=== PATIENT | female | born 1955 | race Hispanic/Latino ===

== ENCOUNTER 2017-10-19 13:06 | Emergency (ER) | payer BC ==
[2017-10-19 13:30] VITALS: TEMP 98.1; BMI 23.3
--- NOTE | 2017-10-19 13:33 | ED PDOC ---
Arrival/HPI - General Time Seen by Provider: 10/19/17 13:17 Historian: Patient - History of Present Illness Narrative History of Present Illness (Text): 10/19/17 13:30 61 year old female, whose medical history includes COPD, GERD, bronchitis, and diverticulosis, with no history of kidney stones, presents to the Emergency department complaining of lower back pain with associated urinary frequency and dysuria that began today. Patient also complains of abdominal bloating, nausea, and diarrhea since yesterday. Patient denies any fever, chills, chest pain, shortness of breath, vomiting, neck pain, headache, dizziness, or any other complaints. Time/Duration: < week (2 days) Symptom Onset: Gradual Symptom Course: Unchanged Context: Home Past Medical History - Provider Review Nursing Documentation Reviewed: Yes - Tetanus Immunization Tetanus Immunization: Unknown - Cardiac Hx Hypertension: Yes Hx Mitral Valve Prolapse: Yes - Pulmonary Hx Asthma: Yes Hx Chronic Obstructive Pulmonary Disease (COPD): Yes - Neurological Hx Neurological Disorder: No - HEENT Hx HEENT Disorder: No - Renal Hx Renal Disorder: No - Endocrine/Metabolic Hx Endocrine Disorders: No - Hematological/Oncological Hx Blood Disorders: No - Integumentary Hx Dermatological Disorder: No - Musculoskeletal/Rheumatological Hx Falls: No - Gastrointestinal Hx Gastrointestinal Disorders: No - Genitourinary/Gynecological Hx Genitourinary Disorders: No - Psychiatric Hx Substance Use: No - Past Surgical History Past Surgical History: Non-Contributing - Anesthesia Hx Anesthesia: No - Suicidal Assessment Feels Threatened In Home Enviroment: No Family/Social History - Physician Review Nursing Documentation Reviewed: Yes Family/Social History: Unknown Family HX Smoking Status: Heavy Smoker > 10 Cigarettes Daily Hx Alcohol Use: No Hx Substance Use: No Hx Substance Use Treatment: Yes Allergies/Home Meds Allergies/Adverse Reactions: Allergies No Known Allergies Allergy (Verified 10/19/17 15:22) Home Medications: Home Meds Medication Instructions Recorded Confirmed Tiotropium [Spiriva] 18 mcg IH DAILY 03/02/13 10/19/17 Albuterol/Ipratropium [Duoneb 3 1 inh INH Q4 PRN 07/22/14 10/19/17 mg/0.5 mg (3 ml) UD] Esomeprazole Magnesium [Nexium] 20 mg PO DAILY 07/22/14 10/19/17 Montelukast [Singulair] 10 mg PO DAILY 07/22/14 10/19/17 Review of Systems - Physician Review All systems were reviewed & negative as marked: Yes - Review of Systems Constitutional: absent: Fevers, Night Sweats Respiratory: absent: SOB Cardiovascular: absent: Chest Pain Gastrointestinal: Diarrhea, Nausea. absent: Vomiting Genitourinary Female: Dysuria, Frequency Musculoskeletal: Back Pain. absent: Neck Pain Neurological: absent: Headache, Dizziness Physical Exam Vital Signs Reviewed: Yes Vital Signs Temp Pulse Resp BP Pulse Ox 10/19/17 13:29 98.1 F 86 19 138/71 100 Temperature: Afebrile Blood Pressure: Normal Pulse: Regular Respiratory Rate: Normal Appearance: Positive for: Well-Appearing, Non-Toxic, Comfortable Pain Distress: None Mental Status: Positive for: Alert and Oriented X 3 - Systems Exam Head: Present: Atraumatic, Normocephalic Pupils: Present: PERRL Extroacular Muscles: Present: EOMI Conjunctiva: Present: Normal Mouth: Present: Moist Mucous Membranes Neck: Present: Normal Range of Motion Respiratory/Chest: Present: Clear to Auscultation, Good Air Exchange. No: Respiratory Distress, Accessory Muscle Use Cardiovascular: Present: Regular Rate and Rhythm, Normal S1, S2. No: Murmurs Abdomen: Present: Tenderness (left sided abdominal tenderness) Back: Present: Normal Inspection Upper Extremity: Present: Normal Inspection. No: Cyanosis, Edema Lower Extremity: Present: Normal Inspection. No: Edema Neurological: Present: GCS=15, CN II-XII Intact, Speech Normal Skin: Present: Warm, Dry, Normal Color. No: Rashes Psychiatric: Present: Alert, Oriented x 3, Normal Insight, Normal Concentration Medical Decision Making ED Course and Treatment: 10/19/17 13:34 Impression: 61 year old female presents to the Emergency department complaining of lower back pain, urinary frequency, dysuria, abdominal bloating, and diarrhea. Differential Diagnosis included but are not limited to: urinary tract infection vs. diverticulitis Plan: -- Blood culture, urine culture -- Urinalysis -- VBG -- Labs -- Reassess and disposition Prior Visits: Notes and results from previous visits were reviewed. Progress Notes: 10/19/17 17:39 Discussed case in detail with Dr. Garfield Lopez, including how the patient requested Dilaudid by name. Dr. Lopez recommends giving the patient Tramadol and discharging her home. - Lab Interpretations Lab Results: 10/19/17 14:11 10/19/17 14:11 Lab Results 10/19/17 15:25: Urine Color Colorless, Urine Appearance Clear, Urine pH 6.5, Ur Specific [place] <= 1.005, Urine Protein Negative, Urine Glucose (UA) Negative, Urine Ketones Negative, Urine Blood Negative, Urine Nitrate Negative, Urine Bilirubin Negative, Urine Urobilinogen 0.2, Ur Leukocyte Esterase Negative 10/19/17 14:11: Sodium 141, Chloride 103, Potassium 4.2, Carbon Dioxide 26, Anion Gap 16, BUN 12, Creatinine 0.5 L, Est GFR ( Amer) > 60, Est GFR ( Non-Af Amer) > 60, Random Glucose 111 H, Calcium 9.4, Total Bilirubin 0.4, AST 18, ALT 32, Alkaline Phosphatase 80, Total Protein 7.4, Albumin 4.6, Globulin 2.8, Albumin/Globulin Ratio 1.6, Lipase 57 10/19/17 14:11: PT 11.6, INR 1.01 10/19/17 14:11: WBC 7.1, RBC 4.77, Hgb 15.1, Hct 44.1, MCV 92.5, MCH 31.7, MCHC 34.2, RDW 12.6, Plt Count 259, MPV 9.9, Gran % 52.4, Lymph % (Auto) 38.8 H, [place] % (Auto) 7.9 H, Eos % (Auto) 0.6 L, Baso % (Auto) 0.3, Gran # 3.72, Lymph # (Auto) 2.8, [place] # (Auto) 0.6, Eos # (Auto) 0.0, Baso # (Auto) 0.02 10/19/17 14:10: pO2 40, VBG pH 7.36, VBG pCO2 48.0, VBG HCO3 27.1, VBG Total CO2 28.6 H, VBG O2 Sat (Calc) 81.9 H, VBG Base Excess 1.0, VBG Potassium 4.0, Sodium 138.0, Chloride 103.0, Glucose 115 H, Lactate 0.9, FiO2 21.0, Venous Blood Potassium 4.0 - RAD Interpretation Narrative RAD Interpretations (Text): 10/19/2017 16:57:46 CT Abdomen and Pelvis with contrast FINDINGS: LOWER THORAX: Emphysematous changes are seen at the lung bases with multiple small bulla LIVER: Unremarkable. No gross lesion or ductal dilatation. GALLBLADDER AND BILE DUCTS: Unremarkable. PANCREAS: Unremarkable. No gross lesion or ductal dilatation. SPLEEN: Unremarkable. ADRENALS: Unremarkable. No mass. KIDNEYS AND URETERS: Unremarkable. No hydronephrosis. No solid mass. VASCULATURE: Unremarkable. No aortic aneurysm. BOWEL: Unremarkable. No obstruction. No gross mural thickening. APPENDIX: Normal appendix. PERITONEUM: Unremarkable. No free fluid. No free air. LYMPH NODES: Unremarkable. No enlarged lymph nodes. BLADDER: Unremarkable. REPRODUCTIVE: Unremarkable. BONES: No acute fracture. OTHER FINDINGS: None. IMPRESSION: No acute intra-abdominal findings. No evidence of diverticulitis. Radiology Orders: 10/19/17 13:46 ABD PELVIS PO & IV CONTRAST [CT] Stat - Medication Orders Current Medication Orders: Discontinued Medications Diphenhydramine HCl (Benadryl) 50 mg IVP STAT STA Stop: 10/19/17 14:28 Last Admin: 10/19/17 15:23 Dose: Not Given Non-Admin Reason: Patient Refused IVP Administration Document 10/19/17 15:23 GMD (Rec: 10/19/17 15:23 D [id number]) Charges for Administration # of IVP Administrations 1 Sodium Chloride (Sodium Chloride 0.9%) 1,000 mls @ 999 mls/hr IV .Q1H1M STA Stop: 10/19/17 14:46 Last Admin: 10/19/17 14:05 Dose: 999 mls/hr eMAR Start Stop Document 10/19/17 14:05 GMD (Rec: 10/19/17 14:05 D [id number]) Intravenous Solution Start Date 10/19/17 Start Time 14:05 End Date 10/19/17 End time 15:06 Total Infusion Time 61 Ketorolac Tromethamine (Toradol) 30 mg IVP STAT STA Stop: 10/19/17 14:28 Last Admin: 10/19/17 14:54 Dose: 30 mg MAR Pain Assessment Document 10/19/17 14:54 GMD (Rec: 10/19/17 14:54 GMD [id number]) Pain Reassessment Is this a pain reassessment? No IVP Administration Document 10/19/17 14:54 GMD (Rec: 10/19/17 14:54 GMD [id number]) Charges for Administration # of IVP Administrations 1 Morphine Sulfate (Morphine) 4 mg IVP STAT STA Stop: 10/19/17 14:28 Last Admin: 10/19/17 14:54 Dose: 4 mg MAR Pain Assessment Document 10/19/17 14:54 GMD (Rec: 10/19/17 14:55 GMD [id number]) Pain Reassessment Is this a pain reassessment? No IVP Administration Document 10/19/17 14:54 GMD (Rec: 10/19/17 14:55 GMD [id number]) Charges for Administration # of IVP Administrations 1 - Scribe Statement The provider has reviewed the documentation as recorded by the Scribe Josesito Vallejo All medical record entries made by the Scribe were at my direction and personally dictated by me. I have reviewed the chart and agree that the record accurately reflects my personal performance of the history, physical exam, medical decision making, and the department course for this patient. I have also personally directed, reviewed, and agree with the discharge instructions and disposition. Disposition/Present on Arrival - Present on Arrival Any Indicators Present on Arrival: No History of DVT/PE: No History of Uncontrolled Diabetes: No Urinary Catheter: No History of Decub. Ulcer: No History Surgical Site Infection Following: None - Disposition Have Diagnosis and Disposition been Completed?: Yes Diagnosis: Back pain Disposition: HOME/ ROUTINE Disposition Time: 17:49 Patient Plan: Discharge Condition: GOOD Additional Instructions: Rest-, Tramadol for pain Follow up with Dr. Lopez..... call tomorrow. Best- Dr. Josue San Prescriptions: Tramadol HCl/Acetaminophen [Tramadol-Acetaminophn 37.5-325] 2 each PO QID #40 tablet Referrals: [facility] Corrina Herron, [Non-Staff] - Follow up with primary
[2017-10-19] MEDS ORDERED: Sodium Chloride 0.9% 1,000 ML IV STA (13:46)
[2017-10-19] MEDS ORDERED: Iohexol 240 (50 ml) ONE (13:51)
[2017-10-19 14:12] LABS: BASO # 0.02 K/mm3 (0.0-2.0); BASO % 0.3 % (0.0-3.0); EOS % 0.6 % (1.5-5.0); GRAN # 3.72 (1.4-6.5); GRAN % 52.4 % (50.0-68.0); HEMOGLOBIN 15.1 g/dL (12.0-16.0); LYMPH # 2.8 (1.2-3.4); LYMPH % 38.8 % (22.0-35.0); MEAN CELL VOLUME 92.5 fl (80.0-105.0); MEAN CORPUSCULAR HEMOGLOBIN 31.7 pg (25.0-35.0); MEAN CORPUSCULAR HGB CONC 34.2 g/dl (31.0-37.0); MEAN PLATELET VOLUME 9.9 fl (7.0-11.0); MONO # 0.6 (0.1-0.6); MONO % 7.9 % (1.0-6.0); RBC 4.77 10^6/uL (3.5-6.1); RED CELL DISTRIBUTION WIDTH 12.6 % (11.5-14.5); WHITE BLOOD COUNT 7.1 10^3/ul (4.5-11.0)
[2017-10-19 14:14] LABS: VENOUS BLOOD GAS PO2 40 mm/Hg (30-55); VENOUS BLOOD PH 7.36 (7.32-7.43)
[2017-10-19 14:21] LABS: INR 1.01 (0.93-1.08); PROTHROMBIN TIME 11.6 SECONDS (9.4-12.5)
[2017-10-19] MEDS ORDERED: Morphine 4 mg/ml ISec IVP STA (14:27)
[2017-10-19 14:43] LABS: BLOOD UREA NITROGEN 12 mg/dL (7-21); GFR AFRICAN-AMERICAN > 60; GFR NON-AFRICAN AMERICAN > 60
[2017-10-19 14:44] LABS: ALB/GLOB RATIO 1.6 (1.1-1.8); ALBUMIN 4.6 g/dL (3.0-4.8); CALCIUM 9.4 mg/dL (8.4-10.5)
[2017-10-19 14:45] LABS: ALT/SGPT 32 U/L (7-56); AST/SGOT 18 U/L (14-36); LIPASE 57 U/L (23-300)
[2017-10-19] MEDS: DiphenhydrAMINE 50 mg/ml Inj IVP STA ×2 (14:54→15:23)
[2017-10-19 15:34] LABS: PH,URINE 6.5 (4.7-8.0); URINE APPEARANCE CLEAR (CLEAR); URINE BILIRUBIN NEGATIVE (NEGATIVE); URINE BLOOD NEGATIVE (NEGATIVE); URINE COLOR COLORLESS (YELLOW); URINE GLUCOSE (UA) NEGATIVE (NEGATIVE); URINE LEUKOCYTE ESTERASE NEGATIVE Leu/uL (NEGATIVE); URINE PROTEIN NEGATIVE mg/dL (<30 mg/dL); URINE UROBILINOGEN 0.2 E.U./dL (<1 E.U./dL)
[2017-10-19] MEDS ORDERED: Iohexol 350 MG/100 ML VIAL ONE (16:11)
--- NOTE | 2017-10-19 16:59 | CT ---
PROCEDURE: CT Abdomen and Pelvis with contrast HISTORY: ? Diverticulitis ? COMPARISON: None. TECHNIQUE: Contrast dose: 100 cc of Omni 350 Radiation dose: Total exam DLP = 278 mGy-cm. This CT exam was performed using one or more of the following dose reduction techniques: Automated exposure control, adjustment of the mA and/or kV according to patient size, and/or use of iterative reconstruction technique. FINDINGS: LOWER THORAX: Emphysematous changes are seen at the lung bases with multiple small bulla LIVER: Unremarkable. No gross lesion or ductal dilatation. GALLBLADDER AND BILE DUCTS: Unremarkable. PANCREAS: Unremarkable. No gross lesion or ductal dilatation. SPLEEN: Unremarkable. ADRENALS: Unremarkable. No mass. KIDNEYS AND URETERS: Unremarkable. No hydronephrosis. No solid mass. VASCULATURE: Unremarkable. No aortic aneurysm. BOWEL: Unremarkable. No obstruction. No gross mural thickening. APPENDIX: Normal appendix. PERITONEUM: Unremarkable. No free fluid. No free air. LYMPH NODES: Unremarkable. No enlarged lymph nodes. BLADDER: Unremarkable. REPRODUCTIVE: Unremarkable. BONES: No acute fracture. OTHER FINDINGS: None. IMPRESSION: No acute intra-abdominal findings. No evidence of diverticulitis.
[2017-10-19 18:01] VITALS: BP 100/82; PULSE 74; RESP 18; O2SAT 96
== END 2017-10-19 18:02 | disposition home or self-care (01) ==
LOC: ED 13:06
DX: M54.5 Low back pain (principal); I10 Essential (primary) hypertension; F17.210 Nicotine dependence, cigarettes, uncomplicated
CPT/HCPCS: 74177; 80053; 81003; 82803; 83690; 85025; 85610; 87040; 87086; 96361; 96374; 96375; 99284; J1885; J2270; J7030; Q9966; Q9967

== ENCOUNTER 2017-11-08 15:34 | Inpatient (IN) | payer BC ==
[2017-11-08 15:34] VITALS: BMI 23.3
[2017-11-08 16:10] LABS: PH,URINE 6.5 (4.7-8.0); URINE BILIRUBIN NEGATIVE (NEGATIVE); URINE BLOOD TRACE-INTACT (NEGATIVE); URINE GLUCOSE (UA) NEGATIVE (NEGATIVE); URINE LEUKOCYTE ESTERASE NEGATIVE Leu/uL (NEGATIVE); URINE PROTEIN NEGATIVE mg/dL (<30 mg/dL); URINE UROBILINOGEN 0.2 E.U./dL (<1 E.U./dL)
[2017-11-08 16:11] LABS: BASO # 0.01 K/mm3 (0.0-2.0); BASO % 0.1 % (0.0-3.0); EOS % 0.2 % (1.5-5.0); GRAN # 5.97 (1.4-6.5); LYMPH # 2.9 (1.2-3.4); LYMPH % 30.4 % (22.0-35.0); MEAN CELL VOLUME 92.6 fl (80.0-105.0); MEAN CORPUSCULAR HEMOGLOBIN 32.1 pg (25.0-35.0); MEAN CORPUSCULAR HGB CONC 34.6 g/dl (31.0-37.0); MEAN PLATELET VOLUME 10.3 fl (7.0-11.0); MONO # 0.7 (0.1-0.6); MONO % 7.3 % (1.0-6.0); RBC 5.3 10^6/uL (3.5-6.1); RED CELL DISTRIBUTION WIDTH 12.6 % (11.5-14.5); URINE APPEARANCE CLEAR (CLEAR); URINE COLOR STRAW (YELLOW); WHITE BLOOD COUNT 9.6 10^3/ul (4.5-11.0)
[2017-11-08 16:17] LABS: INR 0.98 (0.93-1.08); PARTIAL THROMBOPLASTIN TIME 28.7 Seconds (25.1-36.5); PROTHROMBIN TIME 11.2 SECONDS (9.4-12.5)
[2017-11-08] MEDS ORDERED: Sodium Chloride 0.9% 1,000 ML IV STA (16:17)
[2017-11-08 16:21] LABS: ALB/GLOB RATIO 1.7 (1.1-1.8); ALT/SGPT 20 U/L (7-56); AST/SGOT 25 U/L (14-36); BLOOD UREA NITROGEN 12 mg/dL (7-21); CALCIUM 10.1 mg/dL (8.4-10.5); GFR AFRICAN-AMERICAN > 60; GFR NON-AFRICAN AMERICAN > 60
[2017-11-08 16:32] LABS: B-TYPE NATRIURETIC PEPTIDE 101 pg/mL (0-450); TROPONIN I < 0.01 ng/mL
[2017-11-08 16:38] LABS: URINE BACTERIA FEW (NEG); URINE RBC NEGATIVE /hpf (0-2)
[2017-11-08 16:51] LABS: T3 1.21 ng/mL (0.97-1.69)
--- NOTE | 2017-11-08 16:51 | ED PDOC ---
Arrival/HPI <Yordan Zarate - Last Filed: 11/08/17 18:36> <oPnce Bruner DO - Last Filed: 11/08/17 21:37> - General Chief Complaint: Palpitations Time Seen by Provider: 11/08/17 15:36 - History of Present Illness Narrative History of Present Illness (Text): 61 year old Female presents with heart palpitations, lightheadedness, weakness, SOB, and belching that started earlier today. Patient reports watching TV when she started to feel heart palpitations that would not reside and then developed shortness of breath when she started to panic. She reports having these symptoms 10 years earlier when she was diagnosed with anxiety. 11/08/17 16:48 (Yordan Zarate) Past Medical History - Provider Review Nursing Documentation Reviewed: Yes - Infectious Disease Hx of Infectious Diseases: None - Tetanus Immunization Tetanus Immunization: Unknown - Cardiac Hx Hypertension: Yes Hx Mitral Valve Prolapse: Yes - Pulmonary Hx Asthma: Yes Hx Chronic Obstructive Pulmonary Disease (COPD): Yes - Neurological Hx Neurological Disorder: No - HEENT Hx HEENT Disorder: No - Renal Hx Renal Disorder: No - Endocrine/Metabolic Hx Endocrine Disorders: No - Hematological/Oncological Hx Blood Disorders: No - Integumentary Hx Dermatological Disorder: No - Musculoskeletal/Rheumatological Hx Falls: No Hx Osteoporosis: Yes - Gastrointestinal Hx Gastroesophageal Reflux: Yes - Genitourinary/Gynecological Hx Genitourinary Disorders: No - Psychiatric Hx Depression: No Hx Emotional Abuse: No Hx Physical Abuse: No Hx Substance Use: No - Past Surgical History Past Surgical History: Non-Contributing - Surgical History Hx Orthopedic Surgery: Yes Hx Vascular Surgery: Yes Other/Comment: Right hip replacement, right femur - Anesthesia Hx Anesthesia: No - Suicidal Assessment Feels Threatened In Home Enviroment: No <Yordan Zarate - Last Filed: 11/08/17 18:36> Family/Social History - Physician Review Nursing Documentation Reviewed: Yes Family/Social History: Unknown Family HX Smoking Status: Heavy Smoker > 10 Cigarettes Daily Hx Alcohol Use: No Hx Substance Use: No Hx Substance Use Treatment: Yes <Yordan Zarate - Last Filed: 11/08/17 18:36> Allergies/Home Meds <Yordan Zarate - Last Filed: 11/08/17 18:36> <Ponce Bruner DO - Last Filed: 11/08/17 21:37> Allergies/Adverse Reactions: Allergies No Known Allergies Allergy (Verified 10/19/17 15:22) Home Medications: Home Meds Medication Instructions Recorded Confirmed Tiotropium [Spiriva] 18 mcg IH DAILY 03/02/13 11/08/17 Albuterol/Ipratropium [Duoneb 3 1 inh INH Q4 PRN 07/22/14 11/08/17 mg/0.5 mg (3 ml) UD] Montelukast [Singulair] 10 mg PO DAILY 07/22/14 11/08/17 Dexlansoprazole [Dexilant] 60 mg PO DAILY 11/08/17 11/08/17 Review of Systems - Physician Review All systems were reviewed & negative as marked: Yes - Review of Systems Constitutional: Fatigue Eyes: Normal Respiratory: SOB Cardiovascular: Palpitations. absent: Chest Pain Gastrointestinal: Other (belching) Musculoskeletal: Normal Skin: Normal Neurological: Dizziness <Yordan Zarate - Last Filed: 11/08/17 18:36> Physical Exam Temperature: Afebrile Blood Pressure: Normal Pulse: Tachycardic Respiratory Rate: Normal Appearance: Positive for: Well-Appearing Mental Status: Positive for: Alert and Oriented X 3 - Systems Exam Head: Present: Atraumatic, Normocephalic Pupils: Present: PERRL Extroacular Muscles: Present: EOMI Conjunctiva: Present: Normal Nose (External): Present: Atraumatic Nose (Internal): Present: Normal Inspection Neck: Present: Normal Range of Motion Respiratory/Chest: Present: Rales (bilateral lower quadrants) Cardiovascular: Present: Irregular Rhythm, Other (irregular rate) Upper Extremity: Present: Normal Inspection, Normal ROM, NORMAL PULSES Lower Extremity: Present: Normal Inspection, NORMAL PULSES, Normal ROM Neurological: Present: GCS=15, CN II-XII Intact, Speech Normal, Motor Func Grossly Intact Skin: Present: Warm, Normal Color Psychiatric: Present: Alert, Oriented x 3, Normal Insight, Normal Concentration <Yordan Zarate - Last Filed: 11/08/17 18:36> <Ponce Bruner DO - Last Filed: 11/08/17 21:37> Vital Signs Temp Pulse Resp BP Pulse Ox 11/08/17 19:59 102 H 18 96 11/08/17 19:10 133 H 18 117/75 95 11/08/17 17:12 140 H 18 136/64 97 11/08/17 16:24 135 H 126/63 11/08/17 15:58 98.2 F 11/08/17 15:51 152 H 128/58 L 11/08/17 15:50 144 H 18 128/58 L 100 Medical Decision Making <Yordan Zarate - Last Filed: 11/08/17 18:36> <Ponce Bruner DO - Last Filed: 11/08/17 21:37> ED Course and Treatment: Impression: 61 year old Female presents with heart palpitations, shortness of breath, lightheadedness, weak, and shaky. Assessment: New onset atrial fibrillation Plan: 2 20 mg cardizem bolus in the ED. Her heart rate was lowered with the cardizem but once the cardizem wore off, her heart rate increased again to the 140s. She will be started on a cardizem drip to try to break the atrial fibrillation. IV NS 0.9% 1L over 1 hour. Ketorolac 30 mg CBC CMP Magnesium BNP Troponin PT/INR PTT T3 TSH EKG: Atrial fibrillation with RVR HR: 143 QRS duration: 76 QT/QTc: 292/450 CXR: no active disease Patient continue to have heart rate in 140s. Case discussed with Dr. Lopez, and patient admitted to ICU on Cardizem drip. Will also give patient lovenox 1 mg per kg Q12. 11/08/17 18:34 11/08/17 18:35 (Yordan Zarate) 11/08/17 17:08 Patient has been given 2 doses Cardizem IV push. Patient continues to have heart rate in 140s. Case discussed with Dr. Lopez, states to have patient admitted to ICU on Cardizem drip. Spoke to Dr. Brayan Jay, who recommends to give patient Lovonox 1 mg per kg Q12 hours. 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 (Ponce Bruner DO) - Lab Interpretations Lab Results: 11/08/17 15:50 11/08/17 15:50 Lab Results 11/08/17 15:50: PT 11.2, INR 0.98, APTT 28.7 11/08/17 15:50: Total T3 1.21, TSH 3rd Generation 1.25 11/08/17 15:50: Sodium 145, Potassium 4.1, Chloride 105, Carbon Dioxide 25, Anion Gap 19, BUN 12, Creatinine 0.5 L, Est GFR ( Amer) > 60, Est GFR ( Non-Af Amer) > 60, Random Glucose 104, Calcium 10.1, Magnesium 2.0, Total Bilirubin 0.7, AST 25, ALT 20, Alkaline Phosphatase 88, Lactate Dehydrogenase 442, Total Creatine Kinase 72, Troponin I < 0.01, NT-Pro-B Natriuret Pep 101, Total Protein 8.0, Albumin 5.0 H, Globulin 3.0, Albumin/Globulin Ratio 1.7 11/08/17 15:50: Urine Color Straw, Urine Appearance Clear, Urine pH 6.5, Ur Specific [place] <= 1.005, Urine Protein Negative, Urine Glucose (UA) Negative, Urine Ketones Negative, Urine Blood Trace-intact H, Urine Nitrate Negative, Urine Bilirubin Negative, Urine Urobilinogen 0.2, Ur Leukocyte Esterase Negative , Urine RBC Negative, Urine WBC 1 - 3, Ur Epithelial Cells 1 - 3, Urine Bacteria Few 11/08/17 15:50: WBC 9.6 D, RBC 5.30, Hgb 17.0 H, Hct 49.1 H, MCV 92.6, MCH 32.1 , MCHC 34.6, RDW 12.6, Plt Count 295, MPV 10.3, Gran % 62.0, Lymph % (Auto) 30.4 , [place] % (Auto) 7.3 H, Eos % (Auto) 0.2 L, Baso % (Auto) 0.1, Gran # 5.97, Lymph # (Auto) 2.9, [place] # (Auto) 0.7 H, Eos # (Auto) 0.0, Baso # (Auto) 0.01 - RAD Interpretation Radiology Orders: 11/08/17 15:45 CHEST PORTABLE [RAD] Stat - Medication Orders Current Medication Orders: Alprazolam (Xanax) 0.25 mg PO TID PRN; Protocol PRN Reason: Anxiety diltiaZEM IVPB 100mg in NS (Cardizem 100mg In Ns) 100 mls @ 5 mls/hr IV .Q20H PRN; Protocol; 5 MG/HR PRN Reason: TITRATE PER MD ORDER Last Admin: 11/08/17 17:30 Dose: 10 mls/hr eMAR Start Stop Document 11/08/17 17:30 [facility] (Rec: 11/08/17 17:30 [facility] [id number]) Intravenous Solution Start Date 11/08/17 Start Time 17:30 Sodium Chloride (Sodium Chloride 0.9%) 1,000 mls @ 100 mls/hr IV .Q10H ANTIONETTE Last Admin: 11/08/17 19:08 Dose: 100 mls/hr eMAR Start Stop Document 11/08/17 19:08 [facility] (Rec: 11/08/17 19:08 [facility] [id number]) Intravenous Solution Start Date 11/08/17 Start Time 19:08 Levalbuterol HCl (Xopenex) 0.63 mg IH Q6 PRN PRN Reason: Shortness of Breath Levalbuterol HCl (Xopenex) 0.63 mg IH [id number] PRN PRN Reason: Shortness of Breath Montelukast Sodium (Singulair) 10 mg PO DAILY ANTIONETTE Pantoprazole Sodium (Protonix Ec Tab) 40 mg PO ACB ANTIONETTE Tiotropium [place] (Spiriva) 18 mcg IH DAILY ANTIONETTE Discontinued Medications Alprazolam (Xanax) 0.25 mg PO STAT STA PRN Reason: Protocol Stop: 11/08/17 17:22 Last Admin: 11/08/17 17:44 Dose: 0.25 mg Re-Assess: Reassess Psych Meds Document 11/08/17 18:44 QES (Rec: 11/08/17 20:23 QES [id number]) Reassess Psych Med Effective Diltiazem HCl (Cardizem) 20 mg IVP STAT STA Stop: 11/08/17 15:49 Last Admin: 11/08/17 15:51 Dose: 20 mg IVP Administration Document 11/08/17 15:51 [facility] (Rec: 11/08/17 15:51 [facility] [id number]) Charges for Administration # of IVP Administrations 1 MAR Pulse and Blood Pressure Document 11/08/17 15:51 [facility] (Rec: 11/08/17 15:51 [facility] [id number]) Pulse Pulse Rate (60-90) 152 Blood Pressure Blood Pressure (100/60-150/90) 128/58 Diltiazem HCl (Cardizem) 20 mg IVP STAT STA Stop: 11/08/17 16:18 Last Admin: 11/08/17 16:24 Dose: 20 mg IVP Administration Document 11/08/17 16:24 LM (Rec: 11/08/17 16:25 [facility] [id number]) Charges for Administration # of IVP Administrations 1 MAR Pulse and Blood Pressure Document 11/08/17 16:24 [facility] (Rec: 11/08/17 16:25 [facility] [id number]) Pulse Pulse Rate (60-90) 135 Blood Pressure Blood Pressure (100/60-150/90) 126/63 Enoxaparin Sodium (Lovenox) 60 mg SC STAT STA PRN Reason: Protocol Stop: 11/08/17 17:06 Last Admin: 11/08/17 17:29 Dose: 60 mg Subcutaneous Administrations Document 11/08/17 17:29 [facility] (Rec: 11/08/17 17:29 [facility] [id number]) Injection Site MAR Injection Site Right Abdomen Charges for Administration # of Subcutaneous Administrations 1 Sodium Chloride (Sodium Chloride 0.9%) 1,000 mls @ 999 mls/hr IV .Q1H1M STA Stop: 11/08/17 17:17 Last Admin: 11/08/17 16:22 Dose: 999 mls/hr eMAR Start Stop Document 11/08/17 16:22 [facility] (Rec: 11/08/17 16:22 [facility] [id number]) Intravenous Solution Start Date 11/08/17 Start Time 16:22 End Date 11/08/17 End time 17:23 Total Infusion Time 61 Disposition/Present on Arrival - Present on Arrival Any Indicators Present on Arrival: No History of DVT/PE: No History of Uncontrolled Diabetes: No Urinary Catheter: No History of Decub. Ulcer: No History Surgical Site Infection Following: None - Disposition Have Diagnosis and Disposition been Completed?: Yes Disposition Time: 18:36 Patient Plan: Admission <Yordan Zarate - Last Filed: 11/08/17 18:36> - Disposition Disposition Time: 16:40 <Ponce Bruner DO - Last Filed: 11/08/17 21:37> - Disposition Diagnosis: Atrial fibrillation, Rapid atrial fibrillation, New onset atrial fibrillation Disposition: HOSPITALIZED Patient Problems: Current Active Problems Problem Status Onset Atrial fibrillation Acute Condition: GUARDED ED Critical Care Documentation - Critical Care Total Time (mins): 60 Documented critical care: time excludes all time spent performing seperately billable procedures. <Ponce Bruner DO - Last Filed: 11/08/17 21:37>
[2017-11-08] MEDS ORDERED: Enoxaparin 60 mg Syringe SC STA (17:05)
[2017-11-08] MEDS: diltiaZEM IVPB 100mg in NS 100 ML IV PRN ×2 (17:07→17:30)
--- NOTE | 2017-11-08 17:28 | RAD ---
Date of service: 11/08/2017 HISTORY: r/o infiltrate COMPARISON: Chest radiograph dated 06/16/2017. FINDINGS: LUNGS: No active pulmonary disease. PLEURA: No significant pleural effusion identified, no pneumothorax apparent. CARDIOVASCULAR: Atherosclerotic aortic calcifications. Cardiomediastinal silhouette within normal limits. OSSEOUS STRUCTURES: Unchanged. VISUALIZED UPPER ABDOMEN: Normal. OTHER FINDINGS: None. IMPRESSION: No active disease.
--- NOTE | 2017-11-08 17:29 | CP.PCM.CON ---
History of Present Illness - History of Present Illness History of Present Illness: Brandon Tamez DO PGY-1 ICU Consult Note for Dr. lAbrecht CC: palpitations this afternoon This is a 61 year old female with PMHx of Anxiety, MVP, Asthma, COPD, DJD, GERD, Osteoarthritis who presented to the ED via ambulance with complaint of palpitations for a few hours. Pt states that she was watching TV at home at around 2 pm, when she developed a rapid heart rate. ICU was consulted for afib with RVR. Pt was seen and examined in the ED. Pt denies diaphoresis, chest pain , fever, chills, abdominal pain, nausea, vomiting, diarrhea at this time. Pt states that she attributed it to anxiety, and proceeded to develop shortness of breath as the palpitations did not resolve. Pt states that she used her Ventolin inhaler x2, with relief of shortness of breath but not the palpitations. Pt states that she is a social drinker, but drank 6-7 beers last night. She also reports having a headache last night which went away on its own. Pt states that she had a rapid heart rate 10 years ago, at which time she was diagnosed with anxiety and given a prescription for Xanax. Pt states that she has not taken Xanax in years. A 12 point ROS was reviewed and is otherwise unremarkable. In ED, pt received IV NS 0.9% 1L bolus, Ketorolac, Cardizem 20 mg IV bolus x2. She was started on a cardizem drip to try to break the atrial fibrillation. Cardiology was contacted, who advised to start Lovenox 1 mg per kg Q12 hours. PMHx: as above PSHx: Left foot bunionectomy, nueroma, multiple D and C's, uvulectomy, corrective eye surgery, tubal ligation Meds: as per MAR Allx: NKDA, seasonal allergies Social Hx: Former smoker (90 Pack year history); pt currently uses a vaporizer, Social drinker (6-7 beers when she does drink), denies drug use, excessive caffeine intake Family Hx: HTN Review of Systems - Review of Systems All systems: reviewed and no additional remarkable complaints except (as per HPI ) Past Patient History - Infectious Disease Hx of Infectious Diseases: None - Tetanus Immunizations Tetanus Immunization: Unknown - Past Medical History & Family History Past Medical History?: Yes Past Family History: Reviewed and not pertinent - Past Social History Smoking Status: vaping Alcohol: Social - CARDIAC Hx Hypertension: Yes Hx Mitral Valve Prolapse: Yes - PULMONARY Hx Asthma: Yes Hx Chronic Obstructive Pulmonary Disease (COPD): Yes - NEUROLOGICAL Hx Neurological Disorder: No - HEENT Hx HEENT Problems: No Other/Comment: corrective eye surgery - RENAL Hx Chronic Kidney Disease: No - ENDOCRINE/METABOLIC Hx Endocrine Disorders: No - HEMATOLOGICAL/ONCOLOGICAL Hx Blood Disorders: No - INTEGUMENTARY Hx Dermatological Problems: No - MUSCULOSKELETAL/RHEUMATOLOGICAL Hx Degenerative Joint Disease: Yes Hx Falls: No Hx Osteoarthritis: Yes Hx Osteoporosis: Yes - GASTROINTESTINAL Hx Gastroesophageal Reflux: Yes - GENITOURINARY/GYNECOLOGICAL Hx Genitourinary Disorders: No - PSYCHIATRIC Hx Anxiety: Yes Hx Depression: No Hx Emotional Abuse: No Hx Physical Abuse: No Hx Substance Use: No - SURGICAL HISTORY Hx Surgeries: Yes Hx Dilation and Curettage: Yes Hx Eye Surgery: Yes Hx Orthopedic Surgery: Yes Hx Vascular Surgery: Yes Other/Comment: Right hip replacement, right femur - ANESTHESIA Hx Anesthesia: Yes Meds Allergies/Adverse Reactions: Allergies Allergy/AdvReac Type Severity Reaction Status Date / Time No Known Allergies Allergy Verified 10/19/17 15:22 - Medications Medications: Current Medications Alprazolam (Xanax) 0.25 mg PO STAT STA PRN Reason: Protocol Stop: 11/08/17 17:22 diltiaZEM IVPB 100mg in NS (Cardizem 100mg In Ns) 100 mls @ 5 mls/hr IV .Q20H PRN; Protocol; 5 MG/HR PRN Reason: TITRATE PER MD ORDER Last Admin: 11/08/17 17:07 Dose: 5 mls/hr Physical Exam - Constitutional Appears: Non-toxic, No Acute Distress - Head Exam Head Exam: ATRAUMATIC - Eye Exam Eye Exam: EOMI, Normal appearance - ENT Exam ENT Exam: Mucous Membranes Moist - Respiratory Exam Respiratory Exam: Clear to Auscultation Bilateral. absent: Accessory Muscle Use , Respiratory Distress - Cardiovascular Exam Cardiovascular Exam: Tachycardia, +S1, +S2 - GI/Abdominal Exam GI & Abdominal Exam: absent: Distended, Tenderness - Extremities Exam Extremities exam: Positive for: normal inspection - Back Exam Back exam: NORMAL INSPECTION - Neurological Exam Neurological exam: Alert, Oriented x3 - Psychiatric Exam Psychiatric exam: Anxious - Skin Skin Exam: Normal Color Results - Vital Signs Recent Vital Signs: Last Vital Signs Temp 98.2 F 11/08/17 15:58 Pulse 140 H 11/08/17 17:12 Resp 18 11/08/17 17:12 BP 136/64 11/08/17 17:12 Pulse Ox 97 11/08/17 17:12 - Labs Result Diagrams: 11/08/17 15:50 11/08/17 15:50 Labs: Laboratory Results - last 24 hr 11/08/17 11/08/17 11/08/17 15:50 15:50 15:50 WBC 9.6 D RBC 5.30 Hgb 17.0 H Hct 49.1 H MCV 92.6 MCH 32.1 MCHC 34.6 RDW 12.6 Plt Count 295 MPV 10.3 Gran % 62.0 Lymph % (Auto) 30.4 [place] % (Auto) 7.3 H Eos % (Auto) 0.2 L Baso % (Auto) 0.1 Gran # 5.97 Lymph # (Auto) 2.9 [place] # (Auto) 0.7 H Eos # (Auto) 0.0 Baso # (Auto) 0.01 PT INR APTT Sodium 145 Potassium 4.1 Chloride 105 Carbon Dioxide 25 Anion Gap 19 BUN 12 Creatinine 0.5 L Est GFR ( Amer) > 60 Est GFR (Non-Af Amer) > 60 Random Glucose 104 Calcium 10.1 Magnesium 2.0 Total Bilirubin 0.7 AST 25 ALT 20 Alkaline Phosphatase 88 Lactate Dehydrogenase 442 Total Creatine Kinase 72 Troponin I < 0.01 NT-Pro-B Natriuret Pep 101 Total Protein 8.0 Albumin 5.0 H Globulin 3.0 Albumin/Globulin Ratio 1.7 Total T3 TSH 3rd Generation Urine Color Straw Urine Appearance Clear Urine pH 6.5 Ur Specific [place] <= 1.005 Urine Protein Negative Urine Glucose (UA) Negative Urine Ketones Negative Urine Blood Trace-intact H Urine Nitrate Negative Urine Bilirubin Negative Urine Urobilinogen 0.2 Ur Leukocyte Esterase Negative Urine RBC Negative Urine WBC 1 - 3 Ur Epithelial Cells 1 - 3 Urine Bacteria Few 11/08/17 11/08/17 15:50 15:50 WBC RBC Hgb Hct MCV MCH MCHC RDW Plt Count MPV Gran % Lymph % (Auto) [place] % (Auto) Eos % (Auto) Baso % (Auto) Gran # Lymph # (Auto) [place] # (Auto) Eos # (Auto) Baso # (Auto) PT 11.2 INR 0.98 APTT 28.7 Sodium Potassium Chloride Carbon Dioxide Anion Gap BUN Creatinine Est GFR ( Amer) Est GFR (Non-Af Amer) Random Glucose Calcium Magnesium Total Bilirubin AST ALT Alkaline Phosphatase Lactate Dehydrogenase Total Creatine Kinase Troponin I NT-Pro-B Natriuret Pep Total Protein Albumin Globulin Albumin/Globulin Ratio Total T3 1.21 TSH 3rd Generation 1.25 Urine Color Urine Appearance Urine pH Ur Specific [place] Urine Protein Urine Glucose (UA) Urine Ketones Urine Blood Urine Nitrate Urine Bilirubin Urine Urobilinogen Ur Leukocyte Esterase Urine RBC Urine WBC Ur Epithelial Cells Urine Bacteria Assessment & Plan - Assessment and Plan (Free Text) Assessment: 61 year old female with PMHx of Anxiety, MVP, Asthma, COPD, DJD, GERD , Osteoarthritis who presented to the ED via ambulance with complaint of palpitations, found to be in AFib with RVR (HRs up to 160). Pt is on Cardizem gtt at 5 mg/hr requiring ICU admission. BP and respiratory status are currently stable. Per cardiology recommendations, Lovenox therapeutic dose started. Plan: Afib wth RVR - Admit to ICU - Cardizem gtt - As per Cardio, Lovenox 60 mg SC - O2 PRN - CXR pending - EKG: Atrial fibrillation with RVR HR: 143 QRS duration: 76 QT/QTc: 292/450 - CBC, CMP were reviewed - TSH WNL - Trend troponin - Monitor for BP and respiratory changes - Maintain SpO2>92% - Maintain SBP<120, DBP<80 - f/u cardio recs COPD - Xopenex PRN Anxiety: - Xanax PRN Case was reviewed and discussed with attending physician, Dr. Albrecht
[2017-11-08] MEDS ORDERED: Levalbuterol 0.63 MG/3 ML Inhal Soln UD IH PRN ×2 (18:20→21:08)
[2017-11-08] MEDS: Sodium Chloride 0.9% 1,000 ML IV SCH (19:08)
--- NOTE | 2017-11-08 19:55 | CARD ---
APPROVED REPORT Date of service: 11/08/2017 EKG Measurement Heart [id number] <Conclusion> Atrial fibrillation with rapid ventricular response Nonspecific ST abnormality, probably digitalis effect Abnormal ECG
[2017-11-09] MEDS: diltiaZEM IVPB 100mg in NS 100 ML IV PRN (04:42)
[2017-11-09] MEDS: Sodium Chloride 0.9% 1,000 ML IV SCH (04:51)
[2017-11-09 06:07] LABS: MEAN CELL VOLUME 94.1 fl (80.0-105.0); MEAN CORPUSCULAR HEMOGLOBIN 31.8 pg (25.0-35.0); MEAN CORPUSCULAR HGB CONC 33.8 g/dl (31.0-37.0); MEAN PLATELET VOLUME 9.6 fl (7.0-11.0); RBC 4.06 10^6/uL (3.5-6.1); RED CELL DISTRIBUTION WIDTH 12.8 % (11.5-14.5)
[2017-11-09 06:18] LABS: HEMOGLOBIN 12.9 g/dL (12.0-16.0)
[2017-11-09] MEDS ORDERED: Enoxaparin 60 mg Syringe SC SCH (06:45)
[2017-11-09 07:11] LABS: BASO # 0.02 K/mm3 (0.0-2.0); BASO % 0.4 % (0.0-3.0); EOS # 0.1 (0.0-0.7); EOS % 2.2 % (1.5-5.0); GRAN # 2.53 (1.4-6.5); GRAN % 45.6 % (50.0-68.0); HEMOGLOBIN 12.8 g/dL (12.0-16.0); LYMPH # 2.4 (1.2-3.4); LYMPH % 42.4 % (22.0-35.0); MEAN CORPUSCULAR HEMOGLOBIN 30.6 pg (25.0-35.0); MEAN CORPUSCULAR HGB CONC 32.6 g/dl (31.0-37.0); MEAN PLATELET VOLUME 9.9 fl (7.0-11.0); MONO # 0.5 (0.1-0.6); MONO % 9.4 % (1.0-6.0); RBC 4.18 10^6/uL (3.5-6.1); RED CELL DISTRIBUTION WIDTH 12.7 % (11.5-14.5); WHITE BLOOD COUNT 5.5 10^3/ul (4.5-11.0)
[2017-11-09 07:17] LABS: ALB/GLOB RATIO 1.5 (1.1-1.8); ALBUMIN 3.6 g/dL (3.0-4.8); ALT/SGPT 31 U/L (7-56); AST/SGOT 16 U/L (14-36); BLOOD UREA NITROGEN 16 mg/dL (7-21); CALCIUM 8.3 mg/dL (8.4-10.5); GFR AFRICAN-AMERICAN > 60; GFR NON-AFRICAN AMERICAN > 60
[2017-11-09] MEDS ORDERED: Pantoprazole 40 mg EC Tab PO SCH (07:30)
--- NOTE | 2017-11-09 08:02 | HP ---
HISTORY OF PRESENT ILLNESS: I know Kyara very well from the office. I actually saw her a few days ago, where she was doing quiet well. Heart rate was regular, no issues and I asked her to quit smoking and I renewed some medications for her, but I was called on to the emergency room because Kyara Oconnor, 61-year-old white female presented with heart palpitations, lightheadedness, anxiety, weakness, shortness of breath, and belching that was started earlier, maybe 4 hours earlier while she was watching TV. She thought that it was just anxiety. She has had that 10 years in the past, thought that she was having a panic attack, but that would not go away, she decided to come to the emergency room, not knowing what happens. She thought that was anxiety. PAST MEDICAL HISTORY: Hypertension, mitral valve prolapse, asthma, COPD, osteoporosis, gastroesophageal reflux disease. She has right hip replacement, right femur. FAMILY HISTORY: She has unknown family history. SOCIAL HISTORY: She still smokes about a pack a day. No alcohol, no drugs. ALLERGIES: NO KNOWN DRUG ALLERGIES. MEDICATIONS: She is on Spiriva, DuoNeb, Nexium, and Singulair. REVIEW OF SYSTEMS: She was fatigued, anxious. No acute vision changes or hearing changes, but No sore throat. She was short of breath. No cough. There was palpitations. [place] pounding in the chest, but no chest pain. She was belching, very anxious, but looks like she was going to have anxiety attack. No skin issues that she knows of. PHYSICAL EXAMINATION: VITAL SIGNS: Temperature 98.2, pulse is 152, 18 respiratory rate, 136/64 blood pressure, 97% O2 saturation on room air. GENERAL: She is anxious, in bed, tachycardic in the gurney in the ER. She is well appearing, almost crying . She is alert and oriented x3. HEENT: Head is atraumatic, normocephalic. Extraocular muscles are intact. Pupils reactive to light and accommodation. Throat is moist. NECK: Supple. HEART: Irregular rhythm, tachycardic in [id number]. LUNGS: Decreased breath sounds, but clear to auscultation bilaterally. EXTREMITIES: She moves all four extremities. No edema. NEUROLOGIC: GCS is 15. Cranial nerves II to XII grossly intact. Speech is normal. SKIN: Warm and dry. No apparent rashes or ulcers. PSYCHIATRIC: Alert and oriented x3. Very anxious, very nervous, and crying now. LYMPHATICS: Thyroid midline. No palpable lymphadenopathy. LABORATORY DATA: She had multiple tests. Chest x-ray showed no acute disease. EKG showed atrial fibrillation, rapid ventricular rate in 140's to 150's. She has a 9.6 white count, 17 hemoglobin. It was 15 a little while earlier. She also told me she was out in the garden and not drinking enough fluids. She is under a lot of stress. Takes a pot of coffee a day and not sleeping well. She has 49.1 hematocrit, about 295 platelets. 145 sodium, potassium 4.1, chloride 105, carbon dioxide 25, anion gap is 19, BUN 12, creatinine 0.5, GFR is greater than 60, random sugar is 104, calcium 7.1, magnesium 2, total bilirubin 0.7, AST 25, ALT 20, alkaline phosphatase 88, lactate dehydrogenase is 442, total creatine kinase is 70, troponin I is less than 0.01. BNP is 101. Total protein 8, albumin 5, globulin 3. ASSESSMENT AND PLAN: She was given diltiazem IV. She is on Cardizem drip now. She was given Xanax for anxiety. She is going to go in to the intensive care unit. She never consulted with Dr. Jay. She has new-onset atrial fibrillation consult with Dr. Jay, Cardiology in intensive care unit. We will be checking on labs tomorrow. She is on Cardizem drip. She is on Lovenox. She may have oxygen, Xanax, and her regular medications. We will see her tomorrow. Garfield Lopez DO [place]
--- NOTE | 2017-11-09 09:20 | PN ---
DATE: 11/09/2017 SUBJECTIVE: I admitted her late last night to the ICU. She was on a Cardizem drip, now she is off the Cardizem drip, Cardizem p.o. She is on Lovenox, pantoprazole, Singulair, Spiriva, Xanax and Xopenex. She converted to normal sinus rhythm. She is feeling a bit better, still quite nervous of the situation. Awaiting for fabrication specialist to come in. OBJECTIVE: VITAL SIGNS: She has 98.2 temperature; 68 pulse; 28 respiratory rate down to 22 and 99% O2 sat on room air. HEENT: Head is atraumatic, normocephalic. She is eating some. Not much of an appetite. HEART: Regular rate at this time. LUNGS: Decreased breath sounds. Poor inspiration, but clear. ABDOMEN: Soft, nontender. EXTREMITIES: No edema. DATA: She has a 140 sodium, potassium 4, BUN of 60, creatinine 0.5. GFR is greater than 60, sugar is 99,calcium is 8.3. Phosphorus 3.7, magnesium 1.7, total bili is 0.4, AST is 16, ALT is 31, alkaline phosphatase 56. Troponin was less than 0.01. Total protein 6.1. TSH is 1.25. White count 5.5, hemoglobin 12.8, hematocrit 39.3, platelets of 221. She came in, in rapid atrial fibrillation. She is now normal sinus. We will see what Dr. Jay, the fabrication specialist wants to do and we will take it from there. Otherwise, she is definitely improved than when she came into the hospital facility. Garfield Lopez DO
--- NOTE | 2017-11-09 09:57 | CP.CCUPN ---
<Brandon Tamez - Last Filed: 11/09/17 11:05> CCU Subjective - Physician Review Subjective (Free Text): Brandon Tamez DO PGY-1 ICU Progress note for Dr. Albrecht Pt seen and examined at bedside. Pt complains of a mild headache this morning, described as a "thumping" on the top of her head. Pt attributes this to caffeine withdrawal as she drinks 12 cups of coffee a day. Headache is rated a 4 /10, with no associated symptoms or radiation. Pt denies fever, visual changes, blurry vision, dizziness, lightheadedness, chest pain, shortness of breath, palpitations, abdominal pain, N/V/D, paresthesias. Cardizem gtt has been discontinued as patient converted to NSR this morning; current HR is in the low 70s. A 12-point ROS was reviewed and is unremarkable except as above. CCU Objective - Vital Signs / Intake & Output Vital Signs (Last 4 hours): Vital Signs Pulse 11/09/17 07:01 75 11/09/17 06:00 64 Intake and Output (Last 8hrs): Intake & Output 11/08/17 11/09/17 11/09/17 22:59 06:59 14:59 Intake Total 1050 Output Total 500 Balance 550 Weight 56.88 kg Intake: IV 1050 Right 1030 Output: Urine 500 Urine, Voided 500 Stool 0 - Physical Exam Head: Positive for: Atraumatic, Normocephalic Pupils: Positive for: PERRL Extroacular Muscles: Positive for: EOMI Conjunctiva: Positive for: Normal Mouth: Positive for: Moist Mucous Membranes Neck: Positive for: Normal Range of Motion Respiratory/Chest: Positive for: Clear to Auscultation, Good Air Exchange. Negative for: Respiratory Distress, Accessory Muscle Use, Wheezes Cardiovascular: Positive for: Regular Rate and Rhythm, Normal S1, S2. Negative for: Murmurs, Rub, Gallop Abdomen: Positive for: Normal Bowel Sounds. Negative for: Tenderness, Distention Upper Extremity: Positive for: Normal Inspection, Normal ROM, NORMAL PULSES (2+ in bilateral radial arteries) Lower Extremity: Positive for: Normal Inspection, NORMAL PULSES (2+ in bilateral dorsalis pedis), Normal ROM Neurological: Positive for: GCS=15, CN II-XII Intact, Speech Normal, Motor Func Grossly Intact Skin: Positive for: Warm, Normal Color Psychiatric: Positive for: Alert, Oriented x 3, Normal Insight, Normal Concentration - Medications Active Medications: Active Medications Generic Name Dose Route Start Last Admin Trade Name Freq PRN Reason Stop Dose Admin Alprazolam 0.25 mg 11/08/17 21:20 11/08/17 22:11 Xanax PO 0.25 mg TID PRN Administration Anxiety Protocol Aspirin 81 mg 11/09/17 10:00 Ecotrin PO DAILY ANTIONETTE Sodium Chloride 1,000 mls @ 100 mls/hr 11/08/17 18:30 11/09/17 04:51 Sodium Chloride 0.9% IV 100 mls/hr .Q10H ANTIONETTE Administration Levalbuterol HCl 0.63 mg 11/08/17 21:08 Xopenex IH [id number] PRN Shortness of Breath Montelukast Sodium 10 mg 11/09/17 10:00 Singulair PO DAILY ANTIONETTE Pantoprazole Sodium 40 mg 11/09/17 07:30 11/09/17 07:07 Protonix Ec Tab PO 40 mg ACB ANTIONETTE Administration Sotalol HCl 80 mg 11/09/17 10:00 Betapace PO BID ANTIONETTE Tiotropium [place] 18 mcg 11/09/17 10:00 Spiriva IH DAILY ANTIONETTE - Patient Studies Lab Studies: Lab Studies 11/09/17 11/09/17 11/09/17 Range/Units 06:50 06:40 06:00 WBC 5.5 (4.5-11.0) 10^3/ul RBC 4.18 (3.5-6.1) 10^6/uL Hgb 12.8 (12.0-16.0) g/dL Hct 39.3 (36.0-48.0) % MCV 94.0 (80.0-105.0) fl MCH 30.6 (25.0-35.0) pg MCHC 32.6 (31.0-37.0) g/dl RDW 12.7 (11.5-14.5) % Plt Count 221 (120.0-450.0) 10^3/uL MPV 9.9 (7.0-11.0) fl Gran % 45.6 L (50.0-68.0) % Lymph % (Auto) 42.4 H (22.0-35.0) % [place] % (Auto) 9.4 H (1.0-6.0) % Eos % (Auto) 2.2 (1.5-5.0) % Baso % (Auto) 0.4 (0.0-3.0) % Gran # 2.53 (1.4-6.5) Lymph # (Auto) 2.4 (1.2-3.4) [place] # (Auto) 0.5 (0.1-0.6) Eos # (Auto) 0.1 (0.0-0.7) Baso # (Auto) 0.02 (0.0-2.0) K/mm3 Sodium 140 (132-148) mmol/L Potassium 4.0 (3.6-5.0) mmol/L Chloride 109 H (98-107) mmol/L Carbon Dioxide 24 (21-33) mmol/L Anion Gap 12 (10-20) BUN 16 (7-21) mg/dL Creatinine 0.5 L (0.7-1.2) mg/dl Est GFR ( Amer) > 60 Est GFR (Non-Af Amer) > 60 Random Glucose 99 (70-110) mg/dL Calcium 8.3 L (8.4-10.5) mg/dL Phosphorus 3.7 (2.5-4.5) mg/dL Magnesium 1.7 (1.7-2.2) mg/dL Total Bilirubin 0.4 (0.2-1.3) mg/dL AST 16 (14-36) U/L ALT 31 (7-56) U/L Alkaline Phosphatase 56 (38-126) U/L Troponin I < 0.01 ng/mL Total Protein 6.1 (5.8-8.3) g/dL Albumin 3.6 (3.0-4.8) g/dL Globulin 2.5 gm/dL Albumin/Globulin Ratio 1.5 (1.1-1.8) 11/09/17 Range/Units 05:30 WBC 6.0 D (4.5-11.0) 10^3/ul RBC 4.06 (3.5-6.1) 10^6/uL Hgb 12.9 D (12.0-16.0) g/dL Hct 38.2 (36.0-48.0) % MCV 94.1 (80.0-105.0) fl MCH 31.8 (25.0-35.0) pg MCHC 33.8 (31.0-37.0) g/dl RDW 12.8 (11.5-14.5) % Plt Count 214 (120.0-450.0) 10^3/uL MPV 9.6 (7.0-11.0) fl Gran % (50.0-68.0) % Lymph % (Auto) (22.0-35.0) % [place] % (Auto) (1.0-6.0) % Eos % (Auto) (1.5-5.0) % Baso % (Auto) (0.0-3.0) % Gran # (1.4-6.5) Lymph # (Auto) (1.2-3.4) [place] # (Auto) (0.1-0.6) Eos # (Auto) (0.0-0.7) Baso # (Auto) (0.0-2.0) K/mm3 Sodium (132-148) mmol/L Potassium (3.6-5.0) mmol/L Chloride (98-107) mmol/L Carbon Dioxide (21-33) mmol/L Anion Gap (10-20) BUN (7-21) mg/dL Creatinine (0.7-1.2) mg/dl Est GFR ( Amer) Est GFR (Non-Af Amer) Random Glucose (70-110) mg/dL Calcium (8.4-10.5) mg/dL Phosphorus (2.5-4.5) mg/dL Magnesium (1.7-2.2) mg/dL Total Bilirubin (0.2-1.3) mg/dL AST (14-36) U/L ALT (7-56) U/L Alkaline Phosphatase (38-126) U/L Troponin I ng/mL Total Protein (5.8-8.3) g/dL Albumin (3.0-4.8) g/dL Globulin gm/dL Albumin/Globulin Ratio (1.1-1.8) Laboratory Results - last 24 hr 11/09/17 11/09/17 11/09/17 05:30 06:00 06:40 WBC 6.0 D 5.5 RBC 4.06 4.18 Hgb 12.9 D 12.8 Hct 38.2 39.3 MCV 94.1 94.0 MCH 31.8 30.6 MCHC 33.8 32.6 RDW 12.8 12.7 Plt Count 214 221 MPV 9.6 9.9 Gran % 45.6 L Lymph % (Auto) 42.4 H [place] % (Auto) 9.4 H Eos % (Auto) 2.2 Baso % (Auto) 0.4 Gran # 2.53 Lymph # (Auto) 2.4 [place] # (Auto) 0.5 Eos # (Auto) 0.1 Baso # (Auto) 0.02 Sodium Potassium Chloride Carbon Dioxide Anion Gap BUN Creatinine Est GFR ( Amer) Est GFR (Non-Af Amer) Random Glucose Calcium Phosphorus Magnesium Total Bilirubin AST ALT Alkaline Phosphatase Troponin I < 0.01 Total Protein Albumin Globulin Albumin/Globulin Ratio 11/09/17 06:50 WBC RBC Hgb Hct MCV MCH MCHC RDW Plt Count MPV Gran % Lymph % (Auto) [place] % (Auto) Eos % (Auto) Baso % (Auto) Gran # Lymph # (Auto) [place] # (Auto) Eos # (Auto) Baso # (Auto) Sodium 140 Potassium 4.0 Chloride 109 H Carbon Dioxide 24 Anion Gap 12 BUN 16 Creatinine 0.5 L Est GFR ( Amer) > 60 Est GFR (Non-Af Amer) > 60 Random Glucose 99 Calcium 8.3 L Phosphorus 3.7 Magnesium 1.7 Total Bilirubin 0.4 AST 16 ALT 31 Alkaline Phosphatase 56 Troponin I Total Protein 6.1 Albumin 3.6 Globulin 2.5 Albumin/Globulin Ratio 1.5 Review of Systems - Review of Systems All systems: reviewed and no additional remarkable complaints except (as per HPI ) Critical Care Progress Note - Prophylaxis GI Prophylaxis GI: PPI - Prophylaxis DVT Prophylaxis DVT: Ambulatory - Nutrition Nutrition: Nutrition Category Date Time Status Heart Healthy Diet [DIET] Diets 11/08/17 Dinner Active Assessment/Plan - Assessment and Plan (Free Text) Assessment: 61 year old female with PMHx of Anxiety, MVP, Asthma, COPD, DJD, GERD , Osteoarthritis who presented to the ED yesterday (11/08) via ambulance with complaint of palpitations, found to be in AFib with RVR (HRs up to 160). Pt was admitted to ICU on Cardizem gtt for rate control and monitoring of neurological and cardiovascular status. Pt required a Cardizem gtt at a rate of 10mL/hr to convert to NSR. Pt is currently NSR in the low 70s, and no longer on Cardizem gtt. BP and respiratory status are currently stable. Plan: Neuro: - Monitor for mental status changes - Pt is AAOx3 at baseline Cardio: - Pt is hemodynamically stable and AF has converted to NSR (low 70s) - Cardizem gtt is discontinued - As per cardio, pt placed on Sotalol 80 mg PO BID - Discontinue Lovenox as per cardio - Troponin is <0.01 x2 - Continue ASA - f/u echocardiogram Pulm: - CXR (11/08) shows no active disease - Xopenex PRN - Continue home Singulair, Spiriva GI: - Pt tolerating HHD - PTX for PPX Renal: - Maintain euvolemia - Replete electrolytes as needed - Continue NS at 100 mL/hr Endo: - Maintain euglycemia Heme: - H/H is stable ID: -No signs of infectious etiology Psych: -History of anxiety; Xanax PRN PPX: PTX for GI; Pt is ambulatory Dispo: Pt has converted to NSR, hemodynamically stable; Pt will be evaluated by PT/OT prior to discharge; Cardiology and PMD are aware of plan. Case was reviewed and discussed with attending physician, Dr. Albrecht. <Brandon Albrecht - Last Filed: 11/09/17 11:22> CCU Objective - Vital Signs / Intake & Output Vital Signs (Last 4 hours): Vital Signs Pulse Resp BP Pulse Ox 11/09/17 10:00 64 24 114/64 95 11/09/17 09:57 72 121/63 11/09/17 09:01 62 22 121/63 98 11/09/17 08:00 72 26 H 131/57 L 97 Intake and Output (Last 8hrs): Intake & Output 11/08/17 11/09/17 11/09/17 22:59 06:59 14:59 Intake Total 1050 Output Total 500 Balance 550 Weight 125 lb 6.4 oz 133 lb 1 oz Intake: IV 1050 Right 1030 Output: Urine 500 Urine, Voided 500 Stool 0 - Medications Active Medications: Active Medications Generic Name Dose Route Start Last Admin Trade Name Freq PRN Reason Stop Dose Admin Alprazolam 0.25 mg 11/08/17 21:20 11/08/17 22:11 Xanax PO 0.25 mg TID PRN Administration Anxiety Protocol Aspirin 81 mg 11/09/17 10:00 11/09/17 09:57 Ecotrin PO 81 mg DAILY ANTIONETTE Administration Levalbuterol HCl 0.63 mg 11/08/17 21:08 Xopenex IH [id number] PRN Shortness of Breath Montelukast Sodium 10 mg 11/09/17 10:00 11/09/17 09:57 Singulair PO 10 mg DAILY ANTIONETTE Administration Sotalol HCl 80 mg 11/09/17 10:00 11/09/17 09:57 Betapace PO 80 mg BID ANTIONETTE Administration Tiotropium [place] 18 mcg 11/09/17 10:00 11/09/17 09:57 Spiriva IH 18 mcg DAILY ANTIONETTE Administration - Patient Studies Lab Studies: Lab Studies 11/09/17 11/09/17 11/09/17 Range/Units 06:50 06:40 06:00 WBC 5.5 (4.5-11.0) 10^3/ul RBC 4.18 (3.5-6.1) 10^6/uL Hgb 12.8 (12.0-16.0) g/dL Hct 39.3 (36.0-48.0) % MCV 94.0 (80.0-105.0) fl MCH 30.6 (25.0-35.0) pg MCHC 32.6 (31.0-37.0) g/dl RDW 12.7 (11.5-14.5) % Plt Count 221 (120.0-450.0) 10^3/uL MPV 9.9 (7.0-11.0) fl Gran % 45.6 L (50.0-68.0) % Lymph % (Auto) 42.4 H (22.0-35.0) % [place] % (Auto) 9.4 H (1.0-6.0) % Eos % (Auto) 2.2 (1.5-5.0) % Baso % (Auto) 0.4 (0.0-3.0) % Gran # 2.53 (1.4-6.5) Lymph # (Auto) 2.4 (1.2-3.4) [place] # (Auto) 0.5 (0.1-0.6) Eos # (Auto) 0.1 (0.0-0.7) Baso # (Auto) 0.02 (0.0-2.0) K/mm3 Sodium 140 (132-148) mmol/L Potassium 4.0 (3.6-5.0) mmol/L Chloride 109 H (98-107) mmol/L Carbon Dioxide 24 (21-33) mmol/L Anion Gap 12 (10-20) BUN 16 (7-21) mg/dL Creatinine 0.5 L (0.7-1.2) mg/dl Est GFR ( Amer) > 60 Est GFR (Non-Af Amer) > 60 Random Glucose 99 (70-110) mg/dL Calcium 8.3 L (8.4-10.5) mg/dL Phosphorus 3.7 (2.5-4.5) mg/dL Magnesium 1.7 (1.7-2.2) mg/dL Total Bilirubin 0.4 (0.2-1.3) mg/dL AST 16 (14-36) U/L ALT 31 (7-56) U/L Alkaline Phosphatase 56 (38-126) U/L Troponin I < 0.01 ng/mL Total Protein 6.1 (5.8-8.3) g/dL Albumin 3.6 (3.0-4.8) g/dL Globulin 2.5 gm/dL Albumin/Globulin Ratio 1.5 (1.1-1.8) 11/09/17 Range/Units 05:30 WBC 6.0 D (4.5-11.0) 10^3/ul RBC 4.06 (3.5-6.1) 10^6/uL Hgb 12.9 D (12.0-16.0) g/dL Hct 38.2 (36.0-48.0) % MCV 94.1 (80.0-105.0) fl MCH 31.8 (25.0-35.0) pg MCHC 33.8 (31.0-37.0) g/dl RDW 12.8 (11.5-14.5) % Plt Count 214 (120.0-450.0) 10^3/uL MPV 9.6 (7.0-11.0) fl Gran % (50.0-68.0) % Lymph % (Auto) (22.0-35.0) % [place] % (Auto) (1.0-6.0) % Eos % (Auto) (1.5-5.0) % Baso % (Auto) (0.0-3.0) % Gran # (1.4-6.5) Lymph # (Auto) (1.2-3.4) [place] # (Auto) (0.1-0.6) Eos # (Auto) (0.0-0.7) Baso # (Auto) (0.0-2.0) K/mm3 Sodium (132-148) mmol/L Potassium (3.6-5.0) mmol/L Chloride (98-107) mmol/L Carbon Dioxide (21-33) mmol/L Anion Gap (10-20) BUN (7-21) mg/dL Creatinine (0.7-1.2) mg/dl Est GFR ( Amer) Est GFR (Non-Af Amer) Random Glucose (70-110) mg/dL Calcium (8.4-10.5) mg/dL Phosphorus (2.5-4.5) mg/dL Magnesium (1.7-2.2) mg/dL Total Bilirubin (0.2-1.3) mg/dL AST (14-36) U/L ALT (7-56) U/L Alkaline Phosphatase (38-126) U/L Troponin I ng/mL Total Protein (5.8-8.3) g/dL Albumin (3.0-4.8) g/dL Globulin gm/dL Albumin/Globulin Ratio (1.1-1.8) Laboratory Results - last 24 hr 11/09/17 11/09/17 11/09/17 05:30 06:00 06:40 WBC 6.0 D 5.5 RBC 4.06 4.18 Hgb 12.9 D 12.8 Hct 38.2 39.3 MCV 94.1 94.0 MCH 31.8 30.6 MCHC 33.8 32.6 RDW 12.8 12.7 Plt Count 214 221 MPV 9.6 9.9 Gran % 45.6 L Lymph % (Auto) 42.4 H [place] % (Auto) 9.4 H Eos % (Auto) 2.2 Baso % (Auto) 0.4 Gran # 2.53 Lymph # (Auto) 2.4 [place] # (Auto) 0.5 Eos # (Auto) 0.1 Baso # (Auto) 0.02 Sodium Potassium Chloride Carbon Dioxide Anion Gap BUN Creatinine Est GFR ( Amer) Est GFR (Non-Af Amer) Random Glucose Calcium Phosphorus Magnesium Total Bilirubin AST ALT Alkaline Phosphatase Troponin I < 0.01 Total Protein Albumin Globulin Albumin/Globulin Ratio 11/09/17 06:50 WBC RBC Hgb Hct MCV MCH MCHC RDW Plt Count MPV Gran % Lymph % (Auto) [place] % (Auto) Eos % (Auto) Baso % (Auto) Gran # Lymph # (Auto) [place] # (Auto) Eos # (Auto) Baso # (Auto) Sodium 140 Potassium 4.0 Chloride 109 H Carbon Dioxide 24 Anion Gap 12 BUN 16 Creatinine 0.5 L Est GFR ( Amer) > 60 Est GFR (Non-Af Amer) > 60 Random Glucose 99 Calcium 8.3 L Phosphorus 3.7 Magnesium 1.7 Total Bilirubin 0.4 AST 16 ALT 31 Alkaline Phosphatase 56 Troponin I Total Protein 6.1 Albumin 3.6 Globulin 2.5 Albumin/Globulin Ratio 1.5 Critical Care Progress Note - Nutrition Nutrition: Nutrition Category Date Time Status Heart Healthy Diet [DIET] Diets 11/08/17 Dinner Active Assessment/Plan - Assessment and Plan (Free Text) Plan: Patient seen and examined on rounds with resident, agree with note with following additions/exceptions: Patient is 61yo female with PMHx of COPD, Anxiety, admitted yesterday with Afib with RVR, was on cardizem drip, converted to NSR, cardizem drip discontinued, started on Sotalol and ASA as per cardiology. Currently afebrile, BP stable, in NSR, NAD, AAOx3, doing well. ECHO pending. Afib with RVR COPD Palpitations Recommend: - supp o2 as needed - duonebs PRN - BP control - Sotalol 80mg BID - ASA - ECHO - GI ppx - DVT ppx - Stable, After ECHO is done, can be discharged home as per cardio
[2017-11-09] MEDS ORDERED: Non Formulary Medication (Dexlansoprazole [Dexilant] 60 MG) PO SCH (10:00)
[2017-11-09] MEDS ORDERED: Tiotropium 18 mcg Cap For Inhalation IH SCH (10:00)
[2017-11-09] MEDS ORDERED: Pneumococcal 23-Valent Vaccine IM ONE (10:07)
[2017-11-09 10:15] VITALS: BP 114/64; RESP 24; O2SAT 95
[2017-11-09 11:43] VITALS: TEMP 97.7
--- NOTE | 2017-11-09 11:48 | CON ---
DATE: 11/09/2017 CARDIOLOGY CONSULTATION HISTORY OF PRESENT ILLNESS: The patient is a 61-year-old woman who presented with sudden onset of dyspnea as well as marked palpitations. She was found to be in rapid atrial fibrillation last night in the emergency room. We started her on intravenous Cardizem as well as subcu Lovenox. PAST MEDICAL HISTORY: Free of cardiac disease. No previous angina. The patient is an active smoker and suffers from pulmonary disease, in which she is on Spiriva as well as Singulair and albuterol. SOCIAL HISTORY: The patient is an active smoker. REVIEW OF SYSTEMS: No angina. Positive dyspnea. Positive palpitations. Positive marked anxiety was noted. Negative edema in the lower extremities. PHYSICAL EXAMINATION VITAL SIGNS: Blood pressure is 114/64, the heart rate is now normal sinus rhythm in the 70s. NECK: Negative JVD. LUNGS: Without rales. HEART: Reveals S1 and S2. EXTREMITIES: Without edema. EKG shows atrial fibrillation with nonspecific ST-T changes. LABORATORY DATA: Hemoglobin is 12.8. Troponins are negative x2. BUN and creatinine unremarkable. Thyroid function test unremarkable. IMPRESSION: 1. New-onset atrial fibrillation, which is converted to normal sinus rhythm on IV Cardizem. 2. Marked palpitations on admission. 3. Dyspnea. 4. Chronic obstructive pulmonary disease. PLAN: Given these findings, we will change the patient to p.o. sotalol. We will add a baby aspirin. We will stop her heparin. From a cardiac perspective, the patient can be discharged after echocardiogram. I have ordered an outpatient stress test. I have talked to the patient about her need to stop smoking, which she seems to understand is necessary. We will arrange for an outpatient followup and stress test. Brayan Jay MD
[2017-11-09 14:31] VITALS: PULSE 70
== END 2017-11-09 12:12 | disposition home or self-care (01) | DRG 309 ==
LOC: ED 15:34 → ERH 16:57 → CCU 20:11
PROVIDERS: ADMIT Family Medicine; ATTEND Family Medicine
PROC: 3E0234Z Introduction of Serum, Toxoid and Vaccine into Muscle, Percutaneous Approach (ICD-10-PCS; principal; 2017-11-09)
DX: I48.91 Unspecified atrial fibrillation (principal); F15.93 Other stimulant use, unspecified with withdrawal; J44.9 Chronic obstructive pulmonary disease, unspecified; I10 Essential (primary) hypertension; F17.210 Nicotine dependence, cigarettes, uncomplicated; F41.9 Anxiety disorder, unspecified; I34.1 Nonrheumatic mitral (valve) prolapse; K21.9 Gastro-esophageal reflux disease without esophagitis; M81.0 Age-related osteoporosis without current pathological fracture; Z96.641 Presence of right artificial hip joint; R40.2411 Glasgow coma scale score 13-15, in the field [EMT or ambulance]; Z98.51 Tubal ligation status; M19.90 Unspecified osteoarthritis, unspecified site; Z23 Encounter for immunization

== ENCOUNTER 2017-11-30 06:02 | Day surgery (SDC) | payer BC ==
[2017-11-21 10:38] VITALS: BMI 22.8
[2017-11-30 06:59] LABS: BASO # 0.02 K/mm3 (0.0-2.0); BASO % 0.3 % (0.0-3.0); EOS # 0.1 (0.0-0.7); EOS % 2.1 % (1.5-5.0); GRAN # 2.77 (1.4-6.5); GRAN % 47.8 % (50.0-68.0); HEMOGLOBIN 14.1 g/dL (12.0-16.0); LYMPH # 2.4 (1.2-3.4); LYMPH % 41.7 % (22.0-35.0); MEAN CELL VOLUME 93.3 fl (80.0-105.0); MEAN CORPUSCULAR HEMOGLOBIN 31.3 pg (25.0-35.0); MEAN CORPUSCULAR HGB CONC 33.6 g/dl (31.0-37.0); MEAN PLATELET VOLUME 9.8 fl (7.0-11.0); MONO # 0.5 (0.1-0.6); MONO % 8.1 % (1.0-6.0); RBC 4.5 10^6/uL (3.5-6.1); RED CELL DISTRIBUTION WIDTH 12.7 % (11.5-14.5); WHITE BLOOD COUNT 5.8 10^3/ul (4.5-11.0)
[2017-11-30] MEDS ORDERED: Iodixanol 320 mg/ml 150 ml Bottle IV ONE (07:03)
[2017-11-30] MEDS ORDERED: Iodixanol 320 MG/ML 100 ML BOTTLE IV ONE (07:03)
[2017-11-30] MEDS ORDERED: Lidocaine 2% Inj (20ml) ONE (07:03)
[2017-11-30] MEDS ORDERED: Nitroglycerin 50mg in D5W 50 MG/250 ML BOTTLE IV ONE (07:03)
[2017-11-30] MEDS ORDERED: Phenylephrine 10 mg/ml Inj ONE (07:03)
[2017-11-30] MEDS ORDERED: Iohexol 350mgl/ml 50 ML ONE (07:03)
[2017-11-30 07:04] LABS: INR 0.98; PROTHROMBIN TIME 11.3 SECONDS (9.4-12.5)
[2017-11-30 07:07] LABS: PARTIAL THROMBOPLASTIN TIME 27.9 Seconds (25.1-36.5)
[2017-11-30 07:14] VITALS: RESP 18
[2017-11-30 07:22] LABS: BLOOD UREA NITROGEN 13 mg/dL (7-21); CALCIUM 9.3 mg/dL (8.4-10.5); GFR AFRICAN-AMERICAN > 60; GFR NON-AFRICAN AMERICAN > 60
[2017-11-30] MEDS ORDERED: Midazolam 2 MG/2 ML VIAL ONE ×2 (07:36→07:58)
[2017-11-30] MEDS ORDERED: Sodium Chloride 0.9% 1,000 ML IV SCH (08:45)
[2017-11-30 09:18] VITALS: TEMP 97.8
--- NOTE | 2017-11-30 09:35 | CARD ---
APPROVED REPORT Date of service: 11/30/2017 EKG Measurement Heart [id number] <Conclusion> Normal sinus rhythm Anterior infarct, age undetermined Abnormal ECG
--- NOTE | 2017-11-30 09:46 | CARDCATH ---
Copied To: Brayan Jay MD Attending MD: Jude Robertson MD PROCEDURE DATE: 11/30/2017 CARDIAC CATHETERIZATION HISTORY: The patient is a 61-year-old woman with a history of 2 pack a day smoking for more than 30 years, who presents with exertional shortness of breath, paroxysmal atrial fibrillation, dyspnea and chest pain. Her stress test was abnormal. Because of this, cardiac catheterization was recommended. PROCEDURE: Left heart catheterization with coronary arteriography and left ventriculogram. The right femoral artery was cannulated with a 6-Vincentian sheath. There were no complications. I performed moderate sedation, which included the presence of an independent trained observer that assisted in monitoring the patient's level of consciousness and physiologic status. After administration of Versed and fentanyl, my intra service time was 15 minutes. Findings on catheterization revealed a left ventricle that contracted normally. Estimated ejection fraction of 65-70%. Her coronary anatomy revealed a right dominant circulation. The RCA revealed diffuse atherosclerosis without critical lesions. The left main artery was unremarkable. The LAD revealed diffuse atherosclerosis throughout its course with tapering down to the apex. The diagonal vessels revealed diffuse atherosclerosis without discrete critical lesions. Circumflex artery and obtuse marginal branches revealed diffuse atherosclerosis with a 20-30% lesion. Manual compression was used to close the femoral artery site. The patient tolerated the procedure well. In summary, the procedure revealed normal LV function. Diffuse atherosclerosis throughout the coronary tree with marked tapering in the apex more than 50% noted in the distal portion of the LAD in the apex. LV function is normal. Given these findings, the patient has typical diffuse atherosclerosis from a heavy smoking. There is no discrete lesions of PTCA, but in the apex of the LAD, there is diffuse narrowing, which would be more than 50%. The patient has single-vessel CAD. Given these findings, the patient will need to stop smoking, undergo a cardiac risk reduction program. Brayan Jay MD
[2017-11-30 12:16] VITALS: O2SAT 94
[2017-11-30 12:35] VITALS: BP 141/72; PULSE 59
== END 2017-11-30 15:34 | disposition home or self-care (01) ==
LOC: CATH 06:02
PROVIDERS: ATTEND Internal Medicine Cardiovascular Disease
DX: I25.110 Atherosclerotic heart disease of native coronary artery with unstable angina pectoris (principal); I48.0 Paroxysmal atrial fibrillation; Z87.891 Personal history of nicotine dependence; I10 Essential (primary) hypertension; J45.909 Unspecified asthma, uncomplicated; R06.00 Dyspnea, unspecified; K21.9 Gastro-esophageal reflux disease without esophagitis; J44.9 Chronic obstructive pulmonary disease, unspecified; R94.39 Abnormal result of other cardiovascular function study
CPT/HCPCS: 36415; 80048; 85025; 85610; 85730; 86850; 86900; 93005; 93458; 99152; C1769; J1644; J2250; J3010; J7030; J7040; Q9967 ×2

== ENCOUNTER 2018-03-16 12:26 | Emergency (ER) | payer BC ==
[2018-03-16 12:26] VITALS: BMI 22.8
[2018-03-16 12:36] VITALS: RESP 20
[2018-03-16 13:17] LABS: BASO # 0.02 K/mm3 (0.0-2.0); BASO % 0.3 % (0.0-3.0); EOS # 0.1 (0.0-0.7); EOS % 1.4 % (1.5-5.0); GRAN # 3.75 (1.4-6.5); GRAN % 53.2 % (50.0-68.0); HEMOGLOBIN 14.8 g/dL (12.0-16.0); LYMPH # 2.4 (1.2-3.4); LYMPH % 34.3 % (22.0-35.0); MEAN CORPUSCULAR HEMOGLOBIN 32.2 pg (25.0-35.0); MEAN CORPUSCULAR HGB CONC 33.9 g/dl (31.0-37.0); MEAN PLATELET VOLUME 9.9 fl (7.0-11.0); MONO # 0.8 (0.1-0.6); MONO % 10.8 % (1.0-6.0); RBC 4.6 10^6/uL (3.5-6.1); RED CELL DISTRIBUTION WIDTH 12.7 % (11.5-14.5); WHITE BLOOD COUNT 7.1 10^3/uL (4.5-11.0)
--- NOTE | 2018-03-16 13:26 | RAD ---
Date of service: 03/16/2018 HISTORY: chest pain COMPARISON: No prior. FINDINGS: LUNGS: COPD with upper lobe emphysema. Peribronchial thickening PLEURA: No significant pleural effusion identified, no pneumothorax apparent. CARDIOVASCULAR: No aortic atherosclerotic calcification present. Normal cardiac size. No pulmonary vascular congestion. OSSEOUS STRUCTURES: No significant abnormalities. VISUALIZED UPPER ABDOMEN: Normal. OTHER FINDINGS: None. IMPRESSION: COPD with upper lobe emphysema. Peribronchial thickening
[2018-03-16 13:27] LABS: ALB/GLOB RATIO 1.5 (1.1-1.8); ALBUMIN 4.2 g/dL (3.0-4.8); ALT/SGPT 28 U/L (7-56); AST/SGOT 22 U/L (14-36); BLOOD UREA NITROGEN 11 mg/dL (7-21); CALCIUM 9.8 mg/dL (8.4-10.5); GFR NON-AFRICAN AMERICAN > 60
--- NOTE | 2018-03-16 13:33 | ED PDOC ---
Arrival/HPI - General Chief Complaint: Shortness Of Breath Time Seen by Provider: 03/16/18 12:33 Historian: Patient - History of Present Illness Narrative History of Present Illness (Text): 03/16/18 13:26 A 62 year old female, whose past medical history includes COPD, GERD, bronchitis, and diverticulosis, presents to the emergency department with a complaint of left sided chest pain that radiates to her back and down her arm. The patient notes that she was cleaning when the pain began. The patient states that she also felt short of breath. She states that she has been coughing with clear sputum production. The patient reports that her last catheterizatin was done about 2 months ago wit no stents placed. She also notes that she has been vaping. The patient denies fevers, chills, weakness/ numbness/ tingling, headache, dizziness, sore throat, dyspena on exertion, abdominal pain, nausea, vomiting, diarrhea, neck pain, urinary/ bowel symptoms, trauma/ injury, or any other complaints. PMD: Dr. Lopez Rn On Site: Dr. Jay Time/Duration: Other (This morning) Symptom Onset: Sudden Symptom Course: Unchanged Activities at Onset: Rest, Light Context: Home Past Medical History - Provider Review Nursing Documentation Reviewed: Yes - Infectious Disease Hx of Infectious Diseases: None - Tetanus Immunization Tetanus Immunization: Unknown - Cardiac Hx Pacemaker: No - Pulmonary Hx Asthma: Yes Hx Chronic Obstructive Pulmonary Disease (COPD): Yes - Neurological Hx Paralysis: No - HEENT Hx HEENT Disorder: No - Renal Hx Renal Disorder: No - Endocrine/Metabolic Hx Endocrine Disorders: No - Hematological/Oncological Hx Blood Transfusions: No - Integumentary Hx Dermatological Disorder: No - Musculoskeletal/Rheumatological Hx Musculoskeletal Disorders: Yes - Gastrointestinal Hx Gastroesophageal Reflux: Yes - Genitourinary/Gynecological Hx Genitourinary Disorders: No - Psychiatric Hx Emotional Abuse: No Hx Physical Abuse: No Hx Substance Use: No - Past Surgical History Past Surgical History: Non-Contributing - Surgical History Hx Orthopedic Surgery: Yes Other/Comment: Right hip replacement, right femur - Anesthesia Hx Anesthesia: Yes Hx Anesthesia Reactions: No Hx Malignant Hyperthermia: No - Suicidal Assessment Feels Threatened In Home Enviroment: No Family/Social History - Physician Review Nursing Documentation Reviewed: Yes Family/Social History: No Known Family HX Smoking Status: Former Smoker Hx Alcohol Use: Yes (SOCIAL) Hx Substance Use: No Hx Substance Use Treatment: Yes Allergies/Home Meds Allergies/Adverse Reactions: Allergies No Known Allergies Allergy (Verified 10/19/17 15:22) Home Medications: Home Meds Medication Instructions Recorded Confirmed Albuterol HFA [Ventolin HFA 90 2 puff IH Q4H PRN 11/21/17 11/30/17 mcg/actuation (8 g)] Dexlansoprazole [Dexilant] 60 mg PO DAILY 11/21/17 11/30/17 Garlic [Odor Free Garlic-X] 1 tab PO DAILY 11/21/17 11/30/17 Multivitamin [Daily Stefany] 1 tab PO DAILY 11/21/17 11/30/17 Review of Systems - Physician Review All systems were reviewed & negative as marked: Yes - Review of Systems Constitutional: absent: Fevers ENT: absent: Sore Throat Respiratory: SOB, Cough Cardiovascular: Chest Pain. absent: BOJORQUEZ Gastrointestinal: absent: Abdominal Pain, Stool Changes, Diarrhea, Nausea, Vomiting Genitourinary Female: absent: Urine Output Changes Musculoskeletal: absent: Back Pain, Neck Pain Neurological: absent: Headache, Dizziness Physical Exam Vital Signs Resp Pulse Ox 03/16/18 12:33 20 99 Appearance: Positive for: Well-Appearing, Non-Toxic, Comfortable Pain Distress: None Mental Status: Positive for: Alert and Oriented X 3 - Systems Exam Head: Present: Atraumatic, Normocephalic Pupils: Present: PERRL Extroacular Muscles: Present: EOMI Conjunctiva: Present: Normal Mouth: Present: Moist Mucous Membranes Neck: Present: Normal Range of Motion Respiratory/Chest: Present: Clear to Auscultation, Good Air Exchange. No: Respiratory Distress, Accessory Muscle Use Cardiovascular: Present: Regular Rate and Rhythm, Normal S1, S2. No: Murmurs Abdomen: No: Tenderness, Distention, Peritoneal Signs Back: Present: Normal Inspection Upper Extremity: Present: Normal Inspection. No: Cyanosis, Edema Lower Extremity: Present: Normal Inspection. No: Edema Neurological: Present: GCS=15, CN II-XII Intact, Speech Normal Skin: Present: Warm, Dry, Normal Color. No: Rashes Psychiatric: Present: Alert, Oriented x 3, Normal Insight, Normal Concentration Medical Decision Making ED Course and Treatment: 03/16/18 13:34 Impression: A 62 year old female presents to the emergency department with a complaint of left sided chest pain radiating to her back and arm. Plan: -- EKG -- Chest X- Ray -- Urinalysis -- Aspirin -- Reassess and disposition Prior Visits: Notes and results from previous visits were reviewed. Progress Notes: EKG: Ordered, reviewed, and independently interpreted the EKG. Rate: 68 BPM Rhythm: NSR Chest X- Ray Dictator : Jose Duval MD Report Date : 03/16/2018 13:22:01 IMPRESSION: COPD with upper lobe emphysema. Peribronchial thickening 03/16/18 14:19: Case discussed in detail with Dr. Lopez who agrees patient can be discharged home and follow up early next week. On re-evaluation the patient feels better and is in no acute distress. I have discussed the results and plan with the patient, who expresses understanding. Patient given the opportunity to ask question, all questions were answered and there is agreement with the plan to discharge the patient home. Patient is sta ble for discharge. Patient was instructed to follow up with physician/clinic in 1-2 days or return if symptoms persist/worsen or new concerning symptoms arise. - Lab Interpretations Lab Results: 03/16/18 13:05 Lab Results 03/16/18 13:05: WBC 7.1, RBC 4.60, Hgb 14.8, Hct 43.7, MCV 95.0, MCH 32.2, MCHC 33.9, RDW 12.7, Plt Count 279, MPV 9.9, Gran % 53.2, Lymph % (Auto) 34.3, [place] % (Auto) 10.8 H, Eos % (Auto) 1.4 L, Baso % (Auto) 0.3, Gran # 3.75, Lymph # (Auto) 2.4, [place] # (Auto) 0.8 H, Eos # (Auto) 0.1, Baso # (Auto) 0.02 I have reviewed the lab results: Yes - RAD Interpretation Radiology Orders: 03/16/18 12:38 CHEST PORTABLE [RAD] Stat - EKG Interpretation Interpreted by ED Physician: Yes Type: 12 lead EKG - Medication Orders Current Medication Orders: Discontinued Medications Aspirin (Aspirin) 325 mg PO STAT STA Stop: 03/16/18 12:39 - Scribe Statement The provider has reviewed the documentation as recorded by the Scribe Roshni Burkett Russell Provider Lucinda Attestation: All medical record entries made by the Nevilleibjo were at my direction and personally dictated by me. I have reviewed the chart and agree that the record accurately reflects my personal performance of the history, physical exam, medical decision making, and the department course for this patient. I have also personally directed, reviewed, and agree with the discharge instructions and disposition. Disposition/Present on Arrival - Present on Arrival Any Indicators Present on Arrival: No History of DVT/PE: No History of Uncontrolled Diabetes: No Urinary Catheter: No History of Decub. Ulcer: No History Surgical Site Infection Following: None - Disposition Have Diagnosis and Disposition been Completed?: Yes Diagnosis: Non-cardiac chest pain Disposition: HOME/ ROUTINE Disposition Time: 13:50 Condition: GOOD Discharge Instructions (ExitCare): Chest Pain (ED) Additional Instructions: RJ FAUST, thank you for letting us take care of you today. The emergency medical care you received today was directed at your acute symptoms. If you were prescribed any medication, please fill it and take as directed. It may take several days for your symptoms to resolve. Return to the Emergency Department if your symptoms worsen, do not improve, or if you have any other problems. Please contact your doctor or call one of the physicians/clinics you have been referred to that are listed on the Patient Visit Information form that is included in your discharge packet. Bring any paperwork you were given at discharge with you along with any medications you are taking to your follow up visit. Our treatment cannot replace ongoing medical care by a primary care provider outside of the emergency department. Thank you for allowing the [facility] team to be part of your care today. Followup with Dr. Lopez in 3-4 days for re-evaluation and further management. Prescriptions: Cyclobenzaprine [Cyclobenzaprine HCl] 10 mg PO Q8 PRN #20 tab PRN Reason: Muscle Spasm Referrals: Garfield Lopez DO [Family Provider] - Follow up with primary Forms: [employer] (Turkish)
[2018-03-16 13:39] LABS: B-TYPE NATRIURETIC PEPTIDE 422 pg/mL (0-450); TROPONIN I < 0.01 ng/mL
[2018-03-16 14:01] VITALS: BP 113/63; PULSE 64; O2SAT 95
[2018-03-16 14:42] VITALS: TEMP 98
--- NOTE | 2018-03-16 19:32 | CARD ---
APPROVED REPORT Date of service: 03/16/2018 EKG Measurement Heart [id number] <Conclusion> Normal sinus rhythm Cannot rule out small or absent R waves V1-V3, may be due to lead placement or possible septal infarct age undetermined. Abnormal ECG
== END 2018-03-16 14:41 | disposition home or self-care (01) ==
LOC: ED 12:26
DX: R07.89 Other chest pain (principal)
CPT/HCPCS: 71045; 80053; 82550; 83615; 83735; 83880; 84484; 85025; 93005; 96374; 99284; J1885

== ENCOUNTER 2018-05-08 11:22 | Outpatient (CLI) | payer BC | END 2018-05-08 11:23 | disposition home or self-care (01) | LOC: RAD 11:22 ==

== ENCOUNTER 2018-05-11 13:26 | Day surgery (SDC) | payer BC ==
[2018-05-08 16:12] VITALS: BMI 29.2
[2018-05-11 14:35] LABS: BASO # 0.02 K/mm3 (0.0-2.0); BASO % 0.3 % (0.0-3.0); EOS % 0.7 % (1.5-5.0); GRAN # 3.82 (1.4-6.5); HEMOGLOBIN 12.7 g/dL (12.0-16.0); LYMPH # 1.6 (1.2-3.4); LYMPH % 27.1 % (22.0-35.0); MEAN CELL VOLUME 94.8 fl (80.0-105.0); MEAN CORPUSCULAR HEMOGLOBIN 31.7 pg (25.0-35.0); MEAN CORPUSCULAR HGB CONC 33.4 g/dl (31.0-37.0); MEAN PLATELET VOLUME 9.6 fl (7.0-11.0); MONO # 0.5 (0.1-0.6); MONO % 7.9 % (1.0-6.0); RBC 4.01 10^6/uL (3.5-6.1); RED CELL DISTRIBUTION WIDTH 13.3 % (11.5-14.5)
[2018-05-11 14:44] LABS: BLOOD UREA NITROGEN 11 mg/dL (7-21); CALCIUM 9.8 mg/dL (8.4-10.5); GFR NON-AFRICAN AMERICAN > 60
[2018-05-11 14:48] LABS: INR 1.15; PARTIAL THROMBOPLASTIN TIME 27.8 Seconds (25.1-36.5); PROTHROMBIN TIME 13.1 SECONDS (9.4-12.5)
[2018-05-11] MEDS ORDERED: Midazolam 2 MG/2 ML VIAL ONE (18:27)
[2018-05-11] MEDS ORDERED: Midazolam 2 MG/2 ML VIAL IVP ONE (18:45)
[2018-05-11] MEDS ORDERED: Oxycodone/Acetaminophen 5/325 mg Tab PO PRN (18:47)
[2018-05-11] MEDS ORDERED: Sodium Chloride 0.45% 1,000 ML IV SCH (19:00)
[2018-05-11 19:13] VITALS: RESP 12; TEMP 98.9
--- NOTE | 2018-05-11 19:13 | CT ---
PROCEDURE: CT guided right lower lobe lung biopsy. HISTORY: 3.5 cm spiculated right lower lobe lung mass. Smoker. Evaluate for malignancy PHYSICIAN(S): Brayan Oorzco MD. TECHNIQUE: The relative risks and indications of the procedure were explained to the patient and consent obtained. The patient was placed in a left decubitus position on the CT scanner and preliminary images through the mid to lower lungs obtained. Conscious sedation and monitoring were provided throughout the procedure by a nurse. There is a 3.5 cm spiculated mass in the right lower lobe with associated right hilar adenopathy. A right lateral approach was selected and the area prepped and draped in the usual sterile fashion. 1% Xylocaine was used to anesthetize the skin and soft tissues. A 19 gauge guiding needle was advanced into the 3.5 cm right lower lobe lung mass. Its position was confirmed with CT. Using coaxial technique, multiple core biopsies were obtained. The postprocedure images showed a tiny pneumothorax. The patient was asymptomatic and stable. A follow-up chest x-ray has been ordered IMPRESSION: 1. CT-guided right lower lobe lung biopsy as described above.
[2018-05-11 19:40] VITALS: O2SAT 95
[2018-05-11 19:50] VITALS: BP 111/62; PULSE 83
--- NOTE | 2018-05-13 14:31 | RAD ---
Date of service: 05/11/2018 HISTORY: Rt lung bx COMPARISON: Preprocedural radiograph 03/16/2018. FINDINGS: LUNGS: Consolidative changes, post biopsy changes right lower lobe. PLEURA: Status post left lower lobe lung biopsy. Small loculated basilar pneumothorax. CARDIOVASCULAR: No atherosclerotic calcification present Normal. OSSEOUS STRUCTURES: No significant abnormalities. VISUALIZED UPPER ABDOMEN: Normal. OTHER FINDINGS: None. IMPRESSION: Small postprocedural right pneumothorax.
== END 2018-05-11 21:30 | disposition home or self-care (01) ==
LOC: SDS 13:26 → 3RNO 20:02 → SDS 21:30
PROVIDERS: ATTEND Radiology Vascular & Interventional Radiology
DX: C34.31 Malignant neoplasm of lower lobe, right bronchus or lung (principal); J43.9 Emphysema, unspecified; F17.200 Nicotine dependence, unspecified, uncomplicated
CPT/HCPCS: 32405; 36415; 71045; 77012; 80048; 85025; 85610; 85730; 88305; 99152; J2250; J2405; J3010; J7030

== ENCOUNTER 2018-05-12 15:48 | Emergency (ER) | payer BC ==
[2018-05-12 15:48] VITALS: BMI 29.2
--- NOTE | 2018-05-12 16:37 | ED PDOC ---
Arrival/HPI - General Chief Complaint: Cough, Cold, Congestion Time Seen by Provider: 05/12/18 15:49 Historian: Patient - History of Present Illness Narrative History of Present Illness (Text): 05/12/18 16:28 62 year old female, whose past medical history includes lung cancer, COPD, GERD, bronchitis, and diverticulosis, presents complaining of coughing up blood. Patient had a lung biopsy yesterday by Dr. Orozco and was newly diagnosed with lung cancer. Patient report she had a follow up Chest X-ray in 2 days. Patient reports she was just worried and wanted to come in for evaluation. Patient denies any fever, chills, chest pain, shortness of breath, nausea, vomiting, diarrhea, urinary symptoms, back pain, neck pain, headache, dizziness, or any other complaints. PMD: Dr. Lopez Miner Placer: Dr. Jay Symptom Onset: Gradual Symptom Course: Unchanged Activities at Onset: Light Context: Home Past Medical History - Provider Review Nursing Documentation Reviewed: Yes - Infectious Disease Hx of Infectious Diseases: None - Tetanus Immunization Tetanus Immunization: Unknown - Reproductive Menopause: Yes - Cardiac Hx Cardiac Disorders: No Hx Pacemaker: No - Pulmonary Hx Asthma: Yes Hx Chronic Obstructive Pulmonary Disease (COPD): Yes - Neurological Hx Neurological Disorder: No - HEENT Hx HEENT Disorder: No - Renal Hx Renal Disorder: No - Endocrine/Metabolic Hx Endocrine Disorders: No - Hematological/Oncological Hx Blood Transfusions: No - Integumentary Hx Dermatological Disorder: No - Musculoskeletal/Rheumatological Hx Musculoskeletal Disorders: Yes - Gastrointestinal Hx Gastroesophageal Reflux: Yes - Genitourinary/Gynecological Hx Genitourinary Disorders: No - Psychiatric Hx Emotional Abuse: No Hx Physical Abuse: No Hx Substance Use: No - Past Surgical History Past Surgical History: Non-Contributing - Surgical History Hx Orthopedic Surgery: Yes Other/Comment: Right hip replacement, right femur - Anesthesia Hx Anesthesia Reactions: No Hx Malignant Hyperthermia: No - Suicidal Assessment Feels Threatened In Home Enviroment: No Family/Social History - Physician Review Nursing Documentation Reviewed: Yes Family/Social History: No Known Family HX Smoking Status: Former Smoker Hx Alcohol Use: Yes (SOCIAL) Hx Substance Use: No Hx Substance Use Treatment: Yes Allergies/Home Meds Allergies/Adverse Reactions: Allergies morphine Adverse Reaction (Verified 05/11/18 14:13) ITCHING Home Medications: Home Meds Medication Instructions Recorded Confirmed Albuterol HFA [Ventolin HFA 90 2 puff IH Q4H PRN 11/21/17 05/12/18 mcg/actuation (8 g)] Dexlansoprazole [Dexilant] 60 mg PO DAILY 11/21/17 05/12/18 Garlic [Odor Free Garlic-X] 1 tab PO DAILY 11/21/17 05/11/18 Multivitamin [Daily Stefany] 1 tab PO DAILY 11/21/17 05/12/18 Albuterol/Ipratropium [Duoneb 3 3 ml IH PRN PRN 05/09/18 05/12/18 MG/3 Ml-0.5 MG/3 Ml 3 Ml] Ascorbic Acid [Vitamin C] 1,000 mg PO DAILY 05/09/18 05/12/18 Diclofenac [Diclofenac Sodium] 0 mg PO PRN PRN 05/12/18 05/12/18 Review of Systems - Physician Review All systems were reviewed & negative as marked: Yes - Review of Systems Constitutional: absent: Fevers Respiratory: Cough (with blood). absent: SOB Cardiovascular: absent: Chest Pain Gastrointestinal: absent: Diarrhea, Nausea, Vomiting Genitourinary Female: absent: Dysuria, Frequency, Hematuria Musculoskeletal: absent: Back Pain, Neck Pain Neurological: absent: Headache, Dizziness Physical Exam Vital Signs Reviewed: Yes Vital Signs Temp Pulse Resp BP Pulse Ox 05/12/18 15:58 99.1 F 101 H 20 124/83 92 L Temperature: Afebrile Blood Pressure: Normal Pulse: Tachycardic Respiratory Rate: Normal Appearance: Positive for: Well-Appearing, Non-Toxic, Comfortable Pain Distress: None Mental Status: Positive for: Alert and Oriented X 3 - Systems Exam Head: Present: Atraumatic, Normocephalic Pupils: Present: PERRL Extroacular Muscles: Present: EOMI Conjunctiva: Present: Normal Mouth: Present: Moist Mucous Membranes Neck: Present: Normal Range of Motion Respiratory/Chest: Present: Clear to Auscultation, Good Air Exchange. No: Respiratory Distress, Accessory Muscle Use Cardiovascular: Present: Regular Rate and Rhythm, Normal S1, S2. No: Murmurs Abdomen: No: Tenderness, Distention, Peritoneal Signs Neurological: Present: GCS=15, CN II-XII Intact, Speech Normal Skin: Present: Warm, Dry, Normal Color. No: Rashes Psychiatric: Present: Alert, Oriented x 3, Normal Insight, Normal Concentration Medical Decision Making ED Course and Treatment: 05/12/18 16:28 Impression: 62 year old female presents complaining of hemoptysis s/p biopsy yesterday with newly dx of lung cancer. Plan: -- Chest X-ray -- Reassess and disposition Prior Visits: Notes and results from previous visits were reviewed. Progress Notes: EXAM: CXR Dictated by: Garfield Kirby MD Dictated Date/Time: 05/12/18 [id number] IMPRESSION: Small right hydropneumothorax. Decrease in the size of pneumothorax, commensurate improved aeration of the right lower lobe. 05/12/18 17:55 On re-evaluation, patient in no acute distress. I have discussed the results and plan with the patient, who expresses understanding. Patient in agreement with p cristo to be discharged home. Patient is stable for discharge. Patient was instructed to follow up with physician or return if symptoms worsen or new concerning symptoms arise. - RAD Interpretation Radiology Orders: 05/12/18 16:22 CXR [CHEST TWO VIEWS (PA/LAT)] [RAD] Stat Safety Specialist: Radiologist - Scribe Statement The provider has reviewed the documentation as recorded by the Scribe Haylee Portillo Provider Scribe Attestation: All medical record entries made by the Scribe were at my direction and personally dictated by me. I have reviewed the chart and agree that the record accurately reflects my personal performance of the history, physical exam, medical decision making, and the department course for this patient. I have also personally directed, reviewed, and agree with the discharge instructions and disposition. Disposition/Present on Arrival - Present on Arrival Any Indicators Present on Arrival: No History of DVT/PE: No History of Uncontrolled Diabetes: No Urinary Catheter: No History of Decub. Ulcer: No History Surgical Site Infection Following: None - Disposition Have Diagnosis and Disposition been Completed?: Yes Diagnosis: Follow-up exam after treatment Disposition: HOME/ ROUTINE Disposition Time: 17:40 Condition: GOOD Discharge Instructions (ExitCare): Needle Biopsy of the Lung and Pleura Additional Instructions: RJ FAUST, thank you for letting us take care of you today. The emergency medical care you received today was directed at your acute symptoms. If you were prescribed any medication, please fill it and take as directed. It may take several days for your symptoms to resolve. Return to the Emergency Department if your symptoms worsen, do not improve, or if you have any other problems. Please contact your doctor or call one of the physicians/clinics you have been referred to that are listed on the Patient Visit Information form that is included in your discharge packet. Bring any paperwork you were given at discharge with you along with any medications you are taking to your follow up visit. Our treatment cannot replace ongoing medical care by a primary care provider outside of the emergency department. Thank you for allowing the [facility] team to be part of your care today. Follow up with Dr. Orozco on Monday as scheduled. Referrals: Brayan Orozco MD [Staff Provider] - Follow up with primary Forms: [employer] (Malay)
--- NOTE | 2018-05-12 17:40 | RAD ---
Date of service: 05/12/2018 HISTORY: s/p right lung biopsy - r/o PTX Relevant interventional procedure(s): May 11, 2018. Right lower lobe lung biopsy. COMPARISON: No prior. TECHNIQUE: Chest PA and lateral FINDINGS: LUNGS: Hyperinflation, stable emphysematous changes. Improved aeration right lower lobe. PLEURA: Small primarily basilar hydropneumothorax. This shows modest improvement compared to the prior study. CARDIOVASCULAR: No aortic atherosclerotic calcification present. Normal cardiac size. No pulmonary vascular congestion. OSSEOUS STRUCTURES: No significant abnormalities. VISUALIZED UPPER ABDOMEN: Normal. OTHER FINDINGS: None. IMPRESSION: Small right hydropneumothorax. Decrease in the size of the pneumothorax, commensurate improved aeration of the right lower lobe
[2018-05-12 17:42] VITALS: BP 118/63; PULSE 92; RESP 16; TEMP 97.8; O2SAT 94
== END 2018-05-12 18:00 | disposition home or self-care (01) ==
LOC: ED 15:48
DX: Z51.89 Encounter for other specified aftercare (principal); Z87.891 Personal history of nicotine dependence

== ENCOUNTER 2018-05-14 13:16 | Outpatient (CLI) | payer BC | END 2018-05-14 13:17 | disposition home or self-care (01) | LOC: RAD 13:16 ==

== ENCOUNTER 2018-05-29 13:29 | Outpatient (CLI) | payer BC | END 2018-05-29 13:30 | disposition home or self-care (01) | LOC: RAD 13:29 ==

== ENCOUNTER 2018-06-02 21:58 | Emergency (ER) | payer BC ==
[2018-06-02 22:09] VITALS: BMI 19.9
[2018-06-02 22:14] VITALS: RESP 18
[2018-06-02] MEDS ORDERED: Morphine 4 mg/ml ISec IM STA (22:42)
--- NOTE | 2018-06-03 00:04 | ED PDOC ---
Arrival/HPI - General Chief Complaint: Back Pain Time Seen by Provider: 06/02/18 22:04 Historian: Patient - History of Present Illness Narrative History of Present Illness (Text): 06/03/18 00:00 62yo female with pmhx of Lung CA with mets to the bone, currently on chemo, next chem is this coming Monday who present with complaint of upper back pain. Notes pain is chronic but worse today. States she took Muscle relaxer and applied topical analgesic without relieve. States she have chronic cough and states the pain became worse today, after having a "bad coughing fit" today. She dnies trauma, fever, chills, hemoptysis, SOB, dizziness, nausea, vomiting, any other complaint. Past Medical History - Provider Review Nursing Documentation Reviewed: Yes - Infectious Disease Hx of Infectious Diseases: None - Tetanus Immunization Tetanus Immunization: Unknown - Cardiac Hx Cardiac Disorders: No Hx Pacemaker: No - Pulmonary Hx Asthma: Yes Hx Chronic Obstructive Pulmonary Disease (COPD): Yes Hx Emphysema: Yes - Neurological Hx Neurological Disorder: No - HEENT Hx HEENT Disorder: No - Renal Hx Renal Disorder: No - Endocrine/Metabolic Hx Endocrine Disorders: No - Hematological/Oncological Hx Blood Transfusions: No Hx Cancer: Yes (Stage 4 Lung CA & Bone CA) - Integumentary Hx Dermatological Disorder: No - Musculoskeletal/Rheumatological Hx Musculoskeletal Disorders: Yes - Gastrointestinal Hx Gastroesophageal Reflux: Yes - Genitourinary/Gynecological Hx Genitourinary Disorders: No - Psychiatric Hx Emotional Abuse: No Hx Physical Abuse: No Hx Substance Use: No - Past Surgical History Past Surgical History: Non-Contributing - Surgical History Hx Orthopedic Surgery: Yes Other/Comment: Right hip replacement, right femur - Anesthesia Hx Anesthesia Reactions: No Hx Malignant Hyperthermia: No - Suicidal Assessment Feels Threatened In Home Enviroment: No Family/Social History - Physician Review Nursing Documentation Reviewed: Yes Family/Social History: Unknown Family HX Smoking Status: Former Smoker Hx Alcohol Use: Yes (SOCIAL) Hx Substance Use: No Hx Substance Use Treatment: Yes Allergies/Home Meds Allergies/Adverse Reactions: Allergies morphine Adverse Reaction (Verified 06/02/18 22:06) ITCHING Home Medications: Home Meds Medication Instructions Recorded Confirmed Albuterol HFA [Ventolin HFA 90 2 puff IH Q4H PRN 11/21/17 05/12/18 mcg/actuation (8 g)] Dexlansoprazole [Dexilant] 60 mg PO DAILY 11/21/17 05/12/18 Garlic [Odor Free Garlic-X] 1 tab PO DAILY 11/21/17 05/11/18 Multivitamin [Daily Stefany] 1 tab PO DAILY 11/21/17 05/12/18 Albuterol/Ipratropium [Duoneb 3 3 ml IH PRN PRN 05/09/18 05/12/18 MG/3 Ml-0.5 MG/3 Ml 3 Ml] Ascorbic Acid [Vitamin C] 1,000 mg PO DAILY 05/09/18 05/12/18 Diclofenac [Diclofenac Sodium] 0 mg PO PRN PRN 05/12/18 05/12/18 Review of Systems - Physician Review All systems were reviewed & negative as marked: Yes - Review of Systems Constitutional: Normal Eyes: Normal ENT: Normal Respiratory: Normal Cardiovascular: Normal Gastrointestinal: Normal Genitourinary Female: Normal Musculoskeletal: Back Pain Skin: Normal Neurological: Normal Endocrine: Normal Hemo/Lymphatic: Normal Psychiatric: Normal Physical Exam Vital Signs Reviewed: Yes Vital Signs Temp Pulse Resp BP Pulse Ox 06/02/18 22:13 97.8 F 86 18 114/65 94 L Temperature: Afebrile Blood Pressure: Normal Pulse: Regular Respiratory Rate: Normal Appearance: Positive for: Well-Appearing, Non-Toxic, Comfortable Pain Distress: None Mental Status: Positive for: Alert and Oriented X 3 - Systems Exam Head: Present: Atraumatic, Normocephalic Pupils: Present: PERRL Extroacular Muscles: Present: EOMI Conjunctiva: Present: Normal Mouth: Present: Moist Mucous Membranes Neck: Present: Normal Range of Motion Respiratory/Chest: Present: Clear to Auscultation, Good Air Exchange. No: Respiratory Distress, Accessory Muscle Use Cardiovascular: Present: Regular Rate and Rhythm, Normal S1, S2. No: Murmurs Abdomen: No: Tenderness, Distention, Peritoneal Signs Back: Present: Paraspinal Tenderness (Parathoracic tenderness). No: Midline Tenderness Upper Extremity: Present: Normal Inspection. No: Cyanosis, Edema Lower Extremity: Present: Normal Inspection. No: Edema Neurological: Present: GCS=15, CN II-XII Intact, Speech Normal Skin: Present: Warm, Dry, Normal Color. No: Rashes Psychiatric: Present: Alert, Oriented x 3, Normal Insight, Normal Concentration Medical Decision Making ED Course and Treatment: 06/03/18 00:55 PT present to ED for stated history. Morphine chest xray On evaluation she reports improvement of her pain with medication in ED Chest xray - RLL CA comparable to previous chest xray PT was DC home with #7tabs of percocet,. She have appointment with her Oncologist on Monday for her chemo and will f/u. - RAD Interpretation Radiology Orders: 06/02/18 22:44 CHEST TWO VIEWS (PA/LAT) [RAD] Stat - Medication Orders Current Medication Orders: Discontinued Medications Morphine Sulfate (Morphine) 4 mg IM STAT STA Stop: 06/02/18 22:43 Last Admin: 06/02/18 23:04 Dose: 4 mg MAR Pain Assessment Document 06/02/18 23:04 EB (Rec: 06/02/18 23:04 EB [id number]) Pain Reassessment Is this a pain reassessment? No Sleep Is patient sleeping during reassessment? No Presence of Pain Presence of Pain Yes Pain Scale Used Protocol: PSCALES Pain Scale Used Numeric Description Intensity of Pain at present 8 Pain Behavior Moaning Irritability Restlessness Facial Grimacing IM Administration Charges Document 06/02/18 23:04 EB (Rec: 06/02/18 23:04 EB [id number]) Injection Site MAR Injection Site Right Gluteus Medius Charges for Administration # of IM Administrations 1 Disposition/Present on Arrival - Present on Arrival Any Indicators Present on Arrival: No History of DVT/PE: No History of Uncontrolled Diabetes: No Urinary Catheter: No History of Decub. Ulcer: No History Surgical Site Infection Following: None - Disposition Have Diagnosis and Disposition been Completed?: Yes Diagnosis: Back pain Disposition: HOME/ ROUTINE Disposition Time: 00:40 Patient Plan: Discharge Patient Problems: Current Active Problems Problem Status Onset Back pain Acute Condition: STABLE Discharge Instructions (ExitCare): Upper Back Pain (DC) Additional Instructions: Follow up with your doctor Return to ED for any new symptoms Prescriptions: oxyCODONE/Acetaminophen [Percocet 5/325 mg Tab] 1 ea PO Q6 #7 tab Referrals: Humberto Bloom MD [Medical Doctor] - Follow up with primary Forms: [employer] ([place])
[2018-06-03 00:48] VITALS: BP 115/69; PULSE 87; TEMP 98.6; O2SAT 95
--- NOTE | 2018-06-03 13:19 | RAD ---
Date of service: 06/03/2018 HISTORY: thoracic pain COMPARISON: Comparison chest 05/29/2018 FINDINGS: LUNGS: Hyperinflation secondary to significant emphysematous changes more severely affecting the upper lobes lower lobe.. Large right infrahilar mass lesion less well seen compared to high-resolution CT scan. Increased on bronchovascular markings both lung bases possibly due to redistribution of flow secondary to significant emphysema. PLEURA: No significant pleural effusion identified, no pneumothorax apparent. CARDIOVASCULAR: No aortic atherosclerotic calcification present. Normal cardiac size. No pulmonary vascular congestion. OSSEOUS STRUCTURES: No significant abnormalities. VISUALIZED UPPER ABDOMEN: Normal. OTHER FINDINGS: None. IMPRESSION: Hyperinflation secondary to significant emphysematous changes more severely affecting the upper lobes lower lobe.. Large right infrahilar mass lesion less well seen compared to high-resolution CT scan. Increased on bronchovascular markings both lung bases possibly due to redistribution of flow secondary to significant emphysema.
== END 2018-06-03 01:10 | disposition home or self-care (01) ==
LOC: ED 21:58
DX: M54.6 Pain in thoracic spine (principal); Z87.891 Personal history of nicotine dependence
CPT/HCPCS: 71045; 96372; 99283; J2270

== ENCOUNTER 2018-06-06 23:29 | Inpatient (IN) | payer BC ==
[2018-06-06] MEDS ORDERED: Albuterol-Ipratrop 3 mg / 0.5 (3 ml) UD IH STA (23:44)
--- NOTE | 2018-06-06 23:55 | ED PDOC ---
Arrival/HPI - General Chief Complaint: Shortness Of Breath Time Seen by Provider: 06/06/18 23:34 Historian: Patient - History of Present Illness Narrative History of Present Illness (Text): 06/07/18 23:34 Kyara Lynn is a 62 year old female, with a past medical history of pulmonary cancer, COPD, GERD, bronchitis, and diverticulosis, who presents to the emergency department complaining of shortness of breath. Patient states she was recently diagnosed with lung cancer and underwent her first radiation therapy treatment today. Patient states she is scheduled for [id number] placement tomorrow. Patient denies fevers, chills, headache, dizziness, chest pain, dyspnea on exertion, cough, abdominal pain, nausea, vomiting, diarrhea, or any other complaint. Time/Duration: Other (today) Symptom Onset: Gradual Activities at Onset: Light Context: Home Past Medical History - Provider Review Nursing Documentation Reviewed: Yes - Infectious Disease Hx of Infectious Diseases: None - Tetanus Immunization Tetanus Immunization: Unknown - Cardiac Hx Pacemaker: No - Pulmonary Hx Asthma: Yes Hx Chronic Obstructive Pulmonary Disease (COPD): Yes Hx Emphysema: Yes - Neurological Hx Paralysis: No - HEENT Hx HEENT Disorder: No - Renal Hx Renal Disorder: No - Endocrine/Metabolic Hx Endocrine Disorders: No - Hematological/Oncological Hx Blood Transfusions: No - Integumentary Hx Dermatological Disorder: No - Musculoskeletal/Rheumatological Hx Musculoskeletal Disorders: Yes - Gastrointestinal Hx Gastroesophageal Reflux: Yes - Genitourinary/Gynecological Hx Genitourinary Disorders: No - Psychiatric Hx Emotional Abuse: No Hx Physical Abuse: No Hx Substance Use: No - Past Surgical History Past Surgical History: Non-Contributing - Surgical History Hx Orthopedic Surgery: Yes Other/Comment: Right hip replacement, right femur - Anesthesia Hx Anesthesia Reactions: No Hx Malignant Hyperthermia: No - Suicidal Assessment Feels Threatened In Home Enviroment: No Family/Social History - Physician Review Nursing Documentation Reviewed: Yes Family/Social History: Unknown Family HX Smoking Status: Former Smoker Hx Alcohol Use: Yes (SOCIAL) Hx Substance Use: No Hx Substance Use Treatment: Yes Allergies/Home Meds Allergies/Adverse Reactions: Allergies morphine Adverse Reaction (Verified 06/02/18 22:06) ITCHING Home Medications: Home Meds Medication Instructions Recorded Confirmed Dexlansoprazole [Dexilant] 60 mg PO DAILY 11/21/17 06/04/18 Multivitamin [Daily Stefany] 1 tab PO DAILY 11/21/17 06/04/18 Ascorbic Acid [Vitamin C] 1,000 mg PO DAILY 05/09/18 06/04/18 oxyCODONE/Acetaminophen [Percocet 1 ea PO Q4H PRN 06/04/18 06/04/18 5/325 mg Tab] Arformoterol [Brovana] 1 kasey IH BID 06/07/18 06/07/18 Atorvastatin [Lipitor] 10 mg PO DIN 06/07/18 06/07/18 Tiotropium Valentine Inhaler 2 puff INH DAILY 06/07/18 06/07/18 [Spiriva Inhalation Handihaler Device] Review of Systems - Physician Review All systems were reviewed & negative as marked: Yes - Review of Systems Constitutional: absent: Fevers, Night Sweats Respiratory: SOB Cardiovascular: absent: Chest Pain Gastrointestinal: absent: Abdominal Pain, Diarrhea, Nausea, Vomiting Neurological: absent: Headache, Dizziness Physical Exam Vital Signs Temp Pulse Resp BP Pulse Ox 06/06/18 23:41 98.8 F 111 H 20 133/82 92 L Temperature: Afebrile Blood Pressure: Normal Pulse: Tachycardic Respiratory Rate: Normal Appearance: Positive for: Well-Appearing, Non-Toxic, Comfortable Pain Distress: None Mental Status: Positive for: Alert and Oriented X 3 - Systems Exam Head: Present: Atraumatic, Normocephalic Pupils: Present: PERRL Extroacular Muscles: Present: EOMI Conjunctiva: Present: Normal Mouth: Present: Moist Mucous Membranes Neck: Present: Normal Range of Motion Respiratory/Chest: Present: Decreased Breath Sounds. No: Respiratory Distress, Accessory Muscle Use Cardiovascular: Present: Regular Rate and Rhythm, Normal S1, S2. No: Murmurs Abdomen: No: Tenderness, Distention, Peritoneal Signs Back: Present: Normal Inspection Upper Extremity: Present: Normal Inspection. No: Cyanosis, Edema Lower Extremity: Present: Normal Inspection. No: Edema Neurological: Present: GCS=15, CN II-XII Intact, Speech Normal Skin: Present: Warm, Dry, Normal Color. No: Rashes Psychiatric: Present: Alert, Oriented x 3, Normal Insight, Normal Concentration Medical Decision Making ED Course and Treatment: 06/06/18 23:34 Impression: Patient is a 62 year old female. with past medical history of COPD and lung cancer, who presents to the Emergency department with shortness of breath. Plan: -- EKG -- Labs -- Chest X-Ray -- Duoneb -- SOLU-medrol -- Reassess and disposition Prior Visits: Notes and results from previous visits were reviewed. Progress Notes: 06/07/18 00:10 Reviewed EKG, shows: Rate : 113 BPM Rhythm : sinus tachycardia Interpretation: Anteroseptal infarct. Non-specific ST / T changes 06/07/18 02:00 Reviewed Chest X-Ray, shows: hyper inflated lung zaman, right infrahilar mass, right lower lobe infiltrate 06/07/18 02:[address] Lopez, who accepts patient into his service. Requests Dr. Bloom and Dr. Wells on consult. - RAD Interpretation Radiology Orders: 06/06/18 23:46 CHEST PORTABLE [RAD] Stat - EKG Interpretation Interpreted by ED Physician: Yes Type: 12 lead EKG - Medication Orders Current Medication Orders: Discontinued Medications Albuterol/Ipratropium (Duoneb 3 Mg/0.5 Mg (3 Ml) Ud) 3 ml IH ONCE STA Stop: 06/06/18 23:45 Methylprednisolone (Solu-Medrol) 125 mg IVP ONCE ONE Stop: 06/06/18 23:45 - Scribe Statement The provider has reviewed the documentation as recorded by the Nevilleibjo Fox training with [employer] All medical record entries made by the Scribe were at my direction and personally dictated by me. I have reviewed the chart and agree that the record accurately reflects my personal performance of the history, physical exam, medical decision making, and the department course for this patient. I have also personally directed, reviewed, and agree with the discharge instructions and disposition. Disposition/Present on Arrival - Present on Arrival Any Indicators Present on Arrival: No History of DVT/PE: No History of Uncontrolled Diabetes: No Urinary Catheter: No History of Decub. Ulcer: No History Surgical Site Infection Following: None - Disposition Have Diagnosis and Disposition been Completed?: Yes Diagnosis: COPD exacerbation, Pulmonary cancer, Pneumonia Disposition: HOSPITALIZED Disposition Time: 02:12 Patient Problems: Current Active Problems Problem Status Onset COPD exacerbation Acute Pneumonia Acute Pulmonary cancer Acute Condition: STABLE
[2018-06-07 00:13] LABS: HEMOGLOBIN 12.1 g/dL (12.0-16.0); MEAN CELL VOLUME 93.8 fl (80.0-105.0); MEAN CORPUSCULAR HEMOGLOBIN 31.5 pg (25.0-35.0); MEAN CORPUSCULAR HGB CONC 33.6 g/dl (31.0-37.0); MEAN PLATELET VOLUME 9.7 fl (7.0-11.0); RBC 3.84 10^6/uL (3.5-6.1); RED CELL DISTRIBUTION WIDTH 14.4 % (11.5-14.5); WHITE BLOOD COUNT 8.4 10^3/uL (4.5-11.0)
[2018-06-07 00:26] LABS: INR 1.44; PARTIAL THROMBOPLASTIN TIME 30.3 Seconds (26.9-38.3)
[2018-06-07 00:28] LABS: ALB/GLOB RATIO 1.3 (1.1-1.8); ALBUMIN 4.1 g/dL (3.0-4.8); ALT/SGPT 14 U/L (7-56); AST/SGOT 37 U/L (14-36); BLOOD UREA NITROGEN 10 mg/dL (7-21); CALCIUM 9.5 mg/dL (8.4-10.5); GFR NON-AFRICAN AMERICAN > 60
[2018-06-07 00:40] LABS: B-TYPE NATRIURETIC PEPTIDE 240 pg/mL (0-450); TROPONIN I < 0.01 ng/mL
[2018-06-07] MEDS ORDERED: Albuterol-Ipratrop 3 mg / 0.5 (3 ml) UD IH STA (01:04)
[2018-06-07] MEDS ORDERED: Azithromycin 500MG/NS 250ml 500 MG/250 ML BAG IV STA (02:12)
[2018-06-07] MEDS ORDERED: cefTRIAXone 1 gm 1 GM/100 ML BAG IV STA (02:12)
[2018-06-07] MEDS ORDERED: Albuterol-Ipratrop 3 mg / 0.5 (3 ml) UD IH PRN ×2 (02:17→06:43)
[2018-06-07 06:21] VITALS: BMI 19.7
[2018-06-07] MEDS: Budesonide 0.5 mg/2 ml Inhal Susp UD IH SCH ×2 (07:38→20:41)
[2018-06-07] MEDS: Albuterol-Ipratrop 3 mg / 0.5 (3 ml) UD IH SCH ×3 (07:38→20:41)
--- NOTE | 2018-06-07 08:23 | CON ---
DATE: 06/07/2018 PULMONARY CONSULTATION REASON FOR THIS PULMONARY CONSULTATION: Chronic obstructive pulmonary disease. REFERRING PHYSICIAN: Garfield Lopez DO HISTORY OF PRESENT ILLNESS: The patient is a 62-year-old female, with past medical history significant for advanced chronic obstructive pulmonary disease, on home oxygen, recently diagnosed advanced adenocarcinoma of the right lung, status post recent CAT scan guided lung biopsy, Status post recent thoracentesis (also positive for metastatic adenocarcinoma), gastroesophageal reflux disease, who presents to [facility] with a 2-day history of increasing shortness breath at rest, dyspnea on exertion, cough, and minimal sputum production. There is no history of chest pain, coughing up of blood, or chest pain - brought on with deep respirations. There is no history of temperatures, chills, or infectious exposure. There is no history of night sweats. The patient does state to weight loss with decreased appetite over the past 6 months. No history of calf pains. No history of syncope or diaphoresis. No history of recent travel or trauma. REVIEW OF SYSTEMS: No history of nausea, vomiting, or diarrhea. No acute urinary symptoms. No new neurologic complaints. Rest of the review of systems negative. ALLERGIES: MORPHINE. SOCIAL HISTORY: Positive for tobacco usage. No alcohol. FAMILY HISTORY: No inheritable diseases. HOME MEDICATIONS: Include Lipitor, Percocet, Betapace, Dexilant, Ecotrin, vitamin C. PHYSICAL EXAMINATION: GENERAL: The patient appears comfortable this morning. She is not short of breath at rest. VITAL SIGNS: Temperature is 97.0, pulse 87, respirations 18/20, blood pressure 102/64. Oxygen saturation on nasal cannula is 97%. HEENT: Normocephalic, atraumatic. NECK: No JVD. CARDIOVASCULAR: Positive S1, S2. No S3 gallop. LUNGS: Crackles noted at the right lower lobe. Minimal bilateral rhonchi. No wheezing. EXTREMITIES: Mild edema. No cyanosis, no clubbing. Calves are nontender to palpation. GASTROINTESTINAL: Abdomen is soft, nontender, and nondistended. Bowel sounds are positive. SKIN: No acute rash. NEUROLOGIC: Limited at the present time. PERTINENT LABORATORY DATA: Chest x-ray was done on 06/06/2018 and reviewed. There is a medial right lower lobe consolidation noted. The most current film is not significantly changed from the previous film of 06/03/2018. CBC; white count 8.4K, hemoglobin 12.1, hematocrit 36.0, platelets of 212,000. Complete metabolic profile; sodium 131, chloride 94, glucose 120, AST 37, alkaline phosphatase 135, LDH 784. Rest of the metabolic profiles within normal limits. IMPRESSION: 1. Acute bronchitis. 2. Acute bronchospasm. 3. Advanced chronic obstructive pulmonary disease, on home oxygen. 4. Advanced/extensive adenocarcinoma of the right lung. PLAN: The patient presents to [facility] with a 2-day history of worsening pulmonary symptoms. Again, I did review the chest x-ray as above. It is not significantly changed from the previous film. In addition, there is no history of temperatures. There is no leukocytosis. However, I will order a procalcitonin level-- to make sure that we are not dealing with an acute pneumonia. On physical exam, the patient is in [id number] bronchospasm. I will start the patient on DuoNeb treatments, inhaled Pulmicort, and intravenous Solu-Medrol. Due to the above history, I will also start oral antibiotic therapy. Again, I did review the patient's chart at length. Unfortunately, she has been recently diagnosed with advanced metastatic adenocarcinoma of the right lung. She is status post CAT scan guided lung biopsy. She is status post thoracentesis--also positive for malignancy. Dr. Bloom is called on the case for additional evaluation and treatment. The patient does state to feeling much better this morning and is clinically improved. Unfortunately, her overall status/prognosis does appear poor. I will discuss the above with Dr. Lopez. Thank you very much for this pulmonary consultation. Kevin Wells MD JARET
--- NOTE | 2018-06-07 09:10 | RAD ---
Date of service: 06/07/2018 HISTORY: sob COMPARISON: 06/03/2018. FINDINGS: LUNGS: There is redemonstration of known mass in the right infrahilar region The lungs are hyperinflated and there is peribronchial thickening with chronic changes in both lungs. PLEURA: Small right pleural effusion. No left pleural effusion. No pneumothorax. CARDIOVASCULAR: The heart is normal in size. No aortic atherosclerotic calcifications present. OSSEOUS STRUCTURES: Within normal limits for the patient's age. VISUALIZED UPPER ABDOMEN: Normal. OTHER FINDINGS: None. IMPRESSION: Little interval change in known right infrahilar mass. COPD.
[2018-06-07] MEDS ORDERED: levoFLOXacin 500 MG TAB PO SCH (10:00)
[2018-06-07] MEDS ORDERED: cefTRIAXone 1 gm 1 GM/100 ML BAG IVPB SCH (10:00)
[2018-06-07] MEDS: MethylPREDNISolone 40 mg Vial IVP SCH ×2 (10:42→21:50)
[2018-06-07] MEDS: Azithromycin 500MG/NS 250ml 500 MG/250 ML BAG IVPB SCH ×2 (10:43→16:07)
[2018-06-07] MEDS ORDERED: Lidocaine 2% Inj (20ml) ONE (11:39)
[2018-06-07] MEDS ORDERED: Midazolam 2 MG/2 ML VIAL ONE ×2 (13:45→13:55)
[2018-06-07] MEDS ORDERED: DiphenhydrAMINE 50 mg/ml Inj ONE (14:05)
[2018-06-07] MEDS ORDERED: Sodium Chloride 0.45% 1,000 ML IV SCH (14:30)
--- NOTE | 2018-06-07 18:53 | HP ---
HISTORY OF PRESENT ILLNESS: She is here because of shortness of breath. She was recently diagnosed with end-stage lung cancer, underwent her first radiation treatment. She was supposed to get a Port-A-Cath placement, I get Dr. Brayan Orozco on board. today on the outpatient. She got the diagnosis of cancer about a week or two ago. PAST MEDICAL HISTORY: She has a history of pulmonary cancer, lung cancer, COPD, GERD, bronchitis, diverticulosis, arthritis. PAST SURGICAL HISTORY: She has had right hip replacement, right femur surgeries. FAMILY HISTORY: Unknown family history. SOCIAL HISTORY: She does drink socially. No substance abuse. ALLERGIES: SHE IS ALLERGIC TO MORPHINE. MEDICATIONS: She is on Dexilant daily, vitamins, ascorbic acid, Percocet, Brovana, Lipitor, and Spiriva inhaler. REVIEW OF SYSTEMS: She is very short of breath. No fevers. No acute vision or hearing changes. No sore throat. There is no chest pain or palpitations. She is short of breath. There is occasional wheeze, difficult to get her breath. There is no abdominal pain, diarrhea, nausea or vomiting. Extremities, she moves all 4 extremities. Skin is intact. PHYSICAL EXAMINATION GENERAL: She is little bit uncomfortable, little bit toxic. She is better with the oxygen. Alert and oriented x3. VITAL SIGNS: 98.8 temperature, 111 pulse, 20 respiratory rate, 132/82 blood pressure, 92% O2 sat on room air. HEENT: Head is atraumatic and normocephalic. Extraocular muscles are intact. Pupils equal and reactive to light. Throat is dry. NECK: Supple. HEART: Regular rate. Normal S1 and S2. LUNGS: Decreased breath sounds bilaterally, occasional congestion, cough. ABDOMEN: Soft, nontender. Positive bowel sounds. EXTREMITIES: No edema. NEUROLOGIC: GCS 15. Cranial nerves II through XII are grossly intact. Speech is normal. SKIN: Warm and dry. No apparent rashes or ulcers appreciated. Alert and oriented x3. LYMPHS: Thyroid midline. No palpable cervical adenopathy at this time. LABORATORY DATA: She had multiple tests. She had an EKG showed anteroseptal infarct, nonspecific ST T-wave changes. Chest x-ray read by the ER doctor showed inferior lung field right infrahilar mass, right lower lobe infiltrate. We are going to get her consults, Pulmonary, Oncology on the case and I have also called Dr. Brayan Orozco to put in a Port-A-Cath it was supposed to do it today. His chest x-ray report is pending. She has sodium 131, potassium 3.8, BUN 10, creatinine 0.4, GFR is greater than 60, sugar is 120, calcium is 9.5, total bili is 1.1. AST is 37, ALT is 14, alkaline phosphatase 135, lactate dehydrogenase is 784, total creatine kinase is 22, troponin I is 0.01 less. BNP is 240. Total protein is 7.1, albumin is 4.1, globulin is 3, INR is 1.44. White count 3.4, hemoglobin 12.1, hematocrit 36, platelets of 212. ASSESSMENT AND PLAN: We will continue aggressive treatment and care. She will be on IV Rocephin, IV Zithromax, Xanax. She has a dose of Levaquin, Solu-Medrol 40 IV every 12 hours. She is here for chronic obstructive pulmonary disease, from lung cancer, possible pneumonia. Garfield Lopez DO MTDD
--- NOTE | 2018-06-07 19:00 | CARD ---
APPROVED REPORT Date of service: 06/07/2018 EKG Measurement Heart [id number] MD [id number] <Conclusion> Sinus tachycardia Anteroseptal infarct, age undetermined Abnormal ECG
--- NOTE | 2018-06-07 19:19 | VASCULAR ---
PROCEDURE: Ultrasound and fluoroscopic right internal jugular venous access port. CLINICAL HISTORY: Lung carcinoma.Venous port for chemotherapy. PHYSICIAN(S): Brayan Orozco M.D. TECHNIQUE: The relative risks and indications of the procedure were explained to the patient and consent obtained. The patient was placed supine on the arteriogram table and the right neck and chest prepped and draped in the usual sterile fashion. Conscious sedation monitoring was provided throughout the procedure by a nurse. Antibiotics were given prior to the procedure. Under direct ultrasound guidance, the right internal jugular vein was punctured with a micro-puncture set. A 0.035 angled Glidewire was advanced into the IVC. A 4 cm incision was made below the right clavicle and the pocket blunted dissected. A 8 Hebrew single-lumen catheter, 23 cm long, was advanced to the SVC/RA junction. The catheter was trimmed and attached to the port. The port aspirates and injects easily. The port was placed in the pocket and closed in 2 layers. The patient tolerated the procedure well. IMPRESSION: Ultrasound and fluoroscopically placed right internal jugular venous access port.
[2018-06-07] MEDS: Arformoterol 15 mcg/2 ml Inh Sol IH SCH (21:08)
[2018-06-07] MEDS: Oxycodone/Acetaminophen 5/325 mg Tab PO PRN (21:50)
[2018-06-07] MEDS: Pantoprazole 40 mg EC Tab PO SCH (21:51)
[2018-06-08] MEDS: Albuterol-Ipratrop 3 mg / 0.5 (3 ml) UD IH SCH ×4 (01:33→21:14)
[2018-06-08 07:08] LABS: HEMOGLOBIN 10.7 g/dL (12.0-16.0); MEAN CELL VOLUME 94.8 fl (80.0-105.0); MEAN CORPUSCULAR HEMOGLOBIN 31.1 pg (25.0-35.0); MEAN CORPUSCULAR HGB CONC 32.8 g/dl (31.0-37.0); MEAN PLATELET VOLUME 9.7 fl (7.0-11.0); RBC 3.44 10^6/uL (3.5-6.1); RED CELL DISTRIBUTION WIDTH 14.5 % (11.5-14.5); WHITE BLOOD COUNT 11.2 10^3/uL (4.5-11.0)
[2018-06-08 07:27] LABS: ALB/GLOB RATIO 1.2 (1.1-1.8); ALBUMIN 3.7 g/dL (3.0-4.8); ALT/SGPT 17 U/L (7-56); AST/SGOT 39 U/L (14-36); BLOOD UREA NITROGEN 10 mg/dL (7-21); CALCIUM 9.4 mg/dL (8.4-10.5); GFR NON-AFRICAN AMERICAN > 60
--- NOTE | 2018-06-08 08:03 | CON ---
DATE: 06/07/2018 ONCOLOGY EVALUATION HISTORY OF PRESENT ILLNESS: This is a 62-year-old woman with severe emphysema and lung cancer metastatic to the bone. She has just had her cancer diagnosed and she was supposed to get a Port-A-Cath today, which she is undergoing. She was seen yesterday for radiation therapy at [facility] for sacral metastasis, which is giving her a lot of pain and she will hopefully start chemotherapy in about 2 weeks after chemotherapy is being given. She is ALK negative, PD-L1 negative, ROS negative, and EGFR negative, so she will require plus or minus immunotherapy on presentation. However, on her way home from the radiation therapy, she starts developing increasing shortness of breath and she came into the hospital now where she is being given Rocephin and Levaquin antibiotics. LABORATORY DATA: Laboratory findings show white count of 8.4, hemoglobin 12.1, and platelet count of 212. INR is 1.44. The liver function tests are essentially okay. The chest x-ray showed small right pleural effusion, mass in the right infrahilar region, this is supposed to be no actual acute pneumonia. IMPRESSION AND PLAN: So, at this point, she is being seen by Pulmonary and they will evaluate her for home oxygen and continue the antibiotics and at that point once she has improved, she will go to the home and continue the plans, which are to start radiation therapy to the back and then chemotherapy for her. Humberto Bloom MD
--- NOTE | 2018-06-08 08:21 | PN ---
DATE: 06/08/2018 SUBJECTIVE: The patient appears comfortable this morning. She is not short of breath at rest. She does appear weak. PHYSICAL EXAMINATION: VITAL SIGNS: Temperature 98, pulse 85, respirations 18/20, blood pressure 126/74. Oxygen saturation on nasal cannula is 94-99%. HEENT: Normocephalic, atraumatic. NECK: No JVD. CARDIOVASCULAR: Positive S1, S2. No S3 gallop. LUNGS: Crackles noted at the right lower lobe. Much less/minimal rhonchi. No wheezing. EXTREMITIES: Mild edema. No cyanosis. No clubbing. Calves are nontender to palpation. GI: Abdomen is soft, nontender and nondistended. Bowel sounds are positive. SKIN: No acute rash. NEUROLOGIC: Exam limited at the present time. PERTINENT LABORATORY DATA: Procalcitonin done yesterday is elevated - 2.16. IMPRESSION: 1. Acute bronchitis. 2. Acute bronchospasm. 3. Advanced chronic obstructive pulmonary disease, on home oxygen. 4. Advanced/extensive adenocarcinoma of the right lung. 5. Rule out pneumonia - right lower lobe. PLAN: The patient appears comfortable this morning. She is not short of breath at rest. She does state to feeling much better overall. She does appear very weak, however. On physical exam, there is certainly less bronchospasm noted. In addition, the alveolar-arterial gradient is also less. I will continue with the current nebulizer treatments and decrease the intravenous steroids this morning. I did review the laboratory data-above. The procalcitonin is elevated. I will discontinue the oral Levaquin and start intravenous antibiotic therapy this morning. The patient does have a T-max of 99.7. Clinical status of the patient certainly appears improved - compared to the initial presentation. However, given the above, unfortunately, the future status/prognosis for this patient remains poor. As above, the patient appears very weak and deconditioned. A stay on the transitional unit may be of benefit. I will discuss the above with Dr. Lopez. Kevin Wells MD J[facility]ET
[2018-06-08] MEDS: Budesonide 0.5 mg/2 ml Inhal Susp UD IH SCH ×2 (08:44→21:14)
[2018-06-08] MEDS: Arformoterol 15 mcg/2 ml Inh Sol IH SCH ×3 (08:44→21:13)
[2018-06-08] MEDS ORDERED: Bisacodyl 5mg EC Tab PO ONE (09:15)
[2018-06-08] MEDS: Azithromycin 500MG/NS 250ml 500 MG/250 ML BAG IVPB SCH (10:29)
[2018-06-08] MEDS: MethylPREDNISolone 40 mg Vial IVP SCH ×2 (10:29→21:07)
[2018-06-08] MEDS: cefTRIAXone 1 gm 1 GM/100 ML BAG IVPB SCH (12:12)
[2018-06-08] MEDS: Oxycodone/Acetaminophen 5/325 mg Tab PO PRN ×2 (13:12→21:07)
--- NOTE | 2018-06-08 13:55 | PN ---
DATE: 06/08/2018 SUBJECTIVE: Kyara is resting comfortably in bed. She tells me she is starting to feel little bit better. She thinks the IV steroids are really helping her. I spoke to Dr. Wells about this. He thinks it should be a good idea for her to go to the TCU. keep an eye on her if she has really bad lungs from her cancer and he feels she might be good now, but may be not good tomorrow. She is on Betapace, Brovana, Dolorex, DuoNebs, Lipitor, Percocet, Protonix, Pulmicort, Rocephin, Solu-Medrol, Tylenol, Xanax, azithromycin, and Zofran. She has not really walking much either. PHYSICAL EXAMINATION: VITAL SIGNS: She has a 98 temp, 85 pulse, 126/74 blood pressure, 20 respiratory rate, 94% O2 sat on nasal cannula. HEENT: Head is atraumatic, normocephalic. HEART: Regular rate. LUNGS: Decreased breath sounds. ABDOMEN: Soft. EXTREMITIES: No edema. LABORATORY DATA: White count 11.2, 10.7 hemoglobin, 32.6 hematocrit with 240 platelets. Sodium 133, potassium 4.3, BUN 10, creatinine 0.5, GFR is greater than 60, sugar is 137, calcium is 9.4, total bili is 0.6. AST is 39, ALT is 17, alkaline phosphatase is 116, total protein is 6.7. Procalcitonin is high at 216, so she is not She has been seen by Pulmonary and Hematology. She has very bad lung cancer, possible pneumonia. I will put a TCU evaluation. Dr. Wells thinks she will need longer than 3 days of pulmonary care and it would not be a bad idea to give her physical therapy too. Continue aggressive treatment and care. Garfield Lopez DO [place]
[2018-06-08] MEDS: Pantoprazole 40 mg EC Tab PO SCH (21:07)
[2018-06-09] MEDS: Albuterol-Ipratrop 3 mg / 0.5 (3 ml) UD IH SCH ×4 (02:11→20:06)
[2018-06-09] MEDS: Budesonide 0.5 mg/2 ml Inhal Susp UD IH SCH ×2 (08:00→20:06)
[2018-06-09] MEDS: Arformoterol 15 mcg/2 ml Inh Sol IH SCH ×2 (08:00→20:05)
[2018-06-09 08:14] LABS: MEAN CELL VOLUME 97.7 fl (80.0-105.0); MEAN CORPUSCULAR HEMOGLOBIN 31.2 pg (25.0-35.0); MEAN CORPUSCULAR HGB CONC 31.9 g/dl (31.0-37.0); RBC 3.53 10^6/uL (3.5-6.1); RED CELL DISTRIBUTION WIDTH 14.9 % (11.5-14.5); WHITE BLOOD COUNT 8.8 10^3/uL (4.5-11.0)
[2018-06-09 08:30] LABS: ALB/GLOB RATIO 1.3 (1.1-1.8); ALBUMIN 3.9 g/dL (3.0-4.8); ALT/SGPT 16 U/L (7-56); AST/SGOT 28 U/L (14-36); BLOOD UREA NITROGEN 13 mg/dL (7-21); CALCIUM 9.4 mg/dL (8.4-10.5); GFR NON-AFRICAN AMERICAN > 60
--- NOTE | 2018-06-09 08:46 | PN ---
DATE: 06/09/2018 PULMONARY NOTE SUBJECTIVE: The patient appears quite comfortable this morning. She is not short of breath at rest. OBJECTIVE: VITAL SIGNS: Temperature is 97.8, pulse 87, respirations 18/20, blood pressure 131/84. Oxygen saturation on nasal cannula is 99%. HEENT: Normocephalic, atraumatic. NECK: No JVD. CARDIOVASCULAR: Positive S1 and S2. No S3 gallop. LUNGS: Crackles noted - right lower lobe. Less rhonchi. No wheezing. EXTREMITIES: Mild edema. No cyanosis, no clubbing. Calves are nontender to palpation. GI: Abdomen is soft, nontender and nondistended. Bowel sounds are positive. SKIN: No acute rash. NEUROLOGIC: Exam limited at the present time. IMPRESSION: 1. Acute bronchitis. 2. Acute bronchospasm. 3. Advanced chronic obstructive pulmonary disease, on home oxygen. 4. Advanced/extensive adenocarcinoma of the right lung. 5. Rule out pneumonia - right lower lobe. Plan: The patient appears quite comfortable this morning. She is not short of breath at rest. She does state to feeling much much better overall. She does remain weak appearing. I did discuss the case with the night nurse at length. The night nurse stated that the patient had a good night. On physical exam, there is certainly less bronchospasm noted. In addition, the alveolar-arterial gradient is also less. Oxygen saturation on nasal cannula is now 99%. I will continue the current nebulizer treatments and low-dose intravenous steroids (decreased yesterday) for now. I will also continue the current antibiotic therapy for now. Temperatures have completely resolved. Input by Oncology is also noted. Clinical status of the patient is certainly improved - compared to the initial presentation. However, given the above, the future status/prognosis for this patient remains very guarded at best/poor. I will discuss the above with the attending physician. Kevin Wells MD MTD[facility]
[2018-06-09] MEDS: MethylPREDNISolone 40 mg Vial IVP SCH ×2 (09:49→21:28)
[2018-06-09] MEDS: cefTRIAXone 1 gm 1 GM/100 ML BAG IVPB SCH (09:50)
[2018-06-09] MEDS ORDERED: Magnesium Hydroxide Susp 30 ml UD PO ONE (10:39)
[2018-06-09] MEDS: Azithromycin 500MG/NS 250ml 500 MG/250 ML BAG IVPB SCH (11:22)
--- NOTE | 2018-06-09 17:09 | PN ---
DATE: 06/09/2018 SUBJECTIVE: I saw her sitting out of bed to chair this morning with her present. She had a lot of questions about her condition and how she is doing. She wants to see her oncologist, Dr. Bloom. I will get him in. The rod piler saw her and told her that she is staying for a little while longer than she thought, she got upset about that; and she is due for a Port-A-Cath insertion with Dr. Brayan Orozco, probably on Monday. PHYSICAL EXAMINATION: GENERAL: She is alert and talking. She is feeling much better than when she came in when she was very short of breath, that is gone, but she is upset that she has stayed here longer than she thought she was going to have to. VITAL SIGNS: She has a 97.8 temperature, 83 pulse, 142/71 blood pressure, 20 respiratory rate, 99% O2 sat on 2 liters. LABORATORY DATA: 8.8 white count, 11 hemoglobin, 34.5 hematocrit with 264 platelets. 134 sodium, potassium 4.3, BUN is 30, creatinine 0.5, GFR is greater than 60, sugar is 135, calcium is 9.4, total bili is 0.5. AST is 28, ALT is 16, alk phos 115. Procalcitonin was 2.16, total protein 6.8. MEDICATIONS: She is on Betapace, Brovana, DuoNebs, Lipitor, Percocet, Protonix, Pulmicort, Rocephin, Solu-Medrol is down to 30 IV every 12 hours, Tylenol, Xanax, azithromycin, and Zofran. ASSESSMENT AND PLAN: Advanced chronic obstructive pulmonary disease, on home oxygen; acute bronchitis; bronchospasm advanced; extensive adenocarcinoma of the right lung or right lower lobe pneumonia. We will continue with aggressive treatment and care. Garfield Lopez DO [facility]
[2018-06-09] MEDS: Oxycodone/Acetaminophen 5/325 mg Tab PO PRN (19:44)
[2018-06-09] MEDS: Pantoprazole 40 mg EC Tab PO SCH (21:28)
[2018-06-10] MEDS: Albuterol-Ipratrop 3 mg / 0.5 (3 ml) UD IH SCH ×4 (01:25→20:15)
[2018-06-10] MEDS: Arformoterol 15 mcg/2 ml Inh Sol IH SCH ×2 (07:42→20:15)
[2018-06-10] MEDS: Budesonide 0.5 mg/2 ml Inhal Susp UD IH SCH ×2 (07:42→20:15)
--- NOTE | 2018-06-10 07:45 | PN ---
DATE: 06/10/2018 PULMONARY NOTE SUBJECTIVE: The patient appears very comfortable this morning. She is not short of breath at rest. PHYSICAL EXAMINATION: VITAL SIGNS: Temperature is 97.2, pulse 79, respirations 18, blood pressure 129/84. Oxygen saturation on nasal cannula is 97%. HEENT: Normocephalic, atraumatic. No JVD. CARDIOVASCULAR: Positive S1, S2. No S3 gallop. LUNGS: Crackles noted - right lower lobe. Minimal/less rhonchi. No wheezing. GI: Abdomen is soft, nontender and nondistended. Bowel sounds are positive. EXTREMITIES: Mild edema. No cyanosis, no clubbing. Calves are nontender to palpation. SKIN: No acute rash. NEUROLOGIC: Exam limited at the present time. IMPRESSION: 1. Acute bronchitis. 2. Acute bronchospasm. 3. Advanced chronic obstructive pulmonary disease, on home oxygen. 4. Advanced/extensive adenocarcinoma of the right lung. 5. Rule out pneumonia - right lower lobe. PLAN: The patient appears very comfortable this morning. She is not short of breath at rest. She does state to feeling much better overall. She does remain somewhat weak appearing. On physical exam, her bronchospasm continues to resolve. In addition, the alveolar-arterial gradient also continues to resolve. I will continue the current nebulizer treatments and low-dose intravenous steroids for now. The patient remains on antibiotic therapy. Temperatures have fully resolved. The leukocytosis has also fully resolved. Clinical status of the patient appears significantly improved - compared to the initial presentation. However, unfortunately, the future status/prognosis for this patient remains very guarded at best/poor. The patient is for possible transfer to the transitional unit in the near future. I will discuss the above with Dr. Lopez. Kevin Wells MD [facility]
[2018-06-10 07:53] LABS: HEMOGLOBIN 11.3 g/dL (12.0-16.0); MEAN CELL VOLUME 96.6 fl (80.0-105.0); MEAN CORPUSCULAR HEMOGLOBIN 31.7 pg (25.0-35.0); MEAN CORPUSCULAR HGB CONC 32.8 g/dl (31.0-37.0); MEAN PLATELET VOLUME 9.9 fl (7.0-11.0); RBC 3.57 10^6/uL (3.5-6.1); RED CELL DISTRIBUTION WIDTH 14.5 % (11.5-14.5); WHITE BLOOD COUNT 8.5 10^3/uL (4.5-11.0)
[2018-06-10 08:11] LABS: ALB/GLOB RATIO 1.3 (1.1-1.8); ALT/SGPT 15 U/L (7-56); AST/SGOT 26 U/L (14-36); BLOOD UREA NITROGEN 10 mg/dL (7-21); CALCIUM 9.4 mg/dL (8.4-10.5); GFR NON-AFRICAN AMERICAN > 60
[2018-06-10] MEDS: Oxycodone/Acetaminophen 5/325 mg Tab PO PRN ×2 (08:50→15:11)
[2018-06-10] MEDS: cefTRIAXone 1 gm 1 GM/100 ML BAG IVPB SCH (09:32)
[2018-06-10] MEDS: MethylPREDNISolone 40 mg Vial IVP SCH ×2 (09:32→21:34)
[2018-06-10] MEDS: Azithromycin 500MG/NS 250ml 500 MG/250 ML BAG IVPB SCH (11:01)
--- NOTE | 2018-06-10 13:56 | PN ---
DATE: 06/10/2018 SUBJECTIVE: I saw her in bed this morning. She is having some right chest pain in her ribs as she said this is from the bed, not much coughing. She is breathing a bit better. She did eat; overall she tells me she is improving, just a sore right side. MEDICATIONS: She is on Betapace, Brovana, DuoNebs, Lipitor, milk of magnesia, Percocet, Protonix, Pulmicort, Rocephin IV, Solu-Medrol 30 mg IV every 12 hours as per Pulmonology, Tylenol, Xanax, Zithromax IV and Zofran. PHYSICAL EXAMINATION: VITAL SIGNS: 97.2 temp, 79 pulse, 129/84 blood pressure, 18 respiratory rate, 97% O2 sat on 2 liters. HEENT: Head atraumatic, normocephalic. Throat moist. NECK: Supple. HEART: Regular rate. LUNGS: Decreased breath sounds. No wheezes or rhonchi, little spasm, just poor inspiration from the cancer. ABDOMEN: Soft, nontender, positive bowel sounds. EXTREMITIES: No edema. LABORATORY DATA: She has 8.5 white count, 11.3 hemoglobin, 34.5 hematocrit with 271 platelets. 1.44 INR. 134 sodium, potassium 4.2, BUN 10, creatinine 0.4, GFR is greater than 60, sugar is 168, calcium is 9.4, total bilirubin is 0.6, AST is 26, ALT is 15, alk phos 131, total protein 7. Procalcitonin is high at 2.16. ASSESSMENT AND PLAN: We will continue as per Pulmonology, also as per Oncology Dr. Bloom. It is very possible she will be going to [facility] tomorrow. Physical therapy, continue pulmonary care. I will discuss this tomorrow with Pulmonology about further lung treatment and also if Oncology wants to add anything and a Port-A-Cath. Checking her labs tomorrow. Acute bronchitis, acute bronchospasm, advanced chronic obstructive pulmonary disease on home oxygen, advanced extensive adenocarcinoma of the right lung, possible right lower lobe pneumonia improving. Melvin Lopez DO [facility] # [id number]
[2018-06-10] MEDS: Pantoprazole 40 mg EC Tab PO SCH (21:35)
[2018-06-10] MEDS ORDERED: Oxycodone/Acetaminophen 5/325 mg Tab PO ONE (23:07)
[2018-06-11] MEDS: Albuterol-Ipratrop 3 mg / 0.5 (3 ml) UD IH SCH ×4 (01:42→20:01)
[2018-06-11 06:32] LABS: HEMOGLOBIN 10.3 g/dL (12.0-16.0); MEAN CELL VOLUME 96.7 fl (80.0-105.0); MEAN CORPUSCULAR HEMOGLOBIN 30.9 pg (25.0-35.0); MEAN PLATELET VOLUME 9.5 fl (7.0-11.0); RBC 3.33 10^6/uL (3.5-6.1); RED CELL DISTRIBUTION WIDTH 14.5 % (11.5-14.5)
[2018-06-11 06:53] LABS: ALB/GLOB RATIO 1.4 (1.1-1.8); ALBUMIN 3.8 g/dL (3.0-4.8); ALT/SGPT 18 U/L (7-56); AST/SGOT 37 U/L (14-36); BLOOD UREA NITROGEN 10 mg/dL (7-21); CALCIUM 9.3 mg/dL (8.4-10.5); GFR NON-AFRICAN AMERICAN > 60
[2018-06-11] MEDS: Budesonide 0.5 mg/2 ml Inhal Susp UD IH SCH ×2 (07:27→20:02)
[2018-06-11] MEDS: Arformoterol 15 mcg/2 ml Inh Sol IH SCH ×2 (07:27→20:01)
--- NOTE | 2018-06-11 10:07 | PN ---
DATE: 06/11/2018 PULMONARY NOTE SUBJECTIVE: The patient appears comfortable this morning. She is not short of breath at rest. PHYSICAL EXAMINATION: VITAL SIGNS: Temperature is 97.4, pulse 84, respirations 18/20, blood pressure 131/64. Oxygen saturation on nasal cannula is 95-97%. HEENT: Normocephalic, atraumatic. No JVD. CARDIOVASCULAR: Positive S1, S2. No S3 gallop. LUNGS: Less crackles - right lower lobe. Much less rhonchi. No wheezing. GI: Abdomen is soft, nontender and nondistended. Bowel sounds are positive. EXTREMITIES: Mild edema. No cyanosis, no clubbing. Calves are nontender to palpation. SKIN: No acute rash. NEUROLOGIC: Exam limited at the present time. IMPRESSION: 1. Acute bronchitis. 2. Acute bronchospasm. 3. Advanced chronic obstructive pulmonary disease, on home oxygen. 4. Advanced/extensive adenocarcinoma of the right lung. 5. Rule out pneumonia - right lower lobe. PLAN: The patient appears very comfortable this morning. She is not short of breath at rest. She does state to feeling much better overall. She is less weak appearing. On physical exam, her bronchospasm continues to resolve. In addition, there is no significant alveolar-arterial gradient. I will continue the current nebulizer treatments and decrease the intravenous steroids this morning. The patient remains on antibiotic therapy. Her temperatures have fully resolved. The leukocytosis has also fully resolved. Clinical status of the patient has significantly improved - compared to initial presentation. However, unfortunately, given the above, the future status/prognosis for this patient remains very guarded at best/poor. I will discuss the above with Dr. Lopez. Kevin Wells MD [place]
[2018-06-11] MEDS: MethylPREDNISolone 40 mg Vial IVP SCH ×2 (10:51→22:00)
[2018-06-11] MEDS: Oxycodone/Acetaminophen 5/325 mg Tab PO PRN ×3 (10:56→21:59)
[2018-06-11] MEDS: cefTRIAXone 1 gm 1 GM/100 ML BAG IVPB SCH (10:56)
[2018-06-11] MEDS: Azithromycin 500MG/NS 250ml 500 MG/250 ML BAG IVPB SCH (10:57)
--- NOTE | 2018-06-11 11:30 | PN ---
DATE: 06/11/2018 SUBJECTIVE: She had a fairly good night last night. She is eating okay. Awaiting to see what physical therapy has to say about her walking and her ability and if she needs to have any kind at TCU versus home with services. PHYSICAL EXAMINATION VITAL SIGNS: She has a 97.4 temperature, 83 pulse, 131/64 blood pressure, 20 respiratory rate and 95% O2 sat on 2 liters nasal cannula. HEENT: Head is atraumatic and normocephalic. HEART: Regular rate. LUNGS: Decreased breath sounds. Poor inspiration, but better than when she came in. ABDOMEN: Soft. EXTREMITIES: No edema. She is in fairly good spirits. Chemotherapy is on hold and radiation is on hold. She is in pain, I will put her back on the Percocet that she was getting at home. She is on albuterol, Lipitor, Percocet now, Protonix, Pulmicort, Rocephin IV, Solu-Medrol is down to 20 IV every 12 hours by pulmonary, Tylenol, Xanax, Zithromax IV and Zofran. LABORATORY DATA: She has a 8 white count, 10.3 hemoglobin, 32.2 hematocrit with 252 platelets. A 133 sodium, potassium 4.4, BUN 10, creatinine 0.4, GFR is greater than 60, sugar is 110, calcium is 9.3, total bili is 0.6, AST is 37, ALT is 18, alk phos 142 and total protein 6.5. Procalcitonin is 2.16. As per pulmonary, decrease the IV Solu-Medrol and IV antibiotics. I am waiting for physical therapy what they recommend. We are going to have them walk her today. Last time she was walked was on the and I recommended home with services. We will see how she does today, because we thought weaker. If okay, then maybe tomorrow or the next day we will get her home as per Pulmonary. Kyara Oconnor, who has COPD exacerbation, possible pneumonia. Garfield Lopez DO [place]
[2018-06-11] MEDS: Pantoprazole 40 mg EC Tab PO SCH (22:00)
[2018-06-12] MEDS: Albuterol-Ipratrop 3 mg / 0.5 (3 ml) UD IH SCH ×4 (01:48→21:11)
[2018-06-12 07:07] LABS: HEMOGLOBIN 11.1 g/dL (12.0-16.0); MEAN CELL VOLUME 97.2 fl (80.0-105.0); MEAN CORPUSCULAR HEMOGLOBIN 31.2 pg (25.0-35.0); MEAN CORPUSCULAR HGB CONC 32.1 g/dl (31.0-37.0); MEAN PLATELET VOLUME 9.8 fl (7.0-11.0); RBC 3.56 10^6/uL (3.5-6.1); RED CELL DISTRIBUTION WIDTH 14.8 % (11.5-14.5); WHITE BLOOD COUNT 5.9 10^3/uL (4.5-11.0)
[2018-06-12 07:24] LABS: ALB/GLOB RATIO 1.4 (1.1-1.8); ALT/SGPT 21 U/L (7-56); AST/SGOT 34 U/L (14-36); BLOOD UREA NITROGEN 12 mg/dL (7-21); CALCIUM 9.6 mg/dL (8.4-10.5); GFR NON-AFRICAN AMERICAN > 60
[2018-06-12] MEDS: Arformoterol 15 mcg/2 ml Inh Sol IH SCH ×2 (07:26→21:10)
[2018-06-12] MEDS: Budesonide 0.5 mg/2 ml Inhal Susp UD IH SCH ×2 (07:27→21:10)
--- NOTE | 2018-06-12 09:06 | PN ---
DATE: 06/12/2018 PULMONARY NOTE SUBJECTIVE: The patient appears very comfortable this morning. She is not short of breath at rest. PHYSICAL EXAMINATION: VITALS: Temperature is 98.6, pulse is 76, respirations 18, blood pressure 135/70. Oxygen saturation on nasal cannula is 96%. HEENT: Normocephalic, atraumatic. No JVD. CARDIOVASCULAR: Positive S1, S2. No S3 gallop. LUNGS: Less crackles - right lower lobe. Minimal/less rhonchi. No wheezing. EXTREMITIES: Mild edema. No cyanosis, no clubbing. Calves are nontender to palpation. GASTROINTESTINAL: Abdomen is soft, nontender, nondistended. Bowel sounds are positive. SKIN: No acute rash. NEUROLOGIC: Exam limited at the present time. IMPRESSION: 1. Acute congestive heart failure. 2. Acute bronchospasm. 3. Advanced chronic obstructive pulmonary disease, on home oxygen. 4. Advanced/extensive adenocarcinoma of the right lung. 5. Rule out pneumonia - right lower lobe. PLAN: The patient appears very comfortable this morning. She is not short of breath at rest. She does state to feeling much, much better overall. I did ask the patient how she did with physical therapy yesterday. She reports that she did very well. On physical exam, her bronchospasm continues to resolve. In addition, there is no significant alveolar-arterial gradient. I will continue the current nebulizer treatments and low-dose intravenous steroids (decreased yesterday) for now. Hopefully, we will be able to change to oral therapy in the next 24 hours. I will continue the current antibiotic therapy. Temperatures have resolved. Leukocytosis has resolved. Clinical status of the patient is significantly improved - compared to the initial presentation. However, given the above, the future status/prognosis for this patient unfortunately remains poor. I will discuss the above with Dr. Lopez. Kevin Wells MD MTD[facility]
--- NOTE | 2018-06-12 09:34 | PN ---
DATE: 06/12/2018 SUBJECTIVE: She is sitting out of bed to chair. She had a rough night last night. She is Betapace, Brovana, DuoNebs, Lipitor, Percocet, Protonix, Pulmicort, Rocephin IV, Solu-Medrol 20 IV every 12, Tylenol, Xanax, Zithromax and Zofran. She is doing better. I understand after talking with the ticket counter that by tomorrow we will be able to stop the IVs. Change all tablets and discharge her tomorrow. PHYSICAL EXAMINATION: GENERAL: She is alert. She is doing better, walking a little bit better. I do not think she needs TCU. At this time, she is improved. VITAL SIGNS: She has a 98.6 temperature, 76 pulse, 135/70 blood pressure, 18 respiratory rate, 96% O2 sat on nasal cannula. HEENT: Head is atraumatic, normocephalic. HEART: Regular rate. LUNGS: Decreased breath sounds, less wheezing. Less congestion. No rhonchi. ABDOMEN: Soft. EXTREMITIES: No edema. LABORATORY DATA: She has a 5.9 white count, 11.1 hemoglobin, 34.6 hematocrit with 266 platelets. Sodium 136, potassium 4.6, BUN 12, creatinine 0.4, GFR greater than 60, sugar is 103, calcium 9.6, total bili is 0.5, AST is 34, ALT is 21, alk phos 157, total protein 6.9. ASSESSMENT AND PLAN: She is being seen by the ticket counter. The plan is for discharge tomorrow home. She is here with pneumonia, chronic obstructive pulmonary disease, and colon cancer. Garfield Lopez DO [facility]
[2018-06-12] MEDS: MethylPREDNISolone 40 mg Vial IVP SCH ×2 (10:00→21:31)
[2018-06-12] MEDS: cefTRIAXone 1 gm 1 GM/100 ML BAG IVPB SCH (10:00)
[2018-06-12] MEDS: Oxycodone/Acetaminophen 5/325 mg Tab PO PRN ×3 (10:25→21:31)
[2018-06-12] MEDS: Pantoprazole 40 mg EC Tab PO SCH (21:31)
[2018-06-12 23:38] VITALS: RESP 20; O2SAT 95
[2018-06-13] MEDS: Albuterol-Ipratrop 3 mg / 0.5 (3 ml) UD IH SCH ×2 (03:00→07:38)
[2018-06-13 06:11] VITALS: BP 139/82; PULSE 80; TEMP 98
[2018-06-13 07:07] LABS: HEMOGLOBIN 11.4 g/dL (12.0-16.0); MEAN CELL VOLUME 96.2 fl (80.0-105.0); MEAN CORPUSCULAR HEMOGLOBIN 31.2 pg (25.0-35.0); MEAN CORPUSCULAR HGB CONC 32.5 g/dl (31.0-37.0); MEAN PLATELET VOLUME 9.4 fl (7.0-11.0); RBC 3.65 10^6/uL (3.5-6.1); RED CELL DISTRIBUTION WIDTH 14.7 % (11.5-14.5); WHITE BLOOD COUNT 7.4 10^3/uL (4.5-11.0)
[2018-06-13] MEDS: Arformoterol 15 mcg/2 ml Inh Sol IH SCH (07:38)
[2018-06-13] MEDS: Budesonide 0.5 mg/2 ml Inhal Susp UD IH SCH (07:38)
--- NOTE | 2018-06-13 08:08 | DS ---
HISTORY OF PRESENT ILLNESS: She is feeling much better. She is sitting out of bed to chair. She is going to go home on her sotalol, Brovana, DuoNebs, Lipitor, Percocet, prednisone 30 for 3 days, 20 for 3 days, 10 for 3 days and stop. Pantoprazole Pulmicort, Ceftin 500 twice a day for 2 days, Xanax 0.25 b.i.d. and 1 at night time, Zofran, Zithromax 500 mg daily for 2 days. Discussed the medication with the principal data architect and follow her up in 1 week. PHYSICAL EXAMINATION: VITAL SIGNS: She has 98 temp, 80 pulse, 139/82 blood pressure, 20 respiratory rate, 95% of O2 sat on nasal cannula. HEENT: Head is atraumatic and normocephalic. HEART: Regular rate. LUNGS: Decreased breath sounds, but clear. ABDOMEN: Soft. EXTREMITIES: No edema. LABORATORY DATA: Yesterday were good. ASSESSMENT AND PLAN: She was being seen by pulmonary and Oncology. She had acute congestive heart failure,acute bronchospasm, advanced, chronic obstructive pulmonary disease, home oxygen, advanced extensive adenocarcinoma of the right lung, right lower lobe pneumonia possibly as per Pulmonology. So, followup in the outpatient with Oncology for chemoradiation and Dr. Wells for pulmonary and Dr. Lopez. She has other medications at home. She will call me if she need anything else. Melvin Lopez DO [facility]
--- NOTE | 2018-06-13 08:11 | PN ---
DATE: 06/13/2018 SUBJECTIVE: The patient appears very comfortable this morning. She is not short of breath at rest. PHYSICAL EXAMINATION: VITAL SIGNS: Temperature 98, pulse 80, respirations 18/20, blood pressure 139/82. Oxygen saturation on nasal cannula is 95%. HEENT: Normocephalic, atraumatic. NECK: No JVD. CARDIOVASCULAR: Positive S1, S2. No S3 gallop. LUNGS: Less crackles - right lower lobe. No rhonchi or wheezing this morning. EXTREMITIES: Mild edema. No cyanosis. No clubbing. Calves are nontender to palpation. GI: Abdomen is soft, nontender and nondistended. Bowel sounds are positive. SKIN: No acute rash. NEUROLOGIC: Exam limited at the present time. IMPRESSION: 1. Acute congestive heart failure. 2. Acute bronchospasm. 3. Advanced chronic obstructive pulmonary disease, on home oxygen. 4. Advanced/extensive adenocarcinoma of the right lung. 5. Rule out pneumonia - right lower lobe. PLAN: The patient appears very comfortable this morning. She is not short of breath at rest. She is no longer dyspneic on exertion. She does state to feeling much, much better overall. On physical exam, her bronchospasm has primarily resolved. In addition, there is no significant alveolar-arterial gradient. I will continue with the current nebulizer treatments and change to oral steroids this morning. The patient remains on antibiotic therapy. Temperatures have fully resolved. The leukocytosis has fully resolved. Clinical status of the patient is significantly improved - compared to the initial presentation. However, unfortunately, the future status/prognosis for this patient-- with advanced cancer-- remains very guarded at best/poor. The patient is for discharge in the near future. I will discuss the above with Dr. Lopez. Kevin Wells MD J[facility]
[2018-06-13 08:12] LABS: ALB/GLOB RATIO 1.4 (1.1-1.8); ALBUMIN 4.1 g/dL (3.0-4.8); ALT/SGPT 15 U/L (7-56); AST/SGOT 28 U/L (14-36); BLOOD UREA NITROGEN 11 mg/dL (7-21); CALCIUM 9.5 mg/dL (8.4-10.5); GFR NON-AFRICAN AMERICAN > 60
== END 2018-06-13 11:20 | disposition home or self-care (01) | DRG 190 ==
LOC: ED 23:29 → ERH 06-07 02:07 → 2RSO 06-07 05:42
PROVIDERS: ADMIT Family Medicine; ATTEND Family Medicine
PROC: 05HM33Z Insertion of Infusion Device into Right Internal Jugular Vein, Percutaneous Approach (ICD-10-PCS; principal; 2018-06-07)
PROC: B5131ZA Fluoroscopy of Right Jugular Veins using Low Osmolar Contrast, Guidance (ICD-10-PCS; 2018-06-07)
PROC: B543ZZA Ultrasonography of Right Jugular Veins, Guidance (ICD-10-PCS; 2018-06-07)
DX: J44.1 Chronic obstructive pulmonary disease with (acute) exacerbation (principal); J18.1 Lobar pneumonia, unspecified organism; C34.91 Malignant neoplasm of unspecified part of right bronchus or lung; C18.9 Malignant neoplasm of colon, unspecified; C79.51 Secondary malignant neoplasm of bone; J44.0 Chronic obstructive pulmonary disease with (acute) lower respiratory infection; J20.9 Acute bronchitis, unspecified; I50.9 Heart failure, unspecified; K21.9 Gastro-esophageal reflux disease without esophagitis; Z96.641 Presence of right artificial hip joint; Z99.81 Dependence on supplemental oxygen; Z88.5 Allergy status to narcotic agent; D72.829 Elevated white blood cell count, unspecified

== ENCOUNTER 2018-06-21 14:49 | Inpatient (IN) | payer BC | END 2018-06-26 18:58 | disposition home or self-care (01) | LOC: 2RSO 06-22 00:58 → ED 14:49 → ERH 17:31 ==

== ENCOUNTER 2018-06-29 10:33 | Inpatient (IN) | payer BC ==
[2018-06-29 10:36] VITALS: BMI 19.3
[2018-06-29] MEDS ORDERED: Morphine 4 mg/ml ISec IVP STA (10:40)
--- NOTE | 2018-06-29 10:42 | ED PDOC ---
Arrival/HPI - General Time Seen by Provider: 06/29/18 10:35 Historian: Patient - Critical Care Critical Care Minutes: 30 minutes - History of Present Illness Narrative History of Present Illness (Text): 06/29/18 10:36 A 62 year old female, whose past medical history includes lung cancer, COPD on 2L O2, GERD, bronchitis, and diverticulosis, presents to the emergency department with a compliant of worsening shortness of breath. She reports waking up with the shortness of breath. She notes that she had a fever of 101 this morning and a sore throat. She also complains of chronic lower back pain. Patient reports that shortness of breath worsened prompting her to call EMS. Patient notes that she was discharged from the hospital 2 days ago, and states she was still feeling short of breath at the time. The patient denies fevers, chills, headache, dizziness, chest pain, dyspnea on exertion, abdominal pain, nausea, vomiting, diarrhea, neck pain, urinary/bowel changes, or any other complaint. PMD: Dr. Lopez Time/Duration: Other (Today) Symptom Onset: Sudden Symptom Course: Unchanged Activities at Onset: Rest, Light Context: Home Past Medical History - Provider Review Nursing Documentation Reviewed: Yes - Infectious Disease Hx of Infectious Diseases: None - Tetanus Immunization Tetanus Immunization: Unknown - Cardiac Hx Pacemaker: No - Pulmonary Hx Chronic Obstructive Pulmonary Disease (COPD): Yes - Neurological Hx Paralysis: No - HEENT Hx HEENT Disorder: No - Renal Hx Renal Disorder: No - Endocrine/Metabolic Hx Endocrine Disorders: No - Hematological/Oncological Hx Blood Transfusions: No - Integumentary Hx Dermatological Disorder: No - Musculoskeletal/Rheumatological Hx Arthritis: Yes - Gastrointestinal Hx Gastroesophageal Reflux: Yes - Genitourinary/Gynecological Hx Genitourinary Disorders: No - Psychiatric Hx Emotional Abuse: No Hx Physical Abuse: No Hx Substance Use: No - Past Surgical History Past Surgical History: Non-Contributing - Surgical History Hx Orthopedic Surgery: Yes Other/Comment: Right hip replacement, right femur - Anesthesia Hx Anesthesia Reactions: No Hx Malignant Hyperthermia: No - Suicidal Assessment Feels Threatened In Home Enviroment: No Family/Social History - Physician Review Nursing Documentation Reviewed: Yes Family/Social History: No Known Family HX Smoking Status: Former Smoker Hx Alcohol Use: Yes (SOCIAL) Hx Substance Use: No Hx Substance Use Treatment: Yes Allergies/Home Meds Allergies/Adverse Reactions: Allergies No Known Allergies Allergy (Verified 06/22/18 09:04) Home Medications: Home Meds Medication Instructions Recorded Confirmed Dexlansoprazole [Dexilant] 60 mg PO DAILY 11/21/17 06/29/18 Multivitamin [Daily Stefany] 1 tab PO DAILY 11/21/17 06/29/18 Arformoterol [Brovana] 1 kasey IH BID 06/07/18 06/29/18 Atorvastatin [Lipitor] 10 mg PO DIN 06/07/18 06/29/18 Tiotropium [place] Inhaler 2 puff INH DAILY 06/07/18 06/29/18 [Spiriva Inhalation Handihaler Device] ALPRAZolam [Xanax] 0.25 mg PO HS 06/29/18 06/29/18 Ondansetron ODT [Zofran ODT] 4 mg PO Q6 PRN 06/29/18 06/29/18 Prednisone [Jadon] 10 mg PO DAILY 06/29/18 06/29/18 Review of Systems - Physician Review All systems were reviewed & negative as marked: Yes - Review of Systems Constitutional: absent: Fevers Respiratory: SOB Cardiovascular: absent: Chest Pain Gastrointestinal: absent: Abdominal Pain, Stool Changes, Diarrhea, Nausea, Vomiting Genitourinary Female: absent: Urine Output Changes Musculoskeletal: Back Pain Neurological: absent: Headache, Dizziness Physical Exam Vital Signs Reviewed: Yes Temperature: Afebrile Blood Pressure: Normal Pulse: Tachycardic Respiratory Rate: Normal Appearance: Positive for: Well-Appearing, Non-Toxic, Comfortable Pain Distress: None Mental Status: Positive for: Alert and Oriented X 3 - Systems Exam Head: Present: Atraumatic, Normocephalic Pupils: Present: PERRL Extroacular Muscles: Present: EOMI Conjunctiva: Present: Normal Mouth: Present: Moist Mucous Membranes Nose (Internal): Present: Other (Nasal congestion. ) Neck: Present: Normal Range of Motion Respiratory/Chest: Present: Wheezes (Trace wheeze), Decreased Breath Sounds (Left greater than right. ), Retracting, Other Cardiovascular: Present: Regular Rate and Rhythm, Normal S1, S2. No: Murmurs Abdomen: No: Tenderness, Distention, Peritoneal Signs Back: Present: Normal Inspection Upper Extremity: Present: Normal Inspection. No: Cyanosis, Edema Lower Extremity: Present: Normal Inspection. No: Edema Neurological: Present: GCS=15, CN II-XII Intact, Speech Normal Skin: Present: Warm, Dry, Normal Color. No: Rashes Psychiatric: Present: Alert, Oriented x 3, Normal Insight, Normal Concentration Medical Decision Making ED Course and Treatment: 06/29/18 10:47 Impression: A 62 year old female presents to the emergency department with a complaint of worsening shortness of breath. Differential Diagnosis included but are not limited to: COPD r/o PNA Plan: -- EKG -- Chest X-ray -- Blood Culture -- Labs -- Duoneb, SOLU-Medrol, and Morphine -- Reassess and disposition Prior Visits: Notes and results from previous visits were reviewed. Patient was seen in the emergency department on 06/21/2018 for a complaint og shortness of breath. Patient was hospitalized. Progress Notes: EKG: Ordered, reviewed, and independently interpreted the EKG. Rate : 113 BPM Rhythm : Sinus Tachycardia Interpretation : PVC Chest X-ray Dictator : Jose Duval MD Report Date : 06/29/2018 11:23:16 IMPRESSION: Right lower lobe infiltrate 06/29/18 12:24: On reevaluation, patient feels better but is still having symptoms. Patient is breathing better. Lungs are clearer with better air entry. She states that she feels intermittently dizzy. While feeling dizzy, on monitor we observed runs of SVT 180-200 that resolved in 5-7 seconds. This occurs 3 times in 5-10 mins. Patient still complaining of low back pain. 06/29/18 12:28: Case discussed with Dr. Lopez who agrees to admit patient to Telemetry. Request [facility] for Pulmonary. - Critical Care Critical Care Minutes: 30 minutes - Lab Interpretations I have reviewed the lab results: Yes - EKG Interpretation Interpreted by ED Physician: Yes Type: 12 lead EKG - Scribe Statement The provider has reviewed the documentation as recorded by the Nevilleibe Roshni Russell Provider Scribe Attestation: All medical record entries made by the Scribe were at my direction and personally dictated by me. I have reviewed the chart and agree that the record accurately reflects my personal performance of the history, physical exam, medical decision making, and the department course for this patient. I have also personally directed, reviewed, and agree with the discharge instructions and disposition. Disposition/Present on Arrival - Present on Arrival Any Indicators Present on Arrival: No History of DVT/PE: No History of Uncontrolled Diabetes: No Urinary Catheter: No History Surgical Site Infection Following: None - Disposition Have Diagnosis and Disposition been Completed?: Yes Diagnosis: COPD exacerbation, SVT (supraventricular tachycardia) Disposition: HOSPITALIZED Disposition Time: 15:13 Patient Plan: Admission Patient Problems: Current Active Problems Problem Status Onset COPD exacerbation Acute SVT (supraventricular tachycardia) Acute Condition: CRITICAL
[2018-06-29] MEDS: Albuterol-Ipratrop 3 mg / 0.5 (3 ml) UD IH SCH ×3 (10:46→11:15)
[2018-06-29 11:14] LABS: VENOUS BLOOD GAS BASE EXCESS 12.9 mmol/L (0.0-2.0); VENOUS BLOOD GAS PO2 29 mm/Hg (30-55); VENOUS BLOOD PH 7.46 (7.32-7.43)
[2018-06-29 11:22] LABS: EOS # 0.1 (0.0-0.7); EOS % 0.7 % (1.5-5.0); HEMOGLOBIN 10.6 g/dL (12.0-16.0); LYMPH # 0.5 (1.2-3.4); LYMPH % 7.5 % (22.0-35.0); MEAN CELL VOLUME 98.8 fl (80.0-105.0); MEAN CORPUSCULAR HEMOGLOBIN 31.9 pg (25.0-35.0); MEAN CORPUSCULAR HGB CONC 32.3 g/dl (31.0-37.0); MEAN PLATELET VOLUME 9.8 fl (7.0-11.0); MONO # 0.3 (0.1-0.6); MONO % 4.9 % (1.0-6.0); RBC 3.32 10^6/uL (3.5-6.1); RED CELL DISTRIBUTION WIDTH 16.3 % (11.5-14.5); WHITE BLOOD COUNT 6.7 10^3/uL (4.5-11.0)
[2018-06-29 11:26] LABS: INR 1.56; PARTIAL THROMBOPLASTIN TIME 33.6 Seconds (26.9-38.3); PROTHROMBIN TIME 17.6 SECONDS (9.4-12.5)
--- NOTE | 2018-06-29 11:27 | RAD ---
Date of service: 06/29/2018 HISTORY: shortness of breathe COMPARISON: 06/26/2018 FINDINGS: LUNGS: Right lower lobe infiltrate. PLEURA: Small right pleural effusion CARDIOVASCULAR: No aortic atherosclerotic calcification present. Normal cardiac size. No pulmonary vascular congestion. OSSEOUS STRUCTURES: No significant abnormalities. VISUALIZED UPPER ABDOMEN: Normal. OTHER FINDINGS: None. IMPRESSION: Right lower lobe infiltrate
[2018-06-29 11:31] LABS: BLOOD UREA NITROGEN 10 mg/dL (7-21); CALCIUM 8.9 mg/dL (8.4-10.5); GFR NON-AFRICAN AMERICAN > 60
[2018-06-29 11:43] LABS: B-TYPE NATRIURETIC PEPTIDE 284 pg/mL (0-450); TROPONIN I < 0.01 ng/mL
[2018-06-29] MEDS ORDERED: levoFLOXacin 750 mg in D5W 750 MG/150 ML BAG IVPB STA (12:44)
[2018-06-29] MEDS ORDERED: Albuterol-Ipratrop 3 mg / 0.5 (3 ml) UD IH PRN (14:04)
[2018-06-29] MEDS: Morphine 4 mg/ml ISec IVP PRN ×2 (15:24→18:27)
--- NOTE | 2018-06-29 15:55 | CON ---
DATE OF CONSULTATION: 06/29/2018 CARDIOLOGY CONSULTATION HISTORY: The patient is a 62-year-old woman, who presents with progressive shortness of breath. PAST MEDICAL HISTORY: The patient's past medical history includes severe COPD who is on oxygen at home secondary to many years of smoking. She was found to have a temperature as well as periods of SVT versus MAT. She denies chest pain. The patient's past medical history includes a cardiac evaluation with a cardiac catheterization that was performed less than a year ago. Her catheterization revealed good LV function. There is a 50% stenosis in the distal portion of the LAD. She currently has diffuse body aches and complains of progressive shortness of breath, which is better after inhalation therapy. REVIEW OF SYSTEMS: Review of systems were as described above. PHYSICAL EXAMINATION: VITAL SIGNS: Blood pressure is 108/68, the heart rate is sinus tachycardia at 100. NECK: Negative JVD. LUNGS: Decreased breath sounds bilaterally. CARDIAC: Heart reveals S1, S2. EXTREMITIES: Without edema. EKG shows periods of SVT with nonspecific ST-T changes. LABORATORY DATA: Hemoglobin of 10.6. Chemistries, BUN and creatinine are unremarkable. Troponins are negative x1. The ProBNP is 284. Chest x-ray reveals right lower lobe infiltrate consistent with pneumonia. IMPRESSION: 1. Progressive dyspnea. 2. Severe chronic obstructive pulmonary disease. 3. Right lower lobe pneumonia. 4. Lung cancer. 5. Supraventricular tachycardia versus multifocal atrial tachycardia. 6. Single-vessel coronary artery disease of the distal portion of the LAD. 7. Good left ventricular function. 8. Severe chronic obstructive pulmonary disease with home oxygen. PLAN: Given these findings, the patient has stopped smoking since March. Much of her symptoms are related to her poor lung secondary to many years of smoking. No evidence for CHF. Given these findings, we will stop her sotalol, which was given for her paroxysmal atrial fibrillation. Instead, we will add low-dose Cardizem to help with her SVT and tachycardia. Brayan Jay MD
--- NOTE | 2018-06-29 16:14 | CARD ---
APPROVED REPORT Date of service: 06/29/2018 EKG Measurement Heart [id number] <Conclusion> Sinus tachycardia with short KS with premature supraventricular complexes Otherwise normal ECG
--- NOTE | 2018-06-29 20:46 | PCM.RRT ---
<Kai Aguirre - Last Filed: 06/30/18 06:32> ENGINEERING LAB TECHNICIAN Nurse Assessment - Situation Date: 06/29/18 Time ENGINEERING LAB TECHNICIAN was called: 20:34 ENGINEERING LAB TECHNICIAN Responder Arrival Time: 20:38 ENGINEERING LAB TECHNICIAN Location:: [address] [place] [address] ENGINEERING LAB TECHNICIAN Reason for Call: Tachycardia ENGINEERING LAB TECHNICIAN Called By: RN - Respiratory Oxygen Delivery Method: Nasal Cannula @L/min Received Nebulizer Treatments:: No Was the Patient Ventilated with Bag/Mask 100% O2?: No Secretions Suctioned?: No Was the Patient Intubated?: No Was the Patient Placed on a Ventilator?: No - Medication Medications Administered During ENGINEERING LAB TECHNICIAN: cardizem 20 mg IV push x1 - Diagnostic Test Ordered EKG: Yes CPR started during ENGINEERING LAB TECHNICIAN?: No - Vital Signs Vital Sign: Rapid Response Vital Sign Blood Pressure 149/59 Pulse Rate 209 Respiratory Rate 20 Temperature 98.2 F Oxygen Saturation 92 - Finger Stick Blood Glucose Finger Stick Blood Glucose: 189 I.Reason for ENGINEERING LAB TECHNICIAN - A) Acute Change in Patient: Subjective: ENGINEERING LAB TECHNICIAN called due to patient's HR as high as 196. Patient was found to be in atrial fibrillation. patient was originally on sotalol for rate control however due to poor lung function and COPD patient was switched to Cardizem. While on cardizem patient was found to be in atrial fibrillation. Loading bolus of cardizem given. Will continue to monitor. Will start cardizem drip if necessary. Patient is currently normotensive and asymptomatic. - Respiratory Oxygen Delivery Method: Nasal Cannula @L/min - Head Head Exam: ATRAUMATIC, NORMAL INSPECTION, NORMOCEPHALIC - Eyes Eye Exam: EOMI - Respiratory Exam Respiratory Exam: absent: Clear to Ausculation Bilateral - Cardiovascular Exam Cardiovascular Exam: Irregular Rhythm - GI/Abdominal Exam GI & Abdominal Exam: Soft, Normal Bowel Sounds - Neurological Exam Neurological Exam: Alert, Awake, Oriented x3 - Extremities Exam Extremities Exam: Normal Inspection Plan - Assessment of Findings&Treatment Plan Cardizem 20 mg bolus given, followed by cardizem 15 mg. If rhythm does not break will start patient on cardizem drip. Rhythm did not break, cardizem drip was started. Due to persistent fib verapamil was also given along with cardizem drip which broke the rhythm. <John Flores - Last Filed: 07/02/18 22:16> ENGINEERING LAB TECHNICIAN Nurse Assessment - Vital Signs Vital Sign: Rapid Response Vital Sign Blood Pressure 149/59 Pulse Rate 209 Respiratory Rate 20 Temperature 99.2 F Oxygen Saturation 92 - Vital Signs at end of ENGINEERING LAB TECHNICIAN Vital Signs at end of ENGINEERING LAB TECHNICIAN: Rapid Response End Vital Sign Blood Pressure 99/70 Pulse Rate 161 Respiratory Rate 20 Temperature 99.3 F O2 Sat by Pulse Oximetry 89 Attending/Attestation - Attestation I have personally seen and examined this patient.: Yes I have fully participated in the care of the patient.: Yes I have reviewed all pertinent clinical information, including history, physical exam and plan: Yes Notes (Text): 07/02/18 22:16 EKG-Atrial fibrillation with RVR.
[2018-06-29 21:26] LABS: BLOOD UREA NITROGEN 15 mg/dL (7-21); CALCIUM 8.8 mg/dL (8.4-10.5); GFR NON-AFRICAN AMERICAN > 60
[2018-06-29 21:33] LABS: TROPONIN I < 0.01 ng/mL
[2018-06-29] MEDS: MethylPREDNISolone 40 mg Vial IVP SCH (21:45)
[2018-06-29] MEDS ORDERED: diltiaZEM IVPB 100mg in NS 100 ML IV SCH ×2 (22:15→23:10)
[2018-06-29] MEDS ORDERED: DiphenhydrAMINE 50 mg/ml Inj IVP ONE (23:10)
[2018-06-30] MEDS: diltiaZEM IVPB 100mg in NS 100 ML IV SCH ×7 (00:10→23:47)
--- NOTE | 2018-06-30 00:25 | HP ---
DATE OF EXAM: 06/29/2018 HISTORY OF PRESENT ILLNESS: I know Kyara Oconnor very well. She was just in the hospital. She just got discharged a few days ago. She has a right lung cancer. She had a paracentesis to get off the large pleural effusion, refused to get the PleurX catheter. She went home, had some chemotherapy, and now she is back with a right pneumonia. She was very short of breath this morning at a temperature of 101. We are trying to keep her home, but she got worse. I sent her to the emergency room. There was bad back pain and now she has had pneumonia on top of her cancer. She has bad COPD, end-stage on oxygen at home, GERD, bronchitis, diverticulosis, and cancer. There is a sudden change today. She has arthritis and reflux. She has a history of right hip replacement and right femur on the surgeries. FAMILY HISTORY: No known family history. SOCIAL HISTORY: She is a former smoker, she quit a month ago. Social drinker. ALLERGIES: NO KNOWN DRUG ALLERGIES. MEDICATIONS: She is on Dexilant, vitamins, Brovana, Lipitor, Xanax, Zofran, and prednisone. REVIEW OF SYSTEMS: No acute vision or hearing changes. No sore throat, severe short of breath even with oxygen. No chest pain. No abdominal pain. No problems with bowel movements. No problems urinating, very bad back pain. No headaches or dizziness. PHYSICAL EXAMINATION: VITAL SIGNS: She has a 98.3 temperature, it was 99.4 after Tylenol, now it is down to 98.3, 116 pulse, 108/68 blood pressure, 18 respiratory rate, and 91% O2 sat on nasal cannula. HEENT: Head is atraumatic and normocephalic. Extraocular muscles are intact. Pupils equal and reactive to light. Throat is moist. NECK: Supple. Normal range of motion. HEART: Regular rate. Normal S1 and S2. LUNGS: Decreased breath sounds, wheezes, congestion, almost no air movement on the right, left is decreased. ABDOMEN: Soft and nontender. Positive bowel sounds. No guarding. No rebound. No CVA tenderness. EXTREMITIES: Have no edema. NEUROLOGIC: GCS is 15. Cranial nerves II through XII grossly intact. Speech is normal. Alert and oriented x3, understands the situation. SKIN: Warm and dry. Normal color. No apparent rashes or ulcers. LYMPHS: Thyroid midline. No palpable appreciable lymphadenopathy cervically. She is currently on Cardizem, DuoNebs, Duragesic, morphine, Solu-Medrol, Tylenol, Xanax, and Xopenex. She will also be on Levaquin IV. LABORATORY DATA: She has a 6.7 white count, 10.6 hemoglobin, 32.8 hematocrit with 145 platelets. INR 1.56. She has 7.46 pH. Sodium 131, potassium 4, BUN 10, creatinine 0.3, GFR is greater than 60, sugar is 109, calcium is 8.9, and total bili is 1.8. Lactate dehydrogenase is 700. Troponin I is less than 0.01. BNP is 284. Negative for the flu. Chest x-ray right lower lobe infiltrate. She was in SVT when she came in pulse, also she has cancer of the lung and getting chemotherapy. She could not take the radiation therapy that have her on the first time into the hospital. So she will be on Cardizem for the SVT, DuoNebs, Duragesic, I have to increase it to 25 mcg, Levaquin, morphine, and Solu-Medrol. She will have Pulmonary, Cardiology and Hematology and Oncology evaluation. We will check her labs tomorrow, hopefully she will improve. Garfield Lopez DO MTDD
[2018-06-30] MEDS: Morphine 4 mg/ml ISec IVP PRN ×4 (06:19→22:02)
[2018-06-30 07:31] LABS: HEMOGLOBIN 8.7 g/dL (12.0-16.0); MEAN CELL VOLUME 98.5 fl (80.0-105.0); MEAN CORPUSCULAR HGB CONC 32.5 g/dl (31.0-37.0); MEAN PLATELET VOLUME 9.5 fl (7.0-11.0); RBC 2.72 10^6/uL (3.5-6.1); RED CELL DISTRIBUTION WIDTH 16.2 % (11.5-14.5); WHITE BLOOD COUNT 6.3 10^3/uL (4.5-11.0)
[2018-06-30] MEDS: Levalbuterol 0.63 MG/3 ML Inhal Soln UD IH PRN ×2 (07:32→20:00)
[2018-06-30 08:59] LABS: ALB/GLOB RATIO 1.2 (1.1-1.8); ALBUMIN 3.2 g/dL (3.0-4.8); ALT/SGPT 11 U/L (7-56); AST/SGOT 21 U/L (14-36); BLOOD UREA NITROGEN 17 mg/dL (7-21); CALCIUM 8.9 mg/dL (8.4-10.5); GFR NON-AFRICAN AMERICAN > 60
[2018-06-30] MEDS: levoFLOXacin 750 mg in D5W 750 MG/150 ML BAG IVPB SCH (09:17)
[2018-06-30] MEDS: MethylPREDNISolone 40 mg Vial IVP SCH ×2 (09:17→21:56)
--- NOTE | 2018-06-30 14:50 | PN ---
DATE: 06/30/2018 SUBJECTIVE: The patient is resting comfortably in bed this morning we are trying to get her a longer nasal cannula tube, so she gets out of bed to the chair by the window. She had a very bad night. She has been on Cardizem drip for AFib in the 180 to 200. She is also on a lot of pain fentanyl patch, I restarted her Lipitor. She could not sleep last night, but Benadryl 25 helped her, so Benadryl 25. She does not want the food. I will it to a regular diet. She is on Xopenex, Xanax, verapamil, Tylenol, methylprednisolone, we will decrease it to 30 mg today, morphine for pain, atorvastatin, diltiazem, and Benadryl at nighttime. PHYSICAL EXAMINATION: VITAL SIGNS: She has a 97.8 temperature, 18 respiratory rate, 107/69 blood pressure, 85 pulse, and 95% O2 saturation on nasal cannula. HEENT: Head is atraumatic and normocephalic. HEART: Regular rate. LUNGS: Decreased breath sounds especially in the right side. No air movement. ABDOMEN: Soft. EXTREMITIES: No edema. LABORATORY DATA: She has a 6.3 white count, 8.7 hemoglobin, 26.8 hematocrit with 166 platelets. Sodium 133, potassium 4.5, BUN 17, and creatinine 0.3. GFR is greater than 60, sugar is 148, calcium is 8.9, total bili is 0.8, AST is 21, ALT is 11, alk phos 177, troponin I is less than 0.01, and total protein is 5.9. ASSESSMENT AND PLAN: She is going to have her medicines renewed. She is on Cardizem drip n.p.o., Benadryl at nighttime. Change in the diet. Check her labs tomorrow. Continued aggressive treatment and care. The patient has pneumonia, chronic obstructive pulmonary disease, lung cancer, atrial fibrillation, and supraventricular tachycardia. Garfield Lopez DO MTD[place]
--- NOTE | 2018-06-30 15:21 | CON ---
DATE: 06/30/2018 PULMONARY CONSULTATION We were asked to evaluate and treat this 62-year-old woman who is well known to us from office followup as well as very recent admission to [facility]. The patient was readmitted yesterday with a track of supraventricular tachycardia or atrial fibrillation with heart rate of 200. She was seen by Cardiology and her heart rate is now controlled although she is off sotalol. HISTORY OF PRESENT ILLNESS: She was recently in [facility], discharged few days ago. She is known with right lung cancer and large pleural effusions. She refused PleurX catheter. The effusion was drained on the previous admission. She developed temperature at home and she had findings of right lower lobe pneumonia on chest x-ray. PAST MEDICAL HISTORY: Positive for COPD, severe end-stage with history of oxygen dependency, history of GERD, history of diverticulosis and lung cancer. FAMILY HISTORY: No history of inherent diseases. SOCIAL HISTORY: She is a former heavy smoker. She quit few months ago. She is a social drinker. ALLERGIES: NO KNOWN ALLERGIES. MEDICATIONS: She is on Brovana, budesonide at home. She is on Lipitor, Xanax, Zofran, and prednisone. REVIEW OF SYSTEMS: Conducted by reviewing all sources. HEAD, EYES, EARS, NOSE, AND THROAT: No acute vision or hearing changes. No sore throat. RESPIRATORY: See history of present illness. CARDIOVASCULAR: New onset of supraventricular tachycardia. GASTROINTESTINAL: No abdominal pain, vomiting, or diarrhea. GENITOURINARY: No dysuria or hematuria. The rest of the systems were reviewed and found to be negative. PHYSICAL EXAMINATION: VITAL SIGNS: Her temperature is 98.3, it was 100 on admission; pulse is 112; blood pressure is 108/68; respiratory rate is 20; and pulse oximetry is 91 on nasal cannula. HEAD, EYES, EARS, NOSE, AND THROAT: Atraumatic and normocephalic. NECK: Supple with no jugular vein distensions. CARDIOVASCULAR: S1, S2 regular. Tachycardia. PULMONARY: Diminished breath sounds, right more than left with few rhonchi and end-expiratory wheezes. GASTROINTESTINAL: Soft, nontender. No organomegaly. : Within normal limits EXTREMITIES: No pedal edema. NEUROLOGIC: No focal deficits. SKIN: No acute skin rash. LABORATORY DATA: Her WBC is 6.7, hemoglobin of 10.6. Sodium 131, potassium 4.0, creatinine is 0.8. Chest x-ray demonstrates right lower lobe infiltrate and small effusion. ASSESSMENT: 1. Right lower lobe pneumonia. 2. Carcinoma of the lung, on chemotherapy. 3. Severe chronic obstructive pulmonary disease with exacerbation. 4. Supraventricular tachycardia. 5. Anemia. 6. Oxygen dependency. PLAN: The patient was started on appropriate antibiotics. She was also given Xopenex inhalation which is the least stimulant in terms of heart rate. She was also given intravenous steroid with this initial treatment. Her condition starting to improve. She will continue on Cardizem drip for now. She was taken off sotalol. We will continue with administration of [id number] doses of intravenous steroids. Continue nebulizer treatment as above. Her prognosis is guarded. Alejandro Randolph MD MTDD
--- NOTE | 2018-06-30 16:39 | PN ---
DATE: 06/30/2018 CARDIOLOGY FOLLOWUP SUBJECTIVE: The patient went into an episode of an SVT versus MAT last night, controlled with IV Cardizem. PHYSICAL EXAMINATION: VITAL SIGNS: Blood pressure 107/69, heart rate is in the 90s now. NECK: Negative JVD. LUNGS: Without rales. HEART: Reveals S1 and S2. EXTREMITIES: Without edema. LABORATORY DATA: Hemoglobin is 8.7. Chemistries, BUN and creatinine unremarkable. Potassium is 4.5. IMPRESSION: 1. Supraventricular tachycardia versus paroxysmal atrial fibrillation versus multifocal atrial tachycardia. 2. Severe chronic obstructive pulmonary disease. 3. Lung cancer. 4. Anemia. 5. Right lower lobe pneumonia. 6. Single vessel coronary artery disease. 7. Good left ventricular function. Given these findings, we will continue the IV Cardizem. We will add p.o. Cardizem to the regimen. Her heart rate is well-controlled. Brayan Jay MD
[2018-06-30] MEDS ORDERED: Pantoprazole 40 mg EC Tab PO STA (18:01)
--- NOTE | 2018-06-30 20:16 | CON ---
DATE: 06/30/2018 HISTORY OF PRESENT ILLNESS: This patient is well known to me. 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 She has had 2 pleural taps both with positive cancer cells. She started her chemotherapy with Alimta and carboplatin 2 days ago in the office. She did well with this, and for pain control, she has been getting 12 mg of fentanyl patch, this had been increased to 25. In any event, the patient suddenly started developing increasing shortness of breath on Monday and was admitted to the hospital in which she was found to be in atrial fibrillation. PHYSICAL EXAMINATION: SKIN: No petechiae. No bruises. HEENT: Anicteric. NODES: Nonpalpable in the axillary, cervical, supraclavicular or inguinal regions. LUNGS: Shows some diffuse rhonchi pretty much unchanged from before. HEART: S1 and S2. No rubs, gallops or murmur. ABDOMEN: Show no organomegaly. EXTREMITIES: Some edema. CENTRAL NERVOUS SYSTEM: No focal finding. LABORATORY DATA: The hemoglobin has dropped from 10.6 to 8.7. BUN is 10, creatinine 0.3. The x-rays show a right lower lobe infiltrate, but no increase in effusion which was tapped about a week ago. ASSESSMENT AND PLAN: So, at this point, she is in atrial fibrillation. For pain control, we can increase the pain medicines to fentanyl 25 mg every 3 days with breakthrough pain, Percocet p.o., IV morphine. Secondly, the patient may require a blood transfusion. I will leave that to the addressograph operator to decide if it which will help manage the atrial fibrillation at this point. Humberto Bloom MD
[2018-07-01] MEDS ORDERED: diltiaZEM IVPB 100mg in NS 100 ML IV PRN (06:20)
[2018-07-01] MEDS: Pantoprazole 40 mg EC Tab PO SCH (06:27)
[2018-07-01] MEDS: Morphine 4 mg/ml ISec IVP PRN ×4 (06:47→22:05)
[2018-07-01] MEDS: diltiaZEM IVPB 100mg in NS 100 ML IV SCH ×4 (06:56→22:02)
[2018-07-01] MEDS ORDERED: diltiaZEM IVPB 100mg in NS 100 ML IV SCH (07:00)
[2018-07-01 07:03] LABS: MEAN CELL VOLUME 98.4 fl (80.0-105.0); MEAN CORPUSCULAR HEMOGLOBIN 32.1 pg (25.0-35.0); MEAN CORPUSCULAR HGB CONC 32.7 g/dl (31.0-37.0); MEAN PLATELET VOLUME 9.1 fl (7.0-11.0); RBC 2.49 10^6/uL (3.5-6.1); RED CELL DISTRIBUTION WIDTH 15.7 % (11.5-14.5)
[2018-07-01] MEDS: Levalbuterol 0.63 MG/3 ML Inhal Soln UD IH PRN ×2 (07:14→22:06)
[2018-07-01 07:18] LABS: ALB/GLOB RATIO 1.2 (1.1-1.8); ALBUMIN 3.2 g/dL (3.0-4.8); ALT/SGPT 18 U/L (7-56); AST/SGOT 23 U/L (14-36); BLOOD UREA NITROGEN 16 mg/dL (7-21); CALCIUM 8.7 mg/dL (8.4-10.5); GFR NON-AFRICAN AMERICAN > 60
--- NOTE | 2018-07-01 07:48 | CARD ---
APPROVED REPORT Date of service: 06/29/2018 EKG Measurement Heart [id number] <Conclusion> Atrial fibrillation with rapid ventricular response Nonspecific ST and T wave abnormality, probably digitalis effect Abnormal ECG
[2018-07-01] MEDS: levoFLOXacin 750 mg in D5W 750 MG/150 ML BAG IVPB SCH (09:09)
[2018-07-01] MEDS: MethylPREDNISolone 40 mg Vial IVP SCH ×2 (09:10→22:06)
[2018-07-01] MEDS ORDERED: Digoxin 250 mcg (0.25 mg) Tab PO ONE ×3 (11:30→13:30)
--- NOTE | 2018-07-01 13:39 | PN ---
DATE: 07/01/2018 SUBJECTIVE: Her heart rate went up yesterday when she got out of the bed to go to the bathroom, it went into the 140s. They had to adjust the IV diltiazem. She did not sleep well either. She is on Benadryl at h.s. Cardizem, Cardizem drip which is adjusted, albuterol, fentanyl patch at 25, Levaquin IV for the pneumonia, Lipitor, morphine for pain, Protonix, Solu-Medrol, I will keep it one more day at 30, tomorrow I will drop to the 20, Tylenol, verapamil again numerous doses of IV to keep the heart rate down, Xanax and Xopenex. PHYSICAL EXAMINATION: VITAL SIGNS: Right now, she has 98 temperature, 74 pulse, it went up to 100 repositioning in bed, 100/61 blood pressure, 20 respiratory rate, 96% O2 sat 2 liters nasal cannula. HEAD: Atraumatic, normocephalic. HEART: Little tachy. LUNGS: Decreased breath sounds, especially with the pneumonia, the lung cancer with advanced COPD. ABDOMEN: Soft. EXTREMITIES: No edema. LABORATORY DATA: She has a 7 white count, 8 hemoglobin, if it drops below 8 I am going to transfuse her 2 units of packed red blood cells. She lost 2.6 g of hemoglobin in 2 days, hematocrit 24.5, platelets 188. Sodium 133, potassium 4.2, BUN is 16, creatine 0.3, GFR is greater than 60, sugar is 146, calcium 8.7, total bili is 0.6, AST is 23, ALT is 18, alk phos 167. Total protein is 5.8. She is now anemic, also in AFib, on IV Cardizem. She got multiple doses of IV verapamil. Pneumonia, lung cancer, COPD. Garfield Lopez DO
--- NOTE | 2018-07-01 14:13 | PN ---
DATE: 07/01/2018 PULMONARY PROGRESS NOTE SUBJECTIVE: The patient was seen and examined at bedside. She is on nasal cannula and receiving inhalation treatments. Some shortness of breath noted this morning. PHYSICAL EXAMINATION: VITAL SIGNS: Temperature 98.8, pulse 91, respirations 20, pulse oximetry is 96 on nasal cannula, and blood pressure 100/61. HEAD: Normocephalic and atraumatic. NECK: Supple with no jugular vein distentions. CARDIOVASCULAR: S1 and S2, no S3, irregular, tachycardia. PULMONARY: Diminished breath sounds bilaterally with few end-expiratory wheezes and moderate airway obstruction. GASTROINTESTINAL: Soft, nontender. No organomegaly. : Within normal limits EXTREMITIES: No pedal edema. No cyanosis. SKIN: No acute skin rash. NEUROLOGICAL: No focal deficits. ASSESSMENT: 1. Exacerbation of severe chronic obstructive pulmonary disease. 2. Supraventricular tachycardia. 3. Hypoxia. 4. Anemia. PLAN: I have evaluated the patient's today's laboratory data, which reveals low level of hemoglobin of 8 and WBC of 7. Serum sodium is 133, potassium 4.2, chloride 92, glucose 146. The rest is within normal range. The patient had one episode of shortness of breath and tightness this morning for which she was given respiratory treatment. We will maintain her on same nebulizer treatments and modest dose of intravenous steroids. Alejandro Randolph MD [place]
--- NOTE | 2018-07-01 14:23 | PN ---
DATE: 07/01/2018 SUBJECTIVE: The patient remains with atrial fibrillation above 100 despite Cardizem and IV drip. She is asymptomatic. PHYSICAL EXAMINATION: NECK: Negative JVD. LUNGS: Without rales. HEART: S1, S2. EXTREMITIES: Without edema. LABORATORY DATA: BUN and creatinine unremarkable. Hemoglobin is 8. IMPRESSION: 1. Chronic obstructive pulmonary disease. 2. Lung carcinoma. 3. Anemia. 4. Atrial fibrillation with increased heart rate. PLAN: Given these findings, we will add digoxin to her regimen. We will give her a bolus dosage today and start on 0.25 daily in the morning. Brayan Jay MD
[2018-07-02] MEDS: diltiaZEM IVPB 100mg in NS 100 ML IV SCH ×4 (02:43→16:06)
[2018-07-02] MEDS: Pantoprazole 40 mg EC Tab PO SCH (05:41)
[2018-07-02] MEDS: Morphine 4 mg/ml ISec IVP PRN ×4 (06:03→22:09)
[2018-07-02 06:57] LABS: MEAN CELL VOLUME 95.8 fl (80.0-105.0); MEAN CORPUSCULAR HEMOGLOBIN 31.2 pg (25.0-35.0); MEAN CORPUSCULAR HGB CONC 32.6 g/dl (31.0-37.0); MEAN PLATELET VOLUME 9.3 fl (7.0-11.0); RBC 3.3 10^6/uL (3.5-6.1); RED CELL DISTRIBUTION WIDTH 16.4 % (11.5-14.5); WHITE BLOOD COUNT 7.8 10^3/uL (4.5-11.0)
[2018-07-02 07:00] LABS: HEMOGLOBIN 10.3 g/dL (12.0-16.0)
[2018-07-02 07:35] LABS: ALB/GLOB RATIO 1.2 (1.1-1.8); ALBUMIN 3.1 g/dL (3.0-4.8); ALT/SGPT 10 U/L (7-56); AST/SGOT 21 U/L (14-36); BLOOD UREA NITROGEN 14 mg/dL (7-21); CALCIUM 8.8 mg/dL (8.4-10.5); GFR NON-AFRICAN AMERICAN > 60
[2018-07-02] MEDS ORDERED: Digoxin 250 mcg (0.25 mg) Tab PO SCH (08:00)
--- NOTE | 2018-07-02 09:25 | PN ---
DATE: 07/02/2018 PULMONARY NOTE SUBJECTIVE: The patient appears comfortable this morning. She is not short of breath at rest. PHYSICAL EXAMINATION VITAL SIGNS: Temperature 98.1, pulse 70, respirations 18/20, blood pressure 110/62, and oxygen saturation on nasal cannula is 98%. HEENT: Normocephalic and atraumatic. NECK: No JVD. CARDIOVASCULAR: Positive S1 and S2. No S3 gallop. LUNGS: Decreased breath sounds with crackles at the right base. Very minimal rhonchi. No wheezing. EXTREMITIES: Mild edema. No cyanosis, no clubbing. Calves are nontender to palpation. GI: Abdomen is soft, nontender and nondistended. Bowel sounds are positive. SKIN: No acute rash. NEUROLOGIC: Limited at the present time. IMPRESSION: 1. Cardiac arrhythmias. 2. Advanced/extensive adenocarcinoma of the right lung. 3. Recurrent right pleural effusion. 4. Advanced chronic obstructive pulmonary disease, on home oxygen. PLAN: The patient appears very comfortable this morning. She is not short of breath at rest. She does state to feeling much better overall. On physical exam, there is no significant bronchospasm noted. In addition, there is no significant alveolar-arterial gradient. I will decrease the intravenous steroids this morning. I will also start Brovana and Pulmicort nebulizer treatments-- in this patient with advanced chronic obstructive pulmonary disease. I would continue with the treatment for cardiac arrhythmias as per Cardiology. Input by Dr. Jay is noted. The ventricular rate is now much more controlled. Clinical status of the patient is certainly improved - compared to initial presentation. However, again, the future status/prognosis for this patient remains very poor. I would consider a Palliative Care consult at this point in time. I will discuss the above with Dr. Lopez. Kevin Wells MD MTDD
[2018-07-02] MEDS: Arformoterol 15 mcg/2 ml Inh Sol IH SCH ×2 (09:26→19:43)
[2018-07-02] MEDS: Budesonide 0.5 mg/2 ml Inhal Susp UD IH SCH ×2 (09:26→19:43)
--- NOTE | 2018-07-02 10:24 | PN ---
DATE: 07/02/2018 SUBJECTIVE: She is resting comfortably in bed. She slept fairly well last night. She is trying to get out of bed to chair every day. She is having problems with the heart rate, it went up again. She is back on the diltiazem drip. She is on Benadryl, Brovana, Cardizem and Cardizem IV, fentanyl patch, digoxin, levofloxacin IV, Lipitor, morphine, Protonix, Pulmicort, Solu-Medrol is down to 20, Tylenol, Xanax and Xopenex. PHYSICAL EXAMINATION: VITAL SIGNS: She has 98.1 temperature, 70 pulse, the pulse was as high as 94, 110/62 blood pressure, 20 respiratory rate, 90% O2 sat on nasal cannula. HEENT: Head is atraumatic, normocephalic. HEART: Has regular rate, right now on diltiazem drip. LUNGS: Decreased breath sounds. The right side got very little air movement at all, but the left is better. EXTREMITIES: No edema. LABORATORY DATA: She has a 7.8 white count, 10.3 hemoglobin, 31.6 hematocrit with 166 platelets. She has 135 sodium, potassium 4.2, BUN is 14, creatinine 0.3, GFR is greater than 60, sugar is 131, calcium 8.8, total bili is 0.8, AST is 21, ALT is 10, alk phos 175, total protein is 5.7. ASSESSMENT AND PLAN: She is being seen by Cardiology, Pulmonology, Oncology, she started chemo, chronic obstructive pulmonary disease, lung cancer, anemia, pneumonia, atrial fibrillation with increased heart rate, adjusting medications on intravenous drip, continue intravenous antibiotics. Garfield Lopez DO
[2018-07-02] MEDS: levoFLOXacin 750 mg in D5W 750 MG/150 ML BAG IVPB SCH (11:09)
[2018-07-02] MEDS: MethylPREDNISolone 40 mg Vial IVP SCH ×2 (11:09→22:07)
--- NOTE | 2018-07-02 11:18 | PN ---
DATE: 07/02/2018 CARDIOLOGY FOLLOWUP SUBJECTIVE: The patient is in and out of atrial fibrillation. OBJECTIVE: VITAL SIGNS: Currently, she remains on atrial fibrillation with a heart rate of 94. NECK: Negative JVD. LUNGS: Without rales. HEART: S1 and S2. EXTREMITIES: Without edema. LABORATORY DATA: Hemoglobin is 10.3. Chemistries, BUN and creatinine are unremarkable. IMPRESSION: 1. Atrial fibrillation. 2. Chronic obstructive pulmonary disease. 3. Lung carcinoma. 4. Anemia. PLAN: Given these findings, we will add sotalol to her regimen. Once sotalol is started, we will hopefully discontinue the IV Cardizem. Brayan Jay MD
[2018-07-02] MEDS: Digoxin 250 mcg (0.25 mg) Tab PO SCH (13:43)
[2018-07-02] MEDS: Levalbuterol 0.63 MG/3 ML Inhal Soln UD IH PRN (16:28)
[2018-07-03] MEDS: diltiaZEM IVPB 100mg in NS 100 ML IV SCH ×2 (03:15→09:25)
[2018-07-03] MEDS: Levalbuterol 0.63 MG/3 ML Inhal Soln UD IH PRN (04:48)
[2018-07-03] MEDS: Morphine 4 mg/ml ISec IVP PRN ×3 (05:29→21:22)
[2018-07-03] MEDS: Pantoprazole 40 mg EC Tab PO SCH (05:30)
[2018-07-03 07:14] LABS: HEMOGLOBIN 10.7 g/dL (12.0-16.0); MEAN CELL VOLUME 96.3 fl (80.0-105.0); MEAN CORPUSCULAR HEMOGLOBIN 30.8 pg (25.0-35.0); MEAN PLATELET VOLUME 9.4 fl (7.0-11.0); RBC 3.47 10^6/uL (3.5-6.1); RED CELL DISTRIBUTION WIDTH 16.1 % (11.5-14.5); WHITE BLOOD COUNT 6.9 10^3/uL (4.5-11.0)
[2018-07-03 07:37] LABS: ALB/GLOB RATIO 1.3 (1.1-1.8); ALBUMIN 3.3 g/dL (3.0-4.8); ALT/SGPT 14 U/L (7-56); AST/SGOT 32 U/L (14-36); BLOOD UREA NITROGEN 17 mg/dL (7-21); CALCIUM 8.8 mg/dL (8.4-10.5); GFR NON-AFRICAN AMERICAN > 60
[2018-07-03] MEDS: Arformoterol 15 mcg/2 ml Inh Sol IH SCH (07:46)
[2018-07-03] MEDS: Budesonide 0.5 mg/2 ml Inhal Susp UD IH SCH (07:46)
--- NOTE | 2018-07-03 08:40 | PN ---
DATE: 07/03/2018 SUBJECTIVE: The patient appears very comfortable this morning. She is not short of breath at rest. PHYSICAL EXAMINATION: VITAL SIGNS: Temperature is 98.1, pulse 71, respirations 18, blood pressure 120/54. Oxygen saturation on nasal cannula is 94% to 95%. HEENT: Normocephalic, atraumatic. No JVD. CARDIOVASCULAR: Positive S1, S2. No S3 gallop. LUNGS: Decreased breath sounds with crackles at the right base. No rhonchi. No wheezing. EXTREMITIES: Mild edema. No cyanosis, no clubbing. Calves are nontender to palpation. GASTROINTESTINAL: Abdomen is soft, nontender and nondistended. Bowel sounds are positive. SKIN: No acute rash. NEUROLOGIC: Exam limited at the present time. IMPRESSION: 1. Cardiac arrhythmias. 2. Advanced/extensive adenocarcinoma of the right lung. 3. Recurrent right pleural effusion. 4. Advanced chronic obstructive pulmonary disease, on home oxygen. PLAN: The patient appears quite comfortable this morning. She is not short of breath at rest. She does state to feeling much better overall. On physical exam, her bronchospasm has primarily resolved. In addition, there is no significant alveolar-arterial gradient. I will continue the current nebulizer treatments and change to oral steroids this morning. I would continue with the treatment for cardiac arrhythmias as per Cardiology. Input by Dr. Jay is noted. Clinical status of the patient is significantly improved - compared to her initial presentation. However, again, unfortunately, the future status/prognosis for this patient remains very poor. I will discuss the above with Dr. Lopez. Kevin Wells MD MTDD
[2018-07-03] MEDS: levoFLOXacin 750 mg in D5W 750 MG/150 ML BAG IVPB SCH (09:35)
--- NOTE | 2018-07-03 11:12 | PN ---
DATE: 07/03/2018 SUBJECTIVE: She is resting comfortably in bed. She was actually fairly comfortable this morning, in pretty good spirits. She is eating okay. She is walking okay. Her heart rate does go up and down. She is on Cardizem drip and Cardizem p.o. but is feeling better, breathing better. PHYSICAL EXAMINATION: VITAL SIGNS: 98.1 temperature, 71 pulse, 120/54 blood pressure, 18 respiratory rate, 94% O2 sat on nasal cannula. HEENT: Head is atraumatic, normocephalic. Throat is moist. NECK: Supple. HEART: Regular rate. LUNGS: Decreased breath sounds, especially on the right side. ABDOMEN: Soft. EXTREMITIES: No edema. LABORATORY DATA: She has 134 sodium, potassium 4.2, BUN 70, creatinine 0.3, GFR is greater than 60, sugar is 119, calcium is 8.8, total bili is 0.6, AST is 32, ALT is 14, alk phos 209, total protein 6. White count 6.9, hemoglobin 10.7, hematocrit 32.4, platelets of 171. MEDICATIONS: She is currently on Benadryl, Betapace, Brovana, Cardizem, Cardizem drip, Duragesic patch, Lanoxin, Levaquin, Lipitor, morphine, prednisone down to 30, Protonix, Pulmicort, Tylenol, Xanax and Xopenex. ASSESSMENT AND PLAN: She is being seen by Cardiology, Pulmonology, Oncology. She had atrial fibrillation, rapid chronic obstructive pulmonary disease, lung cancer, anemia, history of pleural effusions. When we get her off the Cardizem drip and she stays stable, I will try and discharge her. We will continue with aggressive treatment and care on Kyara Oconnor, who has got bad lung cancer, chronic obstructive pulmonary disease, and now rapid atrial fibrillation. Garfield Lopez DO
[2018-07-03] MEDS ORDERED: diltiaZEM IVPB 100mg in NS 100 ML IV PRN ×2 (13:18→16:22)
[2018-07-03] MEDS: Digoxin 250 mcg (0.25 mg) Tab PO SCH (13:46)
[2018-07-03 13:50] VITALS: PULSE 86
--- NOTE | 2018-07-03 18:36 | PN ---
DATE: 07/03/2018 SUBJECTIVE: The patient is awake, alert without shortness of breath. OBJECTIVE: VITAL SIGNS: Blood pressure 132/62, heart rate is atrial fibrillation in the 70s. NECK: Negative JVD. LUNGS: Without rales. HEART: S1, S2. EXTREMITIES: Without edema. LABORATORY DATA: Hemoglobin is 10.7. Chemistries, BUN and creatinine is unremarkable. IMPRESSION: 1. Chronic obstructive pulmonary disease. 2. Lung carcinoma. 3. Atrial fibrillation with increased heart rate, which is now better. 4. Anemia. PLAN: Given these findings, we will begin tapering off her IV Cardizem. If able to taper off the IV Cardizem, we will change the p.o. Cardizem to long-acting. We will continue the sotalol and digoxin. No anticoagulation at this time given her lung CA and her anemia. Brayan Jay MD
[2018-07-04] MEDS: Levalbuterol 0.63 MG/3 ML Inhal Soln UD IH PRN (03:00)
[2018-07-04] MEDS: Morphine 4 mg/ml ISec IVP PRN ×5 (03:14→23:29)
[2018-07-04] MEDS: Pantoprazole 40 mg EC Tab PO SCH (05:33)
[2018-07-04 07:07] LABS: HEMOGLOBIN 10.5 g/dL (12.0-16.0); MEAN CELL VOLUME 98.5 fl (80.0-105.0); MEAN CORPUSCULAR HEMOGLOBIN 31.3 pg (25.0-35.0); MEAN CORPUSCULAR HGB CONC 31.8 g/dl (31.0-37.0); RBC 3.35 10^6/uL (3.5-6.1); RED CELL DISTRIBUTION WIDTH 16.1 % (11.5-14.5)
[2018-07-04] MEDS: Arformoterol 15 mcg/2 ml Inh Sol IH SCH ×3 (07:33→19:20)
[2018-07-04] MEDS: Budesonide 0.5 mg/2 ml Inhal Susp UD IH SCH ×3 (07:34→19:20)
[2018-07-04 07:35] LABS: ALB/GLOB RATIO 1.3 (1.1-1.8); ALBUMIN 3.2 g/dL (3.0-4.8); ALT/SGPT 22 U/L (7-56); AST/SGOT 28 U/L (14-36); BLOOD UREA NITROGEN 13 mg/dL (7-21); CALCIUM 8.8 mg/dL (8.4-10.5); GFR NON-AFRICAN AMERICAN > 60
--- NOTE | 2018-07-04 09:12 | PN ---
DATE: 07/04/2018 PULMONARY NOTE SUBJECTIVE: The patient appears quite comfortable this morning. She is not short of breath at rest. PHYSICAL EXAMINATION VITAL SIGNS: Temperature is 97.8, pulse 66, respirations 19 and blood pressure 112/61. Oxygen saturation on nasal cannula is 95%. HEENT: Normocephalic and atraumatic. No JVD. CARDIOVASCULAR: Positive S1 and S2. No S3 gallop. LUNGS: Decreased breath sounds with crackles at the right base. No rhonchi. No wheezing. EXTREMITIES: Mild edema. No cyanosis. No clubbing. Calves are nontender to palpation. GI: Abdomen is soft, nontender and nondistended. Bowel sounds are positive. SKIN: No acute rash. NEUROLOGIC: Exam limited at the present time. IMPRESSION: 1. Cardiac arrhythmias. 2. Advanced/extensive adenocarcinoma of the right lung. 3. Recurrent right pleural effusion. 4. Advanced chronic obstructive pulmonary disease, on home oxygen. PLAN: The patient appears very comfortable this morning. She is not short of breath at rest. She does state to feeling much, much better overall. On physical exam, there is no bronchospasm noted. In addition, there is no significant alveolar-arterial gradient. I will continue the current nebulizer treatments and oral steroids (changed yesterday) for now. I would continue with the treatment for cardiac arrhythmias as per Cardiology. Input by Dr. Jay is noted. The patient remains on a Cardizem drip. Clinical status of the patient is significantly improved - compared to the initial presentation. However, unfortunately, the future status/prognosis for this patient remains poor. All are aware. I will discuss the above with Dr. Lopez. Kevin Wells MD J[facility]
--- NOTE | 2018-07-04 09:18 | PN ---
DATE: 07/04/2018 CARDIOLOGY FOLLOWUP SUBJECTIVE: The patient is back to normal sinus rhythm today. She is feeling well. PHYSICAL EXAMINATION VITAL SIGNS: Blood pressure is 112/61 and heart rates in the 60s. NECK: Negative JVD. LUNGS: Without rales. HEART: Reveal S1 and S2. EXTREMITIES: Without edema. LABORATORY DATA: BUN and creatinine unremarkable. Hemoglobin is 10.1. IMPRESSION: 1. Paroxysmal atrial fibrillation. The patient is back to normal sinus rhythm. 2. Chronic obstructive pulmonary disease. 3. Lung cancer. 4. Anemia. Given these findings, we will discontinue her IV Cardizem. We will change Cardizem to oral to long-acting. We will discontinue digoxin. Brayan Jay MD
[2018-07-04] MEDS: diltiaZEM 180 mg/24 Hours CD Cap PO SCH (09:43)
[2018-07-04] MEDS: levoFLOXacin 750 MG TAB PO SCH (09:43)
[2018-07-05] MEDS: Pantoprazole 40 mg EC Tab PO SCH (06:21)
[2018-07-05 07:16] VITALS: RESP 17; TEMP 98.2; O2SAT 94
[2018-07-05 07:31] LABS: HEMOGLOBIN 10.5 g/dL (12.0-16.0); MEAN CELL VOLUME 98.5 fl (80.0-105.0); MEAN CORPUSCULAR HEMOGLOBIN 31.8 pg (25.0-35.0); MEAN CORPUSCULAR HGB CONC 32.3 g/dl (31.0-37.0); MEAN PLATELET VOLUME 9.5 fl (7.0-11.0); RBC 3.3 10^6/uL (3.5-6.1); RED CELL DISTRIBUTION WIDTH 16.2 % (11.5-14.5); WHITE BLOOD COUNT 6.6 10^3/uL (4.5-11.0)
[2018-07-05 07:44] LABS: ALB/GLOB RATIO 1.4 (1.1-1.8); ALBUMIN 3.1 g/dL (3.0-4.8); ALT/SGPT 22 U/L (7-56); AST/SGOT 24 U/L (14-36); BLOOD UREA NITROGEN 12 mg/dL (7-21); CALCIUM 8.7 mg/dL (8.4-10.5); GFR NON-AFRICAN AMERICAN > 60
--- NOTE | 2018-07-05 08:38 | PN ---
DATE: 07/05/2018 PULMONARY NOTE SUBJECTIVE: The patient appears quite comfortable this morning. She is not short of breath at rest. OBJECTIVE: VITAL SIGNS: Temperature is 98.0, pulse 85, respirations 18, blood pressure 136/69. Oxygen saturation on nasal cannula is 97%. HEENT: Normocephalic, atraumatic. NECK: No JVD. CARDIOVASCULAR: Positive S1, S2. No S3 gallop. LUNGS: Decreased breath sounds with crackles - right base. No rhonchi. No wheezing. EXTREMITIES: Mild edema. No cyanosis, no clubbing. Calves are nontender to palpation. GASTROINTESTINAL: Abdomen is soft, nontender and nondistended. Bowel sounds are positive. SKIN: No acute rash. NEUROLOGIC: Limited at the present time. IMPRESSION: 1. Cardiac arrhythmias. 2. Advanced/extensive adenocarcinoma of the right lung. 3. Recurrent right pleural effusion. 4. Advanced chronic obstructive pulmonary disease, on home oxygen. PLAN: The patient appears very comfortable this morning. She is not short of breath at rest. She does state to feeling much better overall. On physical exam, there is no bronchospasm noted. In addition, there is no significant alveolar-arterial gradient. I will continue with the current nebulizer treatments and oral steroids for now. Input by Cardiology is also noted. The patient is off of the Cardizem drip. Clinical status of the patient is significantly improved - compared to the initial presentation. However, again, unfortunately, the future status/prognosis for this patient remains very poor. All are aware. I will discuss the above with Dr. Lopez. Kevin eWlls MD J[facility]ET
[2018-07-05] MEDS ORDERED: Morphine 4 mg/ml ISec IVP PRN (08:44)
[2018-07-05] MEDS ORDERED: Morphine 2 mg/ml ISec IVP PRN (08:46)
[2018-07-05] MEDS: diltiaZEM 180 mg/24 Hours CD Cap PO SCH (09:06)
--- NOTE | 2018-07-05 09:06 | PN ---
DATE: 07/04/2018 SUBJECTIVE: I saw her sitting in bed. She had a rough night. No problems with her pain meds. She is in a lot of pain which she does not get it. MEDICATIONS: She is on Benadryl, Betapace, Brovana, Cardizem, Duragesic patch, folic acid, Levaquin, Lipitor, morphine, prednisone, Protonix, Pulmicort, Tylenol, Xanax and Xopenex. I am going to try and decrease the morphine to she leaves in a day or two, she has to be off of that. She is also now off the Cardizem drip. We will see if she does p.o. She is being watched by Cardiology. OBJECTIVE: VITAL SIGNS: She has a 97.9 temperature, 64 pulse, 116/61 blood pressure, 19 respiratory rate, 94% O2 sat on nasal cannula. HEENT: Head is atraumatic, normocephalic. HEART: Regular rate. LUNGS: Decreased breath sounds bilaterally, right worse than left. EXTREMITIES: No edema. LABORATORY DATA: She has a 7 white count, 10.5 hemoglobin, 33 hematocrit, 145 platelet. Sodium 135, potassium 4.1, BUN 30, creatinine 0.3, GFR is greater than 60, sugar is 72, calcium is 8.8, total bili is 0.5, AST 28, ALT is 22, alk phos 213, total protein is 5.7. ASSESSMENT AND PLAN: She is being seen by Cardiology, Pulmonary. She has severe chronic obstructive pulmonary disease; lung cancer, late stage; atrial fibrillation with increased heart rate; anemia; watching off the Cardizem, pain management and see how she does with the 3 mg IV every 4 hours. I might have to increase the fentanyl patch to 50. She is on prednisone 30 with a decreasing dose by Pulmonary. Check her labs tomorrow. Garfield Lopez DO MTDD
[2018-07-05] MEDS: levoFLOXacin 750 MG TAB PO SCH (09:07)
[2018-07-05 09:10] VITALS: BP 127/73; PULSE 90
--- NOTE | 2018-07-05 13:24 | PN ---
DATE: 07/05/2018 SUBJECTIVE: The patient is comfortable. OBJECTIVE: VITAL SIGNS: Blood pressure 127/73, heart rate is atrial fibrillation varying from 70 to 90 on p.o. medications. NECK: Negative JVD. LUNGS: Without rales. HEART: S1, S2. EXTREMITIES: Without edema. LABORATORY DATA: Hemoglobin is 10.5. Chemistries; BUN and creatinine unremarkable. IMPRESSION: 1. Atrial fibrillation with heart rate is well-controlled. 2. Chronic obstructive pulmonary disease. 3. Lung cancer. 4. Anemia. Given these findings, given these findings, the patient will need to be on long-term anticoagulation. I have discussed risks, benefits protecting from a stroke versus bleeding with the patient in detail. The patient will be discharged on Eliquis 2.5 twice a day. Brayan Jay MD
--- NOTE | 2018-07-05 20:06 | DS ---
HISTORY OF PRESENT ILLNESS: She is doing better in bed. She is upset with her situation and family issues, but I discussed with Cardiology and Pulmonary, she can be discharged. She is still having pain. MEDICATIONS: She has not been walking at home so we increased the fentanyl patch to 50 mcg. She is on Benadryl, Betapace, Brovana, Cardizem. Duragesic patch is now up to 50 mcg/h. Folic acid, Levaquin for another 4 days, Lipitor, which I am going to stop, prednisone 30 mg for 3 days, 20 mg for 3 days and then she will stay on 10 mg. She will continue with the Protonix, Pulmicort, Xanax and the Xopenex. ASSESSMENT AND PLAN: She will be discharged later today, followed up on the outpatient. She has severe end-stage cancer. She had pneumonia. She does have a history of pleural effusions and she has chronic cancer pain. Garfield Lopez DO
== END 2018-07-05 12:44 | disposition home or self-care (01) | DRG 308 ==
LOC: ED 10:33 → ERH 12:35 → 2RNO 14:20
PROVIDERS: ADMIT Family Medicine; ATTEND Family Medicine
PROC: 30233N1 Transfusion of Nonautologous Red Blood Cells into Peripheral Vein, Percutaneous Approach (ICD-10-PCS; principal; 2018-07-01)
DX: I48.0 Paroxysmal atrial fibrillation (principal); J18.1 Lobar pneumonia, unspecified organism; C34.91 Malignant neoplasm of unspecified part of right bronchus or lung; J44.1 Chronic obstructive pulmonary disease with (acute) exacerbation; J44.0 Chronic obstructive pulmonary disease with (acute) lower respiratory infection; J90 Pleural effusion, not elsewhere classified; C79.51 Secondary malignant neoplasm of bone; I47.1 Supraventricular tachycardia; K21.9 Gastro-esophageal reflux disease without esophagitis; Z99.81 Dependence on supplemental oxygen; G89.29 Other chronic pain; M54.5 Low back pain; Z87.891 Personal history of nicotine dependence; I25.10 Atherosclerotic heart disease of native coronary artery without angina pectoris; D64.9 Anemia, unspecified; K57.90 Diverticulosis of intestine, part unspecified, without perforation or abscess without bleeding; M19.90 Unspecified osteoarthritis, unspecified site; R09.02 Hypoxemia; Z96.641 Presence of right artificial hip joint; Z79.01 Long term (current) use of anticoagulants

== ENCOUNTER 2018-07-15 19:25 | Inpatient (IN) | payer BC ==
[2018-07-15 19:50] LABS: BASO # 0.01 K/mm3 (0.0-2.0); BASO % 0.2 % (0.0-3.0); HEMOGLOBIN 10.8 g/dL (12.0-16.0); MEAN CELL VOLUME 99.1 fl (80.0-105.0); MEAN CORPUSCULAR HEMOGLOBIN 31.9 pg (25.0-35.0); MEAN CORPUSCULAR HGB CONC 32.1 g/dl (31.0-37.0); MEAN PLATELET VOLUME 9.4 fl (7.0-11.0); MONO # 0.7 (0.1-0.6); MONO % 14.5 % (1.0-6.0); RBC 3.39 10^6/uL (3.5-6.1); RED CELL DISTRIBUTION WIDTH 17.2 % (11.5-14.5); WHITE BLOOD COUNT 4.9 10^3/uL (4.5-11.0)
[2018-07-15 20:03] LABS: INR 1.56; PARTIAL THROMBOPLASTIN TIME 28.5 Seconds (26.9-38.3); PROTHROMBIN TIME 17.3 SECONDS (9.4-12.5)
[2018-07-15] MEDS ORDERED: diltiaZEM IVPB 100mg in NS 100 ML IV PRN (20:04)
[2018-07-15 20:18] LABS: B-TYPE NATRIURETIC PEPTIDE 1560 pg/mL (0-450)
[2018-07-15 20:23] LABS: TROPONIN I < 0.01 ng/mL
[2018-07-15 20:43] LABS: ALB/GLOB RATIO 1.1 (1.1-1.8); ALBUMIN 3.3 g/dL (3.0-4.8); ALT/SGPT 24 U/L (7-56); AST/SGOT 29 U/L (14-36); BLOOD UREA NITROGEN 13 mg/dL (7-21); CALCIUM 9.3 mg/dL (8.4-10.5); GFR NON-AFRICAN AMERICAN > 60
--- NOTE | 2018-07-15 21:42 | ED PDOC ---
Arrival/HPI - General Chief Complaint: Shortness Of Breath Time Seen by Provider: 07/15/18 19:27 - History of Present Illness Narrative History of Present Illness (Text): 07/15/18 19:27 Kyara Lynn is a 62 year old female, with a past medical history of lung cancer, COPD on 2L O2, GERD, bronchitis, and diverticulosis, who presents to the emergency department complaining of rapid a-fib, shortness of breath, and palpitations. Patient informs shortness of breath worsened today. Patient denies any fevers, chills, headache, dizziness, chest pain, dyspnea on exertion, cough, abdominal pain, nausea, vomiting, diarrhea, back pain, neck pain, or any other complaint. Past Medical History - Provider Review Nursing Documentation Reviewed: Yes - Infectious Disease Hx of Infectious Diseases: None - Tetanus Immunization Tetanus Immunization: Unknown - Cardiac Hx Cardiac Disorders: Yes Hx Atrial Fibrillation: Yes Hx Pacemaker: No - Pulmonary Hx Respiratory Disorders: Yes Hx Chronic Obstructive Pulmonary Disease (COPD): Yes Hx Emphysema: Yes - Neurological Hx Paralysis: No - HEENT Hx HEENT Disorder: No - Renal Hx Renal Disorder: No - Endocrine/Metabolic Hx Endocrine Disorders: No - Hematological/Oncological Hx Blood Transfusions: No - Integumentary Hx Dermatological Disorder: No - Musculoskeletal/Rheumatological Hx Arthritis: Yes - Gastrointestinal Hx Gastroesophageal Reflux: Yes - Genitourinary/Gynecological Hx Genitourinary Disorders: No - Psychiatric Hx Emotional Abuse: No Hx Physical Abuse: No Hx Substance Use: No - Past Surgical History Past Surgical History: Non-Contributing - Surgical History Hx Orthopedic Surgery: Yes Other/Comment: Right hip replacement, right femur - Anesthesia Hx Anesthesia Reactions: No Hx Malignant Hyperthermia: No - Suicidal Assessment Feels Threatened In Home Enviroment: No Family/Social History - Physician Review Nursing Documentation Reviewed: Yes Family/Social History: No Known Family HX Smoking Status: Former Smoker Hx Alcohol Use: Yes (SOCIAL) Hx Substance Use: No Hx Substance Use Treatment: Yes Allergies/Home Meds Allergies/Adverse Reactions: Allergies No Known Allergies Allergy (Verified 07/15/18 19:40) Home Medications: Home Meds Medication Instructions Recorded Confirmed Dexlansoprazole [Dexilant] 60 mg PO DAILY 11/21/17 06/29/18 Multivitamin [Daily Stefany] 1 tab PO DAILY 11/21/17 06/29/18 Arformoterol [Brovana] 1 kasey IH BID 06/07/18 06/29/18 Atorvastatin [Lipitor] 10 mg PO DIN 06/07/18 06/29/18 Tiotropium [place] Inhaler 2 puff INH DAILY 06/07/18 06/29/18 [Spiriva Inhalation Handihaler Device] ALPRAZolam [Xanax] 0.25 mg PO HS 06/29/18 06/29/18 Ondansetron ODT [Zofran ODT] 4 mg PO Q6 PRN 06/29/18 06/29/18 Prednisone [Jadon] 10 mg PO DAILY 06/29/18 06/29/18 Review of Systems - Physician Review All systems were reviewed & negative as marked: Yes - Review of Systems Constitutional: absent: Fevers, Other (chills) Respiratory: SOB Cardiovascular: Palpitations. absent: Chest Pain Gastrointestinal: absent: Abdominal Pain, Diarrhea, Nausea, Vomiting Musculoskeletal: absent: Back Pain, Neck Pain Neurological: absent: Headache, Dizziness Physical Exam Vital Signs Reviewed: Yes Vital Signs Pulse Resp BP Pulse Ox 07/15/18 21:29 161 H 124/84 07/15/18 20:50 124/84 07/15/18 19:50 121 H 126/92 H 07/15/18 19:35 162 H 20 126/92 H 99 Temperature: Afebrile Blood Pressure: Normal Pulse: Tachycardic Respiratory Rate: Normal Appearance: Positive for: Well-Appearing, Non-Toxic, Comfortable Pain Distress: None Mental Status: Positive for: Alert and Oriented X 3 - Systems Exam Head: Present: Atraumatic, Normocephalic Pupils: Present: PERRL Extroacular Muscles: Present: EOMI Conjunctiva: Present: Normal Mouth: Present: Moist Mucous Membranes Neck: Present: Normal Range of Motion Respiratory/Chest: Present: Good Air Exchange, Rales. No: Respiratory Distress, Accessory Muscle Use Cardiovascular: Present: Normal S1, S2, Tachycardic. No: Murmurs Abdomen: No: Tenderness, Distention, Peritoneal Signs Back: Present: Normal Inspection Upper Extremity: Present: Normal Inspection. No: Cyanosis, Edema Lower Extremity: Present: Normal Inspection. No: Edema Skin: Present: Warm, Dry, Normal Color. No: Rashes Psychiatric: Present: Alert, Oriented x 3, Normal Insight, Normal Concentration Medical Decision Making ED Course and Treatment: 07/15/18 19:27 Impression: Patient is a 62 year old female who presents to the emergency department complaining of rapid a-fib, shortness of breath, and palpitations. Patient informs shortness of breath worsened today. Differential Diagnosis included but are not limited to: Plan: -- EKG -- Labs -- Chest X-Ray -- Betapace -- Cardizem -- Lasix -- Xanax -- Reassess and disposition Prior Visits: Notes and results from previous visits were reviewed. Progress Notes: wilmar e d/w dr tobar who saw pt in ed pt with poorly controlled a fib will monitor in icu dr vega accepts 07/16/18 21:08 - Lab Interpretations Lab Results: PT 17.3 SECONDS (9.4-12.5) H 07/15/18 19:35 INR 1.56 07/15/18 19:35 APTT 28.5 Seconds (26.9-38.3) 07/15/18 19:35 Troponin I < 0.01 ng/mL 07/15/18 19:35 NT-Pro-B Natriuret Pep 1560 pg/mL (0-450) H 07/15/18 19:35 Total Bilirubin 1.0 mg/dL (0.2-1.3) 07/15/18 19:35 AST 29 U/L (14-36) 07/15/18 19:35 ALT 24 U/L (7-56) 07/15/18 19:35 Alkaline Phosphatase 197 U/L (38-126) H 07/15/18 19:35 Total Protein 6.5 g/dL (5.8-8.3) 07/15/18 19:35 Albumin 3.3 g/dL (3.0-4.8) 07/15/18 19:35 Globulin 3.1 gm/dL 07/15/18 19:35 Albumin/Globulin Ratio 1.1 (1.1-1.8) 07/15/18 19:35 - RAD Interpretation Radiology Orders: 07/15/18 19:44 CHEST PORTABLE [RAD] Stat - EKG Interpretation EKG Interpretation (Text): 07/16/18 00:17 a fib rate 167 nssts changes - Medication Orders Current Medication Orders: Alprazolam (Xanax) 0.25 mg PO HS ANTIONETTE; Protocol Stop: 07/22/18 22:01 Alprazolam (Xanax) 0.25 mg PO TID ANTIONETTE; Protocol Stop: 07/23/18 10:01 diltiaZEM IVPB 100mg in NS (Cardizem 100mg In Ns) 100 mls @ 10 mls/hr IV .Q10H PRN; Protocol PRN Reason: TITRATE PER MD ORDER Sotalol HCl (Betapace) 80 mg PO BID ANTIONETTE Discontinued Medications Alprazolam (Xanax) 0.25 mg PO STAT STA; Protocol Stop: 07/15/18 21:32 Last Admin: 07/15/18 21:36 Dose: 0.25 mg Diltiazem HCl (Cardizem) 20 mg IVP STAT STA Stop: 07/15/18 19:41 Last Admin: 07/15/18 19:50 Dose: 20 mg Comments: MD order was 20 mg IVP Administration Document 07/15/18 19:50 MD (Rec: 07/15/18 20:03 [facility] [id number]) Charges for Administration # of IVP Administrations 1 MAR Pulse and Blood Pressure Document 07/15/18 19:50 MD (Rec: 07/15/18 20:03 [email or web address]) Pulse Pulse Rate (60-90) 121 Blood Pressure Blood Pressure (100/60-150/90) 126/92 Diltiazem HCl (Cardizem) 10 mg IVP STAT STA Stop: 07/15/18 21:06 Last Admin: 07/15/18 21:29 Dose: 10 mg IVP Administration Document 07/15/18 21:29 MD (Rec: 07/15/18 21:30 [facility] [id number]) Charges for Administration # of IVP Administrations 1 MAR Pulse and Blood Pressure Document 07/15/18 21:29 MD (Rec: 07/15/18 21:30 [email or web address]) Pulse Pulse Rate (60-90) 161 Blood Pressure Blood Pressure (100/60-150/90) 124/84 Furosemide (Lasix) 20 mg IVP STAT STA Stop: 07/15/18 20:29 Last Admin: 07/15/18 20:50 Dose: 20 mg MAR Blood Pressure Document 07/15/18 20:50 MD (Rec: 07/15/18 21:12 [email or web address]) Blood Pressure Blood Pressure (100/60-150/90) 124/84 IVP Administration Document 07/15/18 20:50 (Rec: 07/15/18 21:12 [email or web address]) Charges for Administration # of IVP Administrations 1 diltiaZEM IVPB 100mg in NS (Cardizem 100mg In Ns) 100 mls @ 5 mls/hr IV .Q20H PRN; Protocol PRN Reason: TITRATE PER MD ORDER Last Admin: 07/15/18 20:41 Dose: 5 mls/hr eMAR Start Stop Document 07/15/18 20:41 (Rec: 07/15/18 20:41 MD [email or web address]) Intravenous Solution Start Date 07/15/18 Start Time 20:41 - Scribe Statement The provider has reviewed the documentation as recorded by the Scribe Ponce Fox All medical record entries made by the Scribe were at my direction and personally dictated by me. I have reviewed the chart and agree that the record accurately reflects my personal performance of the history, physical exam, medical decision making, and the department course for this patient. I have also personally directed, reviewed, and agree with the discharge instructions and disposition. Disposition/Present on Arrival - Present on Arrival Any Indicators Present on Arrival: No History of DVT/PE: No History of Uncontrolled Diabetes: No Urinary Catheter: No History of Decub. Ulcer: No History Surgical Site Infection Following: None - Disposition Have Diagnosis and Disposition been Completed?: Yes Diagnosis: Rapid atrial fibrillation Disposition: HOSPITALIZED Disposition Time: 22:00 Patient Problems: Current Active Problems Problem Status Onset Rapid atrial fibrillation Acute Condition: FAIR
[2018-07-15] MEDS ORDERED: Metoprolol 1 mg/ml Inj IVP ONE (22:31)
[2018-07-15 22:33] LABS: URINE APPEARANCE CLEAR (CLEAR); URINE BILIRUBIN NEGATIVE (NEGATIVE); URINE BLOOD TRACE-INTACT (NEGATIVE); URINE COLOR YELLOW (YELLOW); URINE GLUCOSE (UA) NEGATIVE (NEGATIVE); URINE LEUKOCYTE ESTERASE NEGATIVE Leu/uL (NEGATIVE); URINE PROTEIN NEGATIVE mg/dL (<30 mg/dL); URINE UROBILINOGEN 0.2 E.U./dL (<1 E.U./dL)
[2018-07-15 22:44] LABS: URINE WBC 0 - 2 /hpf (0-6)
[2018-07-15] MEDS: diltiaZEM IVPB 100mg in NS 100 ML IV PRN ×2 (23:27→23:54)
[2018-07-16] MEDS ORDERED: Metoprolol 1 mg/ml Inj IVP ONE (00:23)
[2018-07-16] MEDS ORDERED: Sodium Chloride 0.9% 200 ML IV SCH (01:30)
[2018-07-16] MEDS ORDERED: Digoxin 500 mcg/2ml (0.5 mg/2ml) Inj IVP STA (01:35)
[2018-07-16] MEDS ORDERED: Sodium Chloride 0.9% 500 ML IV STA (02:01)
--- NOTE | 2018-07-16 02:12 | HP ---
DATE OF EXAM: 07/15/2018 HISTORY OF PRESENT ILLNESS: I know Kyara very well. She has history of stage IV lung cancer, history of pneumonias, also rapid AFib. She comes in today being a 62-year-old female with palpitations, shortness of breath, less than 10 to 16 hours. She refused to go to the hospital until it got worse. She has oxygen at home and she was not feeling well, she came to the emergency room. She had paracentesis in the past with pleural effusion. She refused PleurX catheter. She is on chemotherapy, had pneumonias. PAST MEDICAL HISTORY: COPD, end-stage on oxygen at home; lung cancer stage IV; GERD; bronchitis; diverticulosis; arthritis; and reflux. PAST SURGICAL HISTORY: Status post right hip replacement, right femur. FAMILY HISTORY: Unknown. SOCIAL HISTORY: Former smoker, quit about a month ago. Socially drinker. No drugs. ALLERGIES: NO KNOWN DRUG ALLERGIES. MEDICATIONS: She is on numerous medications at home. She is on Brovana, multivitamin, Dexilant, atorvastatin, prednisone, Spiriva, Zofran, sotalol, and Xanax. REVIEW OF SYSTEMS: No acute vision or hearing changes. No sore throat. Not much short of breath, but there is chest palpitations, uncomfortable on the chest. No nausea, vomiting, constipation, or diarrhea. No problems urinating. No back pain. No headaches or dizziness. PHYSICAL EXAMINATION: VITAL SIGNS: Pulse 162, high as 171, blood pressure 126/90 , respiratory rate 20, and O2 saturation 99%. HEENT: Head is atraumatic and normocephalic. Extraocular muscles are intact. Pupils equally react to light and accommodation. Throat is dry. NECK: Supple. No JVD. LUNGS: Decreased breath sounds especially on the right side compared to the left side, but no wheezes, rhonchi, or rales. HEART: Regular rate. Normal S1 and S2. Very tachy. When I was listing, it was like in the 160s. ABDOMEN: Soft and nontender. Positive bowel sounds. No guarding. No rebound. No CVA tenderness. NEUROLOGIC: GCS is 15. Cranial nerves II through XII grossly intact. Alert and oriented x3. She understands the situation. SKIN: Warm and dry. No apparent rashes or ulcers appreciated. LYMPHS: Thyroid midline. She had some IV Cardizem given in the emergency room already. LABORATORY DATA: White count 4.9, hemoglobin 10.8, hematocrit 33.6, and platelets 168. INR is pending. CBC is pending. Blood cultures are pending. IMPRESSION AND PLAN: She will have a consult with Dr. Jay. Chest x-ray is pending. She is on oxygen. She might need to be on Cardizem drip depending on how she responds to the initial 20 mg of IV given. She is here for rapid atrial fibrillation, history of lung cancer, history of paracentesis in the past. She will go to Telemetry with Cardiology consult. Garfield Lopez DO MTDD
--- NOTE | 2018-07-16 02:16 | CP.PCM.CON ---
<NiaStalin - Last Filed: 07/16/18 02:43> History of Present Illness - History of Present Illness History of Present Illness: Stalin Kramer DO, PGY-1 ICU Consult Note for Dr. Benavides Consult requested by Dr. Hickman CC: palpitations, SOB HPI: Patient is a 62 year old female with PMH of R-sided lung CA, COPD (on home O2), GERD, diverticulosis, and prior AFib (on sotalol at home) presents with a complaint of palpitations and SOB worsening since earlier yesterday morning. EKG performed in ED showed AFib w/RVR. Patient was subsequently given 2, 5 mg IVP lopressor doses, 30 mg of cardizem and started on cardizem drip. On examination, patient's AFib appears to be improving s/p one dose of digoxin 0.25 mg IVP. She was also noted to have MAP of 62 in ED. Her BP is improving with 500 cc bolus. ICU consultation is requested for management of cardizem drip awaiting cardiol elias arredondo. She otherwise denies fever/chills, CP, abd pain/nausea/vomiting, DELACRUZ, changes in vision, or urinary complaints. 12-point ROS was otherwise negative except as specified above. PMD: Dr. Lopez Past Medical History: R-sided lung CA, COPD (on home O2), GERD, diverticulosis, and prior AFib Past Surgical History: R-sided hip replacement Allergies: NKA Home medications: Sotalol 80 mg BID, Xanax 0.25 mg HS, Spiriva 2 puff IH daily, Prednisone 10 mg daily, Dexilant 60 mg daily, Lipitor 10 mg DIN, Brovana 1 kasey IH BID Family History: reviewed, non-contributory Social History: admits to smoking approximately 1 PPD for past 40 years, reports social EtOH use, denies illicit drug use Pharmacy: [id number] Review of Systems - Constitutional Constitutional: As Per HPI Past Patient History - Infectious Disease Hx of Infectious Diseases: None - Tetanus Immunizations Tetanus Immunization: Unknown - Past Medical History & Family History Past Medical History?: Yes - Past Social History Smoking Status: Former Smoker - CARDIAC Hx Cardiac Disorders: Yes Hx Atrial Fibrillation: Yes Hx Pacemaker: No - PULMONARY Hx Respiratory Disorders: Yes Hx Chronic Obstructive Pulmonary Disease (COPD): Yes Hx Emphysema: Yes - NEUROLOGICAL Hx Paralysis: No - HEENT Hx HEENT Problems: No - RENAL Hx Chronic Kidney Disease: No - ENDOCRINE/METABOLIC Hx Endocrine Disorders: No - HEMATOLOGICAL/ONCOLOGICAL Hx Blood Transfusions: No - INTEGUMENTARY Hx Dermatological Problems: No - MUSCULOSKELETAL/RHEUMATOLOGICAL Hx Arthritis: Yes - GASTROINTESTINAL Hx Gastroesophageal Reflux: Yes - GENITOURINARY/GYNECOLOGICAL Hx Genitourinary Disorders: No - PSYCHIATRIC Hx Emotional Abuse: No Hx Physical Abuse: No Hx Substance Use: No - SURGICAL HISTORY Hx Orthopedic Surgery: Yes Other/Comment: Right hip replacement, right femur - ANESTHESIA Hx Anesthesia Reactions: No Hx Malignant Hyperthermia: No Meds Allergies/Adverse Reactions: Allergies Allergy/AdvReac Type Severity Reaction Status Date / Time No Known Allergies Allergy Verified 07/15/18 19:40 - Medications Medications: Current Medications Alprazolam (Xanax) 0.25 mg PO HS ANTIONETTE; Protocol Stop: 07/22/18 22:01 Last Admin: 07/15/18 23:20 Dose: Not Given Alprazolam (Xanax) 0.25 mg PO TID ANTIONETTE; Protocol Stop: 07/23/18 10:01 diltiaZEM IVPB 100mg in NS (Cardizem 100mg In Ns) 100 mls @ 10 mls/hr IV .Q10H PRN; Protocol PRN Reason: TITRATE PER MD ORDER Last Admin: 07/15/18 23:54 Dose: 10 mg/hr, 10 mls/hr Sodium Chloride (Sodium Chloride 0.9%) 200 mls @ 400 mls/hr IV .Q30M ANTIONETTE Last Admin: 07/16/18 01:00 Dose: 400 mls/hr Sodium Chloride (Sodium Chloride 0.9%) 500 mls @ 999 mls/hr IV .Q31M STA Stop: 07/16/18 02:31 Sotalol HCl (Betapace) 80 mg PO BID ANTIONETTE Physical Exam - Constitutional Appears: Non-toxic, No Acute Distress - Head Exam Head Exam: ATRAUMATIC, NORMOCEPHALIC - Eye Exam Eye Exam: EOMI, PERRL - ENT Exam ENT Exam: Mucous Membranes Moist - Neck Exam Neck exam: Positive for: Full Rom, Normal Inspection - Respiratory Exam Respiratory Exam: Wheezes (faint end expiratory wheezes b/l). absent: Rales, Rhonchi - Cardiovascular Exam Cardiovascular Exam: Tachycardia, Irregular Rhythm, +S1, +S2. absent: Diastolic murmur, Gallop, Rubs, Systolic Murmur - GI/Abdominal Exam GI & Abdominal Exam: Normal Bowel Sounds, Soft. absent: Guarding, Tenderness - Extremities Exam Extremities exam: Positive for: full ROM, normal inspection - Back Exam Back exam: NORMAL INSPECTION - Neurological Exam Neurological exam: Alert, Oriented x3 - Psychiatric Exam Psychiatric exam: Anxious - Skin Skin Exam: Dry, Intact, Warm Results - Vital Signs Recent Vital Signs: Last Vital Signs Temp Pulse 118 H 07/16/18 01:22 Resp 20 07/16/18 01:22 BP 95/46 L 07/16/18 01:22 Pulse Ox 97 07/16/18 01:22 - Labs Result Diagrams: 07/15/18 19:35 07/15/18 19:35 Labs: Laboratory Results - last 24 hr 07/15/18 07/15/18 07/15/18 19:00 19:35 19:35 WBC 4.9 D RBC 3.39 L Hgb 10.8 L Hct 33.6 L MCV 99.1 MCH 31.9 MCHC 32.1 RDW 17.2 H Plt Count 168 MPV 9.4 Neut % (Auto) 64.3 Lymph % (Auto) 21.0 L [place] % (Auto) 14.5 H Eos % (Auto) 0.0 L Baso % (Auto) 0.2 Lymph # (Auto) 1.0 L [place] # (Auto) 0.7 H Eos # (Auto) 0.0 Baso # (Auto) 0.01 Absolute Neuts (auto) 3.16 PT 17.3 H INR 1.56 APTT 28.5 Sodium Potassium Chloride Carbon Dioxide Anion Gap BUN Creatinine Est GFR ( Amer) Est GFR (Non-Af Amer) Random Glucose Calcium Magnesium Total Bilirubin AST ALT Alkaline Phosphatase Lactate Dehydrogenase Total Creatine Kinase Troponin I NT-Pro-B Natriuret Pep Total Protein Albumin Globulin Albumin/Globulin Ratio Urine Color Yellow Urine Appearance Clear Urine pH 6.0 Ur Specific Ider 1.020 Urine Protein Negative Urine Glucose (UA) Negative Urine Ketones Negative Urine Blood Trace-intact H Urine Nitrate Negative Urine Bilirubin Negative Urine Urobilinogen 0.2 Ur Leukocyte Esterase Negative Urine RBC 1 - 3 H Urine WBC 0 - 2 Ur Epithelial Cells 10 - 12 H 07/15/18 19:35 WBC RBC Hgb Hct MCV MCH MCHC RDW Plt Count MPV Neut % (Auto) Lymph % (Auto) [place] % (Auto) Eos % (Auto) Baso % (Auto) Lymph # (Auto) [place] # (Auto) Eos # (Auto) Baso # (Auto) Absolute Neuts (auto) PT INR APTT Sodium 134 Potassium 4.0 Chloride 89 L Carbon Dioxide 37 H Anion Gap 13 BUN 13 Creatinine 0.2 L Est GFR ( Amer) > 60 Est GFR (Non-Af Amer) > 60 Random Glucose 134 H Calcium 9.3 Magnesium 1.7 Total Bilirubin 1.0 AST 29 ALT 24 Alkaline Phosphatase 197 H Lactate Dehydrogenase 750 H Total Creatine Kinase < 20 L Troponin I < 0.01 NT-Pro-B Natriuret Pep 1560 H Total Protein 6.5 Albumin 3.3 Globulin 3.1 Albumin/Globulin Ratio 1.1 Urine Color Urine Appearance Urine pH Ur Specific Ider Urine Protein Urine Glucose (UA) Urine Ketones Urine Blood Urine Nitrate Urine Bilirubin Urine Urobilinogen Ur Leukocyte Esterase Urine RBC Urine WBC Ur Epithelial Cells Assessment & Plan - Assessment and Plan (Free Text) Assessment: 62 yo F with PMH of R-sided lung CA, COPD (on home O2), GERD, diverticulosis, and prior AFib presents with palpitations and SOB admitted for management of AFib w/RVR. ICU consult is requested for management of cardizem drip pending cardiology evaluation. Plan: Neuro: AAOx3, no FND, moving extremities past midline Monitor neuro status Reorient patient as necessary Cardio: Repeat episode of AFib w/RVR S/p 2 doses of IV Lopressor, 30 mg diltiazem now on drip and 0.25 mg dose of digoxin Appears to be improving, will monitor closely overnight May give additional dose of 0.25 mg digoxin as needed MAP 62 noted in ED but responsive to 500 cc NS bolus Maintain MAP>65 Monitor for S/Sx of HD compromise Cardiology following, all recs appreciated Pulm: CXR showed no acute changes from prior Maintain SpO2 > 90% Conservative fluid management Maintain oral hygiene GI: Tolerating regular diet well without nausea/vomiting /Nephro: BUN/Cr stable at 13/0.2 Monitor UOP, replete electrolytes as needed Maintain euvolemia Endocrinology: Random glucose: 134 Maintain euglycemia Heme/Onc: H/H stable at 10.8/33.6 Suspect anemia is most likely 2/2 anemia of chronic disease from malignancy No significant change from baseline and no signs of HD compromise Heme/onc following for chemotherapy ID: Afebrile, no leukocytosis F/u blood, urine cx results, procal Monitor for signs and symptoms of infection DVT/GI PPX: Lovenox/protonix Full Code Regular diet Monitor in MICU Patient seen, examined with, and plan discussed with my attending Dr. Kennedy Kramer, EricO. IM Resident PGY-1 <Partha Benavides - Last Filed: 07/16/18 06:46> Meds - Medications Medications: Current Medications Alprazolam (Xanax) 0.25 mg PO HS ANTIONETTE; Protocol Stop: 07/22/18 22:01 Last Admin: 07/15/18 23:20 Dose: Not Given Alprazolam (Xanax) 0.25 mg PO TID ANTIONETTE; Protocol Stop: 07/23/18 10:01 Enoxaparin Sodium (Lovenox) 40 mg SC DAILY ANTIONETTE; Protocol diltiaZEM IVPB 100mg in NS (Cardizem 100mg In Ns) 100 mls @ 10 mls/hr IV .Q10H PRN; Protocol PRN Reason: TITRATE PER MD ORDER Last Admin: 07/15/18 23:54 Dose: 10 mg/hr, 10 mls/hr Pantoprazole Sodium (Protonix Ec Tab) 40 mg PO 0600 ANTIONETTE Last Admin: 07/16/18 06:03 Dose: 40 mg Sotalol HCl (Betapace) 80 mg PO BID [facility] Results - Vital Signs Recent Vital Signs: Last Vital Signs Temp 97.9 F 07/16/18 03:04 Pulse 85 07/16/18 05:50 Resp 19 07/16/18 05:50 BP 88/38 L 07/16/18 05:00 Pulse Ox 96 07/16/18 05:50 - Labs Result Diagrams: 07/16/18 05:35 07/16/18 05:35 Labs: Laboratory Results - last 24 hr 07/15/18 07/15/18 07/15/18 19:00 19:35 19:35 WBC 4.9 D RBC 3.39 L Hgb 10.8 L Hct 33.6 L MCV 99.1 MCH 31.9 MCHC 32.1 RDW 17.2 H Plt Count 168 MPV 9.4 Neut % (Auto) 64.3 Lymph % (Auto) 21.0 L [place] % (Auto) 14.5 H Eos % (Auto) 0.0 L Baso % (Auto) 0.2 Lymph # (Auto) 1.0 L [place] # (Auto) 0.7 H Eos # (Auto) 0.0 Baso # (Auto) 0.01 Absolute Neuts (auto) 3.16 PT 17.3 H INR 1.56 APTT 28.5 Sodium Potassium Chloride Carbon Dioxide Anion Gap BUN Creatinine Est GFR ( Amer) Est GFR (Non-Af Amer) Random Glucose Calcium Magnesium Total Bilirubin AST ALT Alkaline Phosphatase Lactate Dehydrogenase Total Creatine Kinase Troponin I NT-Pro-B Natriuret Pep Total Protein Albumin Globulin Albumin/Globulin Ratio Urine Color Yellow Urine Appearance Clear Urine pH 6.0 Ur Specific Ider 1.020 Urine Protein Negative Urine Glucose (UA) Negative Urine Ketones Negative Urine Blood Trace-intact H Urine Nitrate Negative Urine Bilirubin Negative Urine Urobilinogen 0.2 Ur Leukocyte Esterase Negative Urine RBC 1 - 3 H Urine WBC 0 - 2 Ur Epithelial Cells 10 - 12 H 07/15/18 07/16/18 07/16/18 19:35 05:35 05:35 WBC 4.0 L RBC 2.95 L Hgb 9.6 L Hct 29.3 L MCV 99.3 MCH 32.5 MCHC 32.8 RDW 17.1 H Plt Count 136 MPV 8.8 Neut % (Auto) Lymph % (Auto) [place] % (Auto) Eos % (Auto) Baso % (Auto) Lymph # (Auto) [place] # (Auto) Eos # (Auto) Baso # (Auto) Absolute Neuts (auto) PT INR APTT Sodium 134 134 Potassium 4.0 3.4 L Chloride 89 L 90 L Carbon Dioxide 37 H 37 H Anion Gap 13 10 BUN 13 13 Creatinine 0.2 L 0.2 L Est GFR ( Amer) > 60 > 60 Est GFR (Non-Af Amer) > 60 > 60 Random Glucose 134 H 111 H Calcium 9.3 8.7 Magnesium 1.7 Total Bilirubin 1.0 0.8 AST 29 29 ALT 24 24 Alkaline Phosphatase 197 H 164 H Lactate Dehydrogenase 750 H Total Creatine Kinase < 20 L Troponin I < 0.01 NT-Pro-B Natriuret Pep 1560 H Total Protein 6.5 5.6 L Albumin 3.3 2.8 L Globulin 3.1 2.8 Albumin/Globulin Ratio 1.1 1.0 L Urine Color Urine Appearance Urine pH Ur Specific Ider Urine Protein Urine Glucose (UA) Urine Ketones Urine Blood Urine Nitrate Urine Bilirubin Urine Urobilinogen Ur Leukocyte Esterase Urine RBC Urine WBC Ur Epithelial Cells Attending/Attestation - Attestation I have personally seen and examined this patient.: Yes I have fully participated in the care of the patient.: Yes I have reviewed all pertinent clinical information: Yes Notes (Text): 07/16/18 06:46 Seen and examined and discussed with resident. Exam significant for decreased breath sounds and coarse breath sound. A&P as above.
[2018-07-16 04:06] VITALS: BMI 21.1
[2018-07-16 05:52] LABS: HEMOGLOBIN 9.6 g/dL (12.0-16.0); MEAN CELL VOLUME 99.3 fl (80.0-105.0); MEAN CORPUSCULAR HEMOGLOBIN 32.5 pg (25.0-35.0); MEAN CORPUSCULAR HGB CONC 32.8 g/dl (31.0-37.0); MEAN PLATELET VOLUME 8.8 fl (7.0-11.0); RBC 2.95 10^6/uL (3.5-6.1); RED CELL DISTRIBUTION WIDTH 17.1 % (11.5-14.5)
[2018-07-16] MEDS: Pantoprazole 40 mg EC Tab PO SCH (06:03)
[2018-07-16 06:19] LABS: ALBUMIN 2.8 g/dL (3.0-4.8); ALT/SGPT 24 U/L (7-56); AST/SGOT 29 U/L (14-36); BLOOD UREA NITROGEN 13 mg/dL (7-21); CALCIUM 8.7 mg/dL (8.4-10.5); GFR NON-AFRICAN AMERICAN > 60
[2018-07-16] MEDS ORDERED: Potassium Chloride 20 mEq ER Tab PO ONE ×2 (07:51→08:55)
[2018-07-16] MEDS ORDERED: Magnesium Sulfate 2 gm/50 ml 2 GM/50 ML BAG IVPB ONE (08:41)
[2018-07-16] MEDS ORDERED: Digoxin 500 mcg/2ml (0.5 mg/2ml) Inj IVP ONE ×2 (09:47→11:00)
--- NOTE | 2018-07-16 09:54 | RAD ---
Date of service: 07/15/2018 HISTORY: palpitations COMPARISON: 06/29/2018 FINDINGS: LUNGS: No change in right lower lobe infiltrate and effusion. Interstitial changes are also seen on the left side PLEURA: Small right effusion CARDIOVASCULAR: No aortic atherosclerotic calcification present. Normal cardiac size. No pulmonary vascular congestion. OSSEOUS STRUCTURES: No significant abnormalities. VISUALIZED UPPER ABDOMEN: Normal. OTHER FINDINGS: None. IMPRESSION: No change in right lower lobe infiltrate and effusion.
--- NOTE | 2018-07-16 09:56 | CARD ---
APPROVED REPORT Date of service: 07/15/2018 EKG Measurement Heart [id number] <Conclusion> Atrialfibrillation with rapid ventricular response Nonspecific ST and T wave abnormality Abnormal ECG
[2018-07-16] MEDS ORDERED: Enoxaparin 40 mg Syringe SC SCH (10:00)
--- NOTE | 2018-07-16 10:08 | CON ---
DATE OF CONSULTATION: 07/16/2018 CARDIOLOGY CONSULTATION HISTORY: The patient is a 62-year-old woman, who presents with rapid atrial fibrillation up to a heart rate of 170s. The patient was hypotensive with IV Cardizem, which was discontinued. PAST MEDICAL HISTORY: The patient's past medical history includes good LV function, dilated atria, history of paroxysmal atrial fibrillation on her last admission, severe COPD, severe pulmonary hypertension, and is chronically dyspneic. Currently, the patient does not feel palpitations. Does not feel chest pain. SOCIAL HISTORY: She is a former smoker. REVIEW OF SYSTEMS: Reviewed in detail. No additional symptoms are noted. PHYSICAL EXAMINATION: VITAL SIGNS: Her blood pressure is 99/58, the heart rate is in atrial fibrillation in 116. NECK: Negative JVD. LUNGS: Decreased breath sounds. CARDIAC: Heart rate S1, S2. EXTREMITIES: Without edema. LABORATORY DATA: EKG shows atrial fibrillation with nonspecific ST-T changes. BUN and creatinine are normal. Potassium is 3.4, and has been replaced. ProBNP is 1560. Hemoglobin is 9.6. IMPRESSION: 1. Recurrent atrial fibrillation. 2. Severe chronic obstructive pulmonary disease. 3. Severe pulmonary retention. 4. History of coronary artery disease. 5. Chronic dyspnea. 6. Anemia. PLAN: Given these findings, we will use digoxin to help control heart rate given her hypotension with IV Cardizem. In addition, we will start the patient on anticoagulation with p.o. Eliquis. I have discussed with the patient about the possibility of ablation for atrial fibrillation. The patient refuses at this time. She will only agree to medical therapy. Brayan Jay MD
--- NOTE | 2018-07-16 11:36 | CP.CCUPN ---
<Josesito Earl - Last Filed: 07/16/18 11:30> CCU Subjective - Physician Review Subjective (Free Text): Josesito Earl DO. Critical Care Progress note Patient seen and examined at bedside. She is awake, oriented in NAD. She has been on 2L NC. She is breathing well, tolerating diet. She denies CP, SOB, palpitations, headache, dizziness. CCU Objective - Vital Signs / Intake & Output Vital Signs (Last 4 hours): Vital Signs Pulse Resp BP Pulse Ox 07/16/18 09:39 115 H 99/58 L 07/16/18 08:30 98 H 13 96 07/16/18 08:20 109 H 17 93 L 07/16/18 08:10 88 20 98 07/16/18 08:00 98 H 99/59 L 07/16/18 07:59 83 21 97 07/16/18 07:50 101 H 96 07/16/18 07:40 103 H 23 106/41 L 93 L Intake and Output (Last 8hrs): Intake & Output 07/15/18 07/16/18 07/16/18 22:59 06:59 14:59 Intake Total 170 Balance 170 Weight 106 lb 115 lb 0.06 oz Intake: IV 110 Right Forearm 20 Oral 60 Other: # Voids Urine, Voided 1 - Physical Exam Head: Positive for: Atraumatic, Normocephalic Pupils: Positive for: PERRL Extroacular Muscles: Positive for: EOMI Conjunctiva: Positive for: Normal Mouth: Positive for: Moist Mucous Membranes Neck: Positive for: Normal Range of Motion Respiratory/Chest: Positive for: Good Air Exchange, Rales. Negative for: Respiratory Distress, Accessory Muscle Use Cardiovascular: Positive for: Normal S1, S2, Irregular Rhythm, Tachycardic. Negative for: Murmurs Abdomen: Negative for: Tenderness, Distention, Peritoneal Signs Back: Positive for: Normal Inspection Upper Extremity: Positive for: Normal Inspection. Negative for: Cyanosis, Edema Lower Extremity: Positive for: Normal Inspection. Negative for: Edema Neurological: Positive for: GCS=15, CN II-XII Intact, Speech Normal Skin: Positive for: Warm, Dry, Normal Color. Negative for: Rashes Psychiatric: Positive for: Alert, Oriented x 3, Normal Insight, Normal Concentration - Medications Active Medications: Active Medications Generic Name Dose Route Start Last Admin Trade Name Freq PRN Reason Stop Dose Admin Alprazolam 0.25 mg 07/15/18 22:00 07/15/18 23:20 Xanax PO 07/22/18 22:01 Not Given HS ANTIONETTE Protocol Alprazolam 0.25 mg 07/16/18 10:00 07/16/18 09:44 Xanax PO 07/23/18 10:01 0.25 mg TID ANTIONETTE Administration Protocol Apixaban 5 mg 07/16/18 10:00 07/16/18 10:02 Eliquis PO 5 mg BID AN[facility]ION[facility]TE Administration Protocol Digoxin 0.125 mg 07/17/18 08:00 Digoxin PO 1400 ANTIONETTE diltiaZEM IVPB 100mg in NS 100 mls @ 10 mls/hr 07/15/18 21:05 07/16/18 04:00 Cardizem 100mg In Ns IV 0 mg/hr .Q10H PRN 0 mls/hr TITRATE PER MD ORDER Titration Protocol 10 MG/HR Pantoprazole Sodium 40 mg 07/16/18 06:00 07/16/18 06:03 Protonix Ec Tab PO 40 mg 0600 [facility] Administration Sotalol HCl 80 mg 07/16/18 10:00 07/16/18 09:39 Betapace PO 80 mg BID ANTIONETTE Administration - Patient Studies Lab Studies: Lab Studies 07/16/18 07/16/18 07/16/18 Range/Units 05:35 05:35 05:35 WBC 4.0 L (4.5-11.0) 10^3/uL RBC 2.95 L (3.5-6.1) 10^6/uL Hgb 9.6 L (12.0-16.0) g/dL Hct 29.3 L (36.0-48.0) % MCV 99.3 (80.0-105.0) fl MCH 32.5 (25.0-35.0) pg MCHC 32.8 (31.0-37.0) g/dl RDW 17.1 H (11.5-14.5) % Plt Count 136 (120.0-450.0) 10^3/uL MPV 8.8 (7.0-11.0) fl Neut % (Auto) (50.0-68.0) % Lymph % (Auto) (22.0-35.0) % [place] % (Auto) (1.0-6.0) % Eos % (Auto) (1.5-5.0) % Baso % (Auto) (0.0-3.0) % Lymph # (Auto) (1.2-3.4) [place] # (Auto) (0.1-0.6) Eos # (Auto) (0.0-0.7) Baso # (Auto) (0.0-2.0) K/mm3 Absolute Neuts (auto) (1.4-6.5) PT (9.4-12.5) SECONDS INR APTT (26.9-38.3) Seconds Sodium 134 (132-148) mmol/L Potassium 3.4 L (3.6-5.0) mmol/L Chloride 90 L (98-107) mmol/L Carbon Dioxide 37 H (21-33) mmol/L Anion Gap 10 (10-20) BUN 13 (7-21) mg/dL Creatinine 0.2 L (0.7-1.2) mg/dl Est GFR ( Amer) > 60 Est GFR (Non-Af Amer) > 60 Random Glucose 111 H (70-110) mg/dL Calcium 8.7 (8.4-10.5) mg/dL Magnesium 1.7 (1.7-2.2) mg/dL Total Bilirubin 0.8 (0.2-1.3) mg/dL AST 29 (14-36) U/L ALT 24 (7-56) U/L Alkaline Phosphatase 164 H (38-126) U/L Lactate Dehydrogenase (333-699) U/L Total Creatine Kinase (35-230) U/L Troponin I ng/mL NT-Pro-B Natriuret Pep (0-450) pg/mL Total Protein 5.6 L (5.8-8.3) g/dL Albumin 2.8 L (3.0-4.8) g/dL Globulin 2.8 gm/dL Albumin/Globulin Ratio 1.0 L (1.1-1.8) Urine Color (YELLOW) Urine Appearance (CLEAR) Urine pH (4.7-8.0) Ur Specific Stites (1.005-1.035) Urine Protein (<30 mg/dL) mg/dL Urine Glucose (UA) (NEGATIVE) mg/dL Urine Ketones (NEGATIVE) mg/dL Urine Blood (NEGATIVE) Urine Nitrate (NEGATIVE) Urine Bilirubin (NEGATIVE) Urine Urobilinogen (<1 E.U./dL) E.U./dL Ur Leukocyte Esterase (NEGATIVE) Samantha/uL Urine RBC (0-2) /hpf Urine WBC (0-6) /hpf Ur Epithelial Cells (0-5) /hpf 07/15/18 07/15/18 07/15/18 Range/Units 19:35 19:35 19:35 WBC 4.9 D (4.5-11.0) 10^3/uL RBC 3.39 L (3.5-6.1) 10^6/uL Hgb 10.8 L (12.0-16.0) g/dL Hct 33.6 L (36.0-48.0) % MCV 99.1 (80.0-105.0) fl MCH 31.9 (25.0-35.0) pg MCHC 32.1 (31.0-37.0) g/dl RDW 17.2 H (11.5-14.5) % Plt Count 168 (120.0-450.0) 10^3/uL MPV 9.4 (7.0-11.0) fl Neut % (Auto) 64.3 (50.0-68.0) % Lymph % (Auto) 21.0 L (22.0-35.0) % [place] % (Auto) 14.5 H (1.0-6.0) % Eos % (Auto) 0.0 L (1.5-5.0) % Baso % (Auto) 0.2 (0.0-3.0) % Lymph # (Auto) 1.0 L (1.2-3.4) [place] # (Auto) 0.7 H (0.1-0.6) Eos # (Auto) 0.0 (0.0-0.7) Baso # (Auto) 0.01 (0.0-2.0) K/mm3 Absolute Neuts (auto) 3.16 (1.4-6.5) PT 17.3 H (9.4-12.5) SECONDS INR 1.56 APTT 28.5 (26.9-38.3) Seconds Sodium 134 (132-148) mmol/L Potassium 4.0 (3.6-5.0) mmol/L Chloride 89 L (98-107) mmol/L Carbon Dioxide 37 H (21-33) mmol/L Anion Gap 13 (10-20) BUN 13 (7-21) mg/dL Creatinine 0.2 L (0.7-1.2) mg/dl Est GFR ( Amer) > 60 Est GFR (Non-Af Amer) > 60 Random Glucose 134 H (70-110) mg/dL Calcium 9.3 (8.4-10.5) mg/dL Magnesium 1.7 (1.7-2.2) mg/dL Total Bilirubin 1.0 (0.2-1.3) mg/dL AST 29 (14-36) U/L ALT 24 (7-56) U/L Alkaline Phosphatase 197 H (38-126) U/L Lactate Dehydrogenase 750 H (333-699) U/L Total Creatine Kinase < 20 L (35-230) U/L Troponin I < 0.01 ng/mL NT-Pro-B Natriuret Pep 1560 H (0-450) pg/mL Total Protein 6.5 (5.8-8.3) g/dL Albumin 3.3 (3.0-4.8) g/dL Globulin 3.1 gm/dL Albumin/Globulin Ratio 1.1 (1.1-1.8) Urine Color (YELLOW) Urine Appearance (CLEAR) Urine pH (4.7-8.0) Ur Specific Stites (1.005-1.035) Urine Protein (<30 mg/dL) mg/dL Urine Glucose (UA) (NEGATIVE) mg/dL Urine Ketones (NEGATIVE) mg/dL Urine Blood (NEGATIVE) Urine Nitrate (NEGATIVE) Urine Bilirubin (NEGATIVE) Urine Urobilinogen (<1 E.U./dL) E.U./dL Ur Leukocyte Esterase (NEGATIVE) Samantha/uL Urine RBC (0-2) /hpf Urine WBC (0-6) /hpf Ur Epithelial Cells (0-5) /hpf 07/15/18 Range/Units 19:00 WBC (4.5-11.0) 10^3/uL RBC (3.5-6.1) 10^6/uL Hgb (12.0-16.0) g/dL Hct (36.0-48.0) % MCV (80.0-105.0) fl MCH (25.0-35.0) pg MCHC (31.0-37.0) g/dl RDW (11.5-14.5) % Plt Count (120.0-450.0) 10^3/uL MPV (7.0-11.0) fl Neut % (Auto) (50.0-68.0) % Lymph % (Auto) (22.0-35.0) % [place] % (Auto) (1.0-6.0) % Eos % (Auto) (1.5-5.0) % Baso % (Auto) (0.0-3.0) % Lymph # (Auto) (1.2-3.4) [place] # (Auto) (0.1-0.6) Eos # (Auto) (0.0-0.7) Baso # (Auto) (0.0-2.0) K/mm3 Absolute Neuts (auto) (1.4-6.5) PT (9.4-12.5) SECONDS INR APTT (26.9-38.3) Seconds Sodium (132-148) mmol/L Potassium (3.6-5.0) mmol/L Chloride (98-107) mmol/L Carbon Dioxide (21-33) mmol/L Anion Gap (10-20) BUN (7-21) mg/dL Creatinine (0.7-1.2) mg/dl Est GFR ( Amer) Est GFR (Non-Af Amer) Random Glucose (70-110) mg/dL Calcium (8.4-10.5) mg/dL Magnesium (1.7-2.2) mg/dL Total Bilirubin (0.2-1.3) mg/dL AST (14-36) U/L ALT (7-56) U/L Alkaline Phosphatase (38-126) U/L Lactate Dehydrogenase (333-699) U/L Total Creatine Kinase (35-230) U/L Troponin I ng/mL NT-Pro-B Natriuret Pep (0-450) pg/mL Total Protein (5.8-8.3) g/dL Albumin (3.0-4.8) g/dL Globulin gm/dL Albumin/Globulin Ratio (1.1-1.8) Urine Color Yellow (YELLOW) Urine Appearance Clear (CLEAR) Urine pH 6.0 (4.7-8.0) Ur Specific Stites 1.020 (1.005-1.035) Urine Protein Negative (<30 mg/dL) mg/dL Urine Glucose (UA) Negative (NEGATIVE) mg/dL Urine Ketones Negative (NEGATIVE) mg/dL Urine Blood Trace-intact H (NEGATIVE) Urine Nitrate Negative (NEGATIVE) Urine Bilirubin Negative (NEGATIVE) Urine Urobilinogen 0.2 (<1 E.U./dL) E.U./dL Ur Leukocyte Esterase Negative (NEGATIVE) Samantha/uL Urine RBC 1 - 3 H (0-2) /hpf Urine WBC 0 - 2 (0-6) /hpf Ur Epithelial Cells 10 - 12 H (0-5) /hpf Laboratory Results - last 24 hr 07/15/18 07/15/18 07/15/18 19:00 19:35 19:35 WBC 4.9 D RBC 3.39 L Hgb 10.8 L Hct 33.6 L MCV 99.1 MCH 31.9 MCHC 32.1 RDW 17.2 H Plt Count 168 MPV 9.4 Neut % (Auto) 64.3 Lymph % (Auto) 21.0 L [place] % (Auto) 14.5 H Eos % (Auto) 0.0 L Baso % (Auto) 0.2 Lymph # (Auto) 1.0 L [place] # (Auto) 0.7 H Eos # (Auto) 0.0 Baso # (Auto) 0.01 Absolute Neuts (auto) 3.16 PT 17.3 H INR 1.56 APTT 28.5 Sodium Potassium Chloride Carbon Dioxide Anion Gap BUN Creatinine Est GFR ( Amer) Est GFR (Non-Af Amer) Random Glucose Calcium Magnesium Total Bilirubin AST ALT Alkaline Phosphatase Lactate Dehydrogenase Total Creatine Kinase Troponin I NT-Pro-B Natriuret Pep Total Protein Albumin Globulin Albumin/Globulin Ratio Urine Color Yellow Urine Appearance Clear Urine pH 6.0 Ur Specific Stites 1.020 Urine Protein Negative Urine Glucose (UA) Negative Urine Ketones Negative Urine Blood Trace-intact H Urine Nitrate Negative Urine Bilirubin Negative Urine Urobilinogen 0.2 Ur Leukocyte Esterase Negative Urine RBC 1 - 3 H Urine WBC 0 - 2 Ur Epithelial Cells 10 - 12 H 07/15/18 07/16/18 07/16/18 19:35 05:35 05:35 WBC 4.0 L RBC 2.95 L Hgb 9.6 L Hct 29.3 L MCV 99.3 MCH 32.5 MCHC 32.8 RDW 17.1 H Plt Count 136 MPV 8.8 Neut % (Auto) Lymph % (Auto) [place] % (Auto) Eos % (Auto) Baso % (Auto) Lymph # (Auto) [place] # (Auto) Eos # (Auto) Baso # (Auto) Absolute Neuts (auto) PT INR APTT Sodium 134 134 Potassium 4.0 3.4 L Chloride 89 L 90 L Carbon Dioxide 37 H 37 H Anion Gap 13 10 BUN 13 13 Creatinine 0.2 L 0.2 L Est GFR ( Amer) > 60 > 60 Est GFR (Non-Af Amer) > 60 > 60 Random Glucose 134 H 111 H Calcium 9.3 8.7 Magnesium 1.7 Total Bilirubin 1.0 0.8 AST 29 29 ALT 24 24 Alkaline Phosphatase 197 H 164 H Lactate Dehydrogenase 750 H Total Creatine Kinase < 20 L Troponin I < 0.01 NT-Pro-B Natriuret Pep 1560 H Total Protein 6.5 5.6 L Albumin 3.3 2.8 L Globulin 3.1 2.8 Albumin/Globulin Ratio 1.1 1.0 L Urine Color Urine Appearance Urine pH Ur Specific Stites Urine Protein Urine Glucose (UA) Urine Ketones Urine Blood Urine Nitrate Urine Bilirubin Urine Urobilinogen Ur Leukocyte Esterase Urine RBC Urine WBC Ur Epithelial Cells 07/16/18 05:35 WBC RBC Hgb Hct MCV MCH MCHC RDW Plt Count MPV Neut % (Auto) Lymph % (Auto) [place] % (Auto) Eos % (Auto) Baso % (Auto) Lymph # (Auto) [place] # (Auto) Eos # (Auto) Baso # (Auto) Absolute Neuts (auto) PT INR APTT Sodium Potassium Chloride Carbon Dioxide Anion Gap BUN Creatinine Est GFR ( Amer) Est GFR (Non-Af Amer) Random Glucose Calcium Magnesium 1.7 Total Bilirubin AST ALT Alkaline Phosphatase Lactate Dehydrogenase Total Creatine Kinase Troponin I NT-Pro-B Natriuret Pep Total Protein Albumin Globulin Albumin/Globulin Ratio Urine Color Urine Appearance Urine pH Ur Specific Stites Urine Protein Urine Glucose (UA) Urine Ketones Urine Blood Urine Nitrate Urine Bilirubin Urine Urobilinogen Ur Leukocyte Esterase Urine RBC Urine WBC Ur Epithelial Cells Radiology Impressions: Radiology Impressions Chest X-Ray 07/15/18 19:44 IMPRESSION: No change in right lower lobe infiltrate and effusion. EKG/Cardiology Studies: Cardiology / EKG Studies 07/15/18 19:44 ELECTROCARDIOGRAM Stat Comment: Reason For Exam: sob Critical Care Progress Note - Nutrition Nutrition: Nutrition Category Date Time Status Regular Diet [DIET] Diets 07/15/18 Dinner Ordered Assessment/Plan - Assessment and Plan (Free Text) Assessment: 62 yo F with PMH of R-sided lung CA, COPD (on home O2), AFib, GERD, diverticulosis, admitted to ICU for management of AFib w/RVR Plan: Neuro: -AAOx3 -maintain normothermia Cardio: -AFib w/RVR -switched diltiazem drip to po -continue sotalol po 80 mg bid -continue eliquis bid -maintain MAP>65 -patient refused ablation for afib, agreeable for medical management -cardiology following, Dr Pierre Ahmadi: -asymptomatic, on 2L NC -CXR showed no acute changes -maintain SpO2 > 90% Renal: -BUN/Cr stable -monitor UOP -maintain euvolemia, euglycemia -lytes repleted Heme/Onc: -h/o RLL lung cancer, on chemotherapy -H/H stable. continue monitoring -anemia of chronic disease from malignancy -Heme/onc following ID: -Afebrile, no leukocytosis DVT/GI PPX: Lovenox/protonix Full Code Heart Healthy diet Dipo: Patient is on PO diltiazem, hemodynamically stable. Transfer to [facility] Case reviewed and plan discussed with attending Dr. Albrecht <Brandon Albrecht - Last Filed: 07/16/18 13:30> CCU Objective - Vital Signs / Intake & Output Vital Signs (Last 4 hours): Vital Signs Temp Pulse Resp BP Pulse Ox 07/16/18 12:00 98.3 F 86 18 96 07/16/18 09:39 115 H 99/58 L Intake and Output (Last 8hrs): Intake & Output 07/15/18 07/16/18 07/16/18 22:59 06:59 14:59 Intake Total 170 Balance 170 Weight 106 lb 115 lb 0.06 oz Intake: IV 110 Right Forearm 20 Oral 60 Other: # Voids Urine, Voided 1 - Medications Active Medications: Active Medications Generic Name Dose Route Start Last Admin Trade Name Freq PRN Reason Stop Dose Admin Alprazolam 0.25 mg 07/15/18 22:00 07/15/18 23:20 Xanax PO 07/22/18 22:01 Not Given HS ANTIONETTE Protocol Alprazolam 0.25 mg 07/16/18 10:00 07/16/18 09:44 Xanax PO 07/23/18 10:01 0.25 mg TID ANTIONETTE Administration Protocol Apixaban 5 mg 07/16/18 10:00 07/16/18 10:02 Eliquis PO 5 mg BID [facility] Administration Protocol Digoxin 0.125 mg 07/17/18 08:00 Digoxin PO 1400 ANTIONETTE diltiaZEM IVPB 100mg in NS 100 mls @ 10 mls/hr 07/15/18 21:05 07/16/18 04:00 Cardizem 100mg In Ns IV 0 mg/hr .Q10H PRN 0 mls/hr TITRATE PER MD ORDER Titration Protocol 10 MG/HR Pantoprazole Sodium 40 mg 07/16/18 06:00 07/16/18 06:03 Protonix Ec Tab PO 40 mg 0600 [facility] Administration Sotalol HCl 80 mg 07/16/18 10:00 07/16/18 09:39 Betapace PO 80 mg BID ANTIONETTE Administration - Patient Studies Lab Studies: Lab Studies 07/16/18 07/16/18 07/16/18 Range/Units 05:35 05:35 05:35 WBC 4.0 L (4.5-11.0) 10^3/uL RBC 2.95 L (3.5-6.1) 10^6/uL Hgb 9.6 L (12.0-16.0) g/dL Hct 29.3 L (36.0-48.0) % MCV 99.3 (80.0-105.0) fl MCH 32.5 (25.0-35.0) pg MCHC 32.8 (31.0-37.0) g/dl RDW 17.1 H (11.5-14.5) % Plt Count 136 (120.0-450.0) 10^3/uL MPV 8.8 (7.0-11.0) fl Neut % (Auto) (50.0-68.0) % Lymph % (Auto) (22.0-35.0) % [place] % (Auto) (1.0-6.0) % Eos % (Auto) (1.5-5.0) % Baso % (Auto) (0.0-3.0) % Lymph # (Auto) (1.2-3.4) [place] # (Auto) (0.1-0.6) Eos # (Auto) (0.0-0.7) Baso # (Auto) (0.0-2.0) K/mm3 Absolute Neuts (auto) (1.4-6.5) PT (9.4-12.5) SECONDS INR APTT (26.9-38.3) Seconds Sodium 134 (132-148) mmol/L Potassium 3.4 L (3.6-5.0) mmol/L Chloride 90 L (98-107) mmol/L Carbon Dioxide 37 H (21-33) mmol/L Anion Gap 10 (10-20) BUN 13 (7-21) mg/dL Creatinine 0.2 L (0.7-1.2) mg/dl Est GFR ( Amer) > 60 Est GFR (Non-Af Amer) > 60 Random Glucose 111 H (70-110) mg/dL Calcium 8.7 (8.4-10.5) mg/dL Magnesium 1.7 (1.7-2.2) mg/dL Total Bilirubin 0.8 (0.2-1.3) mg/dL AST 29 (14-36) U/L ALT 24 (7-56) U/L Alkaline Phosphatase 164 H (38-126) U/L Lactate Dehydrogenase (333-699) U/L Total Creatine Kinase (35-230) U/L Troponin I ng/mL NT-Pro-B Natriuret Pep (0-450) pg/mL Total Protein 5.6 L (5.8-8.3) g/dL Albumin 2.8 L (3.0-4.8) g/dL Globulin 2.8 gm/dL Albumin/Globulin Ratio 1.0 L (1.1-1.8) Urine Color (YELLOW) Urine Appearance (CLEAR) Urine pH (4.7-8.0) Ur Specific Stites (1.005-1.035) Urine Protein (<30 mg/dL) mg/dL Urine Glucose (UA) (NEGATIVE) mg/dL Urine Ketones (NEGATIVE) mg/dL Urine Blood (NEGATIVE) Urine Nitrate (NEGATIVE) Urine Bilirubin (NEGATIVE) Urine Urobilinogen (<1 E.U./dL) E.U./dL Ur Leukocyte Esterase (NEGATIVE) Samantha/uL Urine RBC (0-2) /hpf Urine WBC (0-6) /hpf Ur Epithelial Cells (0-5) /hpf 07/15/18 07/15/18 07/15/18 Range/Units 19:35 19:35 19:35 WBC 4.9 D (4.5-11.0) 10^3/uL RBC 3.39 L (3.5-6.1) 10^6/uL Hgb 10.8 L (12.0-16.0) g/dL Hct 33.6 L (36.0-48.0) % MCV 99.1 (80.0-105.0) fl MCH 31.9 (25.0-35.0) pg MCHC 32.1 (31.0-37.0) g/dl RDW 17.2 H (11.5-14.5) % Plt Count 168 (120.0-450.0) 10^3/uL MPV 9.4 (7.0-11.0) fl Neut % (Auto) 64.3 (50.0-68.0) % Lymph % (Auto) 21.0 L (22.0-35.0) % [place] % (Auto) 14.5 H (1.0-6.0) % Eos % (Auto) 0.0 L (1.5-5.0) % Baso % (Auto) 0.2 (0.0-3.0) % Lymph # (Auto) 1.0 L (1.2-3.4) [place] # (Auto) 0.7 H (0.1-0.6) Eos # (Auto) 0.0 (0.0-0.7) Baso # (Auto) 0.01 (0.0-2.0) K/mm3 Absolute Neuts (auto) 3.16 (1.4-6.5) PT 17.3 H (9.4-12.5) SECONDS INR 1.56 APTT 28.5 (26.9-38.3) Seconds Sodium 134 (132-148) mmol/L Potassium 4.0 (3.6-5.0) mmol/L Chloride 89 L (98-107) mmol/L Carbon Dioxide 37 H (21-33) mmol/L Anion Gap 13 (10-20) BUN 13 (7-21) mg/dL Creatinine 0.2 L (0.7-1.2) mg/dl Est GFR ( Amer) > 60 Est GFR (Non-Af Amer) > 60 Random Glucose 134 H (70-110) mg/dL Calcium 9.3 (8.4-10.5) mg/dL Magnesium 1.7 (1.7-2.2) mg/dL Total Bilirubin 1.0 (0.2-1.3) mg/dL AST 29 (14-36) U/L ALT 24 (7-56) U/L Alkaline Phosphatase 197 H (38-126) U/L Lactate Dehydrogenase 750 H (333-699) U/L Total Creatine Kinase < 20 L (35-230) U/L Troponin I < 0.01 ng/mL NT-Pro-B Natriuret Pep 1560 H (0-450) pg/mL Total Protein 6.5 (5.8-8.3) g/dL Albumin 3.3 (3.0-4.8) g/dL Globulin 3.1 gm/dL Albumin/Globulin Ratio 1.1 (1.1-1.8) Urine Color (YELLOW) Urine Appearance (CLEAR) Urine pH (4.7-8.0) Ur Specific Stites (1.005-1.035) Urine Protein (<30 mg/dL) mg/dL Urine Glucose (UA) (NEGATIVE) mg/dL Urine Ketones (NEGATIVE) mg/dL Urine Blood (NEGATIVE) Urine Nitrate (NEGATIVE) Urine Bilirubin (NEGATIVE) Urine Urobilinogen (<1 E.U./dL) E.U./dL Ur Leukocyte Esterase (NEGATIVE) Samantha/uL Urine RBC (0-2) /hpf Urine WBC (0-6) /hpf Ur Epithelial Cells (0-5) /hpf // Range/Units 19:00 WBC (4.5-11.0) 10^3/uL RBC (3.5-6.1) 10^6/uL Hgb (12.0-16.0) g/dL Hct (36.0-48.0) % MCV (80.0-105.0) fl MCH (25.0-35.0) pg MCHC (31.0-37.0) g/dl RDW (11.5-14.5) % Plt Count (120.0-450.0) 10^3/uL MPV (7.0-11.0) fl Neut % (Auto) (50.0-68.0) % Lymph % (Auto) (22.0-35.0) % [place] % (Auto) (1.0-6.0) % Eos % (Auto) (1.5-5.0) % Baso % (Auto) (0.0-3.0) % Lymph # (Auto) (1.2-3.4) [place] # (Auto) (0.1-0.6) Eos # (Auto) (0.0-0.7) Baso # (Auto) (0.0-2.0) K/mm3 Absolute Neuts (auto) (1.4-6.5) PT (9.4-12.5) SECONDS INR APTT (26.9-38.3) Seconds Sodium (132-148) mmol/L Potassium (3.6-5.0) mmol/L Chloride (98-107) mmol/L Carbon Dioxide (21-33) mmol/L Anion Gap (10-20) BUN (7-21) mg/dL Creatinine (0.7-1.2) mg/dl Est GFR ( Amer) Est GFR (Non-Af Amer) Random Glucose (70-110) mg/dL Calcium (8.4-10.5) mg/dL Magnesium (1.7-2.2) mg/dL Total Bilirubin (0.2-1.3) mg/dL AST (14-36) U/L ALT (7-56) U/L Alkaline Phosphatase (38-126) U/L Lactate Dehydrogenase (333-699) U/L Total Creatine Kinase (35-230) U/L Troponin I ng/mL NT-Pro-B Natriuret Pep (0-450) pg/mL Total Protein (5.8-8.3) g/dL Albumin (3.0-4.8) g/dL Globulin gm/dL Albumin/Globulin Ratio (1.1-1.8) Urine Color Yellow (YELLOW) Urine Appearance Clear (CLEAR) Urine pH 6.0 (4.7-8.0) Ur Specific Stites 1.020 (1.005-1.035) Urine Protein Negative (<30 mg/dL) mg/dL Urine Glucose (UA) Negative (NEGATIVE) mg/dL Urine Ketones Negative (NEGATIVE) mg/dL Urine Blood Trace-intact H (NEGATIVE) Urine Nitrate Negative (NEGATIVE) Urine Bilirubin Negative (NEGATIVE) Urine Urobilinogen 0.2 (<1 E.U./dL) E.U./dL Ur Leukocyte Esterase Negative (NEGATIVE) Samantha/uL Urine RBC 1 - 3 H (0-2) /hpf Urine WBC 0 - 2 (0-6) /hpf Ur Epithelial Cells 10 - 12 H (0-5) /hpf Laboratory Results - last 24 hr 07/15/18 07/15/18 07/15/18 19:00 19:35 19:35 WBC 4.9 D RBC 3.39 L Hgb 10.8 L Hct 33.6 L MCV 99.1 MCH 31.9 MCHC 32.1 RDW 17.2 H Plt Count 168 MPV 9.4 Neut % (Auto) 64.3 Lymph % (Auto) 21.0 L [place] % (Auto) 14.5 H Eos % (Auto) 0.0 L Baso % (Auto) 0.2 Lymph # (Auto) 1.0 L [place] # (Auto) 0.7 H Eos # (Auto) 0.0 Baso # (Auto) 0.01 Absolute Neuts (auto) 3.16 PT 17.3 H INR 1.56 APTT 28.5 Sodium Potassium Chloride Carbon Dioxide Anion Gap BUN Creatinine Est GFR ( Amer) Est GFR (Non-Af Amer) Random Glucose Calcium Magnesium Total Bilirubin AST ALT Alkaline Phosphatase Lactate Dehydrogenase Total Creatine Kinase Troponin I NT-Pro-B Natriuret Pep Total Protein Albumin Globulin Albumin/Globulin Ratio Urine Color Yellow Urine Appearance Clear Urine pH 6.0 Ur Specific St[place] 1.020 Urine Protein Negative Urine Glucose (UA) Negative Urine Ketones Negative Urine Blood Trace-intact H Urine Nitrate Negative Urine Bilirubin Negative Urine Urobilinogen 0.2 Ur Leukocyte Esterase Negative Urine RBC 1 - 3 H Urine WBC 0 - 2 Ur Epithelial Cells 10 - 12 H 07/15/18 07/16/18 07/16/18 19:35 05:35 05:35 WBC 4.0 L RBC 2.95 L Hgb 9.6 L Hct 29.3 L MCV 99.3 MCH 32.5 MCHC 32.8 RDW 17.1 H Plt Count 136 MPV 8.8 Neut % (Auto) Lymph % (Auto) [place] % (Auto) Eos % (Auto) Baso % (Auto) Lymph # (Auto) [place] # (Auto) Eos # (Auto) Baso # (Auto) Absolute Neuts (auto) PT INR APTT Sodium 134 134 Potassium 4.0 3.4 L Chloride 89 L 90 L Carbon Dioxide 37 H 37 H Anion Gap 13 10 BUN 13 13 Creatinine 0.2 L 0.2 L Est GFR ( Amer) > 60 > 60 Est GFR (Non-Af Amer) > 60 > 60 Random Glucose 134 H 111 H Calcium 9.3 8.7 Magnesium 1.7 Total Bilirubin 1.0 0.8 AST 29 29 ALT 24 24 Alkaline Phosphatase 197 H 164 H Lactate Dehydrogenase 750 H Total Creatine Kinase < 20 L Troponin I < 0.01 NT-Pro-B Natriuret Pep 1560 H Total Protein 6.5 5.6 L Albumin 3.3 2.8 L Globulin 3.1 2.8 Albumin/Globulin Ratio 1.1 1.0 L Urine Color Urine Appearance Urine pH Ur Specific Stites Urine Protein Urine Glucose (UA) Urine Ketones Urine Blood Urine Nitrate Urine Bilirubin Urine Urobilinogen Ur Leukocyte Esterase Urine RBC Urine WBC Ur Epithelial Cells 07/16/18 05:35 WBC RBC Hgb Hct MCV MCH MCHC RDW Plt Count MPV Neut % (Auto) Lymph % (Auto) [place] % (Auto) Eos % (Auto) Baso % (Auto) Lymph # (Auto) [place] # (Auto) Eos # (Auto) Baso # (Auto) Absolute Neuts (auto) PT INR APTT Sodium Potassium Chloride Carbon Dioxide Anion Gap BUN Creatinine Est GFR ( Amer) Est GFR (Non-Af Amer) Random Glucose Calcium Magnesium 1.7 Total Bilirubin AST ALT Alkaline Phosphatase Lactate Dehydrogenase Total Creatine Kinase Troponin I NT-Pro-B Natriuret Pep Total Protein Albumin Globulin Albumin/Globulin Ratio Urine Color Urine Appearance Urine pH Ur Specific Stites Urine Protein Urine Glucose (UA) Urine Ketones Urine Blood Urine Nitrate Urine Bilirubin Urine Urobilinogen Ur Leukocyte Esterase Urine RBC Urine WBC Ur Epithelial Cells Radiology Impressions: Radiology Impressions Chest X-Ray 07/15/18 19:44 IMPRESSION: No change in right lower lobe infiltrate and effusion. EKG/Cardiology Studies: Cardiology / EKG Studies 07/15/18 19:44 ELECTROCARDIOGRAM Stat Comment: Reason For Exam: sob Critical Care Progress Note - Nutrition Nutrition: Nutrition Category Date Time Status Regular Diet [DIET] Diets 07/15/18 Dinner Ordered Assessment/Plan - Assessment and Plan (Free Text) Plan: Patient seen and examined on rounds with resident, agree with note with following additions/exceptions: Patient is 62yo female with PMHX lung CA, COPD (on home O2), AFib, GERD, diverticulosis, admitted to ICU for management of AFib w/RVR Currently afebrile, HD stable, HR 90s, Afib, comfortable in NAD, doing well Pt is OFF cardizem drip, transitioned to PO AV ravinder blocking agents Cardiology following Afib Hx of Lung Ca COPD on home o2 GERD Plan: COnt with Sotalol as per cardio Digoxin Eliquis Follow up pulhector Velasquez PRN OOB to chair GI ppx DVT ppx Stable, transfer to tele
--- NOTE | 2018-07-16 13:23 | PN ---
DATE: 07/16/2018 SUBJECTIVE: I saw her in the intensive care unit. She is fairly comfortable. Her heart rate is better than when she came in. She has had an appetite. She is on Betapace, Cardizem IV, Lovenox, magnesium IV, Protonix and Xanax. PHYSICAL EXAMINATION: VITAL SIGNS: She has a 97.9 temperature, 98 pulse, 99/59 blood pressure, 13 respiratory rate, 96% O2 sat on room air. HEAD: Atraumatic, normocephalic. HEART: Regular rate, in the 100s. LUNGS: Decreased breath sounds, but clear. ABDOMEN: Soft. EXTREMITIES: No edema. LABORATORY DATA: She has a 4 white count, 9.6 hemoglobin, 29.3 hematocrit with 136 platelets. INR is 1.56. She has 134 sodium; potassium 3.4, potassium was replaced; BUN 30; creatinine 0.2; GFR is greater than 60; sugar is 111; calcium 8.7; magnesium 1.7; total bili is 0.8; AST 29; ALT 24; alk phos 164. BNP is 1516, total protein is 5.6. Urine is clean. DIAGNOSTIC DATA: Chest x-ray is still pending. ASSESSMENT AND PLAN: She is in the intensive care unit. She is having rapid atrial fibrillation, on IV Cardizem. Awaiting Cardiology evaluation. Continue with aggressive treatment and care. We will check her labs tomorrow. We will get physical therapy also involved. Garfield Lopez DO
[2018-07-16] MEDS: Arformoterol 15 mcg/2 ml Inh Sol IH SCH (20:45)
[2018-07-16] MEDS: Budesonide 0.5 mg/2 ml Inhal Susp UD IH SCH (20:45)
[2018-07-17] MEDS: Pantoprazole 40 mg EC Tab PO SCH (05:45)
[2018-07-17 06:43] LABS: HEMOGLOBIN 9.9 g/dL (12.0-16.0); MEAN CELL VOLUME 100.6 fl (80.0-105.0); MEAN CORPUSCULAR HEMOGLOBIN 31.5 pg (25.0-35.0); MEAN CORPUSCULAR HGB CONC 31.3 g/dl (31.0-37.0); MEAN PLATELET VOLUME 9.5 fl (7.0-11.0); RBC 3.14 10^6/uL (3.5-6.1); RED CELL DISTRIBUTION WIDTH 17.4 % (11.5-14.5); WHITE BLOOD COUNT 3.1 10^3/uL (4.5-11.0)
[2018-07-17 07:07] LABS: ALB/GLOB RATIO 1.1 (1.1-1.8); ALBUMIN 3.4 g/dL (3.0-4.8); ALT/SGPT 16 U/L (7-56); AST/SGOT 30 U/L (14-36); BLOOD UREA NITROGEN 15 mg/dL (7-21); CALCIUM 8.9 mg/dL (8.4-10.5); GFR NON-AFRICAN AMERICAN > 60
[2018-07-17] MEDS: Levalbuterol 0.63 MG/3 ML Inhal Soln UD IH PRN ×3 (08:20→22:48)
[2018-07-17] MEDS: Arformoterol 15 mcg/2 ml Inh Sol IH SCH ×2 (08:20→20:50)
[2018-07-17] MEDS: Budesonide 0.5 mg/2 ml Inhal Susp UD IH SCH ×2 (08:21→20:50)
[2018-07-17] MEDS: Digoxin 125 mcg (0.125 mg) Tab PO SCH ×2 (09:05→15:26)
--- NOTE | 2018-07-17 11:39 | PN ---
DATE: 07/17/2018 SUBJECTIVE: I saw her this morning in the ICU with her . She is pleasantly stable at this time. She is on sotalol, digoxin, Eliquis, DuoNebs, heart rates in the 80s at this time. She is also on Cardizem drip, digoxin, Protonix, Pulmicort, Xanax, Xopenex. PHYSICAL EXAMINATION: GENERAL: Text. VITAL SIGNS: She has a 98.1 temperature, 78 pulse, 104/56 blood pressure, 24 respiratory rate 100, O2 sat on nasal cannula. HEENT: Head is atraumatic, normocephalic. HEART: Regular rate at this time down to 80. LUNGS: Clear to auscultation with decreased breath sounds, almost no air motion on the right, decreased on the left, but at her baseline. No rales or wheezes. She does have history of lung cancer. ABDOMEN: Soft. EXTREMITIES: No edema. LABORATORY DATA: She has a white count of 3.1, hemoglobin 9.9, hematocrit 31.6, platelets of 151. 134 sodium, potassium 4.5, BUN 50, creatinine 0.3, GFR is greater than 60, sugar is 162, calcium is 8.9, total bili is 0.7, AST is 30, ALT is 16, alk phos 181, total protein 6.3. Urine was clear. ASSESSMENT AND PLAN: She is being seen by the rfid systems architect, Cardiology, is here for rapid atrial fibrillation, does have a history of chronic obstructive pulmonary disease, lung cancer, pulmonary retention. When we get the heart rate scheduled and organized, we will discharge her on p.o. medication. Garfield Lopez DO [place]
--- NOTE | 2018-07-17 18:21 | PN ---
DATE: 07/17/2018 CARDIOLOGY FOLLOWUP SUBJECTIVE: The patient is comfortable. PHYSICAL EXAMINATION VITAL SIGNS: Blood pressure is 125/56, the heart rate is atrial fibrillation in the 80s. NECK: Negative JVD. LUNGS: Without rales. HEART: S1 and S2. EXTREMITIES: Without edema. LABORATORY DATA: Hemoglobin is 9.9, BUN and creatinine are unremarkable. IMPRESSION 1. Atrial fibrillation with better control of her ventricular rate. 2. History of coronary artery disease. 3. Severe chronic obstructive pulmonary disease. 4. Severe pulmonary hypertension. 5. Anemia. PLAN: Given these findings, we will continue the patient on her digoxin and Cardizem. We will taper off her IV Cardizem and start her on p.o. Cardizem. Brayan Jay MD
[2018-07-17] MEDS: Oxycodone/Acetaminophen 5/325 mg Tab PO PRN (18:47)
[2018-07-17] MEDS: Vancomycin 1gm in NS 250ml 1 GM/250 ML BAG IVPB SCH (21:59)
[2018-07-18] MEDS: Oxycodone/Acetaminophen 5/325 mg Tab PO PRN ×4 (03:13→21:39)
[2018-07-18] MEDS: Levalbuterol 0.63 MG/3 ML Inhal Soln UD IH PRN ×2 (03:34→13:42)
[2018-07-18] MEDS: Pantoprazole 40 mg EC Tab PO SCH (05:36)
[2018-07-18 07:05] LABS: HEMOGLOBIN 8.5 g/dL (12.0-16.0); MEAN CELL VOLUME 101.1 fl (80.0-105.0); MEAN CORPUSCULAR HGB CONC 31.6 g/dl (31.0-37.0); MEAN PLATELET VOLUME 9.3 fl (7.0-11.0); RBC 2.66 10^6/uL (3.5-6.1); RED CELL DISTRIBUTION WIDTH 17.8 % (11.5-14.5); WHITE BLOOD COUNT 4.6 10^3/uL (4.5-11.0)
[2018-07-18 07:17] LABS: ALB/GLOB RATIO 1.1 (1.1-1.8); ALBUMIN 2.9 g/dL (3.0-4.8); ALT/SGPT 15 U/L (7-56); AST/SGOT 29 U/L (14-36); BLOOD UREA NITROGEN 10 mg/dL (7-21); CALCIUM 9.1 mg/dL (8.4-10.5); GFR NON-AFRICAN AMERICAN > 60
[2018-07-18] MEDS: Budesonide 0.5 mg/2 ml Inhal Susp UD IH SCH ×2 (07:41→19:37)
[2018-07-18] MEDS: Arformoterol 15 mcg/2 ml Inh Sol IH SCH ×2 (07:41→19:36)
[2018-07-18] MEDS: Vancomycin 1gm in NS 250ml 1 GM/250 ML BAG IVPB SCH ×2 (09:04→21:25)
--- NOTE | 2018-07-18 10:14 | PN ---
DATE: 07/18/2018 SUBJECTIVE: She was very upset this morning. Apparently, she is only giving the Percocets five times six times in 24 hours and she is very upset about that. She is not sleeping that well. She is on lots of medications, Benadryl, Betapace, Brovana digoxin, the Duragesic patch at 50 mcg, Eliquis, Percocet now every 4 hours, Protonix, Pulmicort, vancomycin, Xanax and Xopenex. PHYSICAL EXAMINATION: VITAL SIGNS: She has a 97.6 temperature, 85 pulse, 114/60 blood pressure, 22 respiratory rate, 93% O2 sat on 5 liters nasal cannula. HEENT: Head is atraumatic, normocephalic. HEART: Regular rate. LUNGS: Decreased breath sounds completely, especially the right and left got some motion but no wheezes, rhonchi or rales. She had a rapid AFib, pulse is now in the 80s which is great. ABDOMEN: Soft, nontender. Positive bowel sounds. EXTREMITIES: No edema. LABORATORY DATA: Also we found gram-positive cocci in the blood and enterococcus faecalis in the urine. ASSESSMENT AND PLAN: She is now on intravenous antibiotics as per Infectious Disease. She is on medication for the rapid atrial fibrillation. She is on antibiotics for the extended-spectrum beta-lactamase and the blood cultures being positive. She also has a history of lung cancer. We will continue aggressive treatment and care, keep her as comfortable as possible. I went over all the pain meds and anxiety meds with the nurse right in front of her so she knows what she is getting. Garfield Lopez DO MTDD
--- NOTE | 2018-07-18 11:01 | CP.PCM.CON ---
<Panda Santos - Last Filed: 07/18/18 10:56> History of Present Illness - History of Present Illness History of Present Illness: Panda Santos D.O. PGY-3, Internal Medicine Resident, Infectious Disease Consultation Note 62-year-old female with a past medical history of lung cancer, COPD on home oxygen, GERD, diverticulosis, and atrial fibrillation who presented for co mplaints of palpitations and shortness of breath and was found to be in A. fib with RVR. Infectious disease consultation was requested for 1 out of 2 positive blood cultures. Patient was seen and examined at bedside. Patient at this time very irritated with the nursing staff but otherwise has no complaints. Denies any current symptoms including any fevers, chills, nausea, vomiting, diarrhea, headache, lightheadedness, chest pain, dysuria, urinary frequency or other concerning signs. Denies any sick contacts or recent travel. Review of Systems - Review of Systems All systems: reviewed and no additional remarkable complaints except (as per HPI) Past Patient History - Infectious Disease Hx of Infectious Diseases: None - Tetanus Immunizations Tetanus Immunization: Unknown - Past Medical History & Family History Past Medical History?: Yes - Past Social History Smoking Status: Former Smoker - CARDIAC Hx Cardiac Disorders: Yes - PULMONARY Hx Chronic Obstructive Pulmonary Disease (COPD): Yes - NEUROLOGICAL Hx Paralysis: No - HEENT Hx HEENT Problems: No - RENAL Hx Chronic Kidney Disease: No - ENDOCRINE/METABOLIC Hx Endocrine Disorders: No - HEMATOLOGICAL/ONCOLOGICAL Hx Blood Transfusions: No - INTEGUMENTARY Hx Dermatological Problems: No - MUSCULOSKELETAL/RHEUMATOLOGICAL Hx Arthritis: Yes - GASTROINTESTINAL Hx Gastroesophageal Reflux: Yes - GENITOURINARY/GYNECOLOGICAL Hx Genitourinary Disorders: No - PSYCHIATRIC Hx Emotional Abuse: No Hx Physical Abuse: No Hx Substance Use: No - SURGICAL HISTORY Hx Orthopedic Surgery: Yes Other/Comment: Right hip replacement, right femur - ANESTHESIA Hx Anesthesia Reactions: No Hx Malignant Hyperthermia: No Meds Allergies/Adverse Reactions: Allergies Allergy/AdvReac Type Severity Reaction Status Date / Time No Known Allergies Allergy Verified 07/15/18 19:40 - Medications Medications: Current Medications Alprazolam (Xanax) 0.25 mg PO HS [facility]; Protocol Stop: 07/22/18 22:01 Last Admin: 07/17/18 22:00 Dose: 0.25 mg Alprazolam (Xanax) 0.25 mg PO TID [facility]; Protocol Stop: 07/23/18 10:01 Last Admin: 07/18/18 09:03 Dose: 0.25 mg Apixaban (Eliquis) 5 mg PO BID [facility]; Protocol Last Admin: 07/18/18 09:04 Dose: 5 mg Arformoterol Tartrate (Brovana) 15 mcg IH [id number] [facility] Last Admin: 07/18/18 07:41 Dose: 15 mcg Budesonide (Pulmicort Respules) 0.5 mg IH [id number] [facility] Last Admin: 07/18/18 07:41 Dose: 0.5 mg Digoxin (Digoxin) 0.125 mg PO 1400 [facility] Last Admin: 07/17/18 15:26 Dose: Not Given Diphenhydramine HCl (Benadryl) 25 mg PO HS PRN PRN Reason: Insomnia Fentanyl (Duragesic) 1 patch TD Q72H [facility] Last Admin: 07/17/18 17:35 Dose: 1 patch Vancomycin HCl (Vancomycin 1gm) 1 gm in 250 mls @ 167 mls/hr IVPB Q12H [facility]; Protocol Stop: 07/24/18 22:01 Last Admin: 07/18/18 09:04 Dose: 167 mls/hr Levalbuterol HCl (Xopenex) 0.63 mg IH [id number] PRN PRN Reason: Shortness of Breath Last Admin: 07/18/18 03:34 Dose: 0.63 mg Oxycodone/Acetaminophen (Percocet 5/325 Mg Tab) 1 tab PO Q4H PRN PRN Reason: Pain, severe (8-10) Stop: 07/21/18 08:45 Last Admin: 07/18/18 09:03 Dose: 1 tab Pantoprazole Sodium (Protonix Ec Tab) 40 mg PO 0600 [facility] Last Admin: 07/18/18 05:36 Dose: Not Given Sotalol HCl (Betapace) 80 mg PO BID [facility] Last Admin: 07/18/18 09:02 Dose: 80 mg Physical Exam - Constitutional Appears: Chronically Ill - Head Exam Head Exam: ATRAUMATIC - Eye Exam Eye Exam: absent: Scleral icterus - ENT Exam ENT Exam: Mucous Membranes Moist - Neck Exam Neck exam: Positive for: Normal Inspection - Respiratory Exam Respiratory Exam: Wheezes - Cardiovascular Exam Cardiovascular Exam: +S1, +S2 - GI/Abdominal Exam GI & Abdominal Exam: Soft - Extremities Exam Extremities exam: Negative for: pedal edema - Neurological Exam Neurological exam: Alert, Oriented x3 - Psychiatric Exam Psychiatric exam: Agitated - Skin Skin Exam: Dry, Warm Results - Vital Signs Recent Vital Signs: Last Vital Signs Temp 97.6 F 07/18/18 08:40 Pulse 85 07/18/18 09:02 Resp 22 07/18/18 08:40 BP 114/60 07/18/18 09:02 Pulse Ox 93 L 07/18/18 08:40 - Labs Result Diagrams: 07/18/18 06:10 07/18/18 06:10 Labs: Laboratory Results - last 24 hr 07/18/18 07/18/18 06:10 06:10 WBC 4.6 D RBC 2.66 L Hgb 8.5 L Hct 26.9 L MCV 101.1 MCH 32.0 MCHC 31.6 RDW 17.8 H Plt Count 163 MPV 9.3 Sodium 136 Potassium 4.0 Chloride 92 L Carbon Dioxide 42 H Anion Gap 6 L BUN 10 Creatinine 0.3 L Est GFR ( Amer) > 60 Est GFR (Non-Af Amer) > 60 Random Glucose 84 Calcium 9.1 Total Bilirubin 0.6 AST 29 ALT 15 Alkaline Phosphatase 163 H Total Protein 5.6 L Albumin 2.9 L Globulin 2.6 Albumin/Globulin Ratio 1.1 Assessment & Plan - Assessment and Plan (Free Text) Assessment: 62-year-old female with a past medical history of lung cancer, COPD on home oxygen, GERD, diverticulosis, and atrial fibrillation who presented for complaints of palpitations and shortness of breath and was found to be in A. fib with RVR. Infectious disease consultation was requested for 1 out of 2 positive blood cultures. Plan: 1 out of 2 positive blood cultures for gram-positive cocci SIRS with tachypnea and leukopenia Lung cancer COPD on home oxygen Only 1 of the 2 blood cultures was positive for this gram-positive cocci which raises the likelihood of contamination 1 of 2 blood cultures negative after 48 hours Leukopenia can be explained by patient's chemotherapy and tachypnea by her COPD on home oxygen Afebrile MRSA not detected in nares Urine grew enterococcus faecalis but patient is completely asymptomatic We will repeat blood cultures Monitor off antibiotics at this time Does have a right chest wall Port-A-Cath however there is absolutely no sign of infection including no erythema or tenderness Patient was seen and examined and case will be discussed with attending physician Thank you for the pleasure participating in the care of this interesting patient - Date & Time Date: 07/18/18 Time: 10:30 <Jude Robertson - Last Filed: 07/18/18 13:21> Meds - Medications Medications: Current Medications Alprazolam (Xanax) 0.25 mg PO HS [facility]; Protocol Stop: 07/22/18 22:01 Last Admin: 07/17/18 22:00 Dose: 0.25 mg Alprazolam (Xanax) 0.25 mg PO TID [facility]; Protocol Stop: 07/23/18 10:01 Last Admin: 07/18/18 09:03 Dose: 0.25 mg Apixaban (Eliquis) 5 mg PO BID [facility]; Protocol Last Admin: 07/18/18 09:04 Dose: 5 mg Arformoterol Tartrate (Brovana) 15 mcg IH [id number] [facility] Last Admin: 07/18/18 07:41 Dose: 15 mcg Budesonide (Pulmicort Respules) 0.5 mg IH [id number] [facility] Last Admin: 07/18/18 07:41 Dose: 0.5 mg Digoxin (Digoxin) 0.125 mg PO 1400 [facility] Last Admin: 07/17/18 15:26 Dose: Not Given Diphenhydramine HCl (Benadryl) 25 mg PO HS PRN PRN Reason: Insomnia Fentanyl (Duragesic) 1 patch TD Q72H [facility] Last Admin: 07/17/18 17:35 Dose: 1 patch Vancomycin HCl (Vancomycin 1gm) 1 gm in 250 mls @ 167 mls/hr IVPB Q12H [facility]; Protocol Stop: 07/24/18 22:01 Last Admin: 07/18/18 09:04 Dose: 167 mls/hr Levalbuterol HCl (Xopenex) 0.63 mg IH [id number] PRN PRN Reason: Shortness of Breath Last Admin: 07/18/18 03:34 Dose: 0.63 mg Oxycodone/Acetaminophen (Percocet 5/325 Mg Tab) 1 tab PO Q4H PRN PRN Reason: Pain, severe (8-10) Stop: 07/21/18 08:45 Last Admin: 07/18/18 09:03 Dose: 1 tab Pantoprazole Sodium (Protonix Ec Tab) 40 mg PO 0600 [facility] Last Admin: 07/18/18 05:36 Dose: Not Given Sotalol HCl (Betapace) 80 mg PO BID [facility] Last Admin: 07/18/18 09:02 Dose: 80 mg Results - Vital Signs Recent Vital Signs: Last Vital Signs Temp 97.6 F 07/18/18 08:40 Pulse 101 H 07/18/18 10:00 Resp 22 07/18/18 08:40 BP 114/60 07/18/18 09:02 Pulse Ox 96 07/18/18 10:00 - Labs Result Diagrams: 07/18/18 06:10 07/18/18 06:10 Labs: Laboratory Results - last 24 hr 07/18/18 07/18/18 06:10 06:10 WBC 4.6 D RBC 2.66 L Hgb 8.5 L Hct 26.9 L MCV 101.1 MCH 32.0 MCHC 31.6 RDW 17.8 H Plt Count 163 MPV 9.3 Sodium 136 Potassium 4.0 Chloride 92 L Carbon Dioxide 42 H Anion Gap 6 L BUN 10 Creatinine 0.3 L Est GFR ( Amer) > 60 Est GFR (Non-Af Amer) > 60 Random Glucose 84 Calcium 9.1 Total Bilirubin 0.6 AST 29 ALT 15 Alkaline Phosphatase 163 H Total Protein 5.6 L Albumin 2.9 L Globulin 2.6 Albumin/Globulin Ratio 1.1 Attending/Attestation - Attestation I have personally seen and examined this patient.: Yes I have fully participated in the care of the patient.: Yes I have reviewed all pertinent clinical information: Yes
--- NOTE | 2018-07-18 13:09 | PN ---
DATE: 07/18/2018 CARDIOLOGY FOLLOWUP SUBJECTIVE: The patient is awake, alert without distress. PHYSICAL EXAMINATION VITAL SIGNS: Blood pressure 114/60 and heart rate is in the 80s in normal sinus rhythm. NECK: Negative JVD. LUNGS: Without rales. HEART: Reveals S1 and S2. EXTREMITIES: Without edema. LABORATORY DATA: Hemoglobin is 8.5 and white count is 4.6. BUN and creatinine unremarkable. IMPRESSION: 1. Paroxysmal atrial fibrillation. The patient remains in normal sinus rhythm. 2. Severe chronic obstructive pulmonary disease. 3. Severe pulmonary hypertension. 4. Anemia. 5. Rule out sepsis. Given these findings, the patient is currently on antibiotics. Cultures are being repeated. The patient's cardiac status is stable. Brayan Jay MD
[2018-07-18] MEDS: Digoxin 125 mcg (0.125 mg) Tab PO SCH (13:41)
--- NOTE | 2018-07-18 18:53 | RAD ---
HISTORY: SHORTNESS OF BREATH COMPARISON: Chest x-ray performed 07/15/18 TECHNIQUE: Chest, one view. FINDINGS: Right IJ approach central venous catheter extends to the cavoatrial junction. LUNGS: Interstitial prominence may reflect infection or edema. Moderate right and small left pleural effusions and associated consolidations. No definite pneumothorax. CARDIOVASCULAR: Partially obscured cardiac shadow. OSSEOUS STRUCTURES: No acute osseous abnormality identified. VISUALIZED UPPER ABDOMEN: Unremarkable. OTHER FINDINGS: None. IMPRESSION: Interstitial prominence may reflect infection or edema. Moderate right and small left pleural effusions and associated consolidations. Right IJ approach central venous catheter extends to the cavoatrial junction.
[2018-07-18] MEDS: Albuterol-Ipratrop 3 mg / 0.5 (3 ml) UD IH SCH (19:36)
[2018-07-18] MEDS: MethylPREDNISolone 40 mg Vial IVP SCH (21:24)
[2018-07-19] MEDS: Albuterol-Ipratrop 3 mg / 0.5 (3 ml) UD IH SCH ×5 (01:07→20:32)
[2018-07-19] MEDS: MethylPREDNISolone 40 mg Vial IVP SCH ×3 (06:39→21:28)
[2018-07-19] MEDS: Pantoprazole 40 mg EC Tab PO SCH (06:40)
[2018-07-19 07:14] LABS: HEMOGLOBIN 9.5 g/dL (12.0-16.0); MEAN CELL VOLUME 99.7 fl (80.0-105.0); MEAN CORPUSCULAR HEMOGLOBIN 31.4 pg (25.0-35.0); MEAN CORPUSCULAR HGB CONC 31.5 g/dl (31.0-37.0); MEAN PLATELET VOLUME 9.3 fl (7.0-11.0); RBC 3.03 10^6/uL (3.5-6.1); RED CELL DISTRIBUTION WIDTH 17.6 % (11.5-14.5)
[2018-07-19 07:39] LABS: ALB/GLOB RATIO 1.2 (1.1-1.8); ALBUMIN 3.4 g/dL (3.0-4.8); ALT/SGPT 12 U/L (7-56); AST/SGOT 27 U/L (14-36); BLOOD UREA NITROGEN 9 mg/dL (7-21); CALCIUM 8.9 mg/dL (8.4-10.5); GFR NON-AFRICAN AMERICAN > 60
[2018-07-19] MEDS: Budesonide 0.5 mg/2 ml Inhal Susp UD IH SCH ×2 (08:11→20:32)
[2018-07-19] MEDS: Arformoterol 15 mcg/2 ml Inh Sol IH SCH ×2 (08:11→20:32)
--- NOTE | 2018-07-19 09:32 | US ---
PROCEDURE: Right upper extremity venous US CLINICAL HISTORY: Arm pain and swelling Evaluate for deep venous thrombosis. PHYSICIAN(S): Brayan Orozco M.D FINDINGS: The visualized rightinternal jugular vein is sonographically normal and compressible. No evidence of obstruction or thrombus is seen. The visualized segments of the right subclavian vein are patent with normal waveforms. No sonographic evidence of obstruction or thrombosis is seen. The visualized deep venous system of the proximal right upper extremity is sonographically normal and compressible. IMPRESSION: 1. No sonographic evidence for deep venous thrombosis in the visualized segments of the right upper extremity.
[2018-07-19] MEDS: Vancomycin 1gm in NS 250ml 1 GM/250 ML BAG IVPB SCH ×2 (10:02→10:03)
--- NOTE | 2018-07-19 10:20 | RAD ---
Date of service: 07/19/2018 HISTORY: worsening sob COMPARISON: 07/18/2018 FINDINGS: LUNGS: Bibasilar infiltrates. Moderate size right pleural effusion. No significant change PLEURA: As above CARDIOVASCULAR: No aortic atherosclerotic calcification present. Normal cardiac size. No pulmonary vascular congestion. OSSEOUS STRUCTURES: No significant abnormalities. VISUALIZED UPPER ABDOMEN: Normal. OTHER FINDINGS: None. IMPRESSION: Bibasilar infiltrates. Moderate size right pleural effusion. No significant change
[2018-07-19] MEDS: Albuterol-Ipratrop 3 mg / 0.5 (3 ml) UD IH PRN ×3 (11:13→23:33)
--- NOTE | 2018-07-19 11:43 | CON ---
DATE: 07/19/2018 PULMONARY CONSULTATION REFERRING PHYSICIAN: Dr. Garfield Lopez REASON FOR CONSULTATION: Shortness of breath. The patient is a chronically ill 62-year-old female, with past medical history significant for extensive/advanced adenocarcinoma of the right lung, advanced chronic obstructive pulmonary disease, on home oxygen, recurrent right pleural effusion, gastroesophageal reflux disease, who presented to [facility] - originally on 07/15/2018 - with shortness of breath and palpitations. The patient was noted to be in rapid atrial fibrillation and admitted to the medical ICU. The patient was seen by Cardiology (Dr. Jay), who placed the patient on appropriate therapy. The patient is now in normal sinus rhythm. The patient is not short of breath at rest. She does have chronic mild dyspnea on exertion. She also states to some occasional cough with occasional sputum production. There is no history of chest pain, coughing up of blood, or chest pain - brought on with deep respirations. There is no history of temperatures, chills, or infectious exposure. There is no history of night sweats, weight loss, or appetite change prior to the above events. No history of calf pains. No history of syncope or diaphoresis. No history of recent travel or trauma. REVIEW OF SYSTEMS: No history of nausea, vomiting, or diarrhea. No acute urinary symptoms. No new neurologic complaints. Rest of the review of systems is negative. ALLERGIES: NO KNOWN ALLERGIES. SOCIAL HISTORY: Positive for extensive tobacco usage. No alcohol. FAMILY HISTORY: No inheritable diseases. HOME MEDICATIONS: Include Betapace, Xanax, Spiriva, prednisone, multivitamins, Dexilant, Lipitor, Brovana. PHYSICAL EXAMINATION: GENERAL: The patient appears comfortable this morning. She is not short of breath at rest. VITALS: Temperature is 98.4, pulse is 86, respirations 18/20, blood pressure 119/70. Oxygen saturation on nasal cannula is 95%. HEENT: Normocephalic, atraumatic. No JVD. CARDIOVASCULAR: Positive S1, S2. No S3 gallop. LUNGS: Decreased breath sounds with crackles at both bases (right worse than left). Minimal bilateral rhonchi. No wheezing. EXTREMITIES: Mild edema. No cyanosis, no clubbing. Calves are nontender to palpation. GASTROINTESTINAL: Abdomen is soft, nontender, nondistended. Bowel sounds are positive. SKIN: No acute rash. NEUROLOGIC: Exam limited at the present time. PERTINENT LABORATORY DATA: Chest x-ray was done yesterday and reviewed. There are chronic infiltrates noted at both lower lobes (right worse than left). There is also a mild increase in the right pleural effusion - compared to previous films. CBC: White count 4.6K, hemoglobin 8.5, hematocrit 26.9, platelets of 163,000. Complete metabolic profile: Chloride 92, carbon dioxide 42, alkaline phos today is 163, protein 5.6, albumin 2.9. Rest of the metabolic profile is within normal limits. IMPRESSION: 1. Paroxysmal atrial fibrillation. 2. Advanced/extensive adenocarcinoma of the right lung. 3. Advanced chronic obstructive pulmonary disease, on home oxygen. 4. Recurrent right pleural effusion. PLAN: The patient presented to [facility] - originally on 07/15/2018 - with main complaints of shortness of breath and chest palpitations. In the emergency room, the patient was noted to be in rapid atrial fibrillation. She was then admitted to the medical ICU. As above, the patient was seen by Dr. Jay (Cardiology). The patient is now in normal sinus rhythm. I did review the chest x-ray - done yesterday. I have also compared this chest x-ray to the chest x-rays done last admission. There is chronic infiltration at the lower lobes (right worse than left). However, the right pleural effusion appears to be enlarging. I have had enumerable discussions about PleurX catheter placement with this patient. She has refused each time. On physical exam, there is no significant bronchospasm noted. In addition, there is no significant alveolar-arterial gradient. I will continue the current nebulizer treatments and decrease the intravenous steroids this morning. Clinical status of the patient does appear improved - compared to the initial presentation. However, unfortunately, the overall/future status/prognosis for this patient remains very very poor. All are aware. I will discuss the above with Dr. Lopez. Thank you very much for this pulmonary consultation. Kevin Wells MD [facility]
[2018-07-19] MEDS: Digoxin 125 mcg (0.125 mg) Tab PO SCH (14:00)
--- NOTE | 2018-07-19 15:20 | CP.PCM.PN ---
<Panda Santos - Last Filed: 07/19/18 15:17> Subjective - Date & Time of Evaluation Date of Evaluation: 07/19/18 Time of Evaluation: 08:00 - Subjective Subjective: Panda Santos D.O. PGY-3, Internal Medicine Resident, Infectious Disease Progress Note 62-year-old female with a past medical history of lung cancer, COPD on home oxygen, GERD, diverticulosis, and atrial fibrillation who presented for complai nts of palpitations and shortness of breath and was found to be in A. fib with RVR. Infectious disease consultation was requested for 1 out of 2 positive blood cultures. Patient was seen and examined at bedside. Having more difficulty with breathing today. Very anxious. Objective - Vital Signs/Intake and Output Vital Signs (last 24 hours): Temp Pulse Resp BP Pulse Ox 98.6 F 87 20 118/73 93 L 07/19/18 09:00 07/19/18 09:57 07/19/18 09:00 07/19/18 09:57 07/19/18 09:00 Intake and Output: 07/19/18 07/19/18 06:59 18:59 Intake Total 240 Output Total 400 Balance -160 - Medications Medications: Current Medications Albuterol/Ipratropium (Duoneb 3 Mg/0.5 Mg (3 Ml) Ud) 3 ml IH [id number] ANTIONETTE Last Admin: 07/19/18 14:06 Dose: 3 ml Albuterol/Ipratropium (Duoneb 3 Mg/0.5 Mg (3 Ml) Ud) 3 ml IH [id number] PRN PRN Reason: Shortness of Breath Last Admin: 07/19/18 11:13 Dose: 3 ml Alprazolam (Xanax) 0.25 mg PO HS ANTIONETTE; Protocol Stop: 07/22/18 22:01 Last Admin: 07/18/18 21:27 Dose: 0.25 mg Alprazolam (Xanax) 0.25 mg PO TID ANTIONETTE; Protocol Stop: 07/23/18 10:01 Last Admin: 07/19/18 14:00 Dose: 0.25 mg Apixaban (Eliquis) 5 mg PO BID ANTIONETTE; Protocol Last Admin: 07/19/18 09:00 Dose: 5 mg Arformoterol Tartrate (Brovana) 15 mcg IH [id number] ANTIONETTE Last Admin: 07/19/18 08:11 Dose: 15 mcg Budesonide (Pulmicort Respules) 0.5 mg IH [id number] [facility] Last Admin: 07/19/18 08:11 Dose: 0.5 mg Digoxin (Digoxin) 0.125 mg PO 1400 [facility] Last Admin: 07/19/18 14:00 Dose: 0.125 mg Diphenhydramine HCl (Benadryl) 25 mg PO HS PRN PRN Reason: Insomnia Last Admin: 07/18/18 22:34 Dose: 25 mg Fentanyl (Duragesic) 1 patch TD Q72H [facility] Last Admin: 07/17/18 17:35 Dose: 1 patch Methylprednisolone (Solu-Medrol) 30 mg IVP Q12 [facility] Last Admin: 07/19/18 09:57 Dose: 30 mg Oxycodone/Acetaminophen (Percocet 5/325 Mg Tab) 1 tab PO Q4H PRN PRN Reason: Pain, severe (8-10) Stop: 07/21/18 08:45 Last Admin: 07/18/18 21:39 Dose: 1 tab Pantoprazole Sodium (Protonix Ec Tab) 40 mg PO 0600 [facility] Last Admin: 07/19/18 06:40 Dose: 40 mg Sotalol HCl (Betapace) 80 mg PO BID [facility] Last Admin: 07/19/18 09:57 Dose: 80 mg - Labs Labs: 07/19/18 06:50 07/19/18 06:50 PT 17.3 SECONDS (9.4-12.5) H 07/15/18 19:35 INR 1.56 07/15/18 19:35 APTT 29.7 Seconds (26.9-38.3) 07/17/18 02:30 - Constitutional Appears: Chronically Ill - Head Exam Head Exam: ATRAUMATIC - Eye Exam Eye Exam: absent: Scleral icterus - ENT Exam ENT Exam: Mucous Membranes Moist - Neck Exam Neck exam: Positive for: Normal Inspection - Respiratory Exam Respiratory Exam: Wheezes - Cardiovascular Exam Cardiovascular Exam: +S1, +S2 - GI/Abdominal Exam GI & Abdominal Exam: Soft - Extremities Exam Extremities exam: Negative for: pedal edema - Neurological Exam Neurological exam: Alert, Oriented x3 - Skin Skin Exam: Dry, Warm Assessment and Plan - Assessment and Plan (Free Text) Assessment: 62-year-old female with a past medical history of lung cancer, COPD on home oxygen, GERD, diverticulosis, and atrial fibrillation who presented for complaints of palpitations and shortness of breath and was found to be in A. fib with RVR. Infectious disease consultation was requested for 1 out of 2 positive blood cultures. Plan: Sepsis from G+ cocci bacteremia Lung cancer COPD on home oxygen Anxiety Repeat BCx negative / day 1 Afebrile Will discontinue vancomycin Monitor off antibiotics at this time Repeat CXR given worsening SOB although possible anxiety related Pulm Dr. Wells's note reviewed and appreciated We will follow with you Patient was seen and examined and case will be discussed with attending physician Thank you for the pleasure participating in the care of this interesting patient <Jude Robertson - Last Filed: 07/19/18 17:02> Objective - Vital Signs/Intake and Output Vital Signs (last 24 hours): Temp Pulse Resp BP Pulse Ox 98.6 F 78 20 118/73 93 L 07/19/18 09:00 07/19/18 14:00 07/19/18 09:00 07/19/18 09:57 07/19/18 09:00 Intake and Output: 07/19/18 07/19/18 06:59 18:59 Intake Total 240 240 Output Total 400 400 Balance -160 -160 - Medications Medications: Current Medications Albuterol/Ipratropium (Duoneb 3 Mg/0.5 Mg (3 Ml) Ud) 3 ml IH [id number] ANTIONETTE Last Admin: 07/19/18 14:06 Dose: 3 ml Albuterol/Ipratropium (Duoneb 3 Mg/0.5 Mg (3 Ml) Ud) 3 ml IH [id number] PRN PRN Reason: Shortness of Breath Last Admin: 07/19/18 11:13 Dose: 3 ml Alprazolam (Xanax) 0.25 mg PO HS ANTIONETTE; Protocol Stop: 07/22/18 22:01 Last Admin: 07/18/18 21:27 Dose: 0.25 mg Alprazolam (Xanax) 0.25 mg PO TID ANTIONETTE; Protocol Stop: 07/23/18 10:01 Last Admin: 07/19/18 16:25 Dose: Not Given Apixaban (Eliquis) 5 mg PO BID ANTIONETTE; Protocol Last Admin: 07/19/18 09:00 Dose: 5 mg Arformoterol Tartrate (Brovana) 15 mcg IH [id number] [facility] Last Admin: 07/19/18 08:11 Dose: 15 mcg Budesonide (Pulmicort Respules) 0.5 mg IH [id number] [facility] Last Admin: 07/19/18 08:11 Dose: 0.5 mg Digoxin (Digoxin) 0.125 mg PO 1400 [facility] Last Admin: 07/19/18 14:00 Dose: 0.125 mg Diphenhydramine HCl (Benadryl) 25 mg PO HS PRN PRN Reason: Insomnia Last Admin: 07/18/18 22:34 Dose: 25 mg Fentanyl (Duragesic) 1 patch TD Q72H [facility] Last Admin: 07/17/18 17:35 Dose: 1 patch Methylprednisolone (Solu-Medrol) 30 mg IVP Q12 [facility] Last Admin: 07/19/18 09:57 Dose: 30 mg Oxycodone/Acetaminophen (Percocet 5/325 Mg Tab) 1 tab PO Q4H PRN PRN Reason: Pain, severe (8-10) Stop: 07/21/18 08:45 Last Admin: 07/18/18 21:39 Dose: 1 tab Pantoprazole Sodium (Protonix Ec Tab) 40 mg PO 0600 [facility] Last Admin: 07/19/18 06:40 Dose: 40 mg Sotalol HCl (Betapace) 80 mg PO BID [facility] Last Admin: 07/19/18 09:57 Dose: 80 mg - Labs Labs: 07/19/18 06:50 07/19/18 06:50 PT 17.3 SECONDS (9.4-12.5) H 07/15/18 19:35 INR 1.56 07/15/18 19:35 APTT 29.7 Seconds (26.9-38.3) 07/17/18 02:30 Attending/Attestation - Attestation I have personally seen and examined this patient.: Yes I have fully participated in the care of the patient.: Yes I have reviewed all pertinent clinical information, including history, physical exam and plan: Yes
--- NOTE | 2018-07-19 19:11 | PN ---
DATE: 07/19/2018 CARDIOLOGY FOLLOWUP SUBJECTIVE: The patient is depressed about still being in the hospital. PHYSICAL EXAMINATION: VITAL SIGNS: Blood pressure is 118/73, heart rates in the 80s in normal sinus rhythm. NECK: Negative JVD. LUNGS: Decreased breath sounds. HEART: Reveals S1 and S2. EXTREMITIES: Without edema. LABORATORY DATA: Hemoglobin is 9.5. Chemistries, BUN and creatinine unremarkable. The glucose is 154. IMPRESSION: 1. Paroxysmal atrial fibrillation, which the patient is now in normal sinus rhythm. 2. History of lung cancer. 3. Severe pulmonary hypertension. 4. Severe chronic obstructive pulmonary disease. 5. Anemia. PLAN: Given these findings, the patient's cardiac status is stable. The patient remains in normal sinus rhythm. Awaiting Pulmonary workup. Brayan Jay MD
[2018-07-20] MEDS: Albuterol-Ipratrop 3 mg / 0.5 (3 ml) UD IH SCH ×5 (01:31→20:03)
[2018-07-20] MEDS: Pantoprazole 40 mg EC Tab PO SCH (06:13)
[2018-07-20] MEDS: Arformoterol 15 mcg/2 ml Inh Sol IH SCH ×2 (07:40→20:02)
[2018-07-20] MEDS: Budesonide 0.5 mg/2 ml Inhal Susp UD IH SCH ×2 (07:40→20:03)
[2018-07-20 08:01] LABS: HEMOGLOBIN 9.2 g/dL (12.0-16.0); MEAN CORPUSCULAR HEMOGLOBIN 32.1 pg (25.0-35.0); MEAN CORPUSCULAR HGB CONC 31.2 g/dl (31.0-37.0); MEAN PLATELET VOLUME 9.5 fl (7.0-11.0); RBC 2.87 10^6/uL (3.5-6.1); RED CELL DISTRIBUTION WIDTH 18.3 % (11.5-14.5); WHITE BLOOD COUNT 6.5 10^3/uL (4.5-11.0)
--- NOTE | 2018-07-20 08:02 | PN ---
DATE: 07/20/2018 PULMONARY PROGRESS NOTE SUBJECTIVE: The patient appears comfortable this morning. She is not short of breath at rest. PHYSICAL EXAMINATION VITAL SIGNS: Temperature is 98.3, pulse is 78, respirations 18/20, blood pressure 147/69. Oxygen saturation on nasal cannula is 93%. HEENT: Normocephalic, atraumatic. No JVD. CARDIOVASCULAR: Positive S1, S2. No S3 gallop. LUNGS: Decreased breath sounds with crackles at both bases (right worse than left). Mild/less rhonchi. No wheezing. GI: Abdomen is Soft, nontender and nondistended. Bowel sounds are positive. EXTREMITIES: Mild edema. No cyanosis, no clubbing. Calves are nontender to palpation. SKIN: No acute rash. NEUROLOGIC: Limited at the present time. IMPRESSION 1. Paroxysmal atrial fibrillation. 2. Advanced/extensive adenocarcinoma of the right lung. 3. Advanced chronic obstructive pulmonary disease, on home oxygen. 4. Recurrent right pleural effusion. PLAN: The patient appears comfortable this morning. She is not short of breath at rest. She does state to feeling better overall. I discussed the case with the night nurse at length. The night nurse stated that the patient had an uneventful night. On physical exam, there is certainly less bronchospasm noted. However, there remains a mild increase in the alveolar-arterial gradient. I will continue with the current nebulizer treatments and intravenous steroids (decreased yesterday) for now. As noted previously, the right pleural effusion is enlarging (as expected). Dr. Brayan Orozco (Interventional Radiology) has been called on the case for PleurX catheter placement. The patient did refuse this procedure in the past. She is now agreeable. Clinical status of the patient is certainly improved - compared to the initial presentation. However, again, the future status/prognosis for this patient remains very, very poor. All are aware. I will discuss the above with Dr. Lopez. Kevin Wells MD JARET
[2018-07-20 08:10] LABS: MEAN CELL VOLUME 102.8 fl (80.0-105.0)
[2018-07-20 08:17] LABS: ALB/GLOB RATIO 1.2 (1.1-1.8); ALBUMIN 3.3 g/dL (3.0-4.8); ALT/SGPT 14 U/L (7-56); AST/SGOT 26 U/L (14-36); BLOOD UREA NITROGEN 9 mg/dL (7-21); CALCIUM 8.9 mg/dL (8.4-10.5); GFR NON-AFRICAN AMERICAN > 60
[2018-07-20] MEDS: MethylPREDNISolone 40 mg Vial IVP SCH ×2 (09:05→21:42)
--- NOTE | 2018-07-20 10:20 | PN ---
DATE: 07/19/2018 SUBJECTIVE: She had a very rough night last night, mentally. She is not doing well here. She is getting short of breath. I put her on Solu-Medrol last night and called in Dr. Wells, the pomology teacher. She came in for rapid AFib, which is under control. We found positive urine and positive blood culture. She is on IV antibiotics per Infectious Disease. Also the shortness of breath, I put her on steroids and there is pleural effusion I called in Dr. Brayan Orozco for PleurX catheter. She is in trouble and she is very upset. She wants to sign AMA, I told her she should not do that. She will be back or she can . PHYSICAL EXAMINATION: VITAL SIGNS: She has 98.4 temperature; 86 pulse, the pulse went as high as 121 last night when she got upset; 119/70 blood pressure; 20 respiratory rate and 91% O2 saturation on room air. HEENT: Head is atraumatic and normocephalic. HEART: Regular rate. LUNGS: Decreased breath sounds. The right side, no air movement. Left side, occasional congestion, it is getting worse than the other day. ABDOMEN: Soft. EXTREMITIES: No edema. MEDICATIONS: She is on Benadryl, Betapace, Brovana, digoxin, DuoNeb, Duragesic, Eliquis, Percocet, Protonix, Pulmicort, Solu-Medrol is down to 30 IV every 12 hours, vancomycin IV, and Xanax. LABORATORY DATA: She has a 4 white count, 9.5 hemoglobin, 30.2 hematocrit with 164 platelets. She has a 138 sodium, potassium 4.1, BUN 9, and creatinine 0.3. GFR is greater than 60, sugar is 154, calcium is 8.9, AST is ALT is 27, , alk phos is 199, total protein 6.3. She had a positive urine showing Enterococcus faecalis and Gram-positive cocci in a blood. ASSESSMENT AND PLAN: She is being seen by Infectious Disease, Cardiology, Pulmonology, and now I am going to call Dr. Brayan Orozco for a PleurX catheter due to her pleural effusion. Garfield Lopez, DO [place]
--- NOTE | 2018-07-20 12:15 | PN ---
DATE: 07/20/2018 SUBJECTIVE: She is resting in bed. She is medicated with pain meds and Xanax, but she is comfortable at this time. She is breathing okay. She is on Benadryl, Betapace, Brovana, digoxin, DuoNebs, Duragesic patch, Eliquis, Percocet, Protonix, Pulmicort, Solu-Medrol is down to 30 IV every 12 hours and Xanax. I am hoping to get a PleurX catheter and also paracenteses of her fluid in her lungs, and a PleurX catheter placed. PHYSICAL EXAMINATION: VITAL SIGNS: Temperature 97.8, 82 pulse, 124/80 blood pressure, 20 respiratory rate, 96% O2 sat on 5 liters. HEAD: Atraumatic, normocephalic. HEART: Regular rate. LUNGS: Decreased breath sounds bilaterally, the right side almost no air movement at all for the lung cancer. The left side is also decreased. Lungs, little congestion. ABDOMEN: Soft. EXTREMITIES: No edema. LABORATORY DATA: She has a 6.5 white count, 9.2 hemoglobin, 29.5 hematocrit, 204 platelets. She has a 139 sodium, potassium 4, BUN is 9, creatinine 0.3, GFR is greater than 60, sugar is 123, calcium 8.9, total bili is 0.5, AST is 26, ALT is 14, alk phos 199, total protein 6. PLAN: She is being seen by numerous physicians; Pulmonary, Infectious Disease, Cardiology. I am hoping to get a PleurX catheter placed in her. She did come in with atrial fibrillation originally, now has moderate right and small left pleural effusion and she needs a paracentesis and a PleurX catheter placed hopefully today and we will see how she does. The patient with cancer. Garfield Lopez DO
[2018-07-20] MEDS: Digoxin 125 mcg (0.125 mg) Tab PO SCH (13:51)
--- NOTE | 2018-07-20 14:10 | CP.PCM.PN ---
<Panda Santos - Last Filed: 07/20/18 14:07> Subjective - Date & Time of Evaluation Date of Evaluation: 07/20/18 Time of Evaluation: 08:15 - Subjective Subjective: Panda Santos D.O. PGY-3, Internal Medicine Resident, Infectious Disease Progress Note 62-year-old female with a past medical history of lung cancer, COPD on home oxygen, GERD, diverticulosis, and atrial fibrillation who presented for complai nts of palpitations and shortness of breath and was found to be in A. fib with RVR. Infectious disease consultation was requested for 1 out of 2 positive blood cultures. Patient was seen and examined at bedside. Feeling markedly better. Smiling. Breathing ok. Objective - Vital Signs/Intake and Output Vital Signs (last 24 hours): Temp Pulse Resp BP Pulse Ox 97.8 F 78 20 124/80 96 07/20/18 06:00 07/20/18 14:00 07/20/18 06:00 07/20/18 06:00 07/20/18 06:00 Intake and Output: 07/20/18 07/20/18 06:59 18:59 Intake Total 240 Output Total 600 Balance -360 - Medications Medications: Current Medications Albuterol/Ipratropium (Duoneb 3 Mg/0.5 Mg (3 Ml) Ud) 3 ml IH [id number] ANTIONETTE Last Admin: 07/20/18 13:51 Dose: 3 ml Albuterol/Ipratropium (Duoneb 3 Mg/0.5 Mg (3 Ml) Ud) 3 ml IH [id number] PRN PRN Reason: Shortness of Breath Last Admin: 07/19/18 23:33 Dose: 3 ml Alprazolam (Xanax) 0.25 mg PO HS ANTIONETTE; Protocol Stop: 07/22/18 22:01 Last Admin: 07/19/18 23:59 Dose: 0.25 mg Alprazolam (Xanax) 0.25 mg PO TID ANTIONETTE; Protocol Stop: 07/23/18 10:01 Last Admin: 07/20/18 13:51 Dose: 0.25 mg Apixaban (Eliquis) 5 mg PO BID ANTIONETTE; Protocol Last Admin: 07/20/18 09:06 Dose: 5 mg Arformoterol Tartrate (Brovana) 15 mcg IH [id number] ANTIONETTE Last Admin: 07/20/18 07:40 Dose: 15 mcg Budesonide (Pulmicort Respules) 0.5 mg IH [id number] [facility] Last Admin: 07/20/18 07:40 Dose: 0.5 mg Digoxin (Digoxin) 0.125 mg PO 1400 [facility] Last Admin: 07/20/18 13:51 Dose: 0.125 mg Diphenhydramine HCl (Benadryl) 25 mg PO HS PRN PRN Reason: Insomnia Last Admin: 07/18/18 22:34 Dose: 25 mg Fentanyl (Duragesic) 1 patch TD Q72H [facility] Last Admin: 07/17/18 17:35 Dose: 1 patch Methylprednisolone (Solu-Medrol) 30 mg IVP Q12 [facility] Last Admin: 07/20/18 09:05 Dose: 30 mg Oxycodone/Acetaminophen (Percocet 5/325 Mg Tab) 1 tab PO Q4H PRN PRN Reason: Pain, severe (8-10) Stop: 07/21/18 08:45 Last Admin: 07/18/18 21:39 Dose: 1 tab Pantoprazole Sodium (Protonix Ec Tab) 40 mg PO 0600 [facility] Last Admin: 07/20/18 06:13 Dose: 40 mg Sotalol HCl (Betapace) 80 mg PO BID [facility] Last Admin: 07/20/18 09:06 Dose: 80 mg - Labs Labs: 07/20/18 07:30 07/20/18 07:30 PT 17.3 SECONDS (9.4-12.5) H 07/15/18 19:35 INR 1.56 07/15/18 19:35 APTT 29.7 Seconds (26.9-38.3) 07/17/18 02:30 - Constitutional Appears: Chronically Ill - Head Exam Head Exam: ATRAUMATIC - Eye Exam Eye Exam: absent: Scleral icterus - ENT Exam ENT Exam: Mucous Membranes Moist - Neck Exam Neck exam: Positive for: Normal Inspection - Respiratory Exam Respiratory Exam: Wheezes - Cardiovascular Exam Cardiovascular Exam: +S1, +S2 - GI/Abdominal Exam GI & Abdominal Exam: Soft - Extremities Exam Extremities exam: Negative for: pedal edema - Neurological Exam Neurological exam: Alert, Oriented x3 - Skin Skin Exam: Dry, Warm Assessment and Plan - Assessment and Plan (Free Text) Assessment: 62-year-old female with a past medical history of lung cancer, COPD on home oxygen, GERD, diverticulosis, and atrial fibrillation who presented for complaints of palpitations and shortness of breath and was found to be in A. fib with RVR. Infectious disease consultation was requested for 1 out of 2 positive blood cultures. Plan: Sepsis from G+ cocci bacteremia Lung cancer COPD on home oxygen Anxiety Has been afebrile with no leukocytosis Repeat BCx negative 2/2 day 2 Monitor off antibiotics at this time At risk for nosocomial infections We will follow with you Patient was seen and examined and case will be discussed with attending physician Thank you for the pleasure participating in the care of this interesting patient <Jude Robertson - Last Filed: 07/20/18 19:29> Objective - Vital Signs/Intake and Output Vital Signs (last 24 hours): Temp Pulse Resp BP Pulse Ox 98.4 F 81 20 126/68 94 L 07/20/18 18:00 07/20/18 18:00 07/20/18 18:00 07/20/18 18:00 07/20/18 18:00 Intake and Output: 07/20/18 07/21/18 18:59 06:59 Intake Total 420 Output Total 200 Balance 220 - Medications Medications: Current Medications Albuterol/Ipratropium (Duoneb 3 Mg/0.5 Mg (3 Ml) Ud) 3 ml IH [id number] ANTIONETTE Last Admin: 07/20/18 13:51 Dose: 3 ml Albuterol/Ipratropium (Duoneb 3 Mg/0.5 Mg (3 Ml) Ud) 3 ml IH [id number] PRN PRN Reason: Shortness of Breath Last Admin: 07/20/18 18:15 Dose: 3 ml Alprazolam (Xanax) 0.25 mg PO HS ANTIONETTE; Protocol Stop: 07/22/18 22:01 Last Admin: 07/19/18 23:59 Dose: 0.25 mg Alprazolam (Xanax) 0.25 mg PO TID ANTIONETTE; Protocol Stop: 07/23/18 10:01 Last Admin: 07/20/18 17:00 Dose: Not Given Apixaban (Eliquis) 5 mg PO BID ANTIONETTE; Protocol Last Admin: 07/20/18 17:23 Dose: 5 mg Arformoterol Tartrate (Brovana) 15 mcg IH [id number] [facility] Last Admin: 07/20/18 07:40 Dose: 15 mcg Budesonide (Pulmicort Respules) 0.5 mg IH [id number] [facility] Last Admin: 07/20/18 07:40 Dose: 0.5 mg Digoxin (Digoxin) 0.125 mg PO 1400 [facility] Last Admin: 07/20/18 13:51 Dose: 0.125 mg Diphenhydramine HCl (Benadryl) 25 mg PO HS PRN PRN Reason: Insomnia Last Admin: 07/18/18 22:34 Dose: 25 mg Fentanyl (Duragesic) 1 patch TD Q72H [facility] Last Admin: 07/20/18 17:23 Dose: 1 patch Methylprednisolone (Solu-Medrol) 30 mg IVP Q12 [facility] Last Admin: 07/20/18 09:05 Dose: 30 mg Oxycodone/Acetaminophen (Percocet 5/325 Mg Tab) 1 tab PO Q4H PRN PRN Reason: Pain, severe (8-10) Stop: 07/21/18 08:45 Last Admin: 07/18/18 21:39 Dose: 1 tab Pantoprazole Sodium (Protonix Ec Tab) 40 mg PO 0600 [facility] Last Admin: 07/20/18 06:13 Dose: 40 mg Sotalol HCl (Betapace) 80 mg PO BID [facility] Last Admin: 07/20/18 17:23 Dose: 80 mg - Labs Labs: 07/20/18 07:30 07/20/18 07:30 PT 17.3 SECONDS (9.4-12.5) H 07/15/18 19:35 INR 1.56 07/15/18 19:35 APTT 29.7 Seconds (26.9-38.3) 07/17/18 02:30 Attending/Attestation - Attestation I have personally seen and examined this patient.: Yes I have fully participated in the care of the patient.: Yes I have reviewed all pertinent clinical information, including history, physical exam and plan: Yes
[2018-07-20] MEDS: Albuterol-Ipratrop 3 mg / 0.5 (3 ml) UD IH PRN ×2 (18:15→23:28)
[2018-07-21] MEDS: Albuterol-Ipratrop 3 mg / 0.5 (3 ml) UD IH PRN ×4 (04:25→22:19)
[2018-07-21] MEDS: Albuterol-Ipratrop 3 mg / 0.5 (3 ml) UD IH SCH ×4 (04:27→20:02)
[2018-07-21] MEDS: Pantoprazole 40 mg EC Tab PO SCH (05:29)
[2018-07-21 07:06] LABS: HEMOGLOBIN 9.5 g/dL (12.0-16.0); MEAN CELL VOLUME 104.5 fl (80.0-105.0); MEAN CORPUSCULAR HEMOGLOBIN 32.5 pg (25.0-35.0); MEAN CORPUSCULAR HGB CONC 31.1 g/dl (31.0-37.0); MEAN PLATELET VOLUME 9.6 fl (7.0-11.0); RBC 2.92 10^6/uL (3.5-6.1); RED CELL DISTRIBUTION WIDTH 18.5 % (11.5-14.5); WHITE BLOOD COUNT 5.7 10^3/uL (4.5-11.0)
[2018-07-21 07:34] LABS: ALB/GLOB RATIO 1.2 (1.1-1.8); ALBUMIN 3.2 g/dL (3.0-4.8); ALT/SGPT 14 U/L (7-56); AST/SGOT 32 U/L (14-36); BLOOD UREA NITROGEN 10 mg/dL (7-21); CALCIUM 8.9 mg/dL (8.4-10.5); GFR NON-AFRICAN AMERICAN > 60
[2018-07-21] MEDS: Arformoterol 15 mcg/2 ml Inh Sol IH SCH ×2 (07:56→20:02)
[2018-07-21] MEDS: Budesonide 0.5 mg/2 ml Inhal Susp UD IH SCH ×2 (07:57→20:02)
[2018-07-21] MEDS: MethylPREDNISolone 40 mg Vial IVP SCH ×2 (09:13→22:05)
--- NOTE | 2018-07-21 13:23 | PN ---
DATE: 07/21/2018 SUBJECTIVE: She is very upset this morning, not in a good mood. She thought that she paracenteses of her fluid, and also PleurX catheter place by Dr. Brayan Orozco yesterday was not being able to be arranged, plan is for Monday understand; some Benadryl, Betapace, Brovana, digoxin, DuoNeb, Duragesic patch, Eliquis, Protonix, Pulmicort, Solu-Medrol, and Xanax. She desperately want to go home, I cannot discharge her until this is placed and fluids taken off. PHYSICAL EXAMINATION: VITAL SIGNS: She has a 98.7 temperature, 68 pulse, 130/72 blood pressure, 22 respiratory rate, 90% O2 sat on 2 liters. GENERAL: She is also quite weak, needs more physical therapy. The only one that takes care of her at home is , he is pretty much overwhelmed and angry that there is no other family members to help. HEENT: Head is atraumatic and normocephalic. HEART: Regular rate. LUNGS: Decreased breath sounds both sides almost no air movement at all. ABDOMEN: Soft, nontender. EXTREMITIES: No edema. LABORATORY DATA: She has a 5.0 white count, 9.5 hemoglobin, 30.5 hematocrit with a 205 platelets. She has a 138 sodium, potassium 4.4, BUN 10, creatinine 0.3, GFR is greater than 60, sugar is 180, calcium 8.9, total bilirubin 0.6, AST is 32, ALT 14, alkaline phosphatase is 233, total protein is 6. Urine is small and vanco is a little bit 7.3. She has Gram-positive cocci in the blood. She also need the IV antibiotics for that. ASSESSMENT AND PLAN: She had rapid atrial fibrillation, lung cancer, pleural effusion. She has PleurX catheter, urinary tract infection, and now possible sepsis. She is being seen by Infectious Disease, Pulmonary, Cardiology. Continue aggressive treatment and care. Garfield Lopez DO [facility]ENTERCharl[facility]
[2018-07-21] MEDS: Digoxin 125 mcg (0.125 mg) Tab PO SCH (14:30)
--- NOTE | 2018-07-21 23:16 | PN ---
DATE: 07/21/2018 SUBJECTIVE: The patient is in bed in no acute distress, nontoxic. OBJECTIVE: VITAL SIGNS: Temperature is 99, blood pressure is 125/60, respiratory rate of 19, heart rate of 96. HEENT: Unremarkable. NECK: Supple. LUNGS: Have decreased breath sounds. HEART: Normal S1, S2. ABDOMEN: Soft. LABORATORY EXAMINATION: Reveals a white count of 5.7, hemoglobin of 9, platelets of 205. Chemistries reveal a BUN of 10, creatinine of 0.3. Urinalysis is noted. Vancomycin trough of 7.3. Microbiology is noted. Repeat blood cultures are no growth. Review of orders reveals the patient to be off of antibiotics. The patient is on Solu-Medrol, managed by Dr. Wells. ASSESSMENT AND PLAN: This is a 62-year-old who was seen early this morning in [facility], bed 2 with a history of lung cancer, chronic obstructive lung disease, home oxygen, gastroesophageal reflux disease, diverticulosis, and atrial fibrillation, who was admitted with shortness of breath and found to be in atrial fibrillation with rapid ventricular response, found to have a gram-positive cocci in one bottle, coag-negative bacteremia with sepsis, most likely a contamination with repeat blood cultures negative and the patient does have a Port-A-Cath, however, is at risk for coag-negative staph. Currently off of antibiotics, afebrile. We will check on the final repeat blood cultures, thus far reported are negative. The patient does have an upper internal jugular Port-A-Cath. Jude Robertson MD
[2018-07-22] MEDS ORDERED: guaiFENesin 200 mg/10 ml Syrup UD PO ONE (00:49)
[2018-07-22] MEDS: Albuterol-Ipratrop 3 mg / 0.5 (3 ml) UD IH SCH ×4 (01:32→19:31)
[2018-07-22] MEDS: Albuterol-Ipratrop 3 mg / 0.5 (3 ml) UD IH PRN ×4 (05:16→23:39)
[2018-07-22] MEDS: Pantoprazole 40 mg EC Tab PO SCH (05:26)
[2018-07-22 07:02] LABS: HEMOGLOBIN 10.3 g/dL (12.0-16.0); MEAN CELL VOLUME 104.9 fl (80.0-105.0); MEAN CORPUSCULAR HEMOGLOBIN 31.4 pg (25.0-35.0); MEAN CORPUSCULAR HGB CONC 29.9 g/dl (31.0-37.0); MEAN PLATELET VOLUME 9.6 fl (7.0-11.0); RBC 3.28 10^6/uL (3.5-6.1); RED CELL DISTRIBUTION WIDTH 18.6 % (11.5-14.5); WHITE BLOOD COUNT 5.6 10^3/uL (4.5-11.0)
[2018-07-22 07:18] LABS: ALB/GLOB RATIO 1.3 (1.1-1.8); ALBUMIN 3.6 g/dL (3.0-4.8); ALT/SGPT 19 U/L (7-56); AST/SGOT 47 U/L (14-36); BLOOD UREA NITROGEN 10 mg/dL (7-21); CALCIUM 9.1 mg/dL (8.4-10.5); GFR NON-AFRICAN AMERICAN > 60
[2018-07-22] MEDS: Arformoterol 15 mcg/2 ml Inh Sol IH SCH ×2 (07:59→19:31)
[2018-07-22] MEDS: Budesonide 0.5 mg/2 ml Inhal Susp UD IH SCH ×2 (08:00→19:31)
[2018-07-22] MEDS: MethylPREDNISolone 40 mg Vial IVP SCH ×2 (09:29→21:38)
--- NOTE | 2018-07-22 11:48 | PN ---
DATE: 07/22/2018 SUBJECTIVE: The patient is in bed, in no acute distress, nontoxic. PHYSICAL EXAMINATION: VITAL SIGNS: Temperature 98, blood pressure 125/70, respiratory rate 20, heart rate 76. HEENT: Examination of HEENT is unremarkable. NECK: Supple. LUNGS: Decreased breath sounds. HEART: Normal S1, S2. ABDOMEN: Soft, nontender. LABORATORY DATA: Laboratory examination reveals white count of 5.6, hemoglobin of 10, platelets of 230. Chemistries are noted. Urinalysis is noted and toxicology is reviewed. Microbiology reveals the blood culture is positive for gram-positive cocci in one bottle. The repeat blood cultures are negative. Review of orders reveals the patient is off antibiotics. The patient is on Solu-Medrol. ASSESSMENT AND PLAN: This is a 62-year-old female seen earlier today in room 372, bed 1. She is awake and alert, doing well, with a history of lung cancer; chronic obstructive pulmonary disease, on home O2 oxygen therapy; chronic respiratory failure; gastroesophageal reflux disease; diverticulitis; atrial fibrillation; admitted with shortness of breath and found to be in atrial fibrillation with rapid ventricular response with a gram-positive cocci in one bottle with a coag-negative staph in the blood, most likely a contamination with sepsis with contamination with repeat blood cultures negative. The patient does have a Port-A-Cath, currently off antibiotics, afebrile and negative cultures and will be repeated and the patient is for PleurX catheter placement for tomorrow by Dr. Brayan Orozco. We will follow up with you. The patient is at risk for developing nosocomial infections. Jude Robertson MD
--- NOTE | 2018-07-22 12:33 | PN ---
DATE: 07/22/2018 PULMONARY PROGRESS NOTE SUBJECTIVE: The patient was seen and examined at the bedside. She is sitting up on the edge of the bed. She is not in respiratory distress. PHYSICAL EXAMINATION: VITAL SIGNS: Temperature 98, pulse 76, respirations 20, pulse oxymetry is 98 on nasal cannula and blood pressure 125/71. HEENT: Normocephalic and atraumatic. NECK: Supple with no jugular vein distentions. CARDIOVASCULAR: S1 and S2. No S3. Regular. PULMONARY: Diminished breath sounds, right more than left. EXTREMITIES: No pedal edema. No cyanosis. SKIN: No acute skin rash. NEUROLOGIC: No focal deficits. LABORATORY DATA: Additional laboratory data reviewed. Her sodium 137, potassium 4.6, chloride 94 and BUN is 9. WBC 5.6 and hemoglobin of 10.3. ASSESSMENT: 1. Stage IV lung cancer. 2. Malignant pleural effusion. 3. Atrial fibrillation. PLAN: The patient is getting PleurX catheter tomorrow. She is being treated for urinary tract infection and for exacerbation of her chronic obstructive pulmonary disease. We will continue with administration of nebulizer treatment, supplemental oxygen is being provided. Overall condition is stable. Aeljandro Randolph MD
[2018-07-22] MEDS: Digoxin 125 mcg (0.125 mg) Tab PO SCH (13:33)
[2018-07-23] MEDS: Albuterol-Ipratrop 3 mg / 0.5 (3 ml) UD IH SCH ×2 (03:58→07:51)
[2018-07-23] MEDS: Pantoprazole 40 mg EC Tab PO SCH (05:38)
[2018-07-23 06:45] LABS: HEMOGLOBIN 9.7 g/dL (12.0-16.0); MEAN CELL VOLUME 103.6 fl (80.0-105.0); MEAN CORPUSCULAR HEMOGLOBIN 32.1 pg (25.0-35.0); MEAN PLATELET VOLUME 9.5 fl (7.0-11.0); RBC 3.02 10^6/uL (3.5-6.1); RED CELL DISTRIBUTION WIDTH 18.6 % (11.5-14.5); WHITE BLOOD COUNT 7.5 10^3/uL (4.5-11.0)
[2018-07-23] MEDS: Arformoterol 15 mcg/2 ml Inh Sol IH SCH (07:00)
[2018-07-23 07:06] LABS: ALB/GLOB RATIO 1.2 (1.1-1.8); ALBUMIN 3.4 g/dL (3.0-4.8); ALT/SGPT 24 U/L (7-56); AST/SGOT 37 U/L (14-36); BLOOD UREA NITROGEN 9 mg/dL (7-21); CALCIUM 8.9 mg/dL (8.4-10.5); GFR NON-AFRICAN AMERICAN > 60
[2018-07-23] MEDS: Budesonide 0.5 mg/2 ml Inhal Susp UD IH SCH (07:52)
[2018-07-23 08:01] VITALS: TEMP 98.1
--- NOTE | 2018-07-23 08:24 | PN ---
DATE: 07/22/2018 SUBJECTIVE: She is currently sitting up in bed, maybe a little bit better spirits today than yesterday. She is desperately hoping that they do the paracentesis and put the PleurX catheter in place as per Pulmonary's request. She has very bad lung cancer stage IV she fills up with fluid. MEDICATIONS: She is on Betapace, Brovana, digoxin, DuoNebs, Duragesic patch, Eliquis, Protonix, Pulmicort, Solu-Medrol 30 IV every 12 hours, Xanax. She is now telling me she does not want the Benadryl at nighttime. I am going to stop the Benadryl. When she came in, she wanted the Benadryl. I will try and keep up with her wishes. Had a long discussion with her and her . PHYSICAL EXAMINATION: VITAL SIGNS: 98.7 temperature, 76 pulse, 125/71 blood pressure, 20 respiratory rate, 90% O2 sat. HEAD: Atraumatic and normocephalic. HEART: Regular rate. LUNGS: Decreased breath sounds bilaterally, almost no air motion but a little bit better than yesterday. ABDOMEN: Soft. EXTREMITIES: No edema. LABORATORY DATA: She has a 5.6 white count, 10.3 hemoglobin, 34.4 hematocrit with 230 platelets. She has a 137 sodium, potassium 4.6, BUN 10, creatinine 0.3, GFR is greater than 60, sugar is 106, calcium 9.1, total bili is 0.7, AST is 47, ALT is 19, alk phos 272, total protein 6.5. ASSESSMENT AND PLAN: She is very frustrated here. She wants to go home while hoping that she Can get the PleurX catheter put in tomorrow. She is being seen by Infectious Disease, Pulmonary, Cardiology, Interventional Radiology for a PleurX catheter. do that tomorrow. We will check her labs tomorrow. Answered many questions from her and her at length. She has stage IV lung cancer. Melvin Lopez DO [facility] # [id number] [place]
--- NOTE | 2018-07-23 08:52 | PN ---
DATE: 07/21/2018 SUBJECTIVE: The patient was seen and examined at bedside. She is receiving inhalation treatments with Brovana and budesonide. She is also on DuoNeb p.r.n. The patient is awaiting placement of PleurX catheter. PHYSICAL EXAMINATION: GENERAL: She is awake, alert and in no acute distress. VITAL SIGNS: Temperature is 98.7, pulse 68, respirations 22, and pulse oximetry is 98 on nasal cannula. Blood pressure is 130/72. HEAD, EYES, EARS, NOSE AND THROAT: Within normal limits. NECK: Supple with no jugular vein distentions. CARDIOVASCULAR: S1 and S2, no S3. Regular. PULMONARY: Diminished breath sounds bilaterally with dullness to percussion due to effusions. GASTROINTESTINAL: Soft, nontender, no organomegaly. EXTREMITIES: No pedal edema. No cyanosis. SKIN: No acute skin rash. NEUROLOGIC: No focal deficits. LABORATORY DATA: Reviewed. Her WBC is at 5.7, hemoglobin reduced at 9.5, platelet count is normal at 205. Her blood chemistries are mostly within normal range except for elevated alkaline phosphatase. ASSESSMENT: 1. Malignant pleural effusions. 2. Advanced chronic obstructive pulmonary disease, on home oxygen. 3. Advanced adenocarcinoma of the lung and paroxysmal atrial fibrillation. PLAN: We will await placement of right-sided PleurX catheter, continue nebulizer treatment, continued inhalant steroids, and continue supplemental oxygen. Blood work reviewed as above. The patient's condition overall is stabilizing. Alejandro Randolph MD
--- NOTE | 2018-07-23 09:41 | PN ---
DATE: 07/23/2018 PULMONARY PROGRESS NOTE SUBJECTIVE: The patient appears comfortable this morning. She is not short of breath at rest. PHYSICAL EXAMINATION VITAL SIGNS: Temperature is 98.8, pulse 81, respirations 18, blood pressure 127/61. Oxygen saturation on nasal cannula is 95%--98%. HEENT: Normocephalic, atraumatic. No JVD. CARDIOVASCULAR: Positive S1, S2. No S3 gallop. LUNGS: Decreased breath sounds at the bases with crackles (right worse than left). Very minimal/less rhonchi. No wheezing. GASTROINTESTINAL: Abdomen is soft, nontender and nondistended. Bowel sounds are positive. EXTREMITIES: Mild edema. No cyanosis, no clubbing. Calves are nontender to palpation. SKIN: No acute rash. NEUROLOGIC: Limited at the present time. IMPRESSION 1. Paroxysmal atrial fibrillation. 2. Advanced/extensive adenocarcinoma of the right lung. 3. Advanced chronic obstructive pulmonary disease, on home oxygen. 4. Recurrent right pleural effusion. PLAN: The patient appears very comfortable this morning. She is not short of breath at rest. She does state to feeling much better overall. I did discuss the case with the night nurse at length. The night nurse stated the patient had an uneventful night. On physical exam, there is much less bronchospasm noted. In addition, the alveolar-arterial gradient is also less. I will continue with the current nebulizer treatments and decrease the intravenous steroids this morning. I did speak with Dr. Brayan Orozco in person on Monday. Hopefully the patient will have PleurX catheter placement this morning. Clinical status of the patient is certainly improved - compared to the initial presentation. However, the future status/prognosis for this patient remains very, very poor. All are aware. I will discuss the above with Dr. Lopez. Kevin Wells MD [facility]
[2018-07-23] MEDS ORDERED: MethylPREDNISolone 40 mg Vial IVP SCH (10:00)
[2018-07-23] MEDS: Albuterol-Ipratrop 3 mg / 0.5 (3 ml) UD IH PRN (12:04)
[2018-07-23] MEDS ORDERED: Lidocaine PF 2% (5 ml) Inj (For Cardiac Arrhy) ONE (13:32)
[2018-07-23] MEDS ORDERED: Midazolam 2 MG/2 ML VIAL ONE ×2 (13:33→13:42)
[2018-07-23 14:24] VITALS: BP 134/74; PULSE 66; RESP 20; O2SAT 98
[2018-07-23] MEDS ORDERED: Sodium Chloride 0.45% 1,000 ML IV SCH (14:30)
--- NOTE | 2018-07-23 14:42 | PN ---
DATE: 07/23/2018 SUBJECTIVE: She is supposed to go today for a PleurX catheter replacement with Dr. Brayan Orozco, but done on Monday. We are not sure if it is going to happen or not, but if it is, there is a good chance of discharging her later this afternoon. MEDICATIONS: She is on Betapace, Brovana, digoxin, DuoNeb, Duragesic, Eliquis, Protonix. She will be on prednisone 30 for three days, 20 for three days, 10 for three days and stop, Xanax. She desperately wants to leave. PHYSICAL EXAMINATION: VITAL SIGNS: She has 98.1 temperature, 82 pulse, 123/70 blood pressure, 22 respiratory rate, 95% O2 sat. HEAD: Atraumatic, normocephalic. HEART: Regular rate. LUNGS: Decreased breath sounds, but clear to auscultation. ABDOMEN: Soft, nontender. Positive bowel sounds. EXTREMITIES: No edema. LABORATORY DATA: She has 7.5 white count, 9.7 hemoglobin, 31.3 hematocrit with 213 platelets. She has sodium 135, potassium 5.1, BUN 9, creatinine 0.4, GFR is greater than 60, sugar is 121, calcium is 8.9. Total bili is 0.7, AST is 37, ALT is 24, alk phos 290, total protein 6.2. ASSESSMENT AND PLAN: She has bad lung cancer. Hopefully, today she will go for this PleurX catheterization and paracentesis. If she does well, she will be discharged on the same meds plus prednisone 30 for three days, 20 for three days, and 10 for three days. I am hoping it could be done and we could discharge her later this afternoon. Garfield Lopez DO [place]
[2018-07-23] MEDS: Digoxin 125 mcg (0.125 mg) Tab PO SCH (16:27)
[2018-07-23 16:28] VITALS: PULSE 81
--- NOTE | 2018-07-23 19:32 | PN ---
DATE: 07/23/2018 SUBJECTIVE: The patient is status post PleurX catheter placed. Her atrial fibrillation remains in normal sinus rhythm. PHYSICAL EXAMINATION: VITAL SIGNS: Blood pressure is 134/74, heart rate is in the 70s, normal sinus rhythm. NECK: Negative JVD. LUNGS: Without rales. HEART: S1 and S2. EXTREMITIES: Without edema. LABORATORY DATA: Hemoglobin is 9.7. Chemistries, BUN and creatinine are unremarkable. IMPRESSION: 1. Lung cancer. 2. Chronic obstructive pulmonary disease. 3. Paroxysmal atrial fibrillation in normal sinus rhythm. 4. Anemia. 5. Dyspnea, which is better. PLAN: Given these findings, the patient is scheduled for discharge today. Followup and instructions have been given to the patient in detail. Brayan Jay MD
--- NOTE | 2018-07-23 20:15 | VASCULAR ---
Date of service: 07/23/2018 PROCEDURE: Ultrasound fluoroscopically placed tunneled right pleural catheter HISTORY: Lung carcinoma. Recurrent right malignant effusion. Shortness of breath. Frequent thoracentesis. Needs tunneled pleural catheter COMPARISON: TECHNIQUE: The relative risks and indications of the procedure were explained the patient consent obtained. The patient is placed in a slight left decubitus position on the arteriography table and sonography the right chest performed. This revealed a moderate right pleural effusion. A low right posterior lateral approach was selected in the area prepped and draped usual sterile fashion. 1 percent xylocaine was used to anesthetize skin soft tissues. A 19 gauge needle was advanced in the right pleural space and clear yellow fluid aspirated. A 0.035 glidewire was advanced posteriorly and superiorly. A peel-away sheath was placed. Next a 15.5 Fr Aspira tunneled catheter was advanced over the Glidewire posteriorly and superiorly. The peel-away sheath was removed. The catheter was tunneled along the right intercostal space. The catheter was secured. 1000 cc of clear yellow fluid then bloody fluid was removed. The patient tolerated the procedure well. FINDINGS: IMPRESSION: Ultrasound fluoroscopically placed tunneled right pleural catheter. 1000 cc of clear yellow then bloody fluid was removed. The patient should be drained initially once a week. Up to 1000 cc of fluid should be removed.
--- NOTE | 2018-07-24 00:32 | PN ---
DATE: 07/23/2018 SUBJECTIVE: The patient is in bed, in no acute distress, nontoxic, was seen earlier this morning in 372, bed 1. She is doing much better today. PHYSICAL EXAMINATION: VITAL SIGNS: Temperature of 98, blood pressure is 130/70, respiratory rate of 18. HEENT: Unremarkable. NECK: Supple. LUNGS: Decreased breath sounds. HEART: Normal S1, S2. ABDOMEN: Soft. LABORATORY EXAMINATION: Reveals a white count of 7.5, and chemistries are noted. BUN of 9, creatinine 0.4, and microbiology reveals the repeat blood cultures showed no growth, now at 5 days. ASSESSMENT AND PLAN: This is a 62-year-old female who was seen earlier this morning in room 372, bed 1. Awake and alert, doing well with history of lung cancer, chronic obstructive lung disease, home oxygen and chronic respiratory failure, gastroesophageal reflux disease, diverticulitis, atrial fibrillation, admitted with shortness of breath, found to have atrial fibrillation with rapid ventricular response and was found to have gram positive cocci and one bottle coag negative in the blood with most likely a contamination. The patient does have a Port-A-Cath concern. However, the patient's repeat cultures have been negative, now off of antibiotics. The patient is to be discharged today after procedure. Jude Robertson MD
== END 2018-07-23 18:14 | disposition home or self-care (01) | DRG 309 ==
LOC: ED 19:25 → ERH 23:53 → 2RNO 07-16 00:18 → ERH 07-16 00:19 → ICU 07-16 02:16 → 3RSO 07-17 16:08
PROVIDERS: ADMIT Family Medicine; ATTEND Family Medicine
PROC: 3E0F7GC Introduction of Other Therapeutic Substance into Respiratory Tract, Via Natural or Artificial Opening (ICD-10-PCS; 2018-07-17)
PROC: 0B9N30Z Drainage of Right Pleura with Drainage Device, Percutaneous Approach (ICD-10-PCS; principal; 2018-07-23)
DX: I48.0 Paroxysmal atrial fibrillation (principal); C34.91 Malignant neoplasm of unspecified part of right bronchus or lung; J91.0 Malignant pleural effusion; N39.0 Urinary tract infection, site not specified; J96.10 Chronic respiratory failure, unspecified whether with hypoxia or hypercapnia; K21.9 Gastro-esophageal reflux disease without esophagitis; J44.9 Chronic obstructive pulmonary disease, unspecified; D63.0 Anemia in neoplastic disease; I25.10 Atherosclerotic heart disease of native coronary artery without angina pectoris; I27.20 Pulmonary hypertension, unspecified; F17.210 Nicotine dependence, cigarettes, uncomplicated; Z99.81 Dependence on supplemental oxygen; Z79.899 Other long term (current) drug therapy; Z96.641 Presence of right artificial hip joint

== ENCOUNTER 2018-07-29 15:52 | Inpatient (IN) | payer BC ==
[2018-07-29] MEDS ORDERED: Morphine 2 mg/ml ISec IVP STA ×2 (16:11→18:55)
[2018-07-29 16:43] LABS: VENOUS BLOOD GAS BASE EXCESS 10.7 mmol/L (0.0-2.0); VENOUS BLOOD GAS PO2 54 mm/Hg (30-55); VENOUS BLOOD PH 7.43 (7.32-7.43)
[2018-07-29 16:46] LABS: BASO # 0.01 K/mm3 (0.0-2.0); BASO % 0.1 % (0.0-3.0); EOS % 0.2 % (1.5-5.0); LYMPH % 8.4 % (22.0-35.0); MEAN CORPUSCULAR HEMOGLOBIN 32.5 pg (25.0-35.0); MEAN CORPUSCULAR HGB CONC 32.2 g/dl (31.0-37.0); MEAN PLATELET VOLUME 9.1 fl (7.0-11.0); MONO # 0.5 (0.1-0.6); MONO % 3.7 % (1.0-6.0); RBC 3.08 10^6/uL (3.5-6.1); RED CELL DISTRIBUTION WIDTH 17.8 % (11.5-14.5); WHITE BLOOD COUNT 12.1 10^3/uL (4.5-11.0)
[2018-07-29 16:50] LABS: URINE BILIRUBIN NEGATIVE (NEGATIVE); URINE BLOOD NEGATIVE (NEGATIVE); URINE GLUCOSE (UA) NEGATIVE (NEGATIVE); URINE LEUKOCYTE ESTERASE TRACE Leu/uL (NEGATIVE); URINE PROTEIN NEGATIVE mg/dL (<30 mg/dL)
[2018-07-29 16:52] LABS: INR 1.76; PARTIAL THROMBOPLASTIN TIME 28.1 Seconds (26.9-38.3); PROTHROMBIN TIME 19.5 SECONDS (9.4-12.5)
[2018-07-29 16:53] LABS: URINE APPEARANCE SL CLOUDY (CLEAR); URINE COLOR YELLOW (YELLOW)
[2018-07-29 17:00] LABS: ALBUMIN 3.1 g/dL (3.0-4.8); ALT/SGPT 17 U/L (7-56); AST/SGOT 25 U/L (14-36); BLOOD UREA NITROGEN 11 mg/dL (7-21); CALCIUM 8.7 mg/dL (8.4-10.5); GFR NON-AFRICAN AMERICAN > 60
[2018-07-29 17:05] LABS: B-TYPE NATRIURETIC PEPTIDE 265 pg/mL (0-450); TROPONIN I < 0.01 ng/mL
[2018-07-29 17:15] LABS: URINE BACTERIA FEW /hpf; URINE RBC 0 - 2 /hpf (0-2)
--- NOTE | 2018-07-29 17:38 | CT ---
Date of service: 07/29/2018 PROCEDURE: CT Chest without contrast HISTORY: hx of pleural effusion, eval with Dr. Vern Orozco COMPARISON: CT 05/11/2018 TECHNIQUE: Contiguous axial images were obtained through the chest without intravenous contrast enhancement. Sagittal and coronal reconstructions were performed. Radiation dose: Total exam DLP = 156.37 mGy-cm. This CT exam was performed using one or more of the following dose reduction techniques: Automated exposure control, adjustment of the mA and/or kV according to patient size, and/or use of iterative reconstruction technique. FINDINGS: LUNGS: There is an irregular right perihilar mass in the right lower lobe measuring 25 x 36 mm. This was previously biopsied. There is a small pneumothorax at the right lung base. A chest tube is seen at the right lung base posteriorly. Severe emphysema is also noted especially in the upper lobes. MEDIASTINUM: Unremarkable thoracic aorta. No aneurysm. Normal sized heart. Main pulmonary artery unremarkable. No vascular congestion. No lymphadenopathy. Aortic calcification PLEURA: No pleural fluid. No pneumothorax. BONES: No fracture. No destructive lesion. UPPER ABDOMEN: 4 mm right renal stone. OTHER FINDINGS: The pneumothorax finding was discussed with Dr. Morrow at 5:30 p.m. IMPRESSION: There is an irregular right perihilar mass in the right lower lobe measuring 25 x 36 mm. This was previously biopsied. There is a small pneumothorax at the right lung base. A chest tube is seen at the right lung base posteriorly. Severe emphysema is also noted especially in the upper lobes.
--- NOTE | 2018-07-29 17:40 | RAD ---
Date of service: 07/29/2018 HISTORY: sob, hx of pleural effusions COMPARISON: 07/19/2018 TECHNIQUE: Chest PA and lateral views FINDINGS: LUNGS: No active pulmonary disease. PLEURA: Decreased size of right pleural effusion. The CT scan obtained on the same day shows a right-sided pneumothorax at the right lung base. A chest tube is seen in place CARDIOVASCULAR: No aortic atherosclerotic calcification present. Normal cardiac size. No pulmonary vascular congestion. OSSEOUS STRUCTURES: No significant abnormalities. VISUALIZED UPPER ABDOMEN: Normal. OTHER FINDINGS: None. IMPRESSION: Decreased size of right pleural effusion. The CT scan obtained on the same day shows a right-sided pneumothorax at the right lung base. A chest tube is seen in place
--- NOTE | 2018-07-29 17:47 | ED PDOC ---
Arrival/HPI - General Chief Complaint: Shortness Of Breath Historian: Patient, Family - History of Present Illness Narrative History of Present Illness (Text): 07/29/18 19:58 Patient is a 62 yo female past medical hx of COPD, past medical hx of pleural ef fusions with right sided chest catheter, hx of lung cancer, hx of cardiac arrhtyhmias, presents to the ED after having an episode of feeling chest pain, left sided and sensation of shortness of breath. States symptoms on and off for several days but worse last night. Pain not pleuritic. Denies abodminal pain. Reports constant cough. Denies new leg pain or swelling. 07/30/18 09:33 Time/Duration: Prior to Arrival Symptom Onset: Sudden Symptom Course: Improving Past Medical History - Infectious Disease Hx of Infectious Diseases: None - Tetanus Immunization Tetanus Immunization: Unknown - Cardiac Hx Cardiac Disorders: Yes - Pulmonary Hx Chronic Obstructive Pulmonary Disease (COPD): Yes - Neurological Hx Paralysis: No - HEENT Hx HEENT Disorder: No - Renal Hx Renal Disorder: No - Endocrine/Metabolic Hx Endocrine Disorders: No - Hematological/Oncological Hx Blood Transfusions: No - Integumentary Hx Dermatological Disorder: No - Musculoskeletal/Rheumatological Hx Arthritis: Yes - Gastrointestinal Hx Gastroesophageal Reflux: Yes - Genitourinary/Gynecological Hx Genitourinary Disorders: No - Psychiatric Hx Emotional Abuse: No Hx Physical Abuse: No Hx Substance Use: No - Past Surgical History Past Surgical History: Non-Contributing - Surgical History Hx Orthopedic Surgery: Yes Other/Comment: Right hip replacement, right femur - Anesthesia Hx Anesthesia Reactions: No Hx Malignant Hyperthermia: No - Suicidal Assessment Feels Threatened In Home Enviroment: No Family/Social History Family/Social History: Unknown Family HX Smoking Status: Former Smoker Hx Alcohol Use: Yes (SOCIAL) Hx Substance Use: No Hx Substance Use Treatment: Yes Allergies/Home Meds Allergies/Adverse Reactions: Allergies No Known Allergies Allergy (Verified 07/29/18 19:15) Home Medications: Home Meds Medication Instructions Recorded Confirmed Dexlansoprazole [Dexilant] 60 mg PO DAILY 11/21/17 07/29/18 Multivitamin [Daily Stefany] 1 tab PO DAILY 11/21/17 07/29/18 Arformoterol [Brovana] 1 kasey IH BID 06/07/18 07/29/18 Atorvastatin [Lipitor] 10 mg PO DIN 06/07/18 07/29/18 ALPRAZolam [Xanax] 0.25 mg PO HS 06/29/18 07/29/18 Ondansetron ODT [Zofran ODT] 4 mg PO Q6 PRN 06/29/18 07/29/18 Prednisone [Jadon] 10 mg PO DAILY 06/29/18 07/29/18 Budesonide [Pulmicort] 1 puff INH DAILY 07/29/18 07/29/18 Review of Systems - Review of Systems Constitutional: absent: Fevers Eyes: absent: Vision Changes ENT: absent: Hearing Changes Respiratory: SOB, Cough, Wheezing Cardiovascular: Chest Pain, BOJORQUEZ. absent: Palpitations, Edema, Calf Pain Gastrointestinal: absent: Abdominal Pain Genitourinary Female: absent: Dysuria Musculoskeletal: Back Pain. absent: Neck Pain Skin: absent: Rash Neurological: absent: Headache, Dizziness, Focal Weakness Endocrine: absent: Polyuria, Polydipsia Hemo/Lymphatic: absent: Easy Bleeding Physical Exam - Physical Exam Narrative Physical Exam (Text): Head: Atraumatic. Normocephalic. Eyes: PERRL. EOMI. Conjunctivae are not pale. ENT: Mucous membranes are moist and intact. Oropharynx is clear and symmetric. Neck: Supple. Full ROM. No JVD. No lymphadenopathy. Cardiovascular: Distal pulses intact. Regular rhythm with systolic murmur. Pulmonary/Chest: No evidence of respiratory distress. Patient has breath sounds auscultate in both lung zaman throughout with mild wheezing noted. THere is palpable left sided back and rib pain, no crepitus. Abdominal: Soft and non-distended. There is no tenderness. No rebound, guarding, or rigidity. No organomegaly. Good bowel sounds. Back: No CVA tenderness. Extremities: No pitting. edema. No cyanosis. No clubbing. Full range of motion in all extremities. No calf tenderness. Skin: Skin is warm and dry. No petechiae. No purpura. Neurological: Alert, awake, and oriented . Motor and sensory exam intact. No slurred speech. No focal weakness. Psychiatric: Anxious. 07/30/18 09:34 Vital Signs Reviewed: Yes Temperature: Afebrile Appearance: Positive for: Uncomfortable Pain Distress: Mild Mental Status: Positive for: Alert and Oriented X 3 Medical Decision Making ED Course and Treatment: Patient's case discussed with Dr. Brayan Orozco prior to arrival. On initial exam she denies chest pain but states had sudden onset of some chest and back pain associated with SOB that had improved. There is some palpable chest discomfort and back discomfort. No crepitus. CT chest and cxr ordered. 07/29/2018 17:[address] IMPRESSION: There is an irregular right perihilar mass in the right lower lobe measuring 25 x 36 mm. This was previously biopsied. There is a small pneumothorax at the right lung base. A chest tube is seen at the right lung base posteriorly. Severe emphysema is also noted especially in the upper lobes. Dictator: Jose Armas MD 07/29/2018 17:36 Chest X-ray IMPRESSION: Decreased size of right pleural effusion. The CT scan obtained on the same day shows a right-sided pneumothorax at the right lung base. A chest tube is seen in place. Dictator: Jose Armas MD 07/29/18 20:[address] findings with Dr. Vern Orozco, on re-exam patient is comfortable and denies acute shortness of breath. Lung mass previously noted and biopsied. Currently afebrile with unremarkable lactate. At 1915 patient developed episode of pain and shortness of breath. Denied chest pain. On re-exam, diffuse wheezing noted. Nebulizer ordered. Solumderol ordered. Wheezing and pain improved. Initial troponin reviewed and was unremarkable. Will consult cardiology given past smoking history and risk factors. She currently denies chest pain. 07/30/18 09:35 - Lab Interpretations Lab Results: pO2 54 mm/Hg (30-55) 07/29/18 16:25 VBG pH 7.43 (7.32-7.43) 07/29/18 16:25 VBG pCO2 56.0 (40-60) 07/29/18 16:25 VBG HCO3 37.2 mmol/l (21-28) H 07/29/18 16:25 VBG Total CO2 38.9 mmol.L (22-28) H 07/29/18 16:25 VBG O2 Sat (Calc) 92.3 % (40-65) H 07/29/18 16:25 VBG Base Excess 10.7 mmol/L (0.0-2.0) H 07/29/18 16:25 VBG Potassium 4.0 mmol/L (3.6-5.2) 07/29/18 16:25 Sodium 135.0 mmol/L (132-148) 07/29/18 16:25 Chloride 98.0 mmol/L (98-107) 07/29/18 16:25 Glucose 157 mg/dl (65-105) H 07/29/18 16:25 Lactate 1.0 mmol/L (0.7-2.1) 07/29/18 16:25 FiO2 21.0 % 07/29/18 16:25 PT 19.5 SECONDS (9.4-12.5) H 07/29/18 16:25 INR 1.76 07/29/18 16:25 APTT 28.1 Seconds (26.9-38.3) 07/29/18 16:25 Troponin I < 0.01 ng/mL 07/29/18 16:25 NT-Pro-B Natriuret Pep 265 pg/mL (0-450) 07/29/18 16:25 Total Bilirubin 1.0 mg/dL (0.2-1.3) 07/29/18 16:25 AST 25 U/L (14-36) 07/29/18 16:25 ALT 17 U/L (7-56) 07/29/18 16:25 Alkaline Phosphatase 304 U/L (38-126) H 07/29/18 16:25 Total Protein 6.3 g/dL (5.8-8.3) 07/29/18 16:25 Albumin 3.1 g/dL (3.0-4.8) 07/29/18 16:25 Globulin 3.2 gm/dL 07/29/18 16:25 Albumin/Globulin Ratio 1.0 (1.1-1.8) L 07/29/18 16:25 Urine Color Yellow (YELLOW) 07/29/18 16:25 Urine Appearance Sl cloudy (CLEAR) 07/29/18 16:25 Urine pH 6.0 (4.7-8.0) 07/29/18 16:25 Ur Specific [place] 1.010 (1.005-1.035) 07/29/18 16:25 Urine Protein Negative mg/dL (<30 mg/dL) 07/29/18 16:25 Urine Glucose (UA) Negative mg/dL (NEGATIVE) 07/29/18 16:25 Urine Ketones Negative mg/dL (NEGATIVE) 07/29/18 16:25 Urine Blood Negative (NEGATIVE) 07/29/18 16:25 Urine Nitrate Negative (NEGATIVE) 07/29/18 16:25 Urine Bilirubin Negative (NEGATIVE) 07/29/18 16:25 Urine Urobilinogen 1.0 E.U./dL (<1 E.U./dL) H 07/29/18 16:25 Ur Leukocyte Esterase Trace Samantha/uL (NEGATIVE) H 07/29/18 16:25 Urine RBC 0 - 2 /hpf (0-2) 07/29/18 16:25 Urine WBC 2 - 5 /hpf (0-6) 07/29/18 16:25 Ur Epithelial Cells 1 - 3 /hpf (0-5) 07/29/18 16:25 Urine Bacteria Few /hpf (NONE) 07/29/18 16:25 - RAD Interpretation Radiology Orders: 07/29/18 16:07 CHEST TWO VIEWS (PA/LAT) [RAD] Stat 07/29/18 16:10 CHEST W/O CONTRAST [CT] Stat - Medication Orders Current Medication Orders: Discontinued Medications Morphine Sulfate (Morphine) 2 mg IVP STAT STA Stop: 07/29/18 16:12 Last Admin: 07/29/18 16:20 Dose: 2 mg MAR Pain Assessment Document 07/29/18 16:20 JOL (Rec: 07/29/18 16:46 [id number] Pain Reassessment Is this a pain reassessment? No Sleep Is patient sleeping during reassessment? No Presence of Pain Presence of Pain Yes Pain Scale Used Protocol: PSCALES Pain Scale Used Numeric Location Left, Right or Bilateral Right Upper or Lower Upper Pain Location Body Site Back Description Intensity of Pain at present 8 Pain Behavior Guarding Withdrawal from Touch Restlessness Facial Grimacing Aggravating Factors ADL's Changing Position IVP Administration Document 07/29/18 16:20 JOL (Rec: 07/29/18 16:46 [id number]) Charges for Administration # of IVP Administrations 1 Disposition/Present on Arrival - Present on Arrival Any Indicators Present on Arrival: No History of DVT/PE: No History of Uncontrolled Diabetes: No Urinary Catheter: No History of Decub. Ulcer: No History Surgical Site Infection Following: None - Disposition Have Diagnosis and Disposition been Completed?: Yes Diagnosis: COPD (chronic obstructive pulmonary disease), Chest pain, Pneumothorax, Dyspnea, Lung mass, Leukocytosis, Anemia Disposition: HOSPITALIZED Disposition Time: 18:25 Patient Plan: Admission Patient Problems: Current Active Problems Problem Status Onset COPD (chronic obstructive pulmonary disease) Acute Chest pain Acute Dyspnea Acute Lung mass Acute Pneumothorax Acute Condition: SERIOUS
[2018-07-29] MEDS ORDERED: Albuterol-Ipratrop 3 mg / 0.5 (3 ml) UD IH STA (18:54)
[2018-07-29] MEDS ORDERED: Morphine 2 mg/ml ISec ONE (18:58)
[2018-07-29] MEDS ORDERED: Levalbuterol 1.25 MG/3 ML Inhal Soln UD IH PRN (21:04)
[2018-07-29] MEDS: Arformoterol 15 mcg/2 ml Inh Sol IH SCH (21:22)
--- NOTE | 2018-07-29 21:42 | CP.PCM.CON ---
History of Present Illness - History of Present Illness History of Present Illness: Markus Wiley PGY2 ICU Consult Note for Dr. Flores 62 year old female with PMH of R-sided lung CA with pleural effusions with right sided chest catheter, COPD (on home O2), GERD, diverticulosis, and prior AFib presents with Chest pain and SOB. Patient states pain is in the left side of her chest but is not pleuritic and not reproducible. It began this morning, and she was having trouble doing work at home and getting short of breath. She called Dr. Orozco today and he told her to come to the ED as it might be another effusion on the other side. She states it has been improved since she got to the hospital. Patient has chest tube in place. Patient denies nausea, vomiting, fever, chills or any other complaints at this time. PMD: Dr. Lopez Past Medical History: R-sided lung CA, COPD (on home O2), GERD, diverticulosis, and prior AFib Past Surgical History: R-sided hip replacement Allergies: NKA Home medications: Sotalol 80 mg BID, Xanax 0.25 mg HS, Spiriva 2 puff IH daily, Prednisone 10 mg daily, Dexilant 60 mg daily, Lipitor 10 mg DIN, Brovana 1 kasey IH BID Family History: reviewed, non-contributory Social History: admits to smoking approximately 1 PPD for past 40 years, reports social EtOH use, denies illicit drug use Pharmacy: [id number] Review of Systems - Cardiovascular Cardiovascular: Chest Pain, Dyspnea - Respiratory Respiratory: Dyspnea. absent: Cough Past Patient History - Infectious Disease Hx of Infectious Diseases: None - Tetanus Immunizations Tetanus Immunization: Unknown - Past Medical History & Family History Past Medical History?: Yes - Past Social History Smoking Status: Former Smoker - CARDIAC Hx Cardiac Disorders: Yes - PULMONARY Hx Chronic Obstructive Pulmonary Disease (COPD): Yes - NEUROLOGICAL Hx Paralysis: No - HEENT Hx HEENT Problems: No - RENAL Hx Chronic Kidney Disease: No - ENDOCRINE/METABOLIC Hx Endocrine Disorders: No - HEMATOLOGICAL/ONCOLOGICAL Hx Blood Transfusions: No - INTEGUMENTARY Hx Dermatological Problems: No - MUSCULOSKELETAL/RHEUMATOLOGICAL Hx Arthritis: Yes - GASTROINTESTINAL Hx Gastroesophageal Reflux: Yes - GENITOURINARY/GYNECOLOGICAL Hx Genitourinary Disorders: No - PSYCHIATRIC Hx Emotional Abuse: No Hx Physical Abuse: No Hx Substance Use: No - SURGICAL HISTORY Hx Orthopedic Surgery: Yes Other/Comment: Right hip replacement, right femur - ANESTHESIA Hx Anesthesia Reactions: No Hx Malignant Hyperthermia: No Meds Allergies/Adverse Reactions: Allergies Allergy/AdvReac Type Severity Reaction Status Date / Time No Known Allergies Allergy Verified 07/29/18 19:15 - Medications Medications: Current Medications Alprazolam (Xanax) 0.25 mg PO HS [facility]; Protocol Stop: 08/05/18 22:01 Alprazolam (Xanax) 0.25 mg PO TID PRN; Protocol PRN Reason: Anxiety Apixaban (Eliquis) 5 mg PO BID [facility]; Protocol Arformoterol Tartrate (Brovana) 15 mcg IH [id number] [facility] Last Admin: 07/29/18 21:22 Dose: 15 mcg Atorvastatin Calcium (Lipitor) 10 mg PO DIN [facility] Budesonide (Pulmicort Respules) 1 mg IH [id number] [facility] Digoxin (Digoxin) 0.125 mg PO 1400 [facility] Fentanyl (Duragesic) 1 patch TD Q72H [facility] Levalbuterol HCl (Xopenex) 1.25 mg IH [id number] PRN PRN Reason: Shortness of Breath Morphine Sulfate (Morphine) 2 mg IVP Q3H PRN PRN Reason: pain Multivitamins (Thera Tab) 1 tab PO DAILY [facility] Ondansetron HCl (Zofran Inj) 4 mg IVP Q6H PRN PRN Reason: Nausea/Vomiting Pantoprazole Sodium (Protonix Ec Tab) 40 mg PO ACB ANTIONETTE Prednisone (Prednisone Tab) 20 mg PO DAILY [facility] Sotalol HCl (Betapace) 80 mg PO BID [facility] Physical Exam - Constitutional Appears: No Acute Distress - Head Exam Head Exam: ATRAUMATIC, NORMAL INSPECTION, NORMOCEPHALIC - Eye Exam Eye Exam: EOMI, Normal appearance - ENT Exam ENT Exam: Mucous Membranes Moist - Respiratory Exam Respiratory Exam: Wheezes, NORMAL BREATHING PATTERN - Cardiovascular Exam Cardiovascular Exam: Irregular Rhythm - GI/Abdominal Exam GI & Abdominal Exam: Soft. absent: Tenderness - Neurological Exam Neurological exam: Alert, CN II-XII Intact, Oriented x3, Reflexes Normal Results - Vital Signs Recent Vital Signs: Last Vital Signs Temp Pulse 104 H 07/29/18 19:48 Resp 20 07/29/18 19:48 BP 114/62 07/29/18 19:48 Pulse Ox 90 L 03/31/19 19:48 - Labs Result Diagrams: 07/29/18 16:25 07/29/18 16:25 Labs: Laboratory Results - last 24 hr 07/29/18 07/29/18 07/29/18 16:25 16:25 16:25 WBC 12.1 H D RBC 3.08 L Hgb 10.0 L Hct 31.1 L MCV 101.0 MCH 32.5 MCHC 32.2 RDW 17.8 H Plt Count 240 MPV 9.1 Neut % (Auto) 87.6 H Lymph % (Auto) 8.4 L [place] % (Auto) 3.7 Eos % (Auto) 0.2 L Baso % (Auto) 0.1 Lymph # (Auto) 1.0 L [place] # (Auto) 0.5 Eos # (Auto) 0.0 Baso # (Auto) 0.01 Absolute Neuts (auto) 10.62 H PT 19.5 H INR 1.76 APTT 28.1 pO2 VBG pH VBG pCO2 VBG HCO3 VBG Total CO2 VBG O2 Sat (Calc) VBG Base Excess VBG Potassium Sodium 133 Chloride 94 L Glucose Lactate FiO2 Potassium 3.9 Carbon Dioxide 34 H Anion Gap 9 L BUN 11 Creatinine 0.2 L Est GFR ( Amer) > 60 Est GFR (Non-Af Amer) > 60 Random Glucose 152 H Calcium 8.7 Magnesium 1.6 L Total Bilirubin 1.0 AST 25 ALT 17 Alkaline Phosphatase 304 H Lactate Dehydrogenase 987 H Total Creatine Kinase < 20 L Troponin I < 0.01 NT-Pro-B Natriuret Pep 265 Total Protein 6.3 Albumin 3.1 Globulin 3.2 Albumin/Globulin Ratio 1.0 L Venous Blood Potassium Urine Color Urine Appearance Urine pH Ur Specific [place] Urine Protein Urine Glucose (UA) Urine Ketones Urine Blood Urine Nitrate Urine Bilirubin Urine Urobilinogen Ur Leukocyte Esterase Urine RBC Urine WBC Ur Epithelial Cells Urine Bacteria Influenza Typ A,B (EIA) 07/29/18 07/29/18 07/29/18 16:25 16:25 18:19 WBC RBC Hgb Hct MCV MCH MCHC RDW Plt Count MPV Neut % (Auto) Lymph % (Auto) [place] % (Auto) Eos % (Auto) Baso % (Auto) Lymph # (Auto) [place] # (Auto) Eos # (Auto) Baso # (Auto) Absolute Neuts (auto) PT INR APTT pO2 54 VBG pH 7.43 VBG pCO2 56.0 VBG HCO3 37.2 H VBG Total CO2 38.9 H VBG O2 Sat (Calc) 92.3 H VBG Base Excess 10.7 H VBG Potassium 4.0 Sodium 135.0 Chloride 98.0 Glucose 157 H Lactate 1.0 FiO2 21.0 Potassium Carbon Dioxide Anion Gap BUN Creatinine Est GFR ( Amer) Est GFR (Non-Af Amer) Random Glucose Calcium Magnesium Total Bilirubin AST ALT Alkaline Phosphatase Lactate Dehydrogenase Total Creatine Kinase Troponin I NT-Pro-B Natriuret Pep Total Protein Albumin Globulin Albumin/Globulin Ratio Venous Blood Potassium 4.0 Urine Color Yellow Urine Appearance Sl cloudy Urine pH 6.0 Ur Specific [place] 1.010 Urine Protein Negative Urine Glucose (UA) Negative Urine Ketones Negative Urine Blood Negative Urine Nitrate Negative Urine Bilirubin Negative Urine Urobilinogen 1.0 H Ur Leukocyte Esterase Trace H Urine RBC 0 - 2 Urine WBC 2 - 5 Ur Epithelial Cells 1 - 3 Urine Bacteria Few Influenza Typ A,B (EIA) Negative for flu a/b Assessment & Plan - Assessment and Plan (Free Text) Assessment: 62 yo F with PMH of R-sided lung CA with pleural effusions with right sided chest catheter, COPD (on home O2), GERD, diverticulosis, and prior AFib presents with chest pain and SOB. Plan: Chest Pain Rule out ACS -initial EKG NSR -initial trop negative continue to trend -Dr. Jay cardiology consulted SOB -Chest CT: There is an irregular right perihilar mass in the right lower lobe measuring 25 x 36 mm. This was previously biopsied. There is a small pneumothorax at the right lung base. A chest tube is seen at the right lung base posteriorly. Severe emphysema is also noted especially in the upper lobes. -previous chest tube in place -IR consulted, Dr. Orozco -Chest X-ray IMPRESSION: Decreased size of right pleural effusion. The CT scan obtained on the same day shows a right-sided pneumothorax at the right lung base. A chest tube is seen in place. Dictator: Jose Armas MD Afib-chronic -continue home sotalol, eliquis Patient currently keller snot require ICU level of care, please consult if needed
[2018-07-29] MEDS ORDERED: guaiFENesin 100 mg/5 ml Syrup UD PO STA (22:04)
[2018-07-29 22:51] VITALS: BMI 18.3
[2018-07-29] MEDS ORDERED: Pneumococcal 23-Valent Vaccine IM ONE (22:51)
[2018-07-29] MEDS: Morphine 2 mg/ml ISec IVP PRN (23:33)
--- NOTE | 2018-07-30 00:43 | HP ---
DATE OF EXAM: 07/29/2018 HISTORY OF PRESENT ILLNESS: She has recently had a PleurX catheter placed by Dr. Brayan Orozco. It has been leaking for the past 3 to 4 or 5 days. She had it drained once on the outpatient and it is still leaking. She had gotten in contact with Dr. Brayan Orozco, and he told her to go to the emergency room. In the ER, she was found to have a small right pneumothorax. PAST MEDICAL HISTORY: She is a 62-year-old white female with severe right lung cancer with persistent pleural effusions with a PleurX catheter in place, uncomfortable with chest pain, she gets short of breath and uncomfortable, and she is back in the hospital again. She had multiple hospital admissions for her lung cancer and had situations with severe COPD from smoking and emphysema. She has arthritis, she has gastroesophageal reflux, chronic pain now. She had a right hip replacement and a right femur in the past. SOCIAL HISTORY: A former smoker up until about 2 months ago. Social alcohol. No substance abuse. ALLERGIES: NO KNOWN DRUG ALLERGIES. MEDICATIONS: She is Dexilant daily, vitamin, Brovana, Lipitor, Xanax, Zofran, prednisone, Pulmicort. REVIEW OF SYSTEMS: No acute vision or hearing changes. She is very anxious, more anxious than usual. She wants to talk to the psychiatrist. No abdominal pain. No nausea, vomiting, constipation, or diarrhea. She is having shortness of breath, cough, and wheezing. She does not have any chest pain or dyspnea on exertion. No palpitations. No calf pain. There is some back pain; she has ice on it right now. No neck pain. No apparent rashes or ulcers that she knows of. No headache or dizziness. No focal weakness. No problems urinating. Not an easy bleeder. PHYSICAL EXAMINATION VITAL SIGNS: She had some vital signs done. She has a 70 to 100 pulse rate, 114/62 blood pressure, 20 respiratory rate, and 98% O2 saturation on 3 L. HEENT: Head; atraumatic, normocephalic. Extraocular muscles are intact. Pupils equally reactive to light. Throat is moist. NECK: Supple. No JVD. No palpable lymphadenopathy. Thyroid midline. HEART: Regular rate. A little tachy. Systolic murmur. LUNGS: Decreased breath sounds, almost no movement on the right side, decreased on the left. Occasional congestion. She has wheezes. ABDOMEN: Soft and nontender. Positive bowel sounds. No guarding. No rebound. No CVA tenderness. EXTREMITIES: No edema. She moves all four extremities well. SKIN: As far as I could tell is warm and dry. No apparent ulcers or rashes. Skin is with fair turgor. NEUROLOGIC: Alert, awake, and oriented x3. Cranial nerves II through XII grossly intact. She is very anxious, has not stopped talking says the ; she is having some issues with her lungs. LABORATORY DATA: She had a CAT scan of the chest that showed decreased size of the right pleural effusion on the CAT scan obtained on the same day, right-sided pneumothorax at the right lung base, the chest tube is seen in place. She has a 12.1 white count, but she is on steroids on the outpatient. Hemoglobin 10, hematocrit 31.1, with platelets 240. INR is 1.76. Lactate is 1. Sodium 133, potassium 3.9, BUN 11, creatinine 0.2, GFR is greater than 60, sugar is 152, calcium is 8.7, magnesium 1.6, total bilirubin is 1, AST is 25, ALT is 17, alkaline phosphatase is 304, lactate dehydrogenase 987, troponin I is less than 0.01. The BNP is 265, total protein 6.0, albumin 3.1. Urine is trace. Negative influenza. PLAN: She is going to have consults with Pulmonary, Cardiology, interventional radiologist and Psychiatry. She will be put back on medications; her pain medications and her anti-anxiety medications. Hopefully, she will improve. IMPRESSION: She has pneumothorax from PleurX catheter and also lung cancer. Garfield Lopez DO
[2018-07-30] MEDS ORDERED: Albuterol-Ipratrop 3 mg / 0.5 (3 ml) UD IH SCH (02:00)
[2018-07-30] MEDS: Morphine 2 mg/ml ISec IVP PRN ×4 (02:17→22:28)
[2018-07-30] MEDS ORDERED: guaiFENesin 100 mg/5 ml Syrup UD PO STA (02:36)
[2018-07-30] MEDS ORDERED: Magnesium Sulfate 1 gm in D5W 1 GM/100 ML BAG IVPB ONE (03:32)
[2018-07-30] MEDS: Budesonide 0.5 mg/2 ml Inhal Susp UD IH SCH ×2 (07:38→19:25)
[2018-07-30] MEDS: Levalbuterol 1.25 MG/3 ML Inhal Soln UD IH SCH ×3 (07:38→19:25)
[2018-07-30] MEDS: Arformoterol 15 mcg/2 ml Inh Sol IH SCH ×2 (07:38→19:25)
[2018-07-30 07:45] LABS: HEMOGLOBIN 9.4 g/dL (12.0-16.0); LYMPH # 1.4 (1.2-3.4); LYMPH % 14.4 % (22.0-35.0); MEAN CELL VOLUME 101.4 fl (80.0-105.0); MEAN CORPUSCULAR HGB CONC 31.5 g/dl (31.0-37.0); MEAN PLATELET VOLUME 8.9 fl (7.0-11.0); MONO # 0.6 (0.1-0.6); MONO % 6.2 % (1.0-6.0); RBC 2.94 10^6/uL (3.5-6.1); RED CELL DISTRIBUTION WIDTH 17.7 % (11.5-14.5); WHITE BLOOD COUNT 9.7 10^3/uL (4.5-11.0)
[2018-07-30] MEDS ORDERED: Budesonide 0.5 mg/2 ml Inhal Susp UD IH SCH (08:00)
[2018-07-30 08:14] LABS: ALB/GLOB RATIO 1.1 (1.1-1.8); ALBUMIN 3.1 g/dL (3.0-4.8); ALT/SGPT 22 U/L (7-56); AST/SGOT 22 U/L (14-36); BLOOD UREA NITROGEN 12 mg/dL (7-21); CALCIUM 8.8 mg/dL (8.4-10.5); GFR NON-AFRICAN AMERICAN > 60
--- NOTE | 2018-07-30 08:44 | CON ---
DATE OF CONSULTATION: 07/30/2018 PULMONARY CONSULTATION REFERRING PHYSICIAN FOR THIS PULMONARY CONSULTATION: Dr. Lopez. REASON FOR THIS PULMONARY CONSULTATION: Chronic obstructive pulmonary disease. HISTORY OF PRESENT ILLNESS: The patient is a very chronically ill 62-year-old female, with past medical history significant for advanced/extensive adenocarcinoma of the right lung, recurrent right pleural effusions, status post indwelling pleural catheter placement, advanced chronic obstructive pulmonary disease, on home oxygen, cardiac arrhythmias, who presents to [facility] with main complaint of left-sided chest pain "on and off" for the past 2 days. In addition, the patient also states to worsening shortness of breath on exertion and cough - also for the past 2 days. The patient is not short of breath at rest. There is no history of significant sputum production. There is no history of coughing up of blood. There is no history of chest pain - brought on or made worse with deep respirations. There is no history of temperatures, chills or infectious exposure. There is no history of night sweats. The patient does state to weight loss with decreased appetite over the past few months. No history of calf pains. No history of syncope or diaphoresis. No history of recent travel or trauma. REVIEW OF SYSTEMS: No history of nausea, vomiting or diarrhea. No acute urinary symptoms. No new neurologic complaints. Rest of the review of systems is negative. ALLERGIES: NO KNOWN ALLERGIES. SOCIAL HISTORY: Positive for extensive tobacco usage. No alcohol. FAMILY HISTORY: No inheritable diseases. HOME MEDICATIONS: Include prednisone, Lipitor, Xanax, Pulmicort, Betapace, Dexilant, Brovana, Eliquis, and Fentanyl. PHYSICAL EXAMINATION: GENERAL: The patient is not short of breath at rest. She is not using accessory muscles for breathing. VITAL SIGNS: Temperature is 97.5, pulse 81, respirations 18, blood pressure 114/64. Oxygen saturation on nasal cannula - 97%. HEENT: Normocephalic, atraumatic. NECK: No JVD. CARDIOVASCULAR: Positive S1, S2. No S3, gallop. LUNGS: Decreased breath sounds at the bases. Minimal rhonchi bilaterally, with a few wheezes also appreciated. EXTREMITIES: Mild edema. No cyanosis. No clubbing. Calves are nontender to palpation. GASTROINTESTINAL: Abdomen is soft, nontender and nondistended. Bowel sounds are positive. SKIN: No acute rash. NEUROLOGIC: Exam is limited at the present time. PERTINENT LABORATORY DATA: CT scan of the chest was done yesterday and reviewed. There is a small right-sided pneumothorax - primarily at the base. There is severe emphysema noted. There is an irregular right perihilar mass - which was previously biopsied. CBC: White count 12.1K, hemoglobin 10, hematocrit 31.1, platelets of 240,000. The prothrombin time - 19.5. Complete metabolic profile: Chloride 94, carbon dioxide 34, glucose 152, alkaline phosphatase 304, LDH 987. Rest of the metabolic profile is within normal limits. IMPRESSION: 1. Chest pain - sporadic. 2. Advanced/extensive adenocarcinoma of the right lung. 3. Advanced chronic obstructive pulmonary disease, on home oxygen. 4. Recurrent right pleural effusions. 5. Small right-sided pneumothorax. PLAN: I did discuss the case with the night nurse at length. I have also reviewed the chart at length, and discussed the case with the patient at length. The patient presents to [facility] with main complaint of chest pain "on and off" for the past 2 days. The chest pain is not related to deep respirations or palpation. It is located primarily on the left side. Cardiology evaluation with Dr. Jay has been ordered. I did review the CT scan of the chest. A small right basilar pneumothorax is noted. Dr. Brayan Orozco has been called on the case for evaluation. On physical exam, the patient is in [id number] bronchospasm. I will change the Xopenex nebulizer treatments to [id number], and continue with the inhaled Pulmicort. I will also change from oral prednisone to intravenous Solu-Medrol at this point in time. There is no history of temperatures. There is a very mild leukocytosis - probably secondary to outpatient steroids. The patient does state to feeling better this morning and is clinically improved. She denies chest pain at the time of my examination. Additional pulmonary intervention will be based on the clinical status of the patient. Unfortunately, the future status/prognosis for this patient remains very, very poor. All are aware. I will discuss the above with Dr. Lopez this morning. Thank you very much for this pulmonary consultation. Kevin Karpman, MD [facility] # [id number] JARET
[2018-07-30] MEDS: Pantoprazole 40 mg EC Tab PO SCH (09:14)
--- NOTE | 2018-07-30 09:16 | CARD ---
APPROVED REPORT Date of service: 07/29/2018 EKG Measurement Heart [id number] <Conclusion> Sinus rhythm with short AK Nonspecific ST and T wave abnormality Abnormal ECG
[2018-07-30] MEDS: Multivitamin Therapeutic Tab PO SCH (10:15)
[2018-07-30] MEDS: MethylPREDNISolone 40 mg Vial IVP SCH ×2 (12:15→22:20)
--- NOTE | 2018-07-30 12:23 | PN ---
DATE: 07/30/2018 SUBJECTIVE: She is sitting up in bed. She has had a good night sleep last night, actually, she has pretty good spirits right now. She is waiting for Dr. Brayan Orozco to come and adjust her PleurX. She has a pneumothorax, but she is breathing okay. She was put on Solu-Medrol now by the template cutter. I am going to order physical therapy, so she does not lose much strength while she is here. She is motivated. She has somewhat of an appetite, breathing little bit better. PHYSICAL EXAMINATION: VITAL SIGNS: She has a 97.5 temperature, 80 pulse, 106 pulse, 114/64 blood pressure, 97% O2 sat on 2 liters. HEENT: Head is atraumatic, normocephalic. HEART: Regular rate. LUNGS: Decreased breath sounds, almost no movement on the right side decrease in the left. Occasional wheeze. ABDOMEN: Soft. EXTREMITIES: No edema. LABORATORY DATA: She has a 9.7 white count, 9.4 hemoglobin, 29.8 hematocrit with a 220 platelets. 1.76 INR. She has 133 sodium, potassium 4.3, BUN 12, creatinine 0.2, GFR is greater than 60, sugar is 128, calcium is 8.8, total bili is 0.9, AST is 22, ALT is 22, alk phos 265, total protein 6. Fluids negative. She is going to be seen by Brayan Orozco interventional radiologist, Pulmonology, and Cardiology. MEDICATIONS: She is on sotalol, Brovana, digoxin, fentanyl patch, Eliquis, Lipitor, morphine, Protonix, Pulmicort, Solu-Medrol 30, multivitamin, Xanax, Xopenex and Zofran. Hopefully she will do well with Dr. Brayan Orozco adjust the PleurX catheter. She is on IV Solu-Medrol, we will watch very closely. She has got stage IV lung cancer Garfield Lopez DO [facility]
--- NOTE | 2018-07-30 12:51 | CON ---
DATE OF CONSULTATION: 07/30/2018 CARDIOLOGY CONSULTATION HISTORY: The patient is a 62-year-old woman with a history of lung CA as well as recurrent pleural effusions, who presents with shortness of breath. She was found to have increasing pleural effusion with possible pneumothorax. She is here for treatment of her lung. PAST MEDICAL HISTORY: The patient's past medical history includes severe COPD; severe pulmonary hypertension; paroxysmal atrial fibrillation, which since has been remained in normal sinus rhythm; cardiac catheterization. An echocardiogram in the past revealed normal LV function with nonobstructive CAD as well as severe pulmonary hypertension. Currently, the patient denies chest pain, denies shortness of breath. Does admit to occasional pedal edema. SOCIAL HISTORY: She is a former smoker. REVIEW OF SYSTEMS: Fourteen-point review of systems is reviewed in detail. No additional cardiac symptoms are noted. PHYSICAL EXAMINATION: VITAL SIGNS: Blood pressure is 114/64, the heart rate is in the 80s, normal sinus rhythm. NECK: Negative JVD. LUNGS: Decreased breath sounds. HEART: Reveal S1, S2. EXTREMITIES: Trace edema. LABORATORY DATA: Hemoglobin is 9.4. Chemistries, BUN and creatinine are unremarkable. IMPRESSION: 1. Right pleural effusion and questionable pneumothorax. 2. Paroxysmal atrial fibrillation. The patient remains in normal sinus rhythm. 3. Severe chronic obstructive pulmonary disease. 4. Severe pulmonary hypertension. 5. History of lung cancer. 6. Anemia. PLAN: Given these findings, the patient's cardiac status is at its baseline. Much of her pedal edema is due to her severe pulmonary hypertension. Brayan Jay MD
[2018-07-30] MEDS: Digoxin 125 mcg (0.125 mg) Tab PO SCH (13:27)
[2018-07-30] MEDS: Promethazine DM 6.25 mg-15 mg/5 ml Syrup PO PRN ×2 (13:28→21:06)
[2018-07-31] MEDS: Levalbuterol 1.25 MG/3 ML Inhal Soln UD IH SCH ×5 (02:38→19:15)
--- NOTE | 2018-07-31 02:45 | CON ---
DATE: 07/30/2018 HISTORY OF PRESENT ILLNESS: The patient is a 62-year-old female with multiple medical issues, including COPD, history of pleural effusion, right-sided chest catheter, history of lung cancer, history of cardiac arrhythmias. The patient was admitted on the medical side for chest pain and shortness of breath. Psych consult was called for evaluation of anxiety and insomnia and mood lability. The patient was seen and examined today. The patient presented to be alert. The patient seems to be in good spirits, reported that she is going to beat the counselor and she is very strong. The patient reported last admission on the medical side when the patient was discharged on 07/23, the patient had episode of confusion and the patient was feeling that she was held hostage and the patient seemed to be delirious back then. The patient reported that she was provided with the medication, which she feels overly medicated. The patient reported since that time, she has difficulty to sleep, difficulty to fall asleep, and to stay asleep. The patient reported that she does not want to take any medications including sleeping medications as well as pain medications. The patient reported that she feels comfortable on Xanax at the present moment. The patient denied hallucinating. The patient denied any thoughts of harming herself or others. The patient has a transient feeling of depression, but denied any thoughts of killing herself or others. The patient reported that she has a supportive . The patient reported that she does not hear things, does not see anything unusual. PAST MEDICAL HISTORY: In regards of the past history, the patient has history of polysubstance abuse and the patient was admitted to the psychiatric inpatient unit in her teens. The patient also had history of impulsive behavior, being under the influence of drugs. Right now, the patient is very cautious about medications what she is taking and reported being sober for many years. Vital signs are stable. MEDICATIONS: Reviewed. The patient is on Xanax 0.25 mg 3 times a day as needed, Xanax 0.25 mg at the nighttime, Eliquis, Brovana, Lipitor, Pulmicort, digoxin, folic acid, Solu-Medrol, morphine, multivitamins, Zofran, Protonix, and sotalol. LABORATORY DATA: Labs were reviewed. At the time of admission, white blood cells were 12.1. Coagulations reviewed. Chemistry reviewed. Urinalysis reviewed. Leukocyte esterase was trace. Serology was negative. MENTAL STATUS EXAMINATION: The patient presented in good spirits. Fair eye contact. Mood described as "I feel strong." Affect was labile at times. The patient was tearful, especially when she was talking about her medical issues. Thought process at times circumstantial. Thought content, the patient denied visual, auditory, or tactile hallucinations. Denied paranoid ideation. The patient denied thoughts of harming herself or others. Denied intent or plan. Insight and judgment seems to be fair. Impulses are well controlled. IMPRESSION: Rule out anxiety due to general medical condition, rule out mood disorder due to general medical condition. PLAN: Continue current management. Continue current medication. The patient is not interested to be on any medication for sleep or depression. The patient tolerated Xanax well. We will follow up and advise accordingly. Should you have any questions, give me a callback. Thank you very much. Dayanara Nava MD JARET
[2018-07-31 07:12] LABS: HEMOGLOBIN 9.1 g/dL (12.0-16.0); MEAN CELL VOLUME 104.2 fl (80.0-105.0); MEAN CORPUSCULAR HEMOGLOBIN 31.8 pg (25.0-35.0); MEAN CORPUSCULAR HGB CONC 30.5 g/dl (31.0-37.0); MEAN PLATELET VOLUME 9.2 fl (7.0-11.0); RBC 2.86 10^6/uL (3.5-6.1); RED CELL DISTRIBUTION WIDTH 18.1 % (11.5-14.5); WHITE BLOOD COUNT 9.7 10^3/uL (4.5-11.0)
[2018-07-31] MEDS: Budesonide 0.5 mg/2 ml Inhal Susp UD IH SCH ×2 (07:36→19:14)
[2018-07-31] MEDS: Arformoterol 15 mcg/2 ml Inh Sol IH SCH ×2 (07:36→19:14)
[2018-07-31 07:57] LABS: ALB/GLOB RATIO 1.2 (1.1-1.8); ALBUMIN 3.4 g/dL (3.0-4.8); ALT/SGPT 21 U/L (7-56); AST/SGOT 23 U/L (14-36); BLOOD UREA NITROGEN 14 mg/dL (7-21); CALCIUM 8.9 mg/dL (8.4-10.5); GFR NON-AFRICAN AMERICAN > 60
--- NOTE | 2018-07-31 08:56 | PN ---
DATE: 07/31/2018 PULMONARY NOTE SUBJECTIVE: The patient appears comfortable this morning. She is not short of breath at rest. PHYSICAL EXAMINATION: VITAL SIGNS: Temperature is 98, pulse 70, respirations 18/20, blood pressure 100/63. Oxygen saturation on nasal cannula is 99%. HEENT: Normocephalic, atraumatic. NECK: No JVD. CARDIOVASCULAR: Positive S1, S2. No S3 gallop. LUNGS: Improved breath sounds at the bases. Less rhonchi. No wheezing this morning. EXTREMITIES: Mild edema. No cyanosis, no clubbing. Calves are nontender to palpation. GASTROINTESTINAL: Abdomen is soft, nontender and nondistended. Bowel sounds are positive. SKIN: No acute rash. NEUROLOGIC: Limited at the present time. IMPRESSION: 1. Chest pain - sporadic. 2. Advanced/extensive adenocarcinoma of the right lung. 3. Advanced chronic obstructive pulmonary disease, on home oxygen. 4. Recurrent right pleural effusions. 5. Small right-sided pneumothorax. PLAN: The patient appears quite comfortable this morning. She is not short of breath at rest. She does state to feeling much better overall. On physical exam, her bronchospasm is certainly less. In addition, the oxygen saturation on nasal cannula is now 99%. I will continue the current nebulizer treatments and decrease the intravenous steroids this morning. Inputs by Cardiology and Psychiatry are also noted. Dr. Orozco (Interventional Radiology) is also involved. Clinical status of the patient is certainly improved - compared to the initial presentation. The patient's chest pain has now resolved. Unfortunately, the future status/prognosis for this patient remains very poor. All are aware. I will discuss the above with Dr. Lopez. Kevin Wells MD JARET
[2018-07-31] MEDS: Pantoprazole 40 mg EC Tab PO SCH (09:54)
[2018-07-31] MEDS: MethylPREDNISolone 40 mg Vial IVP SCH ×2 (09:54→22:22)
[2018-07-31] MEDS: Multivitamin Therapeutic Tab PO SCH (09:54)
[2018-07-31] MEDS: Morphine 2 mg/ml ISec IVP PRN ×3 (10:26→22:23)
--- NOTE | 2018-07-31 11:54 | PN ---
DATE: 07/31/2018 SUBJECTIVE: She is sitting up in bed, resting comfortably. She is feeling okay in this room. Less anxiety. I understand Dr. Brayan Orozco is working on her PleurX catheter. He is going to put some stitches in today. So far, it is still leaking a little bit, but not as bad. She is on Betapace, Brovana, digoxin, Duragesic, Eliquis, folic acid, Lipitor, morphine, Phenergan, Protonix, Pulmicort, Solu-Medrol down to 20, Thera-Tabs, Xanax, Zofran and Xopenex. She is breathing better with the IV Solu-Medrol. PHYSICAL EXAMINATION: GENERAL: She is much calmer today than when she came in. VITAL SIGNS: Temperature 98, 82 pulse, 100/63 blood pressure, 20 respiratory rate, 99% O2 sat on nasal cannula. HEAD: Atraumatic, normocephalic. HEART: Regular rate. LUNGS: Decreased breath sounds, almost no breath sounds on the right side, left side clear but decreased. ABDOMEN: Soft. EXTREMITIES: No edema. LABORATORY DATA: She has a 9.7 white count, 9.1 hemoglobin, 29.8 hematocrit with 246 platelets. INR is 1.76. Sodium 136, potassium 4.3, BUN 14, creatinine 0.3, GFR is greater than 60, sugar is 126, calcium 8.9, total bili is 0.6, AST is 23, ALT is 21, alk phos 264. Total protein is 6.2. She was seen by Psychiatry, Pulmonology, Cardiology. She is having chest pain and shortness of breath. She has adenocarcinoma of the right lung, advanced COPD, home oxygen, recurrent pleural effusions, small right-sided pneumothorax. With the adjustment of the PleurX with Dr. Brayan Orozco today, probably some sutures placed, do not think it will leak anymore. We will watch her overnight, slowly wean her off the steroids and hopefully get her out tomorrow. Garfield Lopez DO
[2018-07-31] MEDS: Promethazine DM 6.25 mg-15 mg/5 ml Syrup PO PRN ×2 (12:12→18:53)
[2018-07-31 14:16] VITALS: PULSE 86
[2018-07-31] MEDS: Digoxin 125 mcg (0.125 mg) Tab PO SCH (14:16)
--- NOTE | 2018-07-31 15:44 | CP.PCM.PCO ---
Physician Communication Note - Physician Communication Note Physician Communication Note: pt was having procedure PleurX with today.
[2018-08-01] MEDS: Levalbuterol 1.25 MG/3 ML Inhal Soln UD IH SCH ×4 (01:51→13:14)
[2018-08-01] MEDS: Morphine 2 mg/ml ISec IVP PRN ×2 (02:42→09:15)
[2018-08-01 06:12] VITALS: O2SAT 100
[2018-08-01] MEDS: Promethazine DM 6.25 mg-15 mg/5 ml Syrup PO PRN (07:15)
[2018-08-01] MEDS: Arformoterol 15 mcg/2 ml Inh Sol IH SCH (07:21)
[2018-08-01] MEDS: Budesonide 0.5 mg/2 ml Inhal Susp UD IH SCH (07:21)
--- NOTE | 2018-08-01 07:25 | PN ---
DATE: 08/01/2018 PULMONARY NOTE SUBJECTIVE: The patient appears very comfortable this morning. She is not short of breath at rest. PHYSICAL EXAMINATION: VITAL SIGNS: Temperature 98, pulse 74, respirations 18/20, blood pressure 111/62, and oxygen saturation on nasal cannula is 100%. HEENT: Normocephalic, atraumatic. No JVD. CARDIOVASCULAR: Positive S1 and S2. No S3 gallop. LUNGS: Very minimal/less rhonchi. No wheezing. EXTREMITIES: Mild edema. No cyanosis. No clubbing. Calves are nontender to palpation. GASTROINTESTINAL: Abdomen is soft, nontender and nondistended. Bowel sounds are positive. SKIN: No acute rash. NEUROLOGIC: Limited at the present time. IMPRESSION: 1. Chest pain - sporadic - resolved. 2. Advanced/extensive adenocarcinoma of the right lung. 3. Advanced chronic obstructive pulmonary disease, on home oxygen. 4. Recurrent right pleural effusion. 5. Small right-sided pneumothorax. PLAN: The patient appears very comfortable this morning. She is not short of breath at rest. She does state she is feeling much, much better overall. On physical exam, her bronchospasm continues to resolve. In addition, the oxygen saturation on nasal cannula is now 100%. I will continue the current nebulizer treatments and change to oral steroids this morning. Inputs by Cardiology, Internal Medicine, Psychiatry are also noted. Clinical status of the patient is significantly improved - compared to the initial presentation. However, unfortunately, the future status/prognosis for this patient remains very poor. All are aware. I will discuss the above with Dr. Lopez. Kevin Wells MD JARET
[2018-08-01 07:40] LABS: HEMOGLOBIN 8.5 g/dL (12.0-16.0); MEAN CELL VOLUME 104.6 fl (80.0-105.0); MEAN CORPUSCULAR HEMOGLOBIN 32.3 pg (25.0-35.0); MEAN CORPUSCULAR HGB CONC 30.9 g/dl (31.0-37.0); MEAN PLATELET VOLUME 9.1 fl (7.0-11.0); RBC 2.63 10^6/uL (3.5-6.1); RED CELL DISTRIBUTION WIDTH 18.3 % (11.5-14.5); WHITE BLOOD COUNT 8.6 10^3/uL (4.5-11.0)
[2018-08-01 07:55] LABS: ALB/GLOB RATIO 1.2 (1.1-1.8); ALT/SGPT 23 U/L (7-56); AST/SGOT 21 U/L (14-36); BLOOD UREA NITROGEN 11 mg/dL (7-21); CALCIUM 8.5 mg/dL (8.4-10.5); GFR NON-AFRICAN AMERICAN > 60
[2018-08-01] MEDS: Pantoprazole 40 mg EC Tab PO SCH (08:09)
[2018-08-01] MEDS: Multivitamin Therapeutic Tab PO SCH (09:14)
--- NOTE | 2018-08-01 09:23 | PN ---
DATE: 08/01/2018 CARDIOLOGY FOLLOWUP SUBJECTIVE: The patient is comfortable. She wants to go home. PHYSICAL EXAMINATION: VITAL SIGNS: Stable. NECK: Negative JVD. LUNGS: Mild rhonchi noted. HEART: Reveals S1 and S2. EXTREMITIES: Trace edema. LABORATORY DATA: Not done today. IMPRESSION: 1. Lung carcinoma. 2. Severe chronic obstructive pulmonary disease. 3. Resolution of chest pain. 4. Right pleural effusion. 5. Small right pneumothorax. PLAN: Given these findings, from cardiac perspective, the patient is stable for discharge. Brayan Jay MD
[2018-08-01 12:06] VITALS: BP 122/60; PULSE 72; RESP 19; TEMP 98.4
--- NOTE | 2018-08-01 19:50 | PN ---
DATE: 08/01/2018 SUBJECTIVE: The patient was seen today. The patient presented in good spirit. The patient reported that she does not feel hopeless or helpless. She is more hopeful. The patient reported to feel comfortable. The patient reported that she does not have any thoughts of harming herself or others. OBJECTIVE: VITAL SIGNS: Stable. Temperature 98.4, pulse 72, blood pressure 122/60, respirations 19, and oxygen saturation is 100. MENTAL STATUS EXAM: The patient presented to be alert and oriented, pleasant, cooperative, mildly anxious, which could be related to COPD. Mood described "I'm going to fight that cancer, I'm not that easier to give up." Affect was reactive, mood congruent. Thought process, coherent and goal directed. Thought content, the patient denied visual, auditory, or tactile hallucinations. Denied paranoid ideation. The patient denied thoughts of harming herself or others. Denied intent or plan. Insight and judgment seems to be fair. Impulses are well controlled. MEDICATIONS: Reviewed. The patient was taking Xanax only as-needed 25 mg at the nighttime, but the patient took only one dose and refused to take any evening dose of Xanax. Meanwhile during the daytime, the patient was taking 0.25 mg twice a day maximum. As per report from the nursing staff, the patient does not exhibit any agitation or aggression or any confusion or any psychosis. LABORATORY DATA: Reviewed. Most recent was from today. IMPRESSION: Rule out adjustment disorder with depressed and anxious mood. PLAN: Continue current management. Continue current medication. The patient seems to be in good spirit. There is no need to be on any medication besides Xanax. The patient denied being depressed. Moreover, the patient does not express any interest in regards of sleeping medication. Should you have any questions, give me a call back. The patient pose no imminent danger to self or others. Psychiatry will sign off. Dayanara Nava MD
--- NOTE | 2018-08-02 02:11 | DS ---
HISTORY OF PRESENT ILLNESS: She was in the hospital with a pneumothorax on the right. She had a PleurX catheter that was leaking. She has a history of lung cancer and pleural effusions and it was adjusted and fixed and taken care of. MEDICATIONS: She is going to go home on Betapace, Brovana, digoxin, Duragesic patch, Eliquis, folic acid, Lipitor, Phenergan in the a.m., and prednisone, we will wean her down from 30 to 20 to 10 over the next week. She has Protonix, Pulmicort, Thera-Tabs, Xanax, Xopenex, and Zofran. PHYSICAL EXAMINATION: VITAL SIGNS: A 98 temperature, 74 pulse, 111/62 blood pressure, 20 respiratory rate, and 100% O2 sat on 4 L. HEAD: Atraumatic and normocephalic. HEART: Regular rate. LUNGS: Decreased breath sounds especially on the right, but no wheezes or rhonchi. ABDOMEN: Soft. EXTREMITIES: No edema. She had a PleurX catheter leaking issue, which was taken care by Dr. Brayan Orozco with a pneumothorax with lung cancer. LABORATORY DATA: She has an 8.6 white count, 8.5 hemoglobin, it did drop a little bit, we will keep an eye on that in outpatient, 27.5 hematocrit with 212 platelets. She tells me she is not bleeding anywhere. No signs of blood. Sodium 135, potassium 3.9, BUN 11, creatinine 0.3, GFR is greater than 60, sugar is 116, and calcium is 8.5. AST is 26, ALT is 21, alk phos 266, and total protein 5.5. ASSESSMENT AND PLAN: We are going to decrease her prednisone 30 times 3, 20 times 3 and then 10 times 3 and stop. We are going to recheck lab hemoglobin. When she came in, it was 10 and now it is down to an 8.5 and we will keep an eye on that. I will see her on a house call on the outpatient and she will come to the office. Garfield Lopez DO
== END 2018-08-01 13:30 | disposition home or self-care (01) | DRG 200 ==
LOC: ED 15:52 → ERH 18:03 → 2RSO 20:08
PROVIDERS: ADMIT Family Medicine; ATTEND Family Medicine
DX: J93.9 Pneumothorax, unspecified (principal); C34.91 Malignant neoplasm of unspecified part of right bronchus or lung; J90 Pleural effusion, not elsewhere classified; T85.638A Leakage of other specified internal prosthetic devices, implants and grafts, initial encounter; F17.210 Nicotine dependence, cigarettes, uncomplicated; Z99.81 Dependence on supplemental oxygen; I27.20 Pulmonary hypertension, unspecified; J43.9 Emphysema, unspecified; I25.10 Atherosclerotic heart disease of native coronary artery without angina pectoris; I48.0 Paroxysmal atrial fibrillation; D64.9 Anemia, unspecified; G47.00 Insomnia, unspecified; F41.9 Anxiety disorder, unspecified; R45.86 Emotional lability; D72.829 Elevated white blood cell count, unspecified; K21.9 Gastro-esophageal reflux disease without esophagitis; Z79.51 Long term (current) use of inhaled steroids; Z79.899 Other long term (current) drug therapy; Z96.641 Presence of right artificial hip joint; F43.23 Adjustment disorder with mixed anxiety and depressed mood

== ENCOUNTER 2018-08-02 20:50 | Observation (INO) | payer BC ==
[2018-08-02] MEDS ORDERED: Sodium Chloride 0.9% 500 ML IV STA (21:20)
--- NOTE | 2018-08-02 21:32 | ED PDOC ---
Arrival/HPI - General Chief Complaint: Palpitations Time Seen by Provider: 08/02/18 20:52 Historian: Patient - History of Present Illness Narrative History of Present Illness (Text): 08/02/18 21:23 62 female with atrial fibrillation presents from home with chief complaint of feeling jittery. Patient states she has been feeling this way all day, called her pcp dr. tobar,was instructed to come to ED. Patient states she felt her heart racing today, patient denies any chest pain or discomfort, no lightheadedness, no vomit, no diaphoresis. Patient states she took her regular cardiac meds including digoxin, recieved dose of cardizem by medics en route to hospital. Patient arrives in the awake and alert, mild distress, heart in the 150's, blood pressure upon bedside eval 89 sbp. Time/Duration: Prior to Arrival, 24 hours Symptom Onset: Gradual Symptom Course: Unchanged Activities at Onset: Light Past Medical History - Provider Review Nursing Documentation Reviewed: Yes - Infectious Disease Hx of Infectious Diseases: None - Tetanus Immunization Tetanus Immunization: Unknown - Cardiac Hx Cardiac Disorders: Yes (h/o cardiac arrythmias.) Hx Atrial Fibrillation: Yes - Pulmonary Hx Chronic Obstructive Pulmonary Disease (COPD): Yes Hx Emphysema: Yes Other/Comment: "lung fills up with fluid" drainage device put in by Dr. brayan covington. Lung CA with chemo treatment - Neurological Hx Paralysis: No - HEENT Hx HEENT Disorder: No - Renal Hx Renal Disorder: No - Endocrine/Metabolic Hx Endocrine Disorders: No - Hematological/Oncological Hx Blood Transfusions: No - Integumentary Hx Dermatological Disorder: No - Musculoskeletal/Rheumatological Hx Arthritis: Yes - Gastrointestinal Hx Gastroesophageal Reflux: Yes - Genitourinary/Gynecological Hx Genitourinary Disorders: No - Psychiatric Hx Emotional Abuse: No Hx Physical Abuse: No Hx Substance Use: No - Past Surgical History Past Surgical History: Non-Contributing - Surgical History Hx Cardiac Catheterization: Yes Hx Orthopedic Surgery: Yes Other/Comment: Right hip replacement, right femur - Anesthesia Hx Anesthesia: Yes Hx Malignant Hyperthermia: No - Suicidal Assessment Feels Threatened In Home Enviroment: No Family/Social History - Physician Review Nursing Documentation Reviewed: Yes Family/Social History: No Known Family HX Smoking Status: Former Smoker Hx Alcohol Use: Yes (SOCIAL) Hx Substance Use: No Hx Substance Use Treatment: Yes Allergies/Home Meds Allergies/Adverse Reactions: Allergies No Known Allergies Allergy (Verified 08/02/18 20:52) Home Medications: Home Meds Medication Instructions Recorded Confirmed Arformoterol [Brovana] 1 kasey IH BID 06/07/18 08/02/18 Atorvastatin [Lipitor] 20 mg PO DIN 06/07/18 08/02/18 ALPRAZolam [Xanax] 0.25 mg PO HS 06/29/18 08/02/18 Ondansetron ODT [Zofran ODT] 4 mg PO Q6 PRN 06/29/18 08/02/18 Budesonide [Pulmicort] 1 puff INH DAILY 07/29/18 08/02/18 Esomeprazole Magnesium [Nexium] 40 mg PO DAILY 08/02/18 08/02/18 Folic Acid 1 mg PO DAILY 08/02/18 08/02/18 Review of Systems - Physician Review All systems were reviewed & negative as marked: Yes - Review of Systems Respiratory: absent: SOB Cardiovascular: Palpitations. absent: Chest Pain Gastrointestinal: absent: Vomiting Neurological: absent: Dizziness Physical Exam - Physical Exam Narrative Physical Exam (Text): 08/02/18 21:37 Gen: VS reviewed, alert, well developed, well nourished, nontoxic, mild distress Eye: EOMI, PERRL ENT: normal pharynx. Neck: no JVD, supple, no adenopathy CV: Rapid heart rate, Irregularly irregular rhythm, no rubs,no murmur, S1, S2 Pulm: no distress, clear to auscultation, no wheeze, no rhonchi, breath sounds equal, no rales Abd: soft, nontender, no guarding, no rebound, no rigidity Ext: no edema Skin: good color, no rash, no cyanosis Psych: responds appropriately to questions, normal affect Neuro: oriented x3, CN2-12 intact grossly, motor intact, sensation intact Vital Signs Reviewed: Yes Vital Signs Pulse Resp BP BP Pulse Ox 08/02/18 21:15 121/70 08/02/18 20:53 78 20 157/77 H 100 Blood Pressure: Hypertensive Pulse: Regular Respiratory Rate: Normal Appearance: Positive for: Well-Appearing, Non-Toxic, Comfortable Pain Distress: None Mental Status: Positive for: Alert and Oriented X 3 Medical Decision Making ED Course and Treatment: 08/02/18 21:40 Impression: 62 year old female presents with rapid a-fib. Plan: -- CMP, Mg, Trop -- Chest X-ray -- Reassess and disposition Prior Visits: Notes and results from previous visits were reviewed. 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 : atrial fibrillation at 89 bpm - RAD Interpretation Radiology Orders: 08/02/18 21:20 CHEST PORTABLE [RAD] Stat - EKG Interpretation EKG Interpretation (Text): 08/02/18 21:05 Rapid A-fib @ 163 bpm Normal QRS Lateral rate-related ischemic abnormality Interpreted by ED Physician: Yes Type: 12 lead EKG - Medication Orders Current Medication Orders: Sodium Chloride (Sodium Chloride 0.9%) 500 mls @ 999 mls/hr IV .Q31M STA Stop: 08/02/18 21:50 - Scribe Statement The provider has reviewed the documentation as recorded by the Scribe Brayan Arango All medical record entries made by the Scribe were at my direction and personally dictated by me. I have reviewed the chart and agree that the record accurately reflects my personal performance of the history, physical exam, medical decision making, and the department course for this patient. I have also personally directed, reviewed, and agree with the discharge instructions and disposition. Disposition/Present on Arrival - Present on Arrival History of DVT/PE: No History of Uncontrolled Diabetes: No Urinary Catheter: No History of Decub. Ulcer: No History Surgical Site Infection Following: None - Disposition Forms: [employer] (Amharic)
[2018-08-02 21:33] LABS: BASO # 0.01 K/mm3 (0.0-2.0); BASO % 0.1 % (0.0-3.0); LYMPH # 1.5 (1.2-3.4); LYMPH % 15.9 % (22.0-35.0); MEAN CELL VOLUME 104.3 fl (80.0-105.0); MEAN CORPUSCULAR HGB CONC 31.6 g/dl (31.0-37.0); MEAN PLATELET VOLUME 9.4 fl (7.0-11.0); RBC 3.03 10^6/uL (3.5-6.1); RED CELL DISTRIBUTION WIDTH 18.5 % (11.5-14.5); WHITE BLOOD COUNT 9.7 10^3/uL (4.5-11.0)
[2018-08-02 21:38] LABS: INR 1.52; PARTIAL THROMBOPLASTIN TIME 33.3 Seconds (26.9-38.3); PROTHROMBIN TIME 17.2 SECONDS (9.4-12.5)
[2018-08-02 21:47] LABS: ALT/SGPT 20 U/L (7-56); AST/SGOT 31 U/L (14-36); BLOOD UREA NITROGEN 8 mg/dL (7-21); CALCIUM 8.5 mg/dL (8.4-10.5); GFR NON-AFRICAN AMERICAN > 60
[2018-08-02 21:48] LABS: TROPONIN I 0.04 ng/mL
[2018-08-02] MEDS ORDERED: Digoxin 500 mcg/2ml (0.5 mg/2ml) Inj IVP STA (21:50)
[2018-08-03 02:14] VITALS: BMI 19.5
[2018-08-03 06:29] VITALS: O2SAT 95
--- NOTE | 2018-08-03 09:07 | RAD ---
Date of service: 08/02/2018 HISTORY: chest pain COMPARISON: 07/29/2018 TECHNIQUE: 1 view obtained. FINDINGS: LUNGS: Vascular congestion and bibasilar infiltrates. Right-sided chest tube in place. Small effusions PLEURA: Small effusion CARDIOVASCULAR: No aortic atherosclerotic calcification present. Normal cardiac size. No pulmonary vascular congestion. OSSEOUS STRUCTURES: No significant abnormalities. VISUALIZED UPPER ABDOMEN: Normal. OTHER FINDINGS: None. IMPRESSION: Vascular congestion and bibasilar infiltrates. Right-sided chest tube in place. Small effusions
--- NOTE | 2018-08-03 09:24 | CARD ---
APPROVED REPORT Date of service: 08/02/2018 EKG Measurement Heart [id number] <Conclusion> Atrial fibrillation with rapid ventricular response Nonspecific ST-T changes Abnormal ECG
[2018-08-03] MEDS ORDERED: Arformoterol 15 mcg/2 ml Inh Sol IH SCH (10:00)
[2018-08-03] MEDS ORDERED: Pantoprazole 40 mg EC Tab PO SCH (10:00)
[2018-08-03] MEDS ORDERED: Budesonide 0.5 mg/2 ml Inhal Susp UD IH SCH (10:00)
[2018-08-03] MEDS ORDERED: Digoxin 250 mcg (0.25 mg) Tab PO ONE (10:41)
[2018-08-03 12:36] VITALS: BP 105/63; RESP 18; TEMP 97.9
[2018-08-03] MEDS ORDERED: Digoxin 125 mcg (0.125 mg) Tab PO SCH (14:00)
[2018-08-03] MEDS ORDERED: Digoxin 250 mcg (0.25 mg) Tab PO SCH (14:00)
--- NOTE | 2018-08-03 14:05 | HP ---
DATE OF EXAM: 08/03/2018 HISTORY OF PRESENT ILLNESS: I got a call yesterday from Kyara letting me know on her pulse ox at home that she was having a pulse in the 170s to 176 for about 2 to 3 hours, and she is feeling a little fluttery feeling in her chest. She does have a past medical history of atrial fibrillation and I asked her to go to the emergency room. This is a 62-year-old white female who I have been seeing for a long time now, and she has been going back and forth with a lung cancer on the right side with a PleurX catheter. She has multiple episodes of rapid AFib, this is another one, and I am sending to the emergency room for evaluation. When she got to the ER, the heart rate was in the 150s, I believe they gave her some digoxin and helped. She does have a history of cardiac arrhythmia, AFib, COPD, emphysema, right-sided lung cancer. She has a PleurX catheter for the pleural effusion that up. She is on chemo. She has arthritis. She has gastroesophageal reflux. She had heart catheterizations, right hip replacement with right femur fracture, ORIF. FAMILY HISTORY: Unknown family history. SOCIAL HISTORY: Former smoker. Social alcohol. No drugs. ALLERGIES: NO KNOWN DRUG ALLERGIES. MEDICATIONS: She is on Brovana, Lipitor, Xanax, Zofran, Pulmicort, Nexium, folic acid and prednisone now. No tapering dose. REVIEW OF SYSTEMS: She has no acute vision or hearing changes. She has chest palpitations and funny feeling jittery in her chest with a pulse in the 170s. Lungs; decreased breath sounds bilaterally, but clear actually. No real lung issues with a PleurX catheter in place. It was leaking last week, now it is not. No nausea, vomiting, constipation, diarrhea, not dizzy. No skin issues. PHYSICAL EXAMINATION: VITAL SIGNS: She has 98 temperature, 78 pulse after the treatment, which was 170-150 when she came in, 20 respiratory rate, 157/77 blood pressure and was 121/70 when she calm down, 100% O2 sat on oxygen. GENERAL: She is well developed, alert, well-nourished, nontoxic, no distress,feeling better now. HEENT: Pupils equal and reactive to light. Extraocular muscles are intact. Throat is moist. NECK: Supple. No JVD. Thyroid midline. No palpable appreciable lymphadenopathy. HEART: Irregular rate and rapid, now it is normal S1 and S2. LUNGS: Decreased breath sounds. No breath sounds on the right at all. Lungs okay, but very shallow, but no wheezes, rhonchi or rales. ABDOMEN: Soft and nontender. Positive bowel sounds. EXTREMITIES: No edema. SKIN: For I could tell is in good shape. No rashes or ulcers. NEUROLOGIC: Normal affect, calm, she understands the situation. Cranial nerves II-XII grossly intact. She is in pretty good spirits despite what she is going through. LABORATORY DATA: EKG showed 163 beats per minute, rapid AFib. Chest x-ray read by the radiologist showed vascular congestion, bibasilar infiltrates, right-sided chest tube in place which is a PleurX catheter, and I discussed that with the carbon setter and felt that the chest x-ray looked better than last one from last week. She has 135 sodium, potassium 3.8, BUN 8, creatinine 0.2, GFR is greater than 60, sugar is 130, calcium is 8.5, magnesium 1.8, total bili is 0.9, AST is 31, ALT is 20, alk phos 331. Troponin I is 0.04, total protein is 6, albumin is 3. INR is 1.52. White count 9.7, 10 hemoglobin, 31.6 hematocrit with 198 platelets. So, she is going to have a consult with Pulmonary and Cardiology, if it is okay with Cardiology, I plan on discharging her home later today. I put her back on her medications, she is on prednisone 30, tapered downward. they want to increase her sotalol or change her digoxin discuss it with the computer systems support specialist and hopefully, she will be discharged later today. She is here for rapid AFib in the 170s with a history of lung cancer. Garfield Lopez DO MTDD
[2018-08-03 14:30] VITALS: PULSE 83
--- NOTE | 2018-08-03 14:59 | CON ---
DATE OF CONSULTATION: 08/03/2018 PULMONARY CONSULTATION REASON FOR PULMONARY CONSULTATION: Abnormal chest x-ray. REFERRING PHYSICIAN FOR THIS PULMONARY CONSULTATION: Dr. Garfield Lopez. HISTORY OF PRESENT ILLNESS: The patient is a very chronically ill 62-year-old female, with past medical history significant for advanced/extensive adenocarcinoma of the right lung, recurrent right pleural effusions, status post indwelling pleural catheter placement, advanced chronic obstructive pulmonary disease, on home oxygen, cardiac arrhythmias, who presents to [facility] with main complaint of palpitations for 1 day. In the emergency room, the patient was noted to be in rapid atrial fibrillation. She was thus admitted for additional evaluation. The patient is not short of breath at rest. She does have chronic occasional dyspnea on exertion. She also has a chronic minimal cough. She does not produce significant sputum production. She did state to me this morning "my breathing is pretty good." There is no history of chest pain, coughing up of blood, or chest pain - made worse with deep respirations. There is no history of temperatures, chills or infectious exposure. There is no history of night sweats, weight loss or appetite change prior to the above events. No history of calf pains. No history of syncope or diaphoresis. No history of recent travel or trauma. REVIEW OF SYSTEMS: No history of nausea, vomiting or diarrhea. No acute urinary symptoms. No new neurologic complaints. Rest of the review of systems is negative. ALLERGIES: NO KNOWN ALLERGIES. SOCIAL HISTORY: Positive for extensive tobacco usage. No alcohol. FAMILY HISTORY: No inheritable diseases. HOME MEDICATIONS: Include Pulmicort, Brovana, Betapace, folate, Lipitor, Eliquis, Xanax, Nexium, Fentanyl. PHYSICAL EXAMINATION: GENERAL: The patient appears quite comfortable this morning. She is not short of breath at rest. VITAL SIGNS: Temperature is 98.1, pulse 82, respirations 18/20, blood pressure 109/65. Oxygen saturation on nasal cannula - 95%. HEENT: Normocephalic, atraumatic. No JVD. CARDIOVASCULAR: Positive S1, S2. No S3 gallop. LUNGS: Decreased breath sounds at the bases. No rhonchi or wheezing this morning. EXTREMITIES: Mild edema. No cyanosis, no clubbing. Calves are nontender to palpation. GASTROINTESTINAL: Abdomen is soft, nontender and nondistended. Bowel sounds are positive. SKIN: No acute rash. NEUROLOGIC: Exam is limited at the present time. PERTINENT LABORATORY DATA: Chest x-ray was done late last night reviewed. I also compared the film done yesterday with the previous films. There are chronic infiltrates noted in the lower lobes. There also remains a small right pleural effusion. The chest x-ray is not significantly changed from the previous film. CBC: White count 9.7K, hemoglobin 10, hematocrit 31.6, platelets of 198,000. Complete metabolic profile: Chloride 94, carbon dioxide 35, glucose 130, alkaline phosphatase 331, troponin 0.04. Rest of the metabolic profile is within normal limits. IMPRESSION: 1. Rapid atrial fibrillation. 2. Advanced/extensive adenocarcinoma of the right lung. 3. Advanced chronic obstructive pulmonary disease, on home oxygen. 4. Recurrent right pleural effusion, status post Aspira catheter placement. PLAN: The patient presents to [facility] with a 1-day history of palpitations. As above, in the emergency room, the patient was noted to be in rapid atrial fibrillation. She was thus admitted for additional evaluation and treatment. I did review the chest x-ray as above. The chest x-ray is not significantly changed from the previous film. There does not appear to be a significant redevelopment of the right pleural effusion. On physical exam, the patient is not in significant bronchospasm. In addition, there is no significant alveolar-arterial gradient. I will continue the current nebulizer treatments for now. The patient is also on low-dose oral prednisone. As above, the patient did state to me this morning that her breathing "is pretty good." Cardiology evaluation has been ordered with Dr. Jay. The patient's ventricular rate is much more controlled this morning. Clinical status of the patient does appears significantly improved - compared to the initial presentation. However, unfortunately, the future status/prognosis for this patient remains very poor. I will discuss the above with Dr. Lopez. Thank you very much for this pulmonary consultation. Kevin Wells MD JARET
[2018-08-03 15:07] VITALS: PULSE 84
--- NOTE | 2018-08-03 16:01 | CON ---
DATE: 08/03/2018 CARDIOLOGY FOLLOWUP HISTORY OF PRESENT ILLNESS: The patient went into atrial fibrillation again and is back to normal sinus rhythm. PHYSICAL EXAMINATION: VITAL SIGNS: Blood pressure is 119/66, heart rate is in the 90s. NECK: Negative JVD. LUNGS: Without rales. CARDIAC: Heart rate S1, S2. EXTREMITIES: Without edema. LABORATORY DATA: BUN and creatinine are unremarkable. Hemoglobin is 10. IMPRESSION: 1. Paroxysmal atrial fibrillation. 2. Chronic obstructive pulmonary disease. 3. Lung cancer. 4. Anemia. 5. Dyspnea. The patient is on home O2. PLAN: Given these findings, we will increase digoxin dose to 0.25. I have discussed with the patient about the ups and downs of atrial fibrillation and rhythm. We will continue on her present medications. From a cardiac perspective, the patient can be discharged. Brayan Jay MD
== END 2018-08-03 16:17 | disposition home or self-care (01) ==
LOC: ED 20:50 → ERH 23:05 → UNDOADMOB 23:18 → ERH 23:31 → 2RSO 08-03 00:11
PROVIDERS: ADMIT Family Medicine; ATTEND Family Medicine
DX: I48.0 Paroxysmal atrial fibrillation (principal); C34.91 Malignant neoplasm of unspecified part of right bronchus or lung; J43.9 Emphysema, unspecified; J90 Pleural effusion, not elsewhere classified; K21.9 Gastro-esophageal reflux disease without esophagitis; D64.9 Anemia, unspecified; Z99.81 Dependence on supplemental oxygen; Z96.641 Presence of right artificial hip joint; Z87.891 Personal history of nicotine dependence; M19.90 Unspecified osteoarthritis, unspecified site
CPT/HCPCS: 71045; 80053; 83735; 84484; 85025; 85610; 85730; 93005; 94640; 94760; 96374; 99285; G0378; J1160; J7040

== ENCOUNTER 2018-08-07 11:32 | Inpatient (IN) | payer BC ==
[2018-08-07 11:43] VITALS: BMI 18.8
--- NOTE | 2018-08-07 12:04 | ED PDOC ---
Arrival/HPI - General Chief Complaint: GI Problem Time Seen by Provider: 08/07/18 11:39 Historian: Patient - History of Present Illness Narrative History of Present Illness (Text): 08/07/18 11:39 Kyara Lynn is a 62 year old female, with a past medical history of hx of COPD, pleural effusions with right sided chest catheter, lung cancer, and a-fib who presents to the emergency department complaining of rapid a-fib prior to ar rival. Patient informs of generalized fatigue and nausea since yesterday. Patient also notes shortness of breath since a few days. Patient sent to ED by Dr. Lopez. Patient was given 10mg cardizem in field by EMS. Patient informs taking digoxin today and denies any other medication. Patient refuses steroid medications currently in the emergency department. Patient denies any fevers, chills, headache, dizziness, vision changes, chest pain, dyspnea on exertion, cough, diaphoresis, abdominal pain, vomiting, diarrhea, back pain, neck pain, or any other complaint. 08/07/18 17:35 Time/Duration: Prior to Arrival Symptom Onset: Sudden Activities at Onset: Light Context: Home Past Medical History - Provider Review Nursing Documentation Reviewed: Yes - Infectious Disease Hx of Infectious Diseases: None - Tetanus Immunization Tetanus Immunization: Unknown - Reproductive Menopause: Yes - Cardiac Hx Cardiac Disorders: Yes (h/o cardiac arrythmias.) - Pulmonary Hx Chronic Obstructive Pulmonary Disease (COPD): Yes Hx Emphysema: Yes Other/Comment: Lung CA had one chemo - Neurological Hx Neurological Disorder: No - HEENT Hx HEENT Disorder: No - Renal Hx Renal Disorder: No - Endocrine/Metabolic Hx Endocrine Disorders: No - Hematological/Oncological Hx Blood Disorders: Yes 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) Hx Chemotherapy: Yes (COMPLETED 6 ROUNDS OF RADIATION.) Hx Metastasis: Yes (BONE) - Integumentary Hx Dermatological Disorder: No - Musculoskeletal/Rheumatological Hx Arthritis: Yes Hx Falls: Yes - Gastrointestinal Hx Gastroesophageal Reflux: Yes - Genitourinary/Gynecological Hx Genitourinary Disorders: No - Psychiatric Hx Substance Use: No - Past Surgical History Past Surgical History: Non-Contributing - Surgical History Hx Cardiac Catheterization: Yes Hx Orthopedic Surgery: Yes Other/Comment: Right hip replacement, right femur - Anesthesia Hx Anesthesia: Yes Hx Malignant Hyperthermia: No - Suicidal Assessment Feels Threatened In Home Enviroment: No Family/Social History - Physician Review Nursing Documentation Reviewed: Yes Family/Social History: Unknown Family HX Smoking Status: Former Smoker Hx Alcohol Use: Yes (social) Hx Substance Use: No Hx Substance Use Treatment: Yes Allergies/Home Meds Allergies/Adverse Reactions: Allergies No Known Allergies Allergy (Verified 08/07/18 13:38) Home Medications: Home Meds Medication Instructions Recorded Confirmed ALPRAZolam [Xanax] 0.25 mg PO HS 06/29/18 08/07/18 Ondansetron ODT [Zofran ODT] 4 mg PO Q6 PRN 06/29/18 08/07/18 Esomeprazole Magnesium [Nexium] 40 mg PO DAILY 08/02/18 08/07/18 Digoxin [Lanoxin] 0.25 mg PO DAILY 08/03/18 08/07/18 Review of Systems - Review of Systems Constitutional: Fatigue (generalized fatigue). absent: Fevers, Other (chills) Eyes: absent: Vision Changes Respiratory: SOB. absent: Cough Cardiovascular: Other (rapid a-fib). absent: Chest Pain, BOJORQUEZ Gastrointestinal: Nausea. absent: Abdominal Pain, Diarrhea, Vomiting Genitourinary Female: absent: Dysuria, Hematuria Musculoskeletal: absent: Back Pain, Neck Pain Neurological: absent: Headache, Dizziness Endocrine: absent: Diaphoresis Physical Exam Appearance: Positive for: Cachectic Pain Distress: None Mental Status: Positive for: Alert and Oriented X 3 - Systems Exam Head: Present: Atraumatic, Normocephalic Pupils: Present: PERRL Extroacular Muscles: Present: EOMI Conjunctiva: Present: Normal Mouth: Present: Moist Mucous Membranes Neck: Present: Normal Range of Motion Respiratory/Chest: Present: Decreased Breath Sounds (bilaterally). No: Respiratory Distress, Accessory Muscle Use, Wheezes, Rales, Rhonchi Cardiovascular: Present: Regular Rate and Rhythm, Normal S1, S2. No: Murmurs, Rub, Gallop Abdomen: No: Tenderness, Distention, Peritoneal Signs, Rebound, Guarding Back: Present: Normal Inspection Upper Extremity: Present: Normal Inspection, Normal ROM, NORMAL PULSES, Neurovascularly Intact, Capillary Refill < 2s. No: Cyanosis, Edema Lower Extremity: Present: Normal Inspection, NORMAL PULSES, Normal ROM, Neurovascularly Intact, Capillary Refill < 2 s. No: Edema Neurological: Present: GCS=15, CN II-XII Intact, Speech Normal, Motor Func Grossly Intact, Normal Sensory Function Skin: Present: Warm, Dry, Normal Color. No: Rashes Psychiatric: Present: Alert, Oriented x 3, Normal Insight, Normal Concentration Medical Decision Making ED Course and Treatment: 08/07/18 11:39 Impression: Kyara Lynn is a 62 year old female, with a past medical history of a-fib, who presents to the emergency department complaining of rapid a-fib prior to arrival. Patient notes generalized fatigue and nausea yesterday. Patient also notes shortness of breath since a few days. Patient informs taking digoxin today but denies any other medications. Patient refuses steroids currently in the emergency department. Denies F/C/V/D. No chest pain. On exam; is cachectic appearing with diminished breath sounds bilaterally. Plan: -- VBG -- EKG -- Labs -- Chest X-Ray -- Xopenex -- Urinalysis -- Reassess and disposition Prior Visits: Notes and results from previous visits were reviewed. Progress Notes: - RAD Interpretation Narrative RAD Interpretations (Text): 08/07/18 14:06 Chest X-Ray shows: IMPRESSION: No significant interval change in bilateral lower lobe airspace disease, worse on the right. Persistent mild pulmonary venous congestion. Background of COPD. Stable position of right central line and chest tube. Radiology Orders: 08/07/18 12:01 CHEST PORTABLE [RAD] Stat Adjunct Physical Education Instructor: Radiologist - EKG Interpretation EKG Interpretation (Text): 08/07/18 12:32 Reviewed EKG, shows: A-fib at [address] / T wave changes. Inferior lateral leads Interpreted by ED Physician: Yes Type: 12 lead EKG - Medication Orders Current Medication Orders: Levalbuterol HCl (Xopenex) 1.25 mg IH STAT STA Stop: 08/07/18 12:02 - Scribe Statement The provider has reviewed the documentation as recorded by the Scribjo Fox All medical record entries made by the Scribe were at my direction and personally dictated by me. I have reviewed the chart and agree that the record accurately reflects my personal performance of the history, physical exam, medical decision making, and the department course for this patient. I have also personally directed, reviewed, and agree with the discharge instructions and disposition. Disposition/Present on Arrival - Present on Arrival History of DVT/PE: No History of Uncontrolled Diabetes: No Urinary Catheter: No History of Decub. Ulcer: No History Surgical Site Infection Following: None - Disposition Disposition: HOSPITALIZED
[2018-08-07] MEDS: Levalbuterol 1.25 MG/3 ML Inhal Soln UD IH STA ×4 (12:34→12:39)
[2018-08-07 12:39] LABS: VENOUS BLOOD GAS BASE EXCESS 17.7 mmol/L (0.0-2.0); VENOUS BLOOD GAS PO2 38 mm/Hg (30-55); VENOUS BLOOD PH 7.43 (7.32-7.43)
[2018-08-07 12:48] LABS: BASO # 0.01 K/mm3 (0.0-2.0); BASO % 0.1 % (0.0-3.0); HEMOGLOBIN 9.3 g/dL (12.0-16.0); LYMPH # 1.6 (1.2-3.4); LYMPH % 20.4 % (22.0-35.0); MEAN CELL VOLUME 100.7 fl (80.0-105.0); MEAN CORPUSCULAR HEMOGLOBIN 32.5 pg (25.0-35.0); MEAN CORPUSCULAR HGB CONC 32.3 g/dl (31.0-37.0); MEAN PLATELET VOLUME 9.7 fl (7.0-11.0); MONO # 1.1 (0.1-0.6); MONO % 13.7 % (1.0-6.0); RBC 2.86 10^6/uL (3.5-6.1); RED CELL DISTRIBUTION WIDTH 18.1 % (11.5-14.5); WHITE BLOOD COUNT 7.9 10^3/uL (4.5-11.0)
[2018-08-07 12:56] LABS: ARTERIAL BLOOD GAS HCO3 42.4 mmol/L (21-28); ARTERIAL BLOOD GAS HEMOGLOBIN 9.3 g/dL (11.7-17.4); ARTERIAL BLOOD GAS O2 CAPACITY 13.2 mL/dl (16-24); ARTERIAL BLOOD GAS O2 CONTENT 13.2 ML/dl (15-23); ARTERIAL BLOOD GAS O2 SAT 100.1 % (95-98); ARTERIAL BLOOD GAS PCO2 57 mm/Hg (35-45); ARTERIAL BLOOD GAS PH 7.48 (7.35-7.45); ARTERIAL BLOOD GAS TCO2 44.1 mmol.L (22-28)
[2018-08-07 12:58] LABS: ALB/GLOB RATIO 1.2 (1.1-1.8); ALT/SGPT 24 U/L (7-56); AST/SGOT 37 U/L (14-36); BLOOD UREA NITROGEN 6 mg/dL (7-21); CALCIUM 8.4 mg/dL (8.4-10.5); GFR NON-AFRICAN AMERICAN > 60; INR 2.05; PARTIAL THROMBOPLASTIN TIME 29.3 Seconds (26.9-38.3); PROTHROMBIN TIME 23.2 SECONDS (9.4-12.5)
[2018-08-07] MEDS ORDERED: Potassium Chloride 20 mEq ER Tab PO STA (13:04)
[2018-08-07 13:08] LABS: B-TYPE NATRIURETIC PEPTIDE 739 pg/mL (0-450); TROPONIN I 0.01 ng/mL
[2018-08-07] MEDS ORDERED: diltiaZEM IVPB 100mg in NS 100 ML IV PRN (13:15)
--- NOTE | 2018-08-07 14:10 | RAD ---
Date of service: 08/07/2018 HISTORY: sob COMPARISON: 08/02/2018. FINDINGS: Right-sided central venous catheter terminates at the cavoatrial junction. The right chest tube is stable in position. LUNGS: The lungs are hyperinflated and there is peribronchial thickening with chronic changes in both lungs. There is also mild pulmonary venous congestion. There is confluent airspace disease in the lower lobes, worse on the right. PLEURA: Small effusions. No pneumothorax. CARDIOVASCULAR: The heart is normal in size. No aortic atherosclerotic calcifications present. OSSEOUS STRUCTURES: Within normal limits for the patient's age. VISUALIZED UPPER ABDOMEN: Normal. OTHER FINDINGS: None. IMPRESSION: No significant interval change in bilateral lower lobe airspace disease, worse on the right. Persistent mild pulmonary venous congestion. Background of COPD. Stable position of right central line and chest tube.
--- NOTE | 2018-08-07 14:55 | CARD ---
APPROVED REPORT Date of service: 08/07/2018 EKG Measurement Heart [id number] <Conclusion> Atrial fibrillation with rapid ventricular response with premature ventricular or aberrantly conducted complexes Septal infarct, age undetermined Marked ST abnormality, possible inferior subendocardial injury Abnormal ECG
[2018-08-07] MEDS ORDERED: Bisacodyl 5mg EC Tab PO ONE (16:40)
[2018-08-07] MEDS: Sodium Chloride 0.45% 1,000 ML IV SCH (16:54)
[2018-08-07] MEDS ORDERED: Pneumococcal 23-Valent Vaccine IM ONE (17:45)
[2018-08-07] MEDS ORDERED: Albuterol-Ipratrop 3 mg / 0.5 (3 ml) UD IH PRN (23:44)
[2018-08-07] MEDS ORDERED: Albuterol-Ipratrop 3 mg / 0.5 (3 ml) UD IH ONE (23:44)
--- NOTE | 2018-08-07 23:56 | HP ---
DATE OF EXAM: 08/07/2018 HISTORY OF PRESENT ILLNESS: I was called to do house call on Kyara today. I went to her home. She was not feeling well. She was little bit restless, short of breath, nauseous, could not find a comfortable position, has not eaten in 24 hours, also not taken any medications, and tells that she is going to go to the hospital as she is not feeling well. I increased her Zofran to every 4 hours. I have also given extra dose of digoxin for the elevated pulse in the 130s. She is a 62-year-old white female I know very well. She has a history of right-sided cancer stage IV. She has PleurX catheter on her chest to drain the extra fluid that develops and now she is nauseous, tachycardic, and short of breath. I do not know if there is much we can do. She has COPD, pleural effusion, right-sided chest catheter, lung cancer, atrial fibrillation, and getting weaker. She was given 10 mg of Cardizem in the field. She was given extra dose of digoxin, just very weak and exhausted. PAST MEDICAL HISTORY: COPD, emphysema, lung cancer, one chemo, metastatic bone disease, she has completed six rounds of radiation, she has arthritis and falls and reflux. PAST SURGICAL HISTORY: She had right hip replacement and right femur surgery, ORIF. FAMILY HISTORY: Unknown. SOCIAL HISTORY: Former smoker. Social drinker. No drugs. ALLERGIES: NO KNOWN DRUG ALLERGIES. MEDICATIONS: Xanax, Zofran, Nexium, and Lanoxin. REVIEW OF SYSTEMS: She is tired, weak, and fatigued. No fevers. No acute vision changes. She is short of breath. No cough. She has atrial fibrillation, which is rapid. No dyspnea on exertion, just short of breath. She is nauseous, she is getting the Zofran [id number] for the past 24 hours. No abdominal pain, diarrhea, or vomiting. No problems urinating. No back pain. No neck pain. No headache. No dizziness. No sweating. PHYSICAL EXAMINATION: VITAL SIGNS: She has 97.9 temperature, 95 pulse now that was as high as 130s at home, 111/65 blood pressure and 100% O2 sat on 3 L. GENERAL: She is alert and oriented x3, cachectic, definitely in trouble. HEENT: Head is atraumatic and normocephalic. Extraocular muscles are intact. Pupils equal and reactive to light. Throat is moist. NECK: Supple. HEART: Very tachy, irregular. LUNGS: Decreased breath sounds bilaterally, right side almost no breath sounds at all, left side little more, but no wheezes heard. ABDOMEN: Soft and nontender. Positive bowel sounds. No guarding. No rebound. No CVA tenderness. There is a PleurX catheter on the right side of the lungs/chest. EXTREMITIES: Have no edema. NEUROLOGIC: GCS is 15. Cranial nerves II through XII grossly intact. Speech is normal. She is very tired and weak. SKIN: Warm and dry. No apparent rashes or ulcers. LYMPHATICS: Thyroid midline. No palpable appreciable lymphadenopathy. LABORATORY DATA: Chest x-ray shows no significant interval change, bilateral lower lobe airway disease, worst on the right, persistent mild pulmonary venous congestion, background COPD, stable position of the right center line and chest tube, which is the PleurX catheter. She has atrial fibrillation at 135 on EKG. She has 7.9 white count, 9.3 hemoglobin, 28.8 hematocrit with 173 platelets. INR is 2.05. She has a lactate of 0.9. She has 128 sodium, potassium 3.2, I will give her some potassium, BUN 6, creatinine 0.3, GFR is greater than 60, sugar is 141, calcium is 8.4, magnesium 1.7, and total bili is 1.3. AST is 37, ALT is 24, and alk phos is 322. Lactate dehydrogenase is 1189. Troponin I is less than 0.01. BNP is 739 and total protein is 5.6. Toxicology with 3.3 dig level; we will hold the digoxin for now. ASSESSMENT AND PLAN: She is going to have potassium replacement. We will check her labs tomorrow. She will have consults with Cardiology, GI, Pulmonary, and Interventional Radiology. She is asking to get the cath removed, not sure if that is a good idea. I discussed with the how poor she is doing and that she is failing quickly and she might end up hospice, I am not sure what their wishes are at this time, she is exhausted, hopefully tomorrow conversation as she has end-stage lung disease. Thank you very much. Garfield Lopez DO [facility] # [id number] JARET
[2018-08-08 06:27] LABS: HEMOGLOBIN 7.9 g/dL (12.0-16.0); MEAN CORPUSCULAR HEMOGLOBIN 32.1 pg (25.0-35.0); MEAN CORPUSCULAR HGB CONC 31.5 g/dl (31.0-37.0); MEAN PLATELET VOLUME 9.5 fl (7.0-11.0); RBC 2.46 10^6/uL (3.5-6.1); RED CELL DISTRIBUTION WIDTH 18.6 % (11.5-14.5); WHITE BLOOD COUNT 6.6 10^3/uL (4.5-11.0)
[2018-08-08 07:08] LABS: ALBUMIN 2.4 g/dL (3.0-4.8); ALT/SGPT 25 U/L (7-56); AST/SGOT 32 U/L (14-36); BLOOD UREA NITROGEN 9 mg/dL (7-21); CALCIUM 8.2 mg/dL (8.4-10.5); GFR NON-AFRICAN AMERICAN > 60
[2018-08-08] MEDS: Budesonide 0.5 mg/2 ml Inhal Susp UD IH SCH ×2 (07:57→21:00)
[2018-08-08] MEDS: Levalbuterol 1.25 MG/3 ML Inhal Soln UD IH SCH ×3 (07:57→21:00)
--- NOTE | 2018-08-08 08:41 | CON ---
DATE OF CONSULTATION: 08/08/2018 PULMONARY CONSULTATION REASON FOR CONSULTATION: Shortness of breath. REFERRING PHYSICIAN: Dr. Garfield Lopez. HISTORY OF PRESENT ILLNESS: The patient is a very chronically ill 62-year-old female, with past medical history significant for advanced/extensive adenocarcinoma of the right lung, recurrent right pleural effusions, status post indwelling pleural catheter placement, advanced chronic obstructive pulmonary disease, on home oxygen, atrial fibrillation, who presents to [facility] with a 1-day history of increasing shortness of breath, cough, fatigue, and nausea. Apparently, the patient was given Cardizem in the field by emergency medical services - prior to arriving in the emergency room. The patient was then admitted for additional evaluation and treatment. The patient did present to the emergency room complaining of shortness of breath. She is not short of breath at rest this morning. She does have chronic dyspnea on exertion. She also has a chronic cough with occasional sputum - which the patient states are increased over the past 1 day. There is no history of chest pain, coughing up of blood, or chest pain - brought on with deep respirations. There is no history of temperatures, chills or infectious exposure. There is no history of night sweats. The patient has lost weight with decreased appetite over the past few months. No history of calf pains. No history of syncope or diaphoresis. No history of recent travel or trauma. REVIEW OF SYSTEMS: As above, the patient did present with nausea. No vomiting. No diarrhea. No acute urinary symptoms. No new neurologic complaints. Rest of the review of systems is negative. ALLERGIES: NO KNOWN ALLERGIES. SOCIAL HISTORY: Positive for extensive tobacco usage. No alcohol. FAMILY HISTORY: No inheritable diseases. HOME MEDICATIONS: Include Betapace, Zofran, Nexium, Lanoxin, Eliquis, Xanax. PHYSICAL EXAMINATION: GENERAL: The patient is not short of breath at rest this morning. She is not using accessory muscles for breathing. VITAL SIGNS: Temperature is 98.3, pulse 89, respirations are 18, blood pressure 107/70. Oxygen saturation on nasal cannula 95-96%. HEENT: Normocephalic, atraumatic. NECK: No JVD. CARDIOVASCULAR: Positive S1, S2. No S3 gallop. LUNGS: Decreased breath sounds at the bases. Mild bilateral rhonchi. No wheezing. EXTREMITIES: Mild edema, no cyanosis, no clubbing. Calves are nontender to palpation. GASTROINTESTINAL: Abdomen is soft, nontender and nondistended. Bowel sounds are positive. SKIN: No acute rash. NEUROLOGIC: Exam limited at the present time. PERTINENT LABORATORY DATA: Chest x-ray was done yesterday and reviewed. The chest x-ray is not significantly changed from the previous film (last admission). In fact, the most current film is mildly improved --with increased aeration noted to the right base. CBC: White count 6.6K, hemoglobin 7.9, hematocrit 25.1, platelets of 145,000. Prothrombin time 23.2. Arterial blood gas was done on what appears to be 40% oxygen. Results are: PH 7.48, pCO2 of 57, pO2 of 245. Complete metabolic profile: Sodium 128, potassium 3.2, chloride 83, carbon dioxide 41, glucose 141, AST 37, alkaline phosphatase 322, LDH 1189. B-type natriuretic peptide 739, total protein 5.6. Rest of the metabolic profile is within normal limits. IMPRESSION: 1. Recurrent bronchitis. 2. Advanced chronic obstructive pulmonary disease, on home oxygen. 3. Advanced/extensive adenocarcinoma of the right lung. 4. Recurrent right pleural effusion, status post Aspira catheter placement. 5. Anemia. 6. Atrial fibrillation. PLAN: I did discuss the case with the night nurse at length. I have also discussed the case with the patient at length, and reviewed the chart at length. The patient presents to [facility] with a 1-day history of increasing shortness of breath, cough, fatigue, and nausea. As above, the patient is not short of breath at the time of my examination. I did review the chest x-ray that was done. The chest x-ray is actually somewhat improved from the last admission - with increased aeration noted to the lateral right lung base. On physical exam, the patient is in [id number] bronchospasm. However, there is no significant alveolar arterial gradient. I will start the patient on Xopenex nebulizer treatments (given the atrial fibrillation), inhaled Pulmicort, and low-dose intravenous steroids - in an attempt to treat the acute bronchospasm. Consultations with Cardiology and Gastroenterology are also ordered. The patient does state to feeling better this morning, and is clinically improved. However, unfortunately, the future status/prognosis for this patient remains very, very poor. All are aware. I will discuss the above with Dr. Lopez this morning. Thank you very much for this pulmonary consultation. Kevin Wells MD [place]
[2018-08-08] MEDS: Pantoprazole 40 mg EC Tab PO SCH (09:00)
[2018-08-08] MEDS: Potassium Chloride 20 mEq ER Tab PO SCH (09:42)
[2018-08-08] MEDS: MethylPREDNISolone 40 mg Vial IVP SCH ×2 (09:48→20:59)
--- NOTE | 2018-08-08 10:16 | CP.PCM.CON ---
<Mariya Powell - Last Filed: 08/08/18 10:09> History of Present Illness - History of Present Illness History of Present Illness: Gastroenterology Fellow/PGY6 Consult Note for Dr. Winchester 62 year old female with COPD, Afib on Eliquis, and Stage IV Lung cancer with bone metastases (diagnosed 05/2018) on chemoradiation complicated by right pneumothorax 2/2 PleurX catheter leak on discharge 08/01/18 presenting with nausea and constipation. Patient notes intermittent nausea since diagnosis of lung cancer in May but worsening of symptoms for the last two weeks. Associated constipation with prior normal daily bowel movements. No prior laxative use aside from received once dose of Dulcolax 5mg last night with resultant hard stool described as a "rock" last night. Notes nausea improves after bowel movements and gets relief from use of zofran at home since diagnosis of lung cancer in 05/2018. Notes improvement in short wayne of breath since discharge 08/01/18 and continued PleurX drainage. Prior EGD many years ago endorsed to show "reflux. No prior colonoscopy. Family History- mother- colostomy for unknown diagnosis; denies stomach cancer and colon cancer to her knowledge Social History- former tobacco use, social alcohol use, no illicit drug use Surgical History- PleurX, port-a-cath, hip replacement, femur s/p ORIF Review of Systems - Review of Systems Review of Systems: 12-point review of systems negative except for as above Past Patient History - Infectious Disease Hx of Infectious Diseases: None - Tetanus Immunizations Tetanus Immunization: Unknown - Past Medical History & Family History Past Medical History?: Yes - Past Social History Smoking Status: Former Smoker - CARDIAC Hx Cardiac Disorders: Yes (h/o cardiac arrythmias.) - PULMONARY Hx Chronic Obstructive Pulmonary Disease (COPD): Yes Hx Emphysema: Yes Other/Comment: Lung CA had one chemo - NEUROLOGICAL Hx Neurological Disorder: No - HEENT Hx HEENT Problems: No - RENAL Hx Chronic Kidney Disease: No - ENDOCRINE/METABOLIC Hx Endocrine Disorders: No - HEMATOLOGICAL/ONCOLOGICAL Hx Blood Disorders: Yes 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) Hx Chemotherapy: Yes (COMPLETED 6 ROUNDS OF RADIATION.) Hx Metastesis: Yes (BONE) - INTEGUMENTARY Hx Dermatological Problems: No - MUSCULOSKELETAL/RHEUMATOLOGICAL Hx Arthritis: Yes Hx Falls: Yes - GASTROINTESTINAL Hx Gastroesophageal Reflux: Yes - GENITOURINARY/GYNECOLOGICAL Hx Genitourinary Disorders: No - PSYCHIATRIC Hx Substance Use: No - SURGICAL HISTORY Hx Cardiac Catheterization: Yes Hx Orthopedic Surgery: Yes Other/Comment: Right hip replacement, right femur - ANESTHESIA Hx Anesthesia: Yes Hx Malignant Hyperthermia: No Meds Allergies/Adverse Reactions: Allergies Allergy/AdvReac Type Severity Reaction Status Date / Time No Known Allergies Allergy Verified 08/07/18 13:38 - Medications Medications: Current Medications Alprazolam (Xanax) 0.25 mg PO Q6 PRN; Protocol PRN Reason: Anxiety Stop: 08/14/18 18:01 Last Admin: 08/08/18 06:00 Dose: 0.25 mg Apixaban (Eliquis) 5 mg PO BID [facility]; Protocol Budesonide (Pulmicort Respules) 0.5 mg IH [id number] [facility] Last Admin: 08/08/18 07:57 Dose: 0.5 mg Digoxin (Digoxin) 0.125 mg PO 1400 [facility] Diltiazem HCl (Cardizem) 30 mg PO TID [facility] Last Admin: 08/08/18 09:47 Dose: 30 mg Sodium Chloride (Sodium Chloride 0.45%) 1,000 mls @ 30 mls/hr IV .Q24H [facility] Last Admin: 08/07/18 16:54 Dose: 30 mls/hr Levalbuterol HCl (Xopenex) 1.25 mg IH [id number] [facility] Last Admin: 08/08/18 07:57 Dose: 1.25 mg Levalbuterol HCl (Xopenex) 1.25 mg IH Q2H PRN PRN Reason: Shortness of Breath Methylprednisolone (Solu-Medrol) 30 mg IVP Q12 [facility] Last Admin: 08/08/18 09:48 Dose: 30 mg Ondansetron HCl (Zofran Inj) 4 mg IVP Q4H PRN PRN Reason: Nausea/Vomiting Last Admin: 08/07/18 20:14 Dose: 4 mg Pantoprazole Sodium (Protonix Ec Tab) 40 mg PO ACB [facility] Last Admin: 08/08/18 09:00 Dose: 40 mg Potassium Chloride (K-Dur 20 Meq Er Tab) 20 meq PO BRK [facility] Last Admin: 08/08/18 09:42 Dose: 20 meq Sotalol HCl (Betapace) 80 mg PO BID [facility] Last Admin: 08/08/18 09:47 Dose: 80 mg Tramadol HCl (Ultram) 50 mg PO Q6H PRN PRN Reason: Pain, moderate (4-7) Physical Exam - Constitutional Appears: No Acute Distress, Chronically Ill - Head Exam Head Exam: ATRAUMATIC, NORMOCEPHALIC - Eye Exam Eye Exam: EOMI, PERRL. absent: Scleral icterus Pupil Exam: PERRL. absent: Miosis, Mydriatic - ENT Exam ENT Exam: Mucous Membranes Moist, Normal Oropharynx - Neck Exam Neck exam: Positive for: Normal Inspection - Respiratory Exam Respiratory Exam: Decreased Breath Sounds. absent: Rales, Rhonchi, Wheezes Additional comments: right Pleur-X catheter in place with yellow fluid drainage - Cardiovascular Exam Cardiovascular Exam: Irregular Rhythm, +S1, +S2. absent: Gallop, Rubs Additional comments: right chest wall port-a-cath C/D/I - GI/Abdominal Exam GI & Abdominal Exam: Normal Bowel Sounds, Soft. absent: Distended, Firm, Guarding, Organomegaly, Rebound, Rigid, Tenderness - Extremities Exam Extremities exam: Positive for: normal inspection. Negative for: pedal edema - Neurological Exam Neurological exam: Alert - Psychiatric Exam Psychiatric exam: Normal Affect, Normal Mood - Skin Skin Exam: Dry, Intact, Normal Color, Warm Results - Vital Signs Recent Vital Signs: Last Vital Signs Temp 98.3 F 08/08/18 06:00 Pulse 95 H 08/08/18 09:47 Resp 18 08/08/18 06:00 BP 102/62 08/08/18 09:47 Pulse Ox 95 08/08/18 06:00 - Labs Result Diagrams: 08/08/18 06:10 08/08/18 06:10 Labs: Laboratory Results - last 24 hr 08/07/18 08/07/18 08/07/18 12:25 12:28 12:28 WBC 7.9 RBC 2.86 L Hgb 9.3 L Hct 28.8 L MCV 100.7 D MCH 32.5 MCHC 32.3 RDW 18.1 H Plt Count 173 MPV 9.7 Neut % (Auto) 65.8 Lymph % (Auto) 20.4 L [place] % (Auto) 13.7 H Eos % (Auto) 0.0 L Baso % (Auto) 0.1 Lymph # (Auto) 1.6 [place] # (Auto) 1.1 H Eos # (Auto) 0.0 Baso # (Auto) 0.01 Absolute Neuts (auto) 5.21 PT 23.2 H INR 2.05 APTT 29.3 pCO2 pO2 38 HCO3 ABG pH ABG Total CO2 ABG O2 Saturation ABG O2 Content ABG Base Excess ABG Hemoglobin ABG Carboxyhemoglobin POC ABG HHb (Measured) ABG Methemoglobin ABG O2 Capacity VBG pH 7.43 VBG pCO2 69.0 H* VBG HCO3 45.8 H VBG Total CO2 47.9 H VBG O2 Sat (Calc) 73.0 H VBG Base Excess 17.7 H VBG Potassium 3.1 L Hgb O2 Saturation Sodium 129.0 L Chloride 88.0 L Glucose 148 H Lactate 0.9 FiO2 21.0 Crit Value Called To Dr lazar Crit Value Called By 3769 Blood Gas Notified Time 1240 Potassium Carbon Dioxide Anion Gap BUN Creatinine Est GFR ( Amer) Est GFR (Non-Af Amer) Random Glucose Calcium Magnesium Total Bilirubin AST ALT Alkaline Phosphatase Lactate Dehydrogenase Total Creatine Kinase Troponin I NT-Pro-B Natriuret Pep Total Protein Albumin Globulin Albumin/Globulin Ratio Venous Blood Potassium 3.1 L Digoxin 08/07/18 08/07/18 08/07/18 12:28 12:28 12:50 WBC RBC Hgb Hct MCV MCH MCHC RDW Plt Count MPV Neut % (Auto) Lymph % (Auto) [place] % (Auto) Eos % (Auto) Baso % (Auto) Lymph # (Auto) [place] # (Auto) Eos # (Auto) Baso # (Auto) Absolute Neuts (auto) PT INR APTT pCO2 57 H pO2 245.0 H HCO3 42.4 H* ABG pH 7.48 H ABG Total CO2 44.1 H ABG O2 Saturation 100.1 H ABG O2 Content 13.2 L ABG Base Excess 16.8 H ABG Hemoglobin 9.3 L ABG Carboxyhemoglobin 3.5 H POC ABG HHb (Measured) -0.1 L ABG Methemoglobin 0.6 ABG O2 Capacity 13.2 L VBG pH VBG pCO2 VBG HCO3 VBG Total CO2 VBG O2 Sat (Calc) VBG Base Excess VBG Potassium Hgb O2 Saturation 96.0 Sodium 128 L Chloride 83 L Glucose Lactate FiO2 40.0 Crit Value Called To Crit Value Called By Blood Gas Notified Time Potassium 3.2 L Carbon Dioxide 41 H Anion Gap 7 L BUN 6 L Creatinine 0.3 L Est GFR ( Amer) > 60 Est GFR (Non-Af Amer) > 60 Random Glucose 141 H Calcium 8.4 Magnesium 1.7 Total Bilirubin 1.3 AST 37 H ALT 24 Alkaline Phosphatase 322 H Lactate Dehydrogenase 1189 H Total Creatine Kinase < 20 L Troponin I 0.01 D NT-Pro-B Natriuret Pep 739 H Total Protein 5.6 L Albumin 3.0 Globulin 2.6 Albumin/Globulin Ratio 1.2 Venous Blood Potassium Digoxin 3.3 H* 08/08/18 08/08/18 06:10 06:10 WBC 6.6 RBC 2.46 L Hgb 7.9 L Hct 25.1 L MCV 102.0 MCH 32.1 MCHC 31.5 RDW 18.6 H Plt Count 145 MPV 9.5 Neut % (Auto) Lymph % (Auto) [place] % (Auto) Eos % (Auto) Baso % (Auto) Lymph # (Auto) [place] # (Auto) Eos # (Auto) Baso # (Auto) Absolute Neuts (auto) PT INR APTT pCO2 pO2 HCO3 ABG pH ABG Total CO2 ABG O2 Saturation ABG O2 Content ABG Base Excess ABG Hemoglobin ABG Carboxyhemoglobin POC ABG HHb (Measured) ABG Methemoglobin ABG O2 Capacity VBG pH VBG pCO2 VBG HCO3 VBG Total CO2 VBG O2 Sat (Calc) VBG Base Excess VBG Potassium Hgb O2 Saturation Sodium 129 L Chloride 85 L Glucose Lactate FiO2 Crit Value Called To Crit Value Called By Blood Gas Notified Time Potassium 3.4 L Carbon Dioxide 41 H Anion Gap 6 L BUN 9 Creatinine 0.3 L Est GFR ( Amer) > 60 Est GFR (Non-Af Amer) > 60 Random Glucose 88 Calcium 8.2 L Magnesium Total Bilirubin 1.3 AST 32 ALT 25 Alkaline Phosphatase 256 H D Lactate Dehydrogenase Total Creatine Kinase Troponin I NT-Pro-B Natriuret Pep Total Protein 4.7 L Albumin 2.4 L Globulin 2.3 Albumin/Globulin Ratio 1.0 L Venous Blood Potassium Digoxin Assessment & Plan - Assessment and Plan (Free Text) Assessment: 62 year old female with COPD, Afib on Eliquis, and Stage IV Lung adenocarcinoma with bone metastases (diagnosed 05/2018) on chemoradiation complicated by right pneumothorax 2/2 PleurX catheter leak on discharge 08/01/18 presenting with nausea and constipation. Prior EGD many years ago endorsed to show "reflux. No prior colonoscopy. Plan: -nausea in setting of Stage IV lung adenocarcinoma and chemoradiation -continue Zofran PRN for symptom relief -reviewed CT A/P 05/2018- fecal retention noted; benign abdomen on exam -constipation- start bowel regimen and titrate to soft daily stools -received dulcolax with large hard stool overnight -start Miralax daily -avoid narcotics -on Ultram -continue PPI -thank you for opportunity to participate in the care of this patient. Please contact with questions or concerns <Annamaria Winchester - Last Filed: 08/08/18 10:45> Meds - Medications Medications: Current Medications Alprazolam (Xanax) 0.25 mg PO Q6 PRN; Protocol PRN Reason: Anxiety Stop: 08/14/18 18:01 Last Admin: 08/08/18 06:00 Dose: 0.25 mg Apixaban (Eliquis) 5 mg PO BID [facility]; Protocol Budesonide (Pulmicort Respules) 0.5 mg IH [id number] [facility] Last Admin: 08/08/18 07:57 Dose: 0.5 mg Digoxin (Digoxin) 0.125 mg PO 1400 [facility] Diltiazem HCl (Cardizem) 30 mg PO TID [facility] Last Admin: 08/08/18 09:47 Dose: 30 mg Sodium Chloride (Sodium Chloride 0.45%) 1,000 mls @ 30 mls/hr IV .Q24H [facility] Last Admin: 08/07/18 16:54 Dose: 30 mls/hr Levalbuterol HCl (Xopenex) 1.25 mg IH [id number] [facility] Last Admin: 08/08/18 07:57 Dose: 1.25 mg Levalbuterol HCl (Xopenex) 1.25 mg IH Q2H PRN PRN Reason: Shortness of Breath Methylprednisolone (Solu-Medrol) 30 mg IVP Q12 [facility] Last Admin: 08/08/18 09:48 Dose: 30 mg Ondansetron HCl (Zofran Inj) 4 mg IVP Q4H PRN PRN Reason: Nausea/Vomiting Last Admin: 08/07/18 20:14 Dose: 4 mg Pantoprazole Sodium (Protonix Ec Tab) 40 mg PO ACB [facility] Last Admin: 08/08/18 09:00 Dose: 40 mg Potassium Chloride (K-Dur 20 Meq Er Tab) 20 meq PO BRK [facility] Last Admin: 08/08/18 09:42 Dose: 20 meq Sotalol HCl (Betapace) 80 mg PO BID [facility] Last Admin: 08/08/18 09:47 Dose: 80 mg Tramadol HCl (Ultram) 50 mg PO Q6H PRN PRN Reason: Pain, moderate (4-7) Results - Vital Signs Recent Vital Signs: Last Vital Signs Temp 98.3 F 08/08/18 06:00 Pulse 95 H 08/08/18 09:47 Resp 18 08/08/18 06:00 BP 102/62 08/08/18 09:47 Pulse Ox 95 08/08/18 06:00 - Labs Result Diagrams: 08/08/18 06:10 08/08/18 06:10 Labs: Laboratory Results - last 24 hr 08/07/18 08/07/18 08/07/18 12:25 12:28 12:28 WBC 7.9 RBC 2.86 L Hgb 9.3 L Hct 28.8 L MCV 100.7 D MCH 32.5 MCHC 32.3 RDW 18.1 H Plt Count 173 MPV 9.7 Neut % (Auto) 65.8 Lymph % (Auto) 20.4 L [place] % (Auto) 13.7 H Eos % (Auto) 0.0 L Baso % (Auto) 0.1 Lymph # (Auto) 1.6 [place] # (Auto) 1.1 H Eos # (Auto) 0.0 Baso # (Auto) 0.01 Absolute Neuts (auto) 5.21 PT 23.2 H INR 2.05 APTT 29.3 pCO2 pO2 38 HCO3 ABG pH ABG Total CO2 ABG O2 Saturation ABG O2 Content ABG Base Excess ABG Hemoglobin ABG Carboxyhemoglobin POC ABG HHb (Measured) ABG Methemoglobin ABG O2 Capacity VBG pH 7.43 VBG pCO2 69.0 H* VBG HCO3 45.8 H VBG Total CO2 47.9 H VBG O2 Sat (Calc) 73.0 H VBG Base Excess 17.7 H VBG Potassium 3.1 L Hgb O2 Saturation Sodium 129.0 L Chloride 88.0 L Glucose 148 H Lactate 0.9 FiO2 21.0 Crit Value Called To Dr lazar Crit Value Called By 3769 Blood Gas Notified Time 1240 Potassium Carbon Dioxide Anion Gap BUN Creatinine Est GFR ( Amer) Est GFR (Non-Af Amer) Random Glucose Calcium Magnesium Total Bilirubin AST ALT Alkaline Phosphatase Lactate Dehydrogenase Total Creatine Kinase Troponin I NT-Pro-B Natriuret Pep Total Protein Albumin Globulin Albumin/Globulin Ratio Venous Blood Potassium 3.1 L Digoxin 08/07/18 08/07/18 08/07/18 12:28 12:28 12:50 WBC RBC Hgb Hct MCV MCH MCHC RDW Plt Count MPV Neut % (Auto) Lymph % (Auto) [place] % (Auto) Eos % (Auto) Baso % (Auto) Lymph # (Auto) [place] # (Auto) Eos # (Auto) Baso # (Auto) Absolute Neuts (auto) PT INR APTT pCO2 57 H pO2 245.0 H HCO3 42.4 H* ABG pH 7.48 H ABG Total CO2 44.1 H ABG O2 Saturation 100.1 H ABG O2 Content 13.2 L ABG Base Excess 16.8 H ABG Hemoglobin 9.3 L ABG Carboxyhemoglobin 3.5 H POC ABG HHb (Measured) -0.1 L ABG Methemoglobin 0.6 ABG O2 Capacity 13.2 L VBG pH VBG pCO2 VBG HCO3 VBG Total CO2 VBG O2 Sat (Calc) VBG Base Excess VBG Potassium Hgb O2 Saturation 96.0 Sodium 128 L Chloride 83 L Glucose Lactate FiO2 40.0 Crit Value Called To Crit Value Called By Blood Gas Notified Time Potassium 3.2 L Carbon Dioxide 41 H Anion Gap 7 L BUN 6 L Creatinine 0.3 L Est GFR ( Amer) > 60 Est GFR (Non-Af Amer) > 60 Random Glucose 141 H Calcium 8.4 Magnesium 1.7 Total Bilirubin 1.3 AST 37 H ALT 24 Alkaline Phosphatase 322 H Lactate Dehydrogenase 1189 H Total Creatine Kinase < 20 L Troponin I 0.01 D NT-Pro-B Natriuret Pep 739 H Total Protein 5.6 L Albumin 3.0 Globulin 2.6 Albumin/Globulin Ratio 1.2 Venous Blood Potassium Digoxin 3.3 H* 08/08/18 08/08/18 06:10 06:10 WBC 6.6 RBC 2.46 L Hgb 7.9 L Hct 25.1 L MCV 102.0 MCH 32.1 MCHC 31.5 RDW 18.6 H Plt Count 145 MPV 9.5 Neut % (Auto) Lymph % (Auto) [place] % (Auto) Eos % (Auto) Baso % (Auto) Lymph # (Auto) [place] # (Auto) Eos # (Auto) Baso # (Auto) Absolute Neuts (auto) PT INR APTT pCO2 pO2 HCO3 ABG pH ABG Total CO2 ABG O2 Saturation ABG O2 Content ABG Base Excess ABG Hemoglobin ABG Carboxyhemoglobin POC ABG HHb (Measured) ABG Methemoglobin ABG O2 Capacity VBG pH VBG pCO2 VBG HCO3 VBG Total CO2 VBG O2 Sat (Calc) VBG Base Excess VBG Potassium Hgb O2 Saturation Sodium 129 L Chloride 85 L Glucose Lactate FiO2 Crit Value Called To Crit Value Called By Blood Gas Notified Time Potassium 3.4 L Carbon Dioxide 41 H Anion Gap 6 L BUN 9 Creatinine 0.3 L Est GFR ( Amer) > 60 Est GFR (Non-Af Amer) > 60 Random Glucose 88 Calcium 8.2 L Magnesium Total Bilirubin 1.3 AST 32 ALT 25 Alkaline Phosphatase 256 H D Lactate Dehydrogenase Total Creatine Kinase Troponin I NT-Pro-B Natriuret Pep Total Protein 4.7 L Albumin 2.4 L Globulin 2.3 Albumin/Globulin Ratio 1.0 L Venous Blood Potassium Digoxin Attending/Attestation - Attestation I have personally seen and examined this patient.: Yes I have fully participated in the care of the patient.: Yes I have reviewed all pertinent clinical information: Yes Notes (Text): 08/08/18 10:27 I have seen and examined the patient with the GI fellow. This is a 62 yo F with COPD, Afib on Eliquis, and Stage IV Lung adenocarcinoma with bone metastases (diagnosed 05/2018) on chemoradiation c/b R pneumothorax 2/2 PleurX catheter leak on discharge 08/02/18 with chronic n/v well managed with Zofran at home p/w worsening SOB, as well as worsening n/v. Pt notes she's been more constipated t hese past few wks and her last BM was yesterday, but very hard. Improved n/v sxs if she has a BM.Poor appetite. Still nauseous, but with improvement with Zofran. General: thin, frail appearing woman, on NC Abd: soft, nt, nd Plan: -conservative management as pt going to hospice care -zofran appears to be working for her at this point and would continue -advance diet as tolerated -would try to minimize opioids/narcotics -daily bowel regimen --> Miralax 17 gm po daily (can be titrated to bid) and encourage po hydration -can continue dulcolax as well -will sign off, pls call with questions 08/08/18 10:31
--- NOTE | 2018-08-08 10:24 | PN ---
DATE: 08/08/2018 CARDIOLOGY FOLLOWUP SUBJECTIVE: The patient presents with abdominal discomfort and general malaise. PHYSICAL EXAMINATION VITAL SIGNS: Blood pressure 107/70, heart rate currently is in 90s. NECK: Negative JVD. LUNGS: Without rales. HEART: S1, S2. EXTREMITIES: Without edema. DIAGNOSTIC DATA: EKG on presentation with atrial fibrillation 135. Currently, she is in normal sinus rhythm in the 80s. LABORATORY DATA: Hemoglobin is 7.9, BUN and creatinine are 9 and 0.3. IMPRESSION: 1. Malaise and abdominal pain. 2. Severe chronic obstructive pulmonary disease. 3. Paroxysmal atrial fibrillation which the patient is converted back to normal sinus rhythm. 4. Lung cancer. 5. Anemia. PLAN: Given these findings, when the patient goes into atrial fibrillation, heart rate is greater than 30, we will add Cardizem to her regimen and we will continue her digoxin as well as the sotalol. Brayan Jay MD
--- NOTE | 2018-08-08 10:39 | PN ---
DATE: 08/08/2018 SUBJECTIVE: I saw her resting in bed this morning. She is alert. She understands her predicament. I discussed this with her at length. We discussed going to hospice, and I also told her 6 weeks to 10 weeks is probably left. MEDICATIONS: She is on Betapace, Cardizem, digoxin, Eliquis, Protonix, Pulmicort, IV fluid, Solu-Medrol, Ultram, Xanax, Xopenex, and Zofran. PHYSICAL EXAMINATION: GENERAL: She is feeling better, breathing better, less nauseous today. VITAL SIGNS: She has 98.3 temperature, 85 pulse, 107/70 blood pressure, 18 respiratory rate and 95% O2 sat on nasal cannula. HEENT: Head atraumatic and normocephalic. HEART: Regular rate. LUNGS: Decreased breath sounds bilaterally. ABDOMEN: Soft. EXTREMITIES: No edema. LABORATORY DATA: She has a 6.6 white count, 7.9 hemoglobin, I am going to transfuse her 2 units of packed blood cells and 25.1 hematocrit with 145 platelets. INR is 2.05. Sodium 129, potassium 3.4, we are going to replace the potassium, BUN 9, creatinine 0.3, GFR is greater than 60, sugar is 88, calcium 8.2, AST is 32, ALT is 25, alk phos 256 and total protein 12.7. ASSESSMENT AND PLAN: Still holding digoxin because the digoxin level was high, I will repeat digoxin level tomorrow. I am glad the pulse is better, glad the nauseousness is better, I am glad the breathing is better on the steroids, and we are going to transfuse her 2 units of packed red blood cells with Lasix 40 one time dose in between the 2 units. She is here with end-stage lung cancer. I am going to talk to [facility] to get her started home hospice. I discussed that with her too, she wants to talk to them. I also discussed with the about the severity of her illness. Garfield Lopez DO JARET
[2018-08-08] MEDS: POLYETHYLENE GLYCOL 3350 17 GM/Dose PACKET PO SCH (11:27)
[2018-08-08] MEDS ORDERED: Potassium Chloride 20 mEq ER Tab PO ONE (13:10)
--- NOTE | 2018-08-08 13:14 | CP.PCM.PN ---
Subjective - Date & Time of Evaluation Date of Evaluation: 08/08/18 Time of Evaluation: 13:10 - Subjective Subjective: I'm working as the house doctor. Nurse paged me as the patient wanted to discussed her code status with a physician. After our conversation, the patient stated she wants to be DNI. I conveyed the benefits of intubation - the patient understood this and was adamant about being DNI. Her 2 friends were present in the room. And the nurse is also witness. She stated she will re-write her advanced directive soon as she has stipulations she wants to add. Objective - Vital Signs/Intake and Output Vital Signs (last 24 hours): Temp Pulse Resp BP Pulse Ox 97.7 F 74 20 93/60 L 95 08/08/18 12:00 08/08/18 12:00 08/08/18 12:00 08/08/18 12:00 08/08/18 06:00 Intake and Output: 08/08/18 08/08/18 06:59 18:59 Intake Total 418 Balance 418 - Medications Medications: Current Medications Alprazolam (Xanax) 0.25 mg PO Q6 PRN; Protocol PRN Reason: Anxiety Stop: 08/14/18 18:01 Last Admin: 08/08/18 06:00 Dose: 0.25 mg Apixaban (Eliquis) 5 mg PO BID [facility]; Protocol Last Admin: 08/08/18 11:27 Dose: 5 mg Budesonide (Pulmicort Respules) 0.5 mg IH [id number] [facility] Last Admin: 08/08/18 07:57 Dose: 0.5 mg Digoxin (Digoxin) 0.125 mg PO 1400 [facility] Diltiazem HCl (Cardizem) 30 mg PO TID [facility] Last Admin: 08/08/18 09:47 Dose: 30 mg Sodium Chloride (Sodium Chloride 0.45%) 1,000 mls @ 30 mls/hr IV .Q24H [facility] Last Admin: 08/07/18 16:54 Dose: 30 mls/hr Levalbuterol HCl (Xopenex) 1.25 mg IH [id number] [facility] Last Admin: 08/08/18 07:57 Dose: 1.25 mg Levalbuterol HCl (Xopenex) 1.25 mg IH Q2H PRN PRN Reason: Shortness of Breath Methylprednisolone (Solu-Medrol) 30 mg IVP Q12 [facility] Last Admin: 08/08/18 09:48 Dose: 30 mg Ondansetron HCl (Zofran Inj) 4 mg IVP Q4H PRN PRN Reason: Nausea/Vomiting Last Admin: 08/07/18 20:14 Dose: 4 mg Pantoprazole Sodium (Protonix Ec Tab) 40 mg PO ACB [facility] Last Admin: 08/08/18 09:00 Dose: 40 mg Polyethylene Glycol (Miralax) 17 gm PO DAILY [facility] Last Admin: 08/08/18 11:27 Dose: 17 gm Potassium Chloride (K-Dur 20 Meq Er Tab) 20 meq PO BRK [facility] Last Admin: 08/08/18 09:42 Dose: 20 meq Sotalol HCl (Betapace) 80 mg PO BID [facility] Last Admin: 08/08/18 09:47 Dose: 80 mg Tramadol HCl (Ultram) 50 mg PO Q6H PRN PRN Reason: Pain, moderate (4-7) - Labs Labs: 08/08/18 06:10 08/08/18 06:10 PT 23.2 SECONDS (9.4-12.5) H 08/07/18 12:28 INR 2.05 08/07/18 12:28 APTT 29.3 Seconds (26.9-38.3) 08/07/18 12:28
[2018-08-08] MEDS: Digoxin 125 mcg (0.125 mg) Tab PO SCH (13:26)
[2018-08-08] MEDS: Sodium Chloride 0.45% 1,000 ML IV SCH (17:49)
[2018-08-09] MEDS: Levalbuterol 1.25 MG/3 ML Inhal Soln UD IH SCH ×4 (02:00→19:53)
--- NOTE | 2018-08-09 05:28 | CP.PCM.PN ---
Subjective - Date & Time of Evaluation Date of Evaluation: 08/09/18 Time of Evaluation: 05:27 - Subjective Subjective: To be dictated. Unable to fall asleep. Xanax on order. Xanax 0.25 mg PO x 1. Objective - Vital Signs/Intake and Output Vital Signs (last 24 hours): Temp Pulse Resp BP Pulse Ox 98.1 F 71 18 100/63 97 08/09/18 00:03 08/09/18 05:26 08/09/18 00:03 08/09/18 00:03 08/09/18 04:31 Intake and Output: 08/08/18 08/09/18 18:59 06:59 Intake Total 1009 280 Balance 1009 280 - Medications Medications: Current Medications Alprazolam (Xanax) 0.25 mg PO Q6 PRN; Protocol PRN Reason: Anxiety Stop: 08/14/18 18:01 Last Admin: 08/09/18 01:59 Dose: 0.25 mg Apixaban (Eliquis) 5 mg PO BID [facility]; Protocol Last Admin: 08/08/18 17:39 Dose: 5 mg Budesonide (Pulmicort Respules) 0.5 mg IH [id number] [facility] Last Admin: 08/08/18 21:00 Dose: Not Given Digoxin (Digoxin) 0.125 mg PO 1400 [facility] Last Admin: 08/08/18 13:26 Dose: Not Given Diltiazem HCl (Cardizem) 30 mg PO TID [facility] Last Admin: 08/08/18 17:39 Dose: 30 mg Sodium Chloride (Sodium Chloride 0.45%) 1,000 mls @ 30 mls/hr IV .Q24H [facility] Last Admin: 08/08/18 17:49 Dose: Not Given Levalbuterol HCl (Xopenex) 1.25 mg IH [id number] [facility] Last Admin: 08/08/18 21:00 Dose: 1.25 mg Levalbuterol HCl (Xopenex) 1.25 mg IH Q2H PRN PRN Reason: Shortness of Breath Methylprednisolone (Solu-Medrol) 30 mg IVP Q12 [facility] Last Admin: 08/08/18 20:59 Dose: 30 mg Ondansetron HCl (Zofran Inj) 4 mg IVP Q4H PRN PRN Reason: Nausea/Vomiting Last Admin: 08/09/18 01:59 Dose: 4 mg Pantoprazole Sodium (Protonix Ec Tab) 40 mg PO ACB [facility] Last Admin: 08/08/18 09:00 Dose: 40 mg Polyethylene Glycol (Miralax) 17 gm PO DAILY [facility] Last Admin: 08/08/18 11:27 Dose: 17 gm Potassium Chloride (K-Dur 20 Meq Er Tab) 20 meq PO BRK [facility] Last Admin: 08/08/18 09:42 Dose: 20 meq Sotalol HCl (Betapace) 80 mg PO BID [facility] Last Admin: 08/08/18 17:42 Dose: 80 mg Tramadol HCl (Ultram) 50 mg PO Q6H PRN PRN Reason: Pain, moderate (4-7) Last Admin: 08/08/18 23:49 Dose: 50 mg - Labs Labs: 08/08/18 06:10 08/08/18 06:10 PT 23.2 SECONDS (9.4-12.5) H 08/07/18 12:28 INR 2.05 08/07/18 12:28 APTT 29.3 Seconds (26.9-38.3) 08/07/18 12:28
[2018-08-09 05:31] LABS: PH,URINE 6.5 (4.7-8.0); URINE BILIRUBIN NEGATIVE (NEGATIVE); URINE BLOOD NEGATIVE (NEGATIVE); URINE GLUCOSE (UA) NEGATIVE (NEGATIVE); URINE LEUKOCYTE ESTERASE NEGATIVE Leu/uL (NEGATIVE); URINE PROTEIN NEGATIVE mg/dL (<30 mg/dL)
[2018-08-09 05:36] LABS: URINE APPEARANCE CLEAR (CLEAR); URINE COLOR YELLOW (YELLOW)
[2018-08-09 06:31] LABS: MEAN CORPUSCULAR HEMOGLOBIN 31.5 pg (25.0-35.0); MEAN CORPUSCULAR HGB CONC 32.7 g/dl (31.0-37.0); MEAN PLATELET VOLUME 9.7 fl (7.0-11.0); RBC 3.43 10^6/uL (3.5-6.1); RED CELL DISTRIBUTION WIDTH 19.8 % (11.5-14.5); WHITE BLOOD COUNT 7.4 10^3/uL (4.5-11.0)
[2018-08-09 06:42] LABS: HEMOGLOBIN 10.8 g/dL (12.0-16.0); MEAN CELL VOLUME 96.2 fl (80.0-105.0)
[2018-08-09 07:45] LABS: ALB/GLOB RATIO 1.1 (1.1-1.8); ALBUMIN 2.7 g/dL (3.0-4.8); ALT/SGPT 16 U/L (7-56); AST/SGOT 30 U/L (14-36); BLOOD UREA NITROGEN 8 mg/dL (7-21); GFR NON-AFRICAN AMERICAN > 60
[2018-08-09] MEDS: Budesonide 0.5 mg/2 ml Inhal Susp UD IH SCH ×2 (08:04→19:53)
--- NOTE | 2018-08-09 09:10 | PN ---
DATE: 08/09/2018 SUBJECTIVE: The patient appears comfortable this morning. She is not short of breath at rest. She does appear very weak. PHYSICAL EXAMINATION: VITAL SIGNS: Temperature 98.1, pulse 71, respirations 18, blood pressure 100/63. Oxygen saturation on nasal cannula - 97%. HEENT: Normocephalic, atraumatic. No JVD. CARDIOVASCULAR: Positive S1, S2. No S3 gallop. LUNGS: Decreased breath sounds at the bases. Less rhonchi. No wheezing. EXTREMITIES: Mild edema. No cyanosis. No clubbing. Calves are nontender to palpation. GASTROINTESTINAL: Abdomen is soft, nontender and nondistended. Bowel sounds are positive. SKIN: No acute rash. NEUROLOGIC: Exam limited at the present time. IMPRESSION: 1. Recurrent bronchitis. 2. Advanced chronic obstructive pulmonary disease, on home oxygen. 3. Advanced/extensive adenocarcinoma of the right lung. 4. Recurrent right pleural effusion, status post a Aspira catheter placement. 5. Anemia. 6. Atrial fibrillation. PLAN: The patient appears comfortable this morning. She is not short of breath at rest. She does appear very weak. I did discuss the case with the night nurse at length. The night nurse stated that the patient had an uneventful night. On physical exam, there is less bronchospasm noted. In addition, the alveolar-arterial gradient is also less. I will continue with the current nebulizer treatments and decrease the intravenous steroids this morning. Inputs by Cardiology and Gastroenterology are also noted. The patient is status post transfusion. Repeat a.m. labs are pending. The patient's pulmonary status is somewhat improved - compared to the initial presentation. However, unfortunately, the overall status/prognosis for this patient remains very, very poor. Again, I did discuss the case with the night nurse at length. Hospice plans have been put on hold. The patient has been changed to DNI status. I will discuss the above with Dr. Lopez. Kevin Wells MD JARET
[2018-08-09] MEDS: Pantoprazole 40 mg EC Tab PO SCH (09:16)
[2018-08-09] MEDS: Potassium Chloride 20 mEq ER Tab PO SCH (09:19)
[2018-08-09] MEDS ORDERED: Lidocaine PF 2% (5 ml) Inj (For Cardiac Arrhy) ONE (09:57)
[2018-08-09] MEDS ORDERED: Midazolam 2 MG/2 ML VIAL ONE (10:23)
[2018-08-09] MEDS: MethylPREDNISolone 40 mg Vial IVP SCH ×2 (11:38→22:19)
[2018-08-09] MEDS: POLYETHYLENE GLYCOL 3350 17 GM/Dose PACKET PO SCH (11:39)
[2018-08-09] MEDS: diltiaZEM 120 mg/24 Hours CD Cap PO SCH (11:49)
--- NOTE | 2018-08-09 13:12 | PN ---
DATE: 08/09/2018 SUBJECTIVE: The patient remains in normal sinus rhythm. PHYSICAL EXAMINATION: VITAL SIGNS: Blood pressure 100/63, heart rate in the 70s. NECK: Negative JVD. LUNGS: Decreased breath sounds. HEART: S1, S2. EXTREMITIES: Without change . LABORATORY DATA: Hemoglobin is 10.8. Chemistries, BUN and creatinine are normal. IMPRESSION: 1. Paroxysmal atrial fibrillation. 2. Severe chronic obstructive pulmonary disease. 3. Lung carcinoma. 4. Anemia. 5. Pleural effusions. PLAN: Given these findings, we will change her low-dose Cardizem to long-acting Cardizem. From a cardiac perspective, the patient can be discharged. Brayan Jay MD
--- NOTE | 2018-08-09 13:35 | PN ---
DATE: 08/09/2018 SUBJECTIVE: She is feeling a little bit better today than yesterday. Hospice came in. She requested to talk to hospice, they came in. At this time, she does not want hospice. She wants the PleurX catheter out. I told her that was a good idea. She is on IV fluids, Betapace, Cardizem, Digoxin, Eliquis, potassium replacement, IV Lasix, MiraLax, Pulmicort, prednisone is down to 20 every 12 hours, Ultram, Xanax she wants it more often and Zofran. PHYSICAL EXAMINATION: VITAL SIGNS: She has 98.1 temperature, 72 pulse, 100/63 blood pressure, 18 respiratory rate, 97% O2 sat on oxygen. HEAD: Atraumatic, normocephalic. HEART: Regular rate. LUNGS: Decreased breath sounds bilaterally, right worse than left. ABDOMEN: Soft. EXTREMITIES: No edema. LABORATORY DATA: She has a 7.4 white count, 10.8 hemoglobin after transfusion, 33 hematocrit and 148 platelets. She has a 128 sodium, potassium 3.9, BUN 8, creatinine 0.3, GFR is greater than 60, sugar is 135, calcium is 8. Total bilirubin is 1.3, AST is 30, ALT is 69, alk phos is 266, total protein is 5.2. Being seen by Cardiology, Pulmonology. ASSESSMENT AND PLAN: Awaiting Dr. Brayan tenorio, I will put in the TCU eval, at least she wants to go to [facility]. Pulmonary feels that will be better CCU before she goes home. I ordered a physical therapy eval . She has severe lung cancer, the chronic obstructive pulmonary disease picture is starting to get better again. Garfield Lopez DO MTDD
--- NOTE | 2018-08-09 14:44 | CP.PCM.CON ---
History of Present Illness - History of Present Illness History of Present Illness: Markus Wiley PGY2 Heme/Onc Consult note for Dr. Welch 62 year old female with PMH of R-sided lung adenocarcinoma with mets to the bones diagnose in May 2018 with pleural effusions with right sided chest catheter, COPD (on home O2), GERD, diverticulosis, and prior AFib presents with nausea. Patient notes intermittent nausea since diagnosis of lung cancer in May but worsening of symptoms for the last two weeks. Patient states she takes zofran at home for help for the nausea. Patient had a lung biopsy in May which showed adenocarcinoma. She states she has seen Dr. Bloom a couple weeks ago for chemotherapy. She states she had a PET scan which showed disease in the right lung and spine. Patient says she will be going to [facility] for rehab therapy. Currently denies chest pain, vomiting, fever, chills, dizziness, weakness or any other complaints at this time. PMD: Dr. Lopez Past Medical History: R-sided lung CA, COPD (on home O2), GERD, diverticulosis, and prior AFib Past Surgical History: R-sided hip replacement Allergies: NKA Home medications: Sotalol 80 mg BID, Xanax 0.25 mg HS, Spiriva 2 puff IH daily, Prednisone 10 mg daily, Dexilant 60 mg daily, Lipitor 10 mg DIN, Brovana 1 kasey IH BID Family History: reviewed, non-contributory Social History: admits to smoking approximately 1 PPD for past 40 years, reports social EtOH use, denies illicit drug use Pharmacy: [id number] Past Patient History - Infectious Disease Hx of Infectious Diseases: None - Tetanus Immunizations Tetanus Immunization: Unknown - Past Medical History & Family History Past Medical History?: Yes - Past Social History Smoking Status: Former Smoker - CARDIAC Hx Cardiac Disorders: Yes (h/o cardiac arrythmias.) - PULMONARY Hx Chronic Obstructive Pulmonary Disease (COPD): Yes - NEUROLOGICAL Hx Neurological Disorder: No - HEENT Hx HEENT Problems: No - RENAL Hx Chronic Kidney Disease: No - ENDOCRINE/METABOLIC Hx Endocrine Disorders: No - HEMATOLOGICAL/ONCOLOGICAL Hx Blood Disorders: Yes 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) Hx Chemotherapy: Yes (COMPLETED 6 ROUNDS OF RADIATION.) Hx Metastesis: Yes (BONE) - INTEGUMENTARY Hx Dermatological Problems: No - MUSCULOSKELETAL/RHEUMATOLOGICAL Hx Arthritis: Yes - GASTROINTESTINAL Hx Gastroesophageal Reflux: Yes - GENITOURINARY/GYNECOLOGICAL Hx Genitourinary Disorders: No - PSYCHIATRIC Hx Substance Use: No - SURGICAL HISTORY Hx Cardiac Catheterization: Yes Hx Orthopedic Surgery: Yes Other/Comment: Right hip replacement, right femur - ANESTHESIA Hx Anesthesia: Yes Hx Malignant Hyperthermia: No Meds Allergies/Adverse Reactions: Allergies Allergy/AdvReac Type Severity Reaction Status Date / Time No Known Allergies Allergy Verified 08/07/18 13:38 - Medications Medications: Current Medications Alprazolam (Xanax) 0.25 mg PO Q6H PRN; Protocol PRN Reason: Anxiety Stop: 08/14/18 15:48 Apixaban (Eliquis) 5 mg PO BID [facility]; Protocol Last Admin: 08/09/18 11:37 Dose: 5 mg Budesonide (Pulmicort Respules) 0.5 mg IH [id number] [facility] Last Admin: 08/09/18 08:04 Dose: 0.5 mg Digoxin (Digoxin) 0.125 mg PO 1400 [facility] Last Admin: 08/08/18 13:26 Dose: Not Given Diltiazem HCl (Cardizem Cd) 120 mg PO DAILY [facility] Last Admin: 08/09/18 11:49 Dose: 120 mg Sodium Chloride (Sodium Chloride 0.45%) 1,000 mls @ 30 mls/hr IV .Q24H [facility] Last Admin: 08/08/18 17:49 Dose: Not Given Levalbuterol HCl (Xopenex) 1.25 mg IH [id number] [facility] Last Admin: 08/09/18 13:25 Dose: 1.25 mg Levalbuterol HCl (Xopenex) 1.25 mg IH Q2H PRN PRN Reason: Shortness of Breath Methylprednisolone (Solu-Medrol) 20 mg IVP Q12 [facility] Last Admin: 08/09/18 11:38 Dose: 20 mg Ondansetron HCl (Zofran Inj) 4 mg IVP Q4H PRN PRN Reason: Nausea/Vomiting Last Admin: 08/09/18 01:59 Dose: 4 mg Pantoprazole Sodium (Protonix Ec Tab) 40 mg PO ACB [facility] Last Admin: 08/09/18 09:16 Dose: 40 mg Polyethylene Glycol (Miralax) 17 gm PO DAILY [facility] Last Admin: 08/09/18 11:39 Dose: 17 gm Potassium Chloride (K-Dur 20 Meq Er Tab) 20 meq PO BRK [facility] Last Admin: 08/09/18 09:19 Dose: 20 meq Sotalol HCl (Betapace) 80 mg PO BID [facility] Last Admin: 08/08/18 17:42 Dose: 80 mg Tramadol HCl (Ultram) 50 mg PO Q6H PRN PRN Reason: Pain, moderate (4-7) Last Admin: 08/09/18 11:37 Dose: 50 mg Results - Vital Signs Recent Vital Signs: Last Vital Signs Temp 98 F 08/09/18 12:00 Pulse 80 08/09/18 12:00 Resp 18 08/09/18 12:00 BP 119/74 08/09/18 12:00 Pulse Ox 98 08/09/18 11:04 - Labs Result Diagrams: 08/09/18 06:00 08/09/18 06:00 Labs: Laboratory Results - last 24 hr 08/08/18 08/09/18 08/09/18 08:49 05:21 06:00 WBC 7.4 RBC 3.43 L Hgb 10.8 L D Hct 33.0 L MCV 96.2 D MCH 31.5 MCHC 32.7 RDW 19.8 H Plt Count 148 MPV 9.7 Sodium Potassium Chloride Carbon Dioxide Anion Gap BUN Creatinine Est GFR ( Amer) Est GFR (Non-Af Amer) Random Glucose Calcium Total Bilirubin AST ALT Alkaline Phosphatase Total Protein Albumin Globulin Albumin/Globulin Ratio Urine Color Yellow Urine Appearance Clear Urine pH 6.5 Ur Specific [place] 1.010 Urine Protein Negative Urine Glucose (UA) Negative Urine Ketones Negative Urine Blood Negative Urine Nitrate Negative Urine Bilirubin Negative Urine Urobilinogen 4.0 H Ur Leukocyte Esterase Negative Digoxin Blood Type O POSITIVE Antibody Screen Negative Crossmatch See Detail BBK History Checked Patient has bt 08/09/18 08/09/18 06:00 12:00 WBC RBC Hgb Hct MCV MCH MCHC RDW Plt Count MPV Sodium 128 L Potassium 3.9 Chloride 85 L Carbon Dioxide 40 H Anion Gap 7 L BUN 8 Creatinine 0.3 L Est GFR ( Amer) > 60 Est GFR (Non-Af Amer) > 60 Random Glucose 135 H Calcium 8.0 L Total Bilirubin 1.3 AST 30 ALT 16 Alkaline Phosphatase 266 H Total Protein 5.2 L Albumin 2.7 L Globulin 2.4 Albumin/Globulin Ratio 1.1 Urine Color Urine Appearance Urine pH Ur Specific [place] Urine Protein Urine Glucose (UA) Urine Ketones Urine Blood Urine Nitrate Urine Bilirubin Urine Urobilinogen Ur Leukocyte Esterase Digoxin 0.7 L Blood Type Antibody Screen Crossmatch BBK History Checked Assessment & Plan - Assessment and Plan (Free Text) Plan: R-sided lung adenocarcinoma -PET scan as outpatient -possible chemotherapy plan depending on PET scan -nutritional consult -calorie count -monitor CBC for anemia
--- NOTE | 2018-08-09 16:45 | VASCULAR ---
Date of service: 08/09/2018 PROCEDURE: Remove tunneled right pleural catheter HISTORY: Recently diagnosed lung CA with malignant pleural effusion and shortness of breath. Previously placed tunneled right pleural catheter. Persistent leakage. Unresponsive to multiple maneuvers. Remove right tunneled pleural catheter COMPARISON: TECHNIQUE: The relative risks and indications of the procedure were explained the patient consent obtained. Patient placed supine on the arteriography table and the tunneled right pleural catheter prepped and draped usual sterile fashion. Conscious sedation monitoring were provided throughout the procedure by a nurse. 1 percent xylocaine was used to anesthetize the skin soft tissues of the tunnel site. The tunnel was bluntly dissected. The tunneled pleural catheter was removed and a single interrupted suture placed at the exit site. The patient tolerated the procedure well. FINDINGS: IMPRESSION: Removal the patient's tunneled right pleural catheter.
[2018-08-09] MEDS: Sodium Chloride 0.45% 1,000 ML IV SCH (17:43)
[2018-08-09] MEDS: Digoxin 125 mcg (0.125 mg) Tab PO SCH (17:43)
[2018-08-09] MEDS ORDERED: Morphine 2 mg/ml ISec IVP ONE (22:45)
[2018-08-10] MEDS: Budesonide 0.5 mg/2 ml Inhal Susp UD IH SCH ×3 (00:43→19:31)
[2018-08-10] MEDS: Levalbuterol 1.25 MG/3 ML Inhal Soln UD IH PRN ×3 (00:43→11:46)
[2018-08-10] MEDS: Levalbuterol 1.25 MG/3 ML Inhal Soln UD IH SCH ×4 (01:22→19:22)
[2018-08-10 06:44] LABS: HEMOGLOBIN 10.4 g/dL (12.0-16.0); MEAN CELL VOLUME 97.6 fl (80.0-105.0); MEAN CORPUSCULAR HEMOGLOBIN 31.4 pg (25.0-35.0); MEAN CORPUSCULAR HGB CONC 32.2 g/dl (31.0-37.0); MEAN PLATELET VOLUME 9.7 fl (7.0-11.0); RBC 3.31 10^6/uL (3.5-6.1); RED CELL DISTRIBUTION WIDTH 19.6 % (11.5-14.5); WHITE BLOOD COUNT 9.5 10^3/uL (4.5-11.0)
[2018-08-10 07:13] LABS: ALB/GLOB RATIO 1.1 (1.1-1.8); ALBUMIN 2.8 g/dL (3.0-4.8); ALT/SGPT 23 U/L (7-56); AST/SGOT 31 U/L (14-36); BLOOD UREA NITROGEN 10 mg/dL (7-21); CALCIUM 8.3 mg/dL (8.4-10.5); GFR NON-AFRICAN AMERICAN > 60
--- NOTE | 2018-08-10 07:37 | PQF ---
PROVIDER RESPONSE TEXT: ? REVIEWER QUERY TEXT: Anemia Type Physician?s Documentation Request This Form is Not a Permanent Document in the Medical Record Pt Name: RJ FAUST MR #: [id number] Payor: [facility] Unit/Bed: 2RSO-270-01 Adm Date: 08/07/2018 1:20:00 PM Reviewer: Kira Santos Ext. Query Date: 08/09/2018 9:58:57 AM Anemia Type [id number] By submitting this query, we are merely seeking further clarification of documentation to accurately reflect all conditions that you are monitoring, evaluating, treating or that extend the hospitalizati on or utilize additional resources of care. Please utilize your independent clinical judgment when ad dressing the question(s) below. Dear Doctor Garfield Lopez, The patient?s Clinical Indicators include: Anemia is documented in the Medical Record. Please specify the cause (includes suspected or probable cause) Such as: -- Due to acute blood loss -- Due to chronic blood loss -- Due to iron deficiency -- Due to postoperative blood loss -- Due to chronic disease -- Other, please specify PLEASE DOCUMENT ANY ADDITIONAL DIAGNOSES AND/OR SPECIFICITY IN THE PROGRESS NOTES AND/OR DISCHARGE HYAES MMARY. Clinically unable to determine/unknown Disagree with the above request Need to discuss Query created by: Kira Santos on 08/09/2018 9:58 AM Electronically signed by: Garfield Lopez DO 08/10/2018 7:34 AM
--- NOTE | 2018-08-10 09:49 | PN ---
DATE: 08/10/2018 PULMONARY NOTE SUBJECTIVE: The patient appears comfortable this morning. She is not short of breath at rest. OBJECTIVE: VITALS: Temperature is 98, pulse 69, respirations 18, blood pressure 107/67. Oxygen saturation on nasal cannula - 97%. HEENT: Normocephalic, atraumatic. No JVD. CARDIOVASCULAR: Positive S1, S2. No S3 gallop. LUNGS: Decreased breath sounds at the bases. No rhonchi or wheezing this morning. EXTREMITIES: Mild edema. No cyanosis, no clubbing. Calves are nontender to palpation. GASTROINTESTINAL: Abdomen is soft, nontender, and nondistended. Bowel sounds are positive. SKIN: No acute rash. NEUROLOGIC: Limited at the present time. IMPRESSION: 1. Recurrent bronchitis. 2. Advanced chronic obstructive pulmonary disease, on home oxygen. 3. Advanced/extensive adenocarcinoma of the right lung. 4. Recurrent right pleural effusion, status post Aspira catheter placement. 5. Anemia. 6. Atrial fibrillation. PLAN: The patient appears comfortable this morning. She is not short of breath at rest. She does state to feeling better overall. She remains very weak appearing. On physical exam, her bronchospasm has primarily resolved. In addition, there is no significant alveolar arterial gradient. I will continue the current nebulizer treatments and change to oral steroids this morning. Inputs by Cardiology and Oncology are also noted. Clinical status of the patient is certainly improved - compared to her initial presentation. However, unfortunately, the future status/prognosis for this patient remains very, very poor. All are aware. I will discuss the above with Dr. Lopez. Kevin Wells MD MTDD
[2018-08-10] MEDS: Pantoprazole 40 mg EC Tab PO SCH (10:33)
[2018-08-10] MEDS: Potassium Chloride 20 mEq ER Tab PO SCH (10:33)
[2018-08-10] MEDS: POLYETHYLENE GLYCOL 3350 17 GM/Dose PACKET PO SCH (10:34)
[2018-08-10] MEDS: diltiaZEM 120 mg/24 Hours CD Cap PO SCH (10:34)
[2018-08-10] MEDS: Sodium Chloride 0.9% 1,000 ML IV SCH (10:34)
[2018-08-10] MEDS ORDERED: Morphine 2 mg/ml ISec IM PRN (13:09)
--- NOTE | 2018-08-10 13:15 | DS ---
HOSPITAL COURSE: She is sitting up in bed. She is very upset with the world. She wants to see Dr. Welch, the another oncologist. She feels that she needs to be treated. She wants more CAT scans. She is very frustrated. She is doing better though since she has been here. She is on Betapace; Cardizem; Digoxin; Eliquis; potassium replacement; MiraLax; morphine for pain; she was on solu-medrol, now she is on prednisone 30 mg daily; Protonix; IV fluid was changed to 0.9 due to lab change; Ultram for pain; Xanax; Xopenex and Zofran. PHYSICAL EXAMINATION: VITAL SIGNS: She has a 98 temperature, 69 pulse, 107/67 blood pressure, 18 respiratory rate, and 97% O2 saturation on 3 liters. HEENT: Head is atraumatic and normocephalic. HEART: Regular rate. LUNGS: Decreased breath sounds bilaterally. ABDOMEN: Soft. catheter is out. EXTREMITIES: No edema. PLAN: I think she can go to subacute rehab at [facility] today. If case management has arranged, it will be wonderful. So, maybe today, we can discharge her to [facility]. We will continue treatment there before she goes home. Garfield Lopez DO MTDD
[2018-08-10 13:20] VITALS: PULSE 89
[2018-08-10] MEDS: Digoxin 125 mcg (0.125 mg) Tab PO SCH (13:20)
--- NOTE | 2018-08-10 16:26 | PN ---
DATE: 08/10/2018 CARDIOLOGY FOLLOWUP SUBJECTIVE: The patient's breathing is stable. PHYSICAL EXAMINATION VITAL SIGNS: Blood pressure 107/67 and heart rate in the 90s, normal sinus rhythm. NECK: Bilateral rhonchi. HEART: Reveals S1 and S2. EXTREMITIES: Without edema. LABORATORY DATA: Hemoglobin is 10.4. Chemistries; BUN and creatinine is 8 and 0.3. IMPRESSION: 1. Severe chronic obstructive pulmonary disease. 2. History of lung carcinoma. 3. Paroxysmal atrial fibrillation the patient remains in normal sinus rhythm. 4. Pleural effusion. 5. Diffuse body aches. PLAN: Given these findings, the patient's cardiac status is stabilized. We will discontinue telemetry today. The patient is awaiting for transfer to [facility]. Brayan Jay MD
--- NOTE | 2018-08-10 19:12 | PN ---
DATE: 08/10/2018 This is [facility] healthcare visit on the telemetry floor. For Dr. Welch. SUBJECTIVE: The patient is a 62-year-old female with known adenocarcinoma of the right lung with pleural effusion, status post PleurX catheter with removal yesterday by Dr. Brayan Orozco after increasing shortness of breath. The patient reports that she was diagnosed and treated by Dr. Humberto Bloom with her last treatment in May for her underlying neoplastic condition and is anxious to continue treatment when appropriate. She also has diagnosis of atrial fibrillation for which she sees Dr. Jay, insole presser. At present, she is for discharge with strong recommendations for followup with Dr. Welch after discharge for further recommendations as indicated. OBJECTIVE PHYSICAL EXAMINATION VITAL SIGNS: Temperature 97.4, pulse 80, respirations 18, blood pressure 104/66, and pulse ox 97%. HEENT: Unremarkable. NECK: Supple. HEART: Regular rate, occasional ectopic beat. LUNGS: Decreased breath sounds bilaterally. ABDOMEN: Soft and nontender. EXTREMITIES: No edema. SKIN: Warm and dry. NEUROLOGIC: Awake and alert. LABORATORY DATA: The patient's labs were done. White blood cell count of 9.5, hemoglobin 10.4, hematocrit of 32.3, and platelet count of 157,000. It should be noted that the patient was transfused 2 units of packed red blood cells two days prior as per her primary doctor for a hemoglobin of 7.9 then. Her metabolic panel shows a sodium 129, chloride of 87, with an otherwise normal metabolic panel. Nonfasting glucose 135. The patient's INR on 08/07/2018, was 2.05 with a digoxin level on admission of 3.3 on 08/07/2018, with a repeat of 0.7 yesterday. ASSESSMENT: For this patient is that of right-sided adenocarcinoma of the lung with metastases to the bone with pleural effusion status post PleurX catheter removal, chronic obstructive pulmonary disease, history of smoking, gastroesophageal reflux disease, diverticulosis, paroxysmal atrial fibrillation, and anemia of chronic disease status post transfusion. PLAN: The plan for this patient after conversation with Dr. Welch is to continue present medical regimen. She is on Eliquis 5 mg twice a day along with digoxin as per her insole presser with the patient to follow up in Dr. Welch's office for continuation of her treatment with her medical records regarding her care to be obtained from Dr. Bloom for evaluation. It appears she was started on Alimta and carboplatin by Dr. Bloom on June 27 or with no further treatment since. This is a complex patient with a comprehensive medically necessary and appropriate visit carried out in excess of 25 minutes with the patient and her 's questions answered to their satisfaction. She will follow up in the office with Dr. Welch or seek a second opinion with other oncologist as per recommendations as per her friends and family members. Bertin Martinez MD
[2018-08-10] MEDS ORDERED: Morphine 2 mg/ml ISec IVP PRN (20:19)
[2018-08-11] MEDS: Levalbuterol 1.25 MG/3 ML Inhal Soln UD IH SCH ×4 (02:10→21:20)
[2018-08-11] MEDS ORDERED: guaiFENesin 200 mg/10 ml Syrup UD PO ONE (03:41)
[2018-08-11] MEDS ORDERED: Flumazenil 0.1 mg/ml Inj (5ml) IVP STA ×2 (04:16→04:18)
[2018-08-11] MEDS ORDERED: Naloxone 0.4 mg/ml Inj (Adult) IVP ONE (04:18)
--- NOTE | 2018-08-11 05:27 | PCM.RRT ---
<Corona Bonner - Last Filed: 08/11/18 06:09> AUTOMATIC DISPENSER MECHANIC Nurse Assessment - Situation Date: 08/11/18 Time AUTOMATIC DISPENSER MECHANIC was called: 04:03 AUTOMATIC DISPENSER MECHANIC [place] Reason for Call: Possible Stroke, Change in Mental Status AUTOMATIC DISPENSER MECHANIC Called By: RN - Recommendations 5) AUTOMATIC DISPENSER MECHANIC Level of Care Recommendations: Transfer to ICU Notifications: Attending Physician, Consultations I.Reason for AUTOMATIC DISPENSER MECHANIC - A) Acute Change in Patient: Subjective: Brief house resident note AUTOMATIC DISPENSER MECHANIC called by nursing staff at [phone] for altered mental status. Patient found by nurse to be dysarthric, change from last know stable baseline time at ~3AM. Patient was evaluated with senior resident and night hospitalist. Found to be largely nonverbal, slurring words, lethargic, unable to keep eyes open. Responded appropriately to questions being asked with head/R hand gestures. Unable to move LUE or LLE on physical exam, L caio-neglect noted. Crackles auscultated to lower lobes b/l. Code Stroke was called, Neuro and primary attending were notified, with following orders carried: -cbc/cmp -PT/INR/PTT -lipid panel -trop x 1 -CT head stat -MRI brain -CXR -NPO -ASA 300 mg ME supp -bedside swallow eval -neuro checks Q2H x12, Q4H x6, Qshift, vitals Q2 -sotalol held -c/w eliquis if no acute hemorrhage noted on CT head -transfer to ICU - Neurological Status (Select all that apply): Alert, Disoriented, Confused, Weakness Other (Please specify): Alert, lethargic, dysarthric, L sided weakness - Respiratory Oxygen Delivery Method: Non Rebreather @% - Constitutional Appears: Confused Additional Comments: lethargic - Head Head Exam: ATRAUMATIC, NORMAL INSPECTION, NORMOCEPHALIC - Eyes Additional Comments: Ptosis, b/l - Respiratory Exam Respiratory Exam: Rales (RML/RLL, LLL), Respiratory Distress. absent: Accessory Muscle Use - Cardiovascular Exam Cardiovascular Exam: REGULAR RHYTHM, +S1, +S2 - Neurological Exam Neurological Exam: Alert, Altered, Awake, Motor Sensory Deficit Additional exam: Alert, lethargic, dysarthric on exam 0/5 muscle strength LUE, LLE 4/5 muscle strength RUE, LLE Rest of neuro exam limited 2/2 AMS - Extremities Exam Extremities Exam: Normal Capillary Refill, Normal Inspection <John Flores - Last Filed: 08/11/18 06:16> Attending/Attestation - Attestation I have personally seen and examined this patient.: Yes I have fully participated in the care of the patient.: Yes I have reviewed all pertinent clinical information, including history, physical exam and plan: Yes
--- NOTE | 2018-08-11 05:41 | CP.PCM.CON ---
<Gemma Michelle - Last Filed: 08/11/18 06:03> History of Present Illness - History of Present Illness History of Present Illness: PGY1 ICU Consult Note for Dr. Flores Reason for Consult: AMS & acute left-sided weakness Patient is a 62 year old female with PMH of COPD, pleural effusions with right sided chest catheter, right-sided lung cancer stage IV on chemo, metastatic bone disease s/p 6 rounds of radiation, arthritis, GERD, and atrial fibrillation (on eliquis) who presents to [facility] on 08/07/18 with rapid a-fib prior to arrival. Patient was admitted to telemetry floor. See H&P report for details. Today, [facility] was called on Patient due to AMS (see [facility] note). Patient unable to provide history due to clinical condition. PMH: COPD, pleural effusions with right sided chest catheter, right-sided lung cancer stage IV on chemo, metastatic bone disease s/p 6 rounds of radiation, arthritis, GERD, and atrial fibrillation (on eliquis) PSH: R femur ORIF, R hip replacement Family Hx: unknown Social Hx: admits to smoking approximately 1 PPD for past 40 years, reports social EtOH use, denies illicit drug use Medications: Sotalol 80 mg BID, Xanax 0.25 mg HS, Spiriva 2 puff IH daily, Pr ednisone 10 mg daily, Dexilant 60 mg daily, Lipitor 10 mg DIN, Brovana 1 kasey IH BID Allergies: NKDA PMD: Dr. Eloise Lopez Review of Systems - Review of Systems Systems not reviewed;Unavailable: Acuity of Condition, Altered Mental Status Past Patient History - Infectious Disease Hx of Infectious Diseases: None - Tetanus Immunizations Tetanus Immunization: Unknown - Past Medical History & Family History Past Medical History?: Yes - Past Social History Smoking Status: Former Smoker - CARDIAC Hx Cardiac Disorders: Yes (h/o cardiac arrythmias.) - PULMONARY Hx Chronic Obstructive Pulmonary Disease (COPD): Yes - NEUROLOGICAL Hx Neurological Disorder: No - HEENT Hx HEENT Problems: No - RENAL Hx Chronic Kidney Disease: No - ENDOCRINE/METABOLIC Hx Endocrine Disorders: No - HEMATOLOGICAL/ONCOLOGICAL Hx Blood Disorders: Yes 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) Hx Chemotherapy: Yes (COMPLETED 6 ROUNDS OF RADIATION.) Hx Metastesis: Yes (BONE) - INTEGUMENTARY Hx Dermatological Problems: No - MUSCULOSKELETAL/RHEUMATOLOGICAL Hx Arthritis: Yes - GASTROINTESTINAL Hx Gastroesophageal Reflux: Yes - GENITOURINARY/GYNECOLOGICAL Hx Genitourinary Disorders: No - PSYCHIATRIC Hx Substance Use: No - SURGICAL HISTORY Hx Cardiac Catheterization: Yes Hx Orthopedic Surgery: Yes Other/Comment: Right hip replacement, right femur - ANESTHESIA Hx Anesthesia: Yes Hx Malignant Hyperthermia: No Meds Allergies/Adverse Reactions: Allergies Allergy/AdvReac Type Severity Reaction Status Date / Time No Known Allergies Allergy Verified 08/07/18 13:38 - Medications Medications: Current Medications Alprazolam (Xanax) 0.25 mg PO Q4 PRN; Protocol PRN Reason: Anxiety Stop: 08/16/18 20:01 Last Admin: 08/11/18 02:27 Dose: 0.25 mg Apixaban (Eliquis) 5 mg PO BID [facility]; Protocol Last Admin: 08/10/18 17:05 Dose: 5 mg Budesonide (Pulmicort Respules) 0.5 mg IH [id number] [facility] Last Admin: 08/10/18 19:31 Dose: 0.5 mg Digoxin (Digoxin) 0.125 mg PO 1400 [facility] Last Admin: 08/10/18 13:20 Dose: 0.125 mg Diltiazem HCl (Cardizem Cd) 120 mg PO DAILY [facility] Last Admin: 08/10/18 10:34 Dose: 120 mg Sodium Chloride (Sodium Chloride 0.9%) 1,000 mls @ 60 mls/hr IV .[id number] [facility] Last Admin: 08/10/18 10:34 Dose: 60 mls/hr Levalbuterol HCl (Xopenex) 1.25 mg IH [id number] [facility] Last Admin: 08/11/18 02:10 Dose: 1.25 mg Levalbuterol HCl (Xopenex) 1.25 mg IH Q2H PRN PRN Reason: Shortness of Breath Last Admin: 08/10/18 11:46 Dose: 1.25 mg Morphine Sulfate (Morphine) 2 mg IVP Q4H PRN PRN Reason: Pain, moderate (4-7) Last Admin: 08/10/18 20:25 Dose: 2 mg Ondansetron HCl (Zofran Inj) 4 mg IVP Q4H PRN PRN Reason: Nausea/Vomiting Last Admin: 08/09/18 01:59 Dose: 4 mg Pantoprazole Sodium (Protonix Ec Tab) 40 mg PO ACB [facility] Last Admin: 08/10/18 10:33 Dose: 40 mg Polyethylene Glycol (Miralax) 17 gm PO DAILY [facility] Last Admin: 08/10/18 10:34 Dose: Not Given Potassium Chloride (K-Dur 20 Meq Er Tab) 20 meq PO BRK [facility] Last Admin: 08/10/18 10:33 Dose: 20 meq Prednisone (Prednisone Tab) 30 mg PO DAILY [facility] Last Admin: 08/10/18 10:33 Dose: 30 mg Sotalol HCl (Betapace) 80 mg PO BID [facility] Last Admin: 08/10/18 17:05 Dose: 80 mg Tramadol HCl (Ultram) 50 mg PO Q6H PRN PRN Reason: Pain, moderate (4-7) Last Admin: 08/10/18 16:43 Dose: 50 mg Physical Exam - Constitutional Appears: In Acute Distress (short of breath ), Confused - Head Exam Head Exam: ATRAUMATIC, NORMAL INSPECTION, NORMOCEPHALIC - Eye Exam Eye Exam: PERRL. absent: Nystagmus - ENT Exam ENT Exam: Mucous Membranes Moist - Neck Exam Neck exam: Positive for: Normal Inspection - Respiratory Exam Respiratory Exam: Rales (R lung zaman ) - Cardiovascular Exam Cardiovascular Exam: REGULAR RHYTHM, +S1, +S2 - GI/Abdominal Exam GI & Abdominal Exam: Normal Bowel Sounds, Soft. absent: Tenderness - Extremities Exam Extremities exam: Positive for: normal inspection. Negative for: joint swelling - Neurological Exam Neurological exam: Altered Additional comments: Patient lethargic, dysarthric, confused and disoriented - Expanded Neurological Exam Expanded Speech: Slurred Speech Cerebellar Function: Finger to Nose: Abnormal Left (Patient unable to move right UE), Heel to [place]: Abnormal Left (Patient unable to move left LE ), Romberg: Abnormal Left (Patient unable to move left UE) Sensory exam: Lower Extremity 2 Point Discrimination: Abnormal Left, Lower Extremity Light Touch: Abnormal Left, Lower Extremity Pin Prick: Abnormal Left Neuro motor strength exam: Left Upper Extremity: 0, Right Upper Extremity: 5, Left Lower Extremity: 0, Right Lower Extremity: 5 Coma Scale Eye Opening: To Voice Coma Scale Verbal: Confused - Skin Skin Exam: Dry, Intact, Normal Color, Warm Results - Vital Signs Recent Vital Signs: Last Vital Signs Temp 98.0 F 08/11/18 00:01 Pulse 80 08/11/18 00:01 Resp 20 08/11/18 00:01 BP 120/74 08/11/18 00:01 Pulse Ox 96 08/10/18 17:56 - Labs Result Diagrams: 08/10/18 06:00 08/10/18 06:00 Labs: Laboratory Results - last 24 hr 08/10/18 08/10/18 08/11/18 06:00 06:00 04:06 WBC 9.5 D RBC 3.31 L Hgb 10.4 L Hct 32.3 L MCV 97.6 MCH 31.4 MCHC 32.2 RDW 19.6 H Plt Count 157 MPV 9.7 Sodium 129 L Potassium 4.5 Chloride 87 L Carbon Dioxide 39 H Anion Gap 8 L BUN 10 Creatinine 0.3 L Est GFR ( Amer) > 60 Est GFR (Non-Af Amer) > 60 POC Glucose (mg/dL) 171 H Random Glucose 135 H Calcium 8.3 L Total Bilirubin 1.2 AST 31 ALT 23 Alkaline Phosphatase 266 H Total Protein 5.2 L Albumin 2.8 L Globulin 2.4 Albumin/Globulin Ratio 1.1 Assessment & Plan - Assessment and Plan (Free Text) Assessment: Patient is a 62 year old female with PMH of COPD, pleural effusions with right sided chest catheter, right-sided lung cancer stage IV on chemo, metastatic bone disease s/p 6 rounds of radiation, arthritis, GERD, and atrial fibrillation (on eliquis) who presents to [facility] on 08/07/18 with rapid a-fib prior to arrival. Patient was admitted to telemetry floor. See H&P report for details. Today, [facility] was called on Patient due to AMS (see [facility] note). Patient unable to provide h istory due to clinical condition. Patient was noted to have acute left-sided weakness in UE and LE. CODE STROKE was called. CT head without contrast prelim report is negative for hemorrhagic stroke. Neurology (Dr. Guzman) was consulted; recommended Brain MRI and transfer to ICU for closer monitoring. Neuro - CODE STROKE called during [facility] 08/11/18 - CT head without contrast prelim reads negative for hemorrhagic stroke; f/u official report - Neurology consulted (Dr. Guzman) recommendations appreciated - swallow eval; patient failed - administer loading dose ASA HI - continue eliquis - urgent BRAIN MRI ordered - f/u lipid panel, troponin, bmp, pt/ptt, vitamin b12, folate, hgb A1C, TSH - neuro checks Q2H x12, Q4H x6, Qshift, vitals Q2 - permissive HTN x24 hrs - NPO - elevate bed - PT/OT consulted - transfer to icu for close monitoring CV - history of atrial fibrillation - continue eliquis 5mg po bid - continue digoxin 0.125mg Resp - CXR pending report - prednisone 30mg po daily - pulmicort, xopenex, GI - no acute issues - history of GERD - continue protonix 40mg po ACB - continue miralax daily - continue zofran prn Renal - no acute issues - replete electrolytes as needed - f/u CMP, Mg, Phos in AM Endo - no acute issues at this time - f/u TSH levels - f/u HgbA1C levels Heme/onc - History of R-sided lung adenocarcinoma - PET scan as outpatient - possible chemotherapy plan depending on PET scan - nutritional consult - calorie count - monitor CBC for anemia ID - no acute issues at this time - patient afebrile - F/U CBC in AM CODE STATUS: DNI Patient seen and case discussed in detail with Dr. Sandra Michelle PGY1 <John Flores - Last Filed: 08/11/18 06:17> Meds - Medications Medications: Current Medications Alprazolam (Xanax) 0.25 mg PO Q4 PRN; Protocol PRN Reason: Anxiety Stop: 08/16/18 20:01 Last Admin: 08/11/18 02:27 Dose: 0.25 mg Apixaban (Eliquis) 5 mg PO BID [facility]; Protocol Last Admin: 08/10/18 17:05 Dose: 5 mg Budesonide (Pulmicort Respules) 0.5 mg IH [id number] [facility] Last Admin: 08/10/18 19:31 Dose: 0.5 mg Digoxin (Digoxin) 0.125 mg PO 1400 [facility] Last Admin: 08/10/18 13:20 Dose: 0.125 mg Diltiazem HCl (Cardizem Cd) 120 mg PO DAILY [facility] Last Admin: 08/10/18 10:34 Dose: 120 mg Sodium Chloride (Sodium Chloride 0.9%) 1,000 mls @ 60 mls/hr IV .[id number] [facility] Last Admin: 08/10/18 10:34 Dose: 60 mls/hr Levalbuterol HCl (Xopenex) 1.25 mg IH [id number] [facility] Last Admin: 08/11/18 02:10 Dose: 1.25 mg Levalbuterol HCl (Xopenex) 1.25 mg IH Q2H PRN PRN Reason: Shortness of Breath Last Admin: 08/10/18 11:46 Dose: 1.25 mg Morphine Sulfate (Morphine) 2 mg IVP Q4H PRN PRN Reason: Pain, moderate (4-7) Last Admin: 08/10/18 20:25 Dose: 2 mg Ondansetron HCl (Zofran Inj) 4 mg IVP Q4H PRN PRN Reason: Nausea/Vomiting Last Admin: 08/09/18 01:59 Dose: 4 mg Pantoprazole Sodium (Protonix Ec Tab) 40 mg PO ACB [facility] Last Admin: 08/10/18 10:33 Dose: 40 mg Polyethylene Glycol (Miralax) 17 gm PO DAILY [facility] Last Admin: 08/10/18 10:34 Dose: Not Given Potassium Chloride (K-Dur 20 Meq Er Tab) 20 meq PO BRK [facility] Last Admin: 08/10/18 10:33 Dose: 20 meq Prednisone (Prednisone Tab) 30 mg PO DAILY [facility] Last Admin: 08/10/18 10:33 Dose: 30 mg Sotalol HCl (Betapace) 80 mg PO BID [facility] Last Admin: 08/10/18 17:05 Dose: 80 mg Tramadol HCl (Ultram) 50 mg PO Q6H PRN PRN Reason: Pain, moderate (4-7) Last Admin: 08/10/18 16:43 Dose: 50 mg Results - Vital Signs Recent Vital Signs: Last Vital Signs Temp 97.8 F 08/11/18 04:40 Pulse 81 08/11/18 04:40 Resp 20 08/11/18 04:40 BP 148/88 08/11/18 04:40 Pulse Ox 100 08/11/18 04:40 - Labs Result Diagrams: 08/10/18 06:00 08/10/18 06:00 Labs: Laboratory Results - last 24 hr 08/10/18 08/10/18 08/11/18 06:00 06:00 04:06 WBC 9.5 D RBC 3.31 L Hgb 10.4 L Hct 32.3 L MCV 97.6 MCH 31.4 MCHC 32.2 RDW 19.6 H Plt Count 157 MPV 9.7 Sodium 129 L Potassium 4.5 Chloride 87 L Carbon Dioxide 39 H Anion Gap 8 L BUN 10 Creatinine 0.3 L Est GFR ( Amer) > 60 Est GFR (Non-Af Amer) > 60 POC Glucose (mg/dL) 171 H Random Glucose 135 H Calcium 8.3 L Total Bilirubin 1.2 AST 31 ALT 23 Alkaline Phosphatase 266 H Total Protein 5.2 L Albumin 2.8 L Globulin 2.4 Albumin/Globulin Ratio 1.1 Attending/Attestation - Attestation I have personally seen and examined this patient.: Yes I have fully participated in the care of the patient.: Yes I have reviewed all pertinent clinical information: Yes
[2018-08-11 06:25] LABS: HEMOGLOBIN 11.7 g/dL (12.0-16.0); MEAN CELL VOLUME 101.1 fl (80.0-105.0); MEAN CORPUSCULAR HEMOGLOBIN 31.5 pg (25.0-35.0); MEAN CORPUSCULAR HGB CONC 31.2 g/dl (31.0-37.0); MEAN PLATELET VOLUME 9.9 fl (7.0-11.0); RBC 3.71 10^6/uL (3.5-6.1); RED CELL DISTRIBUTION WIDTH 19.8 % (11.5-14.5); WHITE BLOOD COUNT 19.9 10^3/uL (4.5-11.0)
[2018-08-11 06:34] LABS: INR 1.58; PARTIAL THROMBOPLASTIN TIME 24.1 Seconds (26.9-38.3); PROTHROMBIN TIME 17.8 SECONDS (9.4-12.5)
[2018-08-11 06:53] LABS: LDL CHOLESTEROL 103 mg/dL (0-129)
[2018-08-11 06:55] LABS: TROPONIN I 0.04 ng/mL
[2018-08-11] MEDS: Budesonide 0.5 mg/2 ml Inhal Susp UD IH SCH ×3 (07:05→21:21)
[2018-08-11 07:23] LABS: BLOOD UREA NITROGEN 13 mg/dL (7-21); CALCIUM 8.3 mg/dL (8.4-10.5); GFR NON-AFRICAN AMERICAN > 60; HDL CHOLESTEROL 36 mg/dL (29-60)
[2018-08-11] MEDS: Pantoprazole 40 mg EC Tab PO SCH (08:04)
[2018-08-11] MEDS: Potassium Chloride 20 mEq ER Tab PO SCH (08:04)
[2018-08-11 08:33] LABS: ARTERIAL BLOOD GAS HCO3 38.9 mmol/L (21-28); ARTERIAL BLOOD GAS HEMOGLOBIN 13.2 g/dL (11.7-17.4); ARTERIAL BLOOD GAS O2 CAPACITY 17.7 mL/dl (16-24); ARTERIAL BLOOD GAS O2 CONTENT 17.4 ML/dl (15-23); ARTERIAL BLOOD GAS O2 SAT 98.4 % (95-98); ARTERIAL BLOOD GAS PCO2 109 mm/Hg (35-45); ARTERIAL BLOOD GAS PH 7.16 (7.35-7.45); ARTERIAL BLOOD GAS TCO2 42.2 mmol.L (22-28)
[2018-08-11] MEDS: diltiaZEM 120 mg/24 Hours CD Cap PO SCH (09:55)
[2018-08-11] MEDS: POLYETHYLENE GLYCOL 3350 17 GM/Dose PACKET PO SCH (09:57)
[2018-08-11] MEDS: MethylPREDNISolone 40 mg Vial IVP SCH ×2 (10:01→17:46)
--- NOTE | 2018-08-11 11:00 | CT ---
Date of service: 08/11/2018 PROCEDURE: CT HEAD WITHOUT CONTRAST. HISTORY: AMS COMPARISON: None available. TECHNIQUE: Axial computed tomography images were obtained through the head/brain without intravenous contrast. Radiation dose: Total exam DLP = 920.93 mGy-cm. This CT exam was performed using one or more of the following dose reduction techniques: Automated exposure control, adjustment of the mA and/or kV according to patient size, and/or use of iterative reconstruction technique. FINDINGS: Study is significantly limited by motion artifact and repeat study should be considered. HEMORRHAGE: No gross acute parenchymal, subarachnoid nor extra-axial hemorrhage. BRAIN: There may be some minimal chronic periventricular white matter ischemic changes. Mild age-appropriate volume loss. VENTRICLES: No obstructive hydrocephalus. CALVARIUM: Calvarium intact so far as can be seen. PARANASAL SINUSES: Unremarkable as visualized. No significant inflammatory changes. MASTOID AIR CELLS: Unremarkable as visualized. No inflammatory changes. OTHER FINDINGS: None. IMPRESSION: Limited motion degraded study and study should be considered. No gross intracranial hemorrhage. Suspect minimal chronic periventricular white matter ischemic changes. Mild age-appropriate volume loss No definitive acute skull fracture within limitation of the study
[2018-08-11] MEDS: Morphine 2 mg/ml ISec IVP PRN ×3 (11:43→19:46)
--- NOTE | 2018-08-11 11:44 | CP.CCUPN ---
<Stalin Kramer - Last Filed: 08/11/18 11:47> CCU Subjective - Physician Review Subjective (Free Text): Stalin Kramer DO, PGY-1 MICU Progress Note for Dr. Albrecht Patient was seen and examined at bedside this AM. She continues to be tachypneic and hypoxemic despite bipap therapy. Situation was discussed at length with patient's family, Dr. Lopez, and Dr. Guzman. After discussion, family wishes patient to be DNI and DNR. CCU Objective - Vital Signs / Intake & Output Vital Signs (Last 4 hours): Vital Signs Pulse BP 08/11/18 09:55 105 H 139/75 08/11/18 08:03 144/88 Intake and Output (Last 8hrs): Intake & Output 08/10/18 08/11/18 08/11/18 22:59 06:59 14:59 Intake Total 956 Balance 956 Intake: Oral 956 Other: # Voids Urine, Voided 3 # Bowel Movements 1 - Physical Exam Physical Exam Limitations: Positive for: Clinical Condition Head: Positive for: Atraumatic, Normocephalic Pupils: Positive for: PERRL Extroacular Muscles: Positive for: EOMI Conjunctiva: Positive for: Normal Mouth: Positive for: Moist Mucous Membranes Neck: Positive for: Normal Range of Motion Respiratory/Chest: Positive for: Respiratory Distress, Accessory Muscle Use, Decreased Breath Sounds (bilaterally), Rhonchi (coarse breath sounds b/l), Tachypneic. Negative for: Wheezes, Rales Cardiovascular: Positive for: Regular Rate and Rhythm, Normal S1, S2. Negative for: Murmurs, Rub, Gallop Abdomen: Negative for: Tenderness, Distention, Peritoneal Signs, Rebound, Guard ing Back: Positive for: Normal Inspection Upper Extremity: Positive for: Normal Inspection. Negative for: Cyanosis, Edema Lower Extremity: Positive for: Normal Inspection. Negative for: Edema Neurological: Positive for: Other (responds to verbal/painful stimuli but somnolent, lethargic) Skin: Positive for: Warm, Dry, Normal Color. Negative for: Rashes Psychiatric: Positive for: Lethargic - Medications Active Medications: Active Medications Generic Name Dose Route Start Last Admin Trade Name Freq PRN Reason Stop Dose Admin Apixaban 5 mg 08/08/18 10:00 08/11/18 09:57 Eliquis PO Not Given BID [facility] Protocol Budesonide 0.5 mg 08/08/18 08:00 08/10/18 19:31 Pulmicort Respules IH 0.5 mg [id number] ANTIONETTE Administration Digoxin 0.125 mg 08/08/18 14:00 08/10/18 13:20 Digoxin PO 0.125 mg 1400 ANTIONETTE Administration Diltiazem HCl 120 mg 08/09/18 10:00 08/11/18 09:55 Cardizem Cd PO Not Given DAILY ANTIONETTE Sodium Chloride 1,000 mls @ 60 mls/hr 08/10/18 08:45 08/10/18 10:34 Sodium Chloride 0.9% IV 60 mls/hr .[id number] AN[facility]IONETTE Administration Levalbuterol HCl 1.25 mg 08/08/18 08:00 08/11/18 02:10 Xopenex IH 1.25 mg [id number] ANTIONETTE Administration Levalbuterol HCl 1.25 mg 08/08/18 06:44 08/10/18 11:46 Xopenex IH 1.25 mg Q2H PRN Administration Shortness of Breath Methylprednisolone 40 mg 08/11/18 09:45 08/11/18 10:01 Solu-Medrol IVP 40 mg Q8H ANTIONETTE Administration Morphine Sulfate 2 mg 08/11/18 11:13 Morphine IVP Q2H PRN Pain, moderate (4-7) Ondansetron HCl 4 mg 08/07/18 16:38 08/09/18 01:59 Zofran Inj IVP 4 mg Q4H PRN Administration Nausea/Vomiting Pantoprazole Sodium 40 mg 08/08/18 07:30 08/11/18 08:04 Protonix Ec Tab PO Not Given ACB [facility] Polyethylene Glycol 17 gm 08/08/18 10:30 08/11/18 09:57 Miralax PO Not Given DAILY ANTIONETTE Potassium Chloride 20 meq 08/08/18 09:00 08/11/18 08:04 K-Dur 20 Meq Er Tab PO Not Given BRK [facility] Sotalol HCl 80 mg 08/08/18 10:00 08/10/18 17:05 Betapace PO 80 mg BID ANTIONETTE Administration - Patient Studies Lab Studies: Lab Studies 08/11/18 08/11/18 08/11/18 Range/Units 09:30 08:15 06:00 WBC (4.5-11.0) 10^3/uL RBC (3.5-6.1) 10^6/uL Hgb (12.0-16.0) g/dL Hct (36.0-48.0) % MCV (80.0-105.0) fl MCH (25.0-35.0) pg MCHC (31.0-37.0) g/dl RDW (11.5-14.5) % Plt Count (120.0-450.0) 10^3/uL MPV (7.0-11.0) fl PT 17.8 H (9.4-12.5) SECONDS INR 1.58 APTT 24.1 L (26.9-38.3) Seconds pCO2 109 H* (35-45) mm/Hg pO2 97.0 (80-100) mm/Hg HCO3 38.9 H (21-28) mmol/L ABG pH 7.16 L* (7.35-7.45) ABG Total CO2 42.2 H (22-28) mmol.L ABG O2 Saturation 98.4 H (95-98) % ABG O2 Content 17.4 (15-23) ML/dl ABG Base Excess 6.3 H (-2.0-3.0) mmol/L ABG Hemoglobin 13.2 (11.7-17.4) g/dL ABG Carboxyhemoglobin 4.1 H (0.5-1.5) % POC ABG HHb (Measured) 1.5 (0-5) % ABG Methemoglobin 1.2 (0.0-3.0) % ABG O2 Capacity 17.7 (16-24) mL/dl Hgb O2 Saturation 93.2 L (95.0-98.0) % FiO2 100.0 % Crit Value Called To salina Paul Crit Value Called By Javan alvarez assistant professor of marine biology-entry level truck driver Blood Gas Notified Time 825 Sodium (132-148) mmol/L Potassium (3.6-5.0) mmol/L Chloride (98-107) mmol/L Carbon Dioxide (21-33) mmol/L Anion Gap (10-20) BUN (7-21) mg/dL Creatinine (0.7-1.2) mg/dl Est GFR ( Amer) Est GFR (Non-Af Amer) POC Glucose (mg/dL) (65-110) mg/dL Random Glucose (70-110) mg/dL Calcium (8.4-10.5) mg/dL Troponin I ng/mL Triglycerides (35-160) mg/dL Cholesterol (130-200) mg/dL LDL Cholesterol Direct (0-129) mg/dL HDL Cholesterol (29-60) mg/dL TSH 3rd Generation 1.56 (0.46-4.68) mIU/mL 08/11/18 08/11/18 08/11/18 Range/Units 06:00 06:00 04:06 WBC 19.9 H D (4.5-11.0) 10^3/uL RBC 3.71 (3.5-6.1) 10^6/uL Hgb 11.7 L (12.0-16.0) g/dL Hct 37.5 (36.0-48.0) % MCV 101.1 D (80.0-105.0) fl MCH 31.5 (25.0-35.0) pg MCHC 31.2 (31.0-37.0) g/dl RDW 19.8 H (11.5-14.5) % Plt Count 194 (120.0-450.0) 10^3/uL MPV 9.9 (7.0-11.0) fl PT (9.4-12.5) SECONDS INR APTT (26.9-38.3) Seconds pCO2 (35-45) mm/Hg pO2 (80-100) mm/Hg HCO3 (21-28) mmol/L ABG pH (7.35-7.45) ABG Total CO2 (22-28) mmol.L ABG O2 Saturation (95-98) % ABG O2 Content (15-23) ML/dl ABG Base Excess (-2.0-3.0) mmol/L ABG Hemoglobin (11.7-17.4) g/dL ABG Carboxyhemoglobin (0.5-1.5) % POC ABG HHb (Measured) (0-5) % ABG Methemoglobin (0.0-3.0) % ABG O2 Capacity (16-24) mL/dl Hgb O2 Saturation (95.0-98.0) % FiO2 % Crit Value Called To Crit Value Called By Blood Gas Notified Time Sodium 131 L (132-148) mmol/L Potassium 4.5 (3.6-5.0) mmol/L Chloride 90 L (98-107) mmol/L Carbon Dioxide 39 H (21-33) mmol/L Anion Gap 7 L (10-20) BUN 13 (7-21) mg/dL Creatinine 0.3 L (0.7-1.2) mg/dl Est GFR ( Amer) > 60 Est GFR (Non-Af Amer) > 60 POC Glucose (mg/dL) 171 H (65-110) mg/dL Random Glucose 197 H (70-110) mg/dL Calcium 8.3 L (8.4-10.5) mg/dL Troponin I 0.04 D ng/mL Triglycerides 201 H (35-160) mg/dL Cholesterol 160 (130-200) mg/dL LDL Cholesterol Direct 103 (0-129) mg/dL HDL Cholesterol 36 (29-60) mg/dL TSH 3rd Generation (0.46-4.68) mIU/mL Laboratory Results - last 24 hr 08/11/18 08/11/18 08/11/18 04:06 06:00 06:00 WBC 19.9 H D RBC 3.71 Hgb 11.7 L Hct 37.5 MCV 101.1 D MCH 31.5 MCHC 31.2 RDW 19.8 H Plt Count 194 MPV 9.9 PT INR APTT pCO2 pO2 HCO3 ABG pH ABG Total CO2 ABG O2 Saturation ABG O2 Content ABG Base Excess ABG Hemoglobin ABG Carboxyhemoglobin POC ABG HHb (Measured) ABG Methemoglobin ABG O2 Capacity Hgb O2 Saturation FiO2 Crit Value Called To Crit Value Called By Blood Gas Notified Time Sodium 131 L Potassium 4.5 Chloride 90 L Carbon Dioxide 39 H Anion Gap 7 L BUN 13 Creatinine 0.3 L Est GFR ( Amer) > 60 Est GFR (Non-Af Amer) > 60 POC Glucose (mg/dL) 171 H Random Glucose 197 H Calcium 8.3 L Troponin I 0.04 D Triglycerides 201 H Cholesterol 160 LDL Cholesterol Direct 103 HDL Cholesterol 36 TSH 3rd Generation 08/11/18 08/11/18 08/11/18 06:00 08:15 09:30 WBC RBC Hgb Hct MCV MCH MCHC RDW Plt Count MPV PT 17.8 H INR 1.58 APTT 24.1 L pCO2 109 H* pO2 97.0 HCO3 38.9 H ABG pH 7.16 L* ABG Total CO2 42.2 H ABG O2 Saturation 98.4 H ABG O2 Content 17.4 ABG Base Excess 6.3 H ABG Hemoglobin 13.2 ABG Carboxyhemoglobin 4.1 H POC ABG HHb (Measured) 1.5 ABG Methemoglobin 1.2 ABG O2 Capacity 17.7 Hgb O2 Saturation 93.2 L FiO2 100.0 Crit Value Called To salina Paul Crit Value Called By Javan alvarez assistant professor of marine biology-entry level truck driver Blood Gas Notified Time 825 Sodium Potassium Chloride Carbon Dioxide Anion Gap BUN Creatinine Est GFR ( Amer) Est GFR (Non-Af Amer) POC Glucose (mg/dL) Random Glucose Calcium Troponin I Triglycerides Cholesterol LDL Cholesterol Direct HDL Cholesterol TSH 3rd Generation 1.56 Radiology Impressions: Radiology Impressions Head CT 08/11/18 04:18 IMPRESSION: Limited motion degraded study and study should be considered. No gross intracranial hemorrhage. Suspect minimal chronic periventricular white matter ischemic changes. Mild age-appropriate volume loss No definitive acute skull fracture within limitation of the study Critical Care Progress Note - Nutrition Nutrition: Nutrition Category Date Time Status NPO Diet [DIET] Diets 08/11/18 Breakfast Ordered Assessment/Plan - Assessment and Plan (Free Text) Assessment: 62 yo F with PMH of COPD, pleural effusions with right sided chest catheter, right-sided lung cancer stage IV on chemo, metastatic bone disease s/p 6 rounds of radiation, arthritis, GERD, and atrial fibrillation (on eliquis) who presented to [facility] on 08/07/18 with rapid a-fib prior to arrival. Patient was admitted to telemetry floor. Earlier this AM, [employer] STUDIES PROFESSOR was called on Patient due to AMS (see AFRICANA STUDIES PROFESSOR note). Patient unable to provide history due to clinical condition. Patient was noted to have acute left-sided weakness in UE and LE. CODE STROKE was called. CT head without contrast prelim report is negative for hemorrhagic stroke. Neurology (Dr. Guzman) was consulted; recommended Brain MRI and transfer to ICU for closer monitoring. Plan: Neuro Responsive to verbal and painful stimuli but otherwise somnolent CT head reviewed with Dr. Guzman Will start mannitol to alleviate any cerebral edema Neurology, Dr. Guzman, following, all recs appreciated CV Remaining normotensive, RRR Maintain MAP > 65 Monitor for s/sx HD compromise Pulm ABG consistent with acute on chronic hypercapnic respiratory failure After discussion with patient's family, patient is now DNR/DNI May continue Bipap support Morphine 2 mg q2h PRN for pain/distress GI NPO due to critical condition /Nephro Replete electrolytes PRN Monitor UOP Endo F/u TSH, Hgb A1c levels Heme/onc History of R-sided lung adenocarcinoma Patient was unable to get PET CT as outpatient so unclear staging at this point Patient recently saw Dr. Welch for second opinion Prognosis remains guarded at this point ID AFebrile without leukocytosis Monitor for s/sx of infection F/u sebastian cx, procal, lactate DVT/GI PPX: SCD/protonix DNR/DNI NPO diet Monitor in MICU Patient seen, examined with, and plan confirmed with my attending Dr.Takhalov Stalin Kramer D.O. IM Resident PGY-1 Pager: [phone] <Brandon Albrecht - Last Filed: 08/11/18 12:08> CCU Objective - Vital Signs / Intake & Output Vital Signs (Last 4 hours): Vital Signs Pulse Resp BP Pulse Ox 08/11/18 11:32 100 H 137 H 08/11/18 11:30 105 H 56 H 08/11/18 11:29 98 H 71 H 08/11/18 11:27 104 H 153 H 08/11/18 11:26 101 H 08/11/18 11:25 106 H 08/11/18 11:16 97 H 08/11/18 11:14 86 08/11/18 11:06 80 08/11/18 11:05 104 H 08/11/18 11:04 98 H 08/11/18 11:00 93 H 152/91 H 88 L 08/11/18 10:59 98 H 08/11/18 10:58 97 H 08/11/18 10:57 92 H 66 H 08/11/18 10:56 82 08/11/18 10:49 93 H 71 H 08/11/18 10:48 97 H 08/11/18 10:47 84 64 H 08/11/18 10:46 89 08/11/18 10:45 96 H 58 H 08/11/18 10:44 96 H 08/11/18 10:43 99 H 08/11/18 10:42 99 H 08/11/18 10:41 93 H 08/11/18 10:33 102 H 08/11/18 10:32 103 H 08/11/18 10:30 99 H 08/11/18 10:29 92 H 08/11/18 10:28 85 08/11/18 10:27 90 38 H 08/11/18 10:26 84 08/11/18 10:25 97 H 08/11/18 10:24 87 94 H 08/11/18 10:23 101 H 08/11/18 10:22 89 45 H 08/11/18 10:21 99 H 35 H 08/11/18 10:12 93 H 08/11/18 10:10 102 H 137 H 08/11/18 10:09 78 76 H 08/11/18 10:08 100 H 08/11/18 10:07 101 H 162 H 08/11/18 10:06 100 H 10 L 08/11/18 10:05 95 H 59 H 08/11/18 10:04 98 H 08/11/18 10:00 100 H 53 H 150/90 78 L 08/11/18 09:55 105 H 139/75 08/11/18 09:00 96 H 139/75 77 L 08/11/18 08:03 144/88 Intake and Output (Last 8hrs): Intake & Output 08/10/18 08/11/18 08/11/18 22:59 06:59 14:59 Intake Total 956 Balance 956 Intake: Oral 956 Other: # Voids Urine, Voided 3 # Bowel Movements 1 - Medications Active Medications: Active Medications Generic Name Dose Route Start Last Admin Trade Name Freq PRN Reason Stop Dose Admin Apixaban 5 mg 08/08/18 10:00 08/11/18 09:57 Eliquis PO Not Given BID [facility] Protocol Budesonide 0.5 mg 08/08/18 08:00 08/10/18 19:31 Pulmicort Respules IH 0.5 mg [id number] ANTIONETTE Administration Digoxin 0.125 mg 08/08/18 14:00 08/10/18 13:20 Digoxin PO 0.125 mg 1400 ANTIONETTE Administration Diltiazem HCl 120 mg 08/09/18 10:00 08/11/18 09:55 Cardizem Cd PO Not Given DAILY ANTIONETTE Sodium Chloride 1,000 mls @ 60 mls/hr 08/10/18 08:45 08/10/18 10:34 Sodium Chloride 0.9% IV 60 mls/hr .[id number] ANTIONETTE Administration Levalbuterol HCl 1.25 mg 08/08/18 08:00 08/11/18 02:10 Xopenex IH 1.25 mg [id number] ANTIONETTE Administration Levalbuterol HCl 1.25 mg 08/08/18 06:44 08/10/18 11:46 Xopenex IH 1.25 mg Q2H PRN Administration Shortness of Breath Methylprednisolone 40 mg 08/11/18 09:45 08/11/18 10:01 Solu-Medrol IVP 40 mg Q8H ANTIONETTE Administration Morphine Sulfate 2 mg 08/11/18 11:13 08/11/18 11:43 Morphine IVP 2 mg Q2H PRN Administration Pain, moderate (4-7) Ondansetron HCl 4 mg 08/07/18 16:38 08/09/18 01:59 Zofran Inj IVP 4 mg Q4H PRN Administration Nausea/Vomiting Pantoprazole Sodium 40 mg 08/08/18 07:30 08/11/18 08:04 Protonix Ec Tab PO Not Given ACB [facility] Polyethylene Glycol 17 gm 08/08/18 10:30 08/11/18 09:57 Miralax PO Not Given DAILY ANTIONETTE Potassium Chloride 20 meq 08/08/18 09:00 08/11/18 08:04 K-Dur 20 Meq Er Tab PO Not Given BRK [facility] Sotalol HCl 80 mg 08/08/18 10:00 08/10/18 17:05 Betapace PO 80 mg BID ANTIONETTE Administration - Patient Studies Lab Studies: Lab Studies 08/11/18 08/11/18 08/11/18 Range/Units 09:30 08:15 06:00 WBC (4.5-11.0) 10^3/uL RBC (3.5-6.1) 10^6/uL Hgb (12.0-16.0) g/dL Hct (36.0-48.0) % MCV (80.0-105.0) fl MCH (25.0-35.0) pg MCHC (31.0-37.0) g/dl RDW (11.5-14.5) % Plt Count (120.0-450.0) 10^3/uL MPV (7.0-11.0) fl PT 17.8 H (9.4-12.5) SECONDS INR 1.58 APTT 24.1 L (26.9-38.3) Seconds pCO2 109 H* (35-45) mm/Hg pO2 97.0 (80-100) mm/Hg HCO3 38.9 H (21-28) mmol/L ABG pH 7.16 L* (7.35-7.45) ABG Total CO2 42.2 H (22-28) mmol.L ABG O2 Saturation 98.4 H (95-98) % ABG O2 Content 17.4 (15-23) ML/dl ABG Base Excess 6.3 H (-2.0-3.0) mmol/L ABG Hemoglobin 13.2 (11.7-17.4) g/dL ABG Carboxyhemoglobin 4.1 H (0.5-1.5) % POC ABG HHb (Measured) 1.5 (0-5) % ABG Methemoglobin 1.2 (0.0-3.0) % ABG O2 Capacity 17.7 (16-24) mL/dl Hgb O2 Saturation 93.2 L (95.0-98.0) % FiO2 100.0 % Crit Value Called To salina Paul Crit Value Called By Javan alvarez assistant professor of marine biology-entry level truck driver Blood Gas Notified Time 825 Sodium (132-148) mmol/L Potassium (3.6-5.0) mmol/L Chloride (98-107) mmol/L Carbon Dioxide (21-33) mmol/L Anion Gap (10-20) BUN (7-21) mg/dL Creatinine (0.7-1.2) mg/dl Est GFR ( Amer) Est GFR (Non-Af Amer) POC Glucose (mg/dL) (65-110) mg/dL Random Glucose (70-110) mg/dL Calcium (8.4-10.5) mg/dL Troponin I ng/mL Triglycerides (35-160) mg/dL Cholesterol (130-200) mg/dL LDL Cholesterol Direct (0-129) mg/dL HDL Cholesterol (29-60) mg/dL TSH 3rd Generation 1.56 (0.46-4.68) mIU/mL 08/11/18 08/11/18 08/11/18 Range/Units 06:00 06:00 04:06 WBC 19.9 H D (4.5-11.0) 10^3/uL RBC 3.71 (3.5-6.1) 10^6/uL Hgb 11.7 L (12.0-16.0) g/dL Hct 37.5 (36.0-48.0) % MCV 101.1 D (80.0-105.0) fl MCH 31.5 (25.0-35.0) pg MCHC 31.2 (31.0-37.0) g/dl RDW 19.8 H (11.5-14.5) % Plt Count 194 (120.0-450.0) 10^3/uL MPV 9.9 (7.0-11.0) fl PT (9.4-12.5) SECONDS INR APTT (26.9-38.3) Seconds pCO2 (35-45) mm/Hg pO2 (80-100) mm/Hg HCO3 (21-28) mmol/L ABG pH (7.35-7.45) ABG Total CO2 (22-28) mmol.L ABG O2 Saturation (95-98) % ABG O2 Content (15-23) ML/dl ABG Base Excess (-2.0-3.0) mmol/L ABG Hemoglobin (11.7-17.4) g/dL ABG Carboxyhemoglobin (0.5-1.5) % POC ABG HHb (Measured) (0-5) % ABG Methemoglobin (0.0-3.0) % ABG O2 Capacity (16-24) mL/dl Hgb O2 Saturation (95.0-98.0) % FiO2 % Crit Value Called To Crit Value Called By Blood Gas Notified Time Sodium 131 L (132-148) mmol/L Potassium 4.5 (3.6-5.0) mmol/L Chloride 90 L (98-107) mmol/L Carbon Dioxide 39 H (21-33) mmol/L Anion Gap 7 L (10-20) BUN 13 (7-21) mg/dL Creatinine 0.3 L (0.7-1.2) mg/dl Est GFR ( Amer) > 60 Est GFR (Non-Af Amer) > 60 POC Glucose (mg/dL) 171 H (65-110) mg/dL Random Glucose 197 H (70-110) mg/dL Calcium 8.3 L (8.4-10.5) mg/dL Troponin I 0.04 D ng/mL Triglycerides 201 H (35-160) mg/dL Cholesterol 160 (130-200) mg/dL LDL Cholesterol Direct 103 (0-129) mg/dL HDL Cholesterol 36 (29-60) mg/dL TSH 3rd Generation (0.46-4.68) mIU/mL Laboratory Results - last 24 hr 08/11/18 08/11/18 08/11/18 04:06 06:00 06:00 WBC 19.9 H D RBC 3.71 Hgb 11.7 L Hct 37.5 MCV 101.1 D MCH 31.5 MCHC 31.2 RDW 19.8 H Plt Count 194 MPV 9.9 PT INR APTT pCO2 pO2 HCO3 ABG pH ABG Total CO2 ABG O2 Saturation ABG O2 Content ABG Base Excess ABG Hemoglobin ABG Carboxyhemoglobin POC ABG HHb (Measured) ABG Methemoglobin ABG O2 Capacity Hgb O2 Saturation FiO2 Crit Value Called To Crit Value Called By Blood Gas Notified Time Sodium 131 L Potassium 4.5 Chloride 90 L Carbon Dioxide 39 H Anion Gap 7 L BUN 13 Creatinine 0.3 L Est GFR ( Amer) > 60 Est GFR (Non-Af Amer) > 60 POC Glucose (mg/dL) 171 H Random Glucose 197 H Calcium 8.3 L Troponin I 0.04 D Triglycerides 201 H Cholesterol 160 LDL Cholesterol Direct 103 HDL Cholesterol 36 TSH 3rd Generation 08/11/18 08/11/18 08/11/18 06:00 08:15 09:30 WBC RBC Hgb Hct MCV MCH MCHC RDW Plt Count MPV PT 17.8 H INR 1.58 APTT 24.1 L pCO2 109 H* pO2 97.0 HCO3 38.9 H ABG pH 7.16 L* ABG Total CO2 42.2 H ABG O2 Saturation 98.4 H ABG O2 Content 17.4 ABG Base Excess 6.3 H ABG Hemoglobin 13.2 ABG Carboxyhemoglobin 4.1 H POC ABG HHb (Measured) 1.5 ABG Methemoglobin 1.2 ABG O2 Capacity 17.7 Hgb O2 Saturation 93.2 L FiO2 100.0 Crit Value Called To salina Paul Crit Value Called By Javan alvarez assistant professor of marine biology-entry level truck driver Blood Gas Notified Time 825 Sodium Potassium Chloride Carbon Dioxide Anion Gap BUN Creatinine Est GFR ( Amer) Est GFR (Non-Af Amer) POC Glucose (mg/dL) Random Glucose Calcium Troponin I Triglycerides Cholesterol LDL Cholesterol Direct HDL Cholesterol TSH 3rd Generation 1.56 Radiology Impressions: Radiology Impressions Head CT 08/11/18 04:18 IMPRESSION: Limited motion degraded study and study should be considered. No gross intracranial hemorrhage. Suspect minimal chronic periventricular white matter ischemic changes. Mild age-appropriate volume loss No definitive acute skull fracture within limitation of the study Critical Care Progress Note - Nutrition Nutrition: Nutrition Category Date Time Status NPO Diet [DIET] Diets 08/11/18 Breakfast Ordered Assessment/Plan - Assessment and Plan (Free Text) Plan: I saw and examined the patient on rounds with resident, agree with resident's note with following additions/exceptions: Patient is 62yo female with PMhx of Lung Ca with mets on radiation, Acitve smoker, COPD, malignant pleural effusion, arthritis, GERD, and atrial fibrillation, admitted for Afib. Earlier this AM, [employer] STUDIES PROFESSOR was called on Patient due to AMS, patient found to be in hypercapnic resp failure. As per the family, and patients known wishes, patient wished to be DNR/DNI. Patient placed on BIPAP, given Solumedrol, and Lasix IV. CT head without contrast prelim report is negative for hemorrhagic stroke. I had long lengthy discussion with the family, /HCP Don Lynn, and son Brian Lynn, who informed me that their primary goal for the patient is comfort, and no pain. Pt is to be DNR/DNI, no aggressive interventions to be undertaken; IVF, ABx, steroids, BIPAP is OK. All questions answered. Pt is currently afebrile, HD stable, on bipap, minimally responsive. BIPAP 18/6/40% Labs, imaging, chart reviewed Lung Ca with mets COPD Active smoker Malignant pleural effusion Afib GERD Arthritis AMS Hypercapnic resp failure Recommend: - cont with BIPAP as tolerated, duonebs, Solumedrol IV - NPO - Pt is DNR/DNI - Morphine 2mg Q2hr PRN - Lasix 40mg IV BID - Broad spectrum abx - follow up pulm, Neuro - GI ppx - DVT ppx - Overall prognosis extremely poor - DNR/DNI - Monitor in MICU Critical care time 40 minutes
[2018-08-11] MEDS ORDERED: Mannitol 12.5 gm/50 ml Inj IV ONE (12:06)
--- NOTE | 2018-08-11 12:20 | RAD ---
Date of service: 08/11/2018 HISTORY: sob, crackles COMPARISON: Comparison chest dated 08/07/2018 TECHNIQUE: 1 view obtained. FINDINGS: No change right IJ MediPort with tip in the SVC/RA junction LUNGS: Diffuse bilateral infiltrates likely representing pulmonary edema/CHF. Superimposed pneumonia not excluded. Bilateral effusions. Interval removal right-sided chest tube. PLEURA: As above. No pneumothorax apparent. CARDIOVASCULAR: No aortic atherosclerotic calcification present. Normal cardiac size. No pulmonary vascular congestion. OSSEOUS STRUCTURES: No significant abnormalities. VISUALIZED UPPER ABDOMEN: Normal. OTHER FINDINGS: None. IMPRESSION: Diffuse bilateral infiltrates and bilateral effusions likely representing pulmonary venous congestive changes. Superimposed pneumonia not excluded.
[2018-08-11] MEDS: Vancomycin 1gm in NS 250ml 1 GM/250 ML BAG IVPB SCH (13:43)
[2018-08-11] MEDS: Cefepime 1gm in NS 100ml 1 GM/100 ML BAG IVPB SCH ×2 (13:43→22:09)
[2018-08-11] MEDS: Digoxin 125 mcg (0.125 mg) Tab PO SCH (13:44)
--- NOTE | 2018-08-11 16:49 | PN ---
DATE: 08/11/2018 SUBJECTIVE: The patient who is now in the Intensive Care Unit. The other day she had asked to remove PleurX catheter which is a way to release some of the fluid from her lung, which has cancer. She asked to have it taken out because it was bothering her, since then she has had some other issues going on. I believe that is why she is in the Intensive Care Unit now. She had an altered mental status. She was on Xanax. She did get some morphine 1 dose at 2 mg. She did get morphine the last time she was in the hospital, it was up to 4 mg. She has been on Xanax for very long time. It is very possible that the morphine and Xanax was too much; although, she has had it before, but I think it is more of a cancer and the fluid and that is why she had some change in mentation. Cardizem, digoxin, Eliquis, MiraLax as needed, morphine just in case she has pain, Pulmicort, Solu-Medrol at 40 IV every 8 hours, Xopenex and Zofran. She is now mentally out of it. She is on BiPAP, they did not want intubation and now they do not want resuscitation after we that direction. PHYSICAL EXAMINATION: VITAL SIGNS: She has a 97.8 temp, 81 pulse, 148/88 blood pressure, 20 respiratory rate and 100% O2 sat on the BiPAP. She is not alert at this time. I do think she is failing from the lung cancer. LABORATORY DATA: She has a 19.9 white count, 11.7 hemoglobin, 37.5 hematocrit and 194 platelets. She has a sodium 131, potassium 4.5, BUN 13, creatinine 0.3, GFR is greater than 60, sugar is 197, calcium is 8.3, troponin I is 0.14, triglycerides are 201 and TSH 1.56. She is being seen by [facility], Pulmonary and Cardiology. Of course the white count is going up. I will call in Infectious Disease, so it is possible she is having a infectious process; although, I am not sure how much antibiotics will help her, we will try. I will continue aggressive treatment and care on Kyara Oconnor who has got stage IV cancer of the lung and it is possible she is dealing with pneumonia now, possible aspiration. I will call if anything changes. Garfield Lopez DO [place]
[2018-08-11 17:34] LABS: FOLATE 11.1 ng/mL
--- NOTE | 2018-08-11 18:59 | CON ---
DATE OF CONSULTATION: 08/11/2018 The patient is in bed in ICU 128, Bed 3. CHIEF COMPLAINT: Change in mental status x1 day duration. HISTORY OF PRESENT ILLNESS: This is a 62-year-old female with known cancer stage IV with bone metastases, , status post radiation, and chronic respiratory failure, on home O2 therapy, and chronic obstructive lung disease, diverticulosis, atrial fibrillation, rapid ventricular response, there is a one bottle of coag-negative staph with repeat blood cultures negative secondary to possibly Port-A-Cath and now admitted this admission with a diagnosis of chronic obstructive lung disease and continues to do poorly and the patient was found unresponsive with change in mental status this morning, now transferred to ICU. The patient has increased white count this morning and hence this consultation requested. The patient is unresponsive and unable to give any information. PAST MEDICAL HISTORY: Based on the chart, nursing staff and Dr. Garfield Lopez, past medical history is significant for lung cancer stage IV, bone metastases, chronic obstructive lung disease, GERD, diverticulosis, atrial fibrillation, and rapid ventricular response. PAST SURGICAL HISTORY: Significant for Port-A-Cath placement and the patient also had a right hip surgery. MEDICATIONS: Medications are noted, at home include Zofran, Nexium, digoxin, Eliquis and Xanax. ALLERGIES: THE PATIENT HAS NO KNOWN ALLERGIES. REVIEW OF SYSTEMS: A 12-point review of systems is performed. PHYSICAL EXAMINATION: GENERAL: The patient is in bed in no acute distress, nontoxic. VITAL SIGNS: Temperature of 97, heart rate of 104, blood pressure is 139/75, respiratory rate of 20. HEENT: Unremarkable. NECK: Supple. LUNGS: Decreased breath sounds. HEART: Normal S1 and S2. ABDOMEN: Soft. LABORATORY EXAMINATION: Reveals a white count of 19,000 and platelets are 194,000. Chemistries are noted. Urinalysis is noted. Digoxin is 0.7. Blood cultures are negative. Urine cultures are negative. ASSESSMENT/PLAN: This is a 62-year-old female who is now unresponsive with sepsis, possible healthcare-associated pneumonia, must rule out bacteremia. We will start vancomycin and Maxipime pending panculture and workup results. Overall prognosis is quite poor. Jude Robertson MD [facility] # [id number]
--- NOTE | 2018-08-11 21:01 | PN ---
DATE: 08/11/2018 This is [facility] visit in the Intensive Care Unit. For Dr Welch. 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 The patient was on Eliquis along with digoxin as per Dr. Brayan aJy, her forger helper, with recent treatment by Dr. Humberto Bloom for her neoplastic condition. With this, the patient was to be transferred today to a subacute rehab in [place], however, there was an acute event overnight, a rapid response for the patient becoming tachypneic and hypoxic with mental status change as per the responding physicians including acute left-sided weakness. With this, the patient was then treated and brought to the Intensive Care Unit. It should be noted that the patient was being given morphine for her severe pain 2 mg IV every 4 hours p.r.n. with an additional treatment with Robitussin plain; one dose was given prior to the event reportedly along with Xanax? for her severe anxiety. This was discontinued earlier today and she is now seen in the Intensive Care Unit with family members at the bedside with BiPAP on and minimally responsive to stimuli, moving her right arm, but otherwise lethargic. A CT scan of the head was done with the impression showing limited motion of the graded study and the study should be considered. No gross intramural or intracranial hemorrhage. Suspect minimal chronic perivascular white matter ischemic changes, mild age-appropriate volume loss. No definitive acute skull fracture with limitation of the study. The patient was then seen by neurologist, Dr. Guzman, as per salesperson women's dresses note with recommendations for MRI of the brain once the patient is stable. At present, she appears to be in no acute distress resting in the ICU bed with family at the bedside. PHYSICAL EXAMINATION: VITAL SIGNS: Temperature 98, pulse 100, respirations 20, blood pressure 152/91. NEUROLOGICAL: She remains significantly lethargic, arousable to stimuli, moving her right upper extremity, but not following commands. HEENT: The patient does not open eyes to command, on BiPAP. NECK: Supple. HEART: Tachy rate. Regular rhythm. LUNGS: Rare rhonchi. ABDOMEN: Soft, and nontender. EXTREMITIES: Right upper extremity moves voluntarily. Left, no movement. SKIN: Warm and dry. NEUROLOGIC: Lethargic, but minimally arousable. LABORATORY DATA: The patient's chest x-ray was done showing diffuse bilateral infiltrates and bilateral effusions likely representing pulmonary venous congestion changes, superimposed pneumonia not excluded. The patient's labs were done: White blood cell count of 19.9 thousand, hemoglobin 11.7, hematocrit 37.5, platelet count of 194,000 with a metabolic panel showing a sodium of 131, chloride 90, BUN of 7, creatinine of 0.3. Nonfasting glucose 197 with a troponin of 0.04. Her ABG showed a PO2 of 97 with a PCO2 of 100.9, pH of 7.16, however, this will be repeated as per intensive critical care unit nurse. Digoxin level from two days prior was 0.7. ASSESSMENT AND PLAN: The assessment for this patient is that of new mental status change neurologic event, consider infarct versus hemorrhagic stroke as the patient was on Eliquis prior to the event. However, CT showed no growth or intracranial hemorrhage, with further recommendations as per neurologist. Adenocarcinoma of the lungs with metastases to the bone with pleural effusion/early pneumonia; congestive heart failure?. Status post PleurX catheter removal, chronic obstructive pulmonary disease, gastroesophageal reflux disease, diverticulosis, paroxysmal atrial fibrillation history, and anemia of chronic disease stats post transfusion. The patient did have removal of her catheter done two days prior. The patient is followed by both Cardiology, Dr. Jay and Dr. Wells, Pulmonology. The plan for this patient is as above with continued intensive care monitoring with the patient now made a Do Not Resuscitate/Do Not Intubate by family members with Dr. Welch commenting that the neoplastic changes are treatable in the right lung with history of radiation to her back with the new event, to be treated with further recommendations as per further clinical evaluation. This is a complex patient with a comprehensive medically necessary and appropriate visit carried out in excess of 95 minutes with the patient's family members' questions answered to their satisfaction with discussion with nursing staff and salesperson women's dresses regarding her further care as the patient may not be able to tolerate oral medications in consideration for parenteral treatment as indicated. Bertin Martinez MD [facility] # [id number]
--- NOTE | 2018-08-11 22:18 | CP.PCM.CON ---
History of Present Illness - History of Present Illness History of Present Illness: Neurology consult dictated. Miss Radha malagon is a 62 yr old woman with afib on eloquiss who suddnely became unresponsive last night, wit left arm and leg plegia. Seh was not a TPA candidate due to the fact that she was on eloquiss. She was admitted to ICU and this morning, on my exam, she was extremely tachypneic, with bl pleural effusion and histoyr of lung cancer. Family did not want intubation and it appeared to me that she had a clear Right MCA stroke. Plan: 1. MRI Brain if stable. 2. continue eloquiss. 3. No other treatment as pateint is DNR DNI. Ac Guzman Neurology Past Patient History - Infectious Disease Hx of Infectious Diseases: None - Tetanus Immunizations Tetanus Immunization: Unknown - Past Medical History & Family History Past Medical History?: Yes - Past Social History Smoking Status: Former Smoker - CARDIAC Hx Cardiac Disorders: Yes (h/o cardiac arrythmias.) - PULMONARY Hx Chronic Obstructive Pulmonary Disease (COPD): Yes - NEUROLOGICAL Hx Neurological Disorder: No - HEENT Hx HEENT Problems: No - RENAL Hx Chronic Kidney Disease: No - ENDOCRINE/METABOLIC Hx Endocrine Disorders: No - HEMATOLOGICAL/ONCOLOGICAL Hx Blood Disorders: Yes 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) Hx Chemotherapy: Yes (COMPLETED 6 ROUNDS OF RADIATION.) Hx Metastesis: Yes (BONE) - INTEGUMENTARY Hx Dermatological Problems: No - MUSCULOSKELETAL/RHEUMATOLOGICAL Hx Arthritis: Yes - GASTROINTESTINAL Hx Gastroesophageal Reflux: Yes - GENITOURINARY/GYNECOLOGICAL Hx Genitourinary Disorders: No - PSYCHIATRIC Hx Substance Use: No - SURGICAL HISTORY Hx Cardiac Catheterization: Yes Hx Orthopedic Surgery: Yes Other/Comment: Right hip replacement, right femur - ANESTHESIA Hx Anesthesia: Yes Hx Malignant Hyperthermia: No Meds Allergies/Adverse Reactions: Allergies Allergy/AdvReac Type Severity Reaction Status Date / Time No Known Allergies Allergy Verified 08/07/18 13:38 - Medications Medications: Current Medications Apixaban (Eliquis) 5 mg PO BID [facility]; Protocol Last Admin: 08/11/18 17:40 Dose: Not Given Budesonide (Pulmicort Respules) 0.5 mg IH [id number] [facility] Last Admin: 08/11/18 21:21 Dose: 0.5 mg Digoxin (Digoxin) 0.125 mg PO 1400 [facility] Last Admin: 08/11/18 13:44 Dose: Not Given Diltiazem HCl (Cardizem Cd) 120 mg PO DAILY [facility] Last Admin: 08/11/18 09:55 Dose: Not Given Sodium Chloride (Sodium Chloride 0.9%) 1,000 mls @ 60 mls/hr IV .[id number] [facility] Last Admin: 08/10/18 10:34 Dose: 60 mls/hr Cefepime HCl (Maxipime 1gm) 1 gm in 100 mls @ 100 mls/hr IVPB Q8 [facility]; Protocol Stop: 08/18/18 14:01 Last Admin: 08/11/18 22:09 Dose: 100 mls/hr Vancomycin HCl (Vancomycin 1gm) 1 gm in 250 mls @ 167 mls/hr IVPB Q12H [facility]; Protocol Stop: 08/18/18 13:46 Last Admin: 08/11/18 13:43 Dose: 167 mls/hr Levalbuterol HCl (Xopenex) 1.25 mg IH [id number] [facility] Last Admin: 08/11/18 21:20 Dose: 1.25 mg Levalbuterol HCl (Xopenex) 1.25 mg IH Q2H PRN PRN Reason: Shortness of Breath Last Admin: 08/10/18 11:46 Dose: 1.25 mg Methylprednisolone (Solu-Medrol) 40 mg IVP Q8H [facility] Last Admin: 08/11/18 17:46 Dose: 40 mg Morphine Sulfate (Morphine) 2 mg IVP Q2H PRN PRN Reason: Pain, moderate (4-7) Last Admin: 08/11/18 19:46 Dose: 2 mg Ondansetron HCl (Zofran Inj) 4 mg IVP Q4H PRN PRN Reason: Nausea/Vomiting Last Admin: 08/09/18 01:59 Dose: 4 mg Pantoprazole Sodium (Protonix Ec Tab) 40 mg PO ACB [facility] Last Admin: 08/11/18 08:04 Dose: Not Given Polyethylene Glycol (Miralax) 17 gm PO DAILY [facility] Last Admin: 08/11/18 09:57 Dose: Not Given Potassium Chloride (K-Dur 20 Meq Er Tab) 20 meq PO BRK [facility] Last Admin: 08/11/18 08:04 Dose: Not Given Sotalol HCl (Betapace) 80 mg PO BID ANTIONETTE Last Admin: 08/10/18 17:05 Dose: 80 mg Results - Vital Signs Recent Vital Signs: Last Vital Signs Temp 97.8 F 08/11/18 04:40 Pulse 94 H 08/11/18 20:00 Resp 31 H 08/11/18 20:00 BP 123/61 08/11/18 20:00 Pulse Ox 90 L 08/11/18 20:00 - Labs Result Diagrams: 08/11/18 06:00 08/11/18 06:00 Labs: Laboratory Results - last 24 hr 08/11/18 08/11/18 08/11/18 04:06 06:00 06:00 WBC 19.9 H D RBC 3.71 Hgb 11.7 L Hct 37.5 MCV 101.1 D MCH 31.5 MCHC 31.2 RDW 19.8 H Plt Count 194 MPV 9.9 PT INR APTT pCO2 pO2 HCO3 ABG pH ABG Total CO2 ABG O2 Saturation ABG O2 Content ABG Base Excess ABG Hemoglobin ABG Carboxyhemoglobin POC ABG HHb (Measured) ABG Methemoglobin ABG O2 Capacity Hgb O2 Saturation FiO2 Crit Value Called To Crit Value Called By Blood Gas Notified Time Sodium 131 L Potassium 4.5 Chloride 90 L Carbon Dioxide 39 H Anion Gap 7 L BUN 13 Creatinine 0.3 L Est GFR ( Amer) > 60 Est GFR (Non-Af Amer) > 60 POC Glucose (mg/dL) 171 H Random Glucose 197 H Calcium 8.3 L Troponin I 0.04 D Triglycerides 201 H Cholesterol 160 LDL Cholesterol Direct 103 HDL Cholesterol 36 Vitamin B12 Folate Procalcitonin TSH 3rd Generation 08/11/18 08/11/18 08/11/18 06:00 07:00 08:15 WBC RBC Hgb Hct MCV MCH MCHC RDW Plt Count MPV PT 17.8 H INR 1.58 APTT 24.1 L pCO2 109 H* pO2 97.0 HCO3 38.9 H ABG pH 7.16 L* ABG Total CO2 42.2 H ABG O2 Saturation 98.4 H ABG O2 Content 17.4 ABG Base Excess 6.3 H ABG Hemoglobin 13.2 ABG Carboxyhemoglobin 4.1 H POC ABG HHb (Measured) 1.5 ABG Methemoglobin 1.2 ABG O2 Capacity 17.7 Hgb O2 Saturation 93.2 L FiO2 100.0 Crit Value Called To salina Paul Crit Value Called By Javan alvarez sugar controller-collarette separator Blood Gas Notified Time 825 Sodium Potassium Chloride Carbon Dioxide Anion Gap BUN Creatinine Est GFR ( Amer) Est GFR (Non-Af Amer) POC Glucose (mg/dL) Random Glucose Calcium Troponin I Triglycerides Cholesterol LDL Cholesterol Direct HDL Cholesterol Vitamin B12 > 1000 H Folate 11.1 Procalcitonin TSH 3rd Generation 08/11/18 08/11/18 09:30 12:00 WBC RBC Hgb Hct MCV MCH MCHC RDW Plt Count MPV PT INR APTT pCO2 pO2 HCO3 ABG pH ABG Total CO2 ABG O2 Saturation ABG O2 Content ABG Base Excess ABG Hemoglobin ABG Carboxyhemoglobin POC ABG HHb (Measured) ABG Methemoglobin ABG O2 Capacity Hgb O2 Saturation FiO2 Crit Value Called To Crit Value Called By Blood Gas Notified Time Sodium Potassium Chloride Carbon Dioxide Anion Gap BUN Creatinine Est GFR ( Amer) Est GFR (Non-Af Amer) POC Glucose (mg/dL) Random Glucose Calcium Troponin I Triglycerides Cholesterol LDL Cholesterol Direct HDL Cholesterol Vitamin B12 Folate Procalcitonin 0.15 L TSH 3rd Generation 1.56
[2018-08-12] MEDS: Morphine 2 mg/ml ISec IVP PRN ×7 (00:20→21:03)
[2018-08-12] MEDS: Levalbuterol 1.25 MG/3 ML Inhal Soln UD IH SCH ×4 (02:11→20:15)
[2018-08-12] MEDS: Vancomycin 1gm in NS 250ml 1 GM/250 ML BAG IVPB SCH ×2 (04:40→15:04)
[2018-08-12] MEDS: MethylPREDNISolone 40 mg Vial IVP SCH ×3 (04:43→17:14)
[2018-08-12] MEDS: Cefepime 1gm in NS 100ml 1 GM/100 ML BAG IVPB SCH ×3 (06:35→21:50)
[2018-08-12 06:59] LABS: HEMOGLOBIN 10.6 g/dL (12.0-16.0); MEAN CELL VOLUME 100.3 fl (80.0-105.0); MEAN CORPUSCULAR HEMOGLOBIN 31.4 pg (25.0-35.0); MEAN CORPUSCULAR HGB CONC 31.3 g/dl (31.0-37.0); MEAN PLATELET VOLUME 10.1 fl (7.0-11.0); RBC 3.38 10^6/uL (3.5-6.1); RED CELL DISTRIBUTION WIDTH 19.6 % (11.5-14.5)
[2018-08-12 07:24] LABS: ALB/GLOB RATIO 1.2 (1.1-1.8); ALBUMIN 2.9 g/dL (3.0-4.8); ALT/SGPT 15 U/L (7-56); AST/SGOT 43 U/L (14-36); BLOOD UREA NITROGEN 19 mg/dL (7-21); CALCIUM 8.3 mg/dL (8.4-10.5); GFR NON-AFRICAN AMERICAN > 60
--- NOTE | 2018-08-12 08:05 | CP.CCUPN ---
<Stalin Kramer - Last Filed: 08/12/18 10:38> CCU Subjective - Physician Review Subjective (Free Text): Stalin Kramer DO, PGY-1 MICU Progress Note for Dr. Albrecht Patient was seen and examined at bedside this AM. She appears more awake and alert. She grimaces with painful and verbal stimuli but is non-verbal. She has been maintaining SpO2 > 90% on continuous bipap overnight. She is moving extremities spontaneously. Morphine was administered throughout the night which helped to keep her calm. CCU Objective - Vital Signs / Intake & Output Vital Signs (Last 4 hours): Vital Signs Pulse 08/12/18 05:30 81 Intake and Output (Last 8hrs): Intake & Output 08/11/18 08/12/18 08/12/18 22:59 06:59 14:59 Intake Total 410 Output Total 400 Balance 10 Intake: IV 410 Right Proximal Port 410 Output: Urine 350 Urine, Voided 350 Stool 50 - Physical Exam Physical Exam Limitations: Positive for: Clinical Condition Head: Positive for: Atraumatic, Normocephalic Pupils: Positive for: PERRL Extroacular Muscles: Positive for: EOMI Conjunctiva: Positive for: Normal Mouth: Positive for: Moist Mucous Membranes Neck: Positive for: Normal Range of Motion Respiratory/Chest: Positive for: Decreased Breath Sounds (bilaterally), Rhonchi (coarse breath sounds b/l), Other (decreased air movement throughout, on continuous bipap). Negative for: Wheezes, Rales Cardiovascular: Positive for: Regular Rate and Rhythm, Normal S1, S2. Negative for: Murmurs, Rub, Gallop Abdomen: Negative for: Tenderness, Distention, Peritoneal Signs, Rebound, Guarding Back: Positive for: Normal Inspection Upper Extremity: Positive for: Normal Inspection. Negative for: Cyanosis, Edema Lower Extremity: Positive for: Normal Inspection. Negative for: Edema Neurological: Positive for: Other (responds to verbal/painful stimuli but somnolent, lethargic) Skin: Positive for: Warm, Dry, Normal Color. Negative for: Rashes Psychiatric: Positive for: Lethargic - Medications Active Medications: Active Medications Generic Name Dose Route Start Last Admin Trade Name Freq PRN Reason Stop Dose Admin Apixaban 5 mg 08/08/18 10:00 08/11/18 17:40 Eliquis PO Not Given BID ANTIONETTE Protocol Budesonide 0.5 mg 08/08/18 08:00 08/11/18 21:21 Pulmicort Respules IH 0.5 mg [id number] ANTIONETTE Administration Digoxin 0.125 mg 08/08/18 14:00 08/11/18 13:44 Digoxin PO Not Given 1400 ANTIONETTE Diltiazem HCl 120 mg 08/09/18 10:00 08/11/18 09:55 Cardizem Cd PO Not Given DAILY ANTIONETTE Sodium Chloride 1,000 mls @ 60 mls/hr 08/10/18 08:45 08/10/18 10:34 Sodium Chloride 0.9% IV 60 mls/hr .[id number] ANTIONETTE Administration Cefepime HCl 1 gm in 100 mls @ 100 mls/hr 08/11/18 14:00 08/12/18 06:35 Maxipime 1gm IVPB 08/18/18 14:01 100 mls/hr Q8 ANTIONETTE Administration Protocol Vancomycin HCl 1 gm in 250 mls @ 167 mls/hr 08/11/18 13:45 08/12/18 04:40 Vancomycin 1gm IVPB 08/18/18 13:46 167 mls/hr Q12H ANTIONETTE Administration Protocol Levalbuterol HCl 1.25 mg 08/08/18 08:00 08/12/18 02:11 Xopenex IH 1.25 mg [id number] ANTIONETTE Administration Levalbuterol HCl 1.25 mg 08/08/18 06:44 08/10/18 11:46 Xopenex IH 1.25 mg Q2H PRN Administration Shortness of Breath Methylprednisolone 40 mg 08/11/18 09:45 08/12/18 04:43 Solu-Medrol IVP 40 mg Q8H ANTIONETTE Administration Morphine Sulfate 2 mg 08/11/18 11:13 08/12/18 06:34 Morphine IVP 2 mg Q2H PRN Administration Pain, moderate (4-7) Ondansetron HCl 4 mg 08/07/18 16:38 08/09/18 01:59 Zofran Inj IVP 4 mg Q4H PRN Administration Nausea/Vomiting Pantoprazole Sodium 40 mg 08/08/18 07:30 08/11/18 08:04 Protonix Ec Tab PO Not Given ACB ANTIONETTE Polyethylene Glycol 17 gm 08/08/18 10:30 08/11/18 09:57 Miralax PO Not Given DAILY ANTIONETTE Potassium Chloride 20 meq 08/08/18 09:00 08/11/18 08:04 K-Dur 20 Meq Er Tab PO Not Given BRK ANTIONETTE Sotalol HCl 80 mg 08/08/18 10:00 08/10/18 17:05 Betapace PO 80 mg BID ANTIONETTE Administration - Patient Studies Lab Studies: Lab Studies 08/12/18 08/12/18 08/11/18 Range/Units 06:00 06:00 12:00 WBC 21.0 H (4.5-11.0) 10^3/uL RBC 3.38 L (3.5-6.1) 10^6/uL Hgb 10.6 L (12.0-16.0) g/dL Hct 33.9 L (36.0-48.0) % MCV 100.3 (80.0-105.0) fl MCH 31.4 (25.0-35.0) pg MCHC 31.3 (31.0-37.0) g/dl RDW 19.6 H (11.5-14.5) % Plt Count 169 (120.0-450.0) 10^3/uL MPV 10.1 (7.0-11.0) fl pCO2 (35-45) mm/Hg pO2 (80-100) mm/Hg HCO3 (21-28) mmol/L ABG pH (7.35-7.45) ABG Total CO2 (22-28) mmol.L ABG O2 Saturation (95-98) % ABG O2 Content (15-23) ML/dl ABG Base Excess (-2.0-3.0) mmol/L ABG Hemoglobin (11.7-17.4) g/dL ABG Carboxyhemoglobin (0.5-1.5) % POC ABG HHb (Measured) (0-5) % ABG Methemoglobin (0.0-3.0) % ABG O2 Capacity (16-24) mL/dl Hgb O2 Saturation (95.0-98.0) % FiO2 % Crit Value Called To Crit Value Called By Blood Gas Notified Time Sodium 133 (132-148) mmol/L Potassium 4.6 (3.6-5.0) mmol/L Chloride 91 L (98-107) mmol/L Carbon Dioxide 40 H (21-33) mmol/L Anion Gap 7 L (10-20) BUN 19 (7-21) mg/dL Creatinine 0.3 L (0.7-1.2) mg/dl Est GFR ( Amer) > 60 Est GFR (Non-Af Amer) > 60 Random Glucose 229 H (70-110) mg/dL Calcium 8.3 L (8.4-10.5) mg/dL Phosphorus 3.4 (2.5-4.5) mg/dL Magnesium 2.1 (1.7-2.2) mg/dL Total Bilirubin 1.4 H (0.2-1.3) mg/dL AST 43 H D (14-36) U/L ALT 15 (7-56) U/L Alkaline Phosphatase 300 H (38-126) U/L Total Protein 5.4 L (5.8-8.3) g/dL Albumin 2.9 L (3.0-4.8) g/dL Globulin 2.5 gm/dL Albumin/Globulin Ratio 1.2 (1.1-1.8) Vitamin B12 (239-931) pg/mL Folate ng/mL Procalcitonin 0.15 L (0.19-0.49) NG/ML TSH 3rd Generation (0.46-4.68) mIU/mL 08/11/18 08/11/18 08/11/18 Range/Units 09:30 08:15 07:00 WBC (4.5-11.0) 10^3/uL RBC (3.5-6.1) 10^6/uL Hgb (12.0-16.0) g/dL Hct (36.0-48.0) % MCV (80.0-105.0) fl MCH (25.0-35.0) pg MCHC (31.0-37.0) g/dl RDW (11.5-14.5) % Plt Count (120.0-450.0) 10^3/uL MPV (7.0-11.0) fl pCO2 109 H* (35-45) mm/Hg pO2 97.0 (80-100) mm/Hg HCO3 38.9 H (21-28) mmol/L ABG pH 7.16 L* (7.35-7.45) ABG Total CO2 42.2 H (22-28) mmol.L ABG O2 Saturation 98.4 H (95-98) % ABG O2 Content 17.4 (15-23) ML/dl ABG Base Excess 6.3 H (-2.0-3.0) mmol/L ABG Hemoglobin 13.2 (11.7-17.4) g/dL ABG Carboxyhemoglobin 4.1 H (0.5-1.5) % POC ABG HHb (Measured) 1.5 (0-5) % ABG Methemoglobin 1.2 (0.0-3.0) % ABG O2 Capacity 17.7 (16-24) mL/dl Hgb O2 Saturation 93.2 L (95.0-98.0) % FiO2 100.0 % Crit Value Called To salina Paul Crit Value Called By Javan alvarez polymer tester-director biomedical engineering Blood Gas Notified Time 825 Sodium (132-148) mmol/L Potassium (3.6-5.0) mmol/L Chloride (98-107) mmol/L Carbon Dioxide (21-33) mmol/L Anion Gap (10-20) BUN (7-21) mg/dL Creatinine (0.7-1.2) mg/dl Est GFR ( Amer) Est GFR (Non-Af Amer) Random Glucose (70-110) mg/dL Calcium (8.4-10.5) mg/dL Phosphorus (2.5-4.5) mg/dL Magnesium (1.7-2.2) mg/dL Total Bilirubin (0.2-1.3) mg/dL AST (14-36) U/L ALT (7-56) U/L Alkaline Phosphatase (38-126) U/L Total Protein (5.8-8.3) g/dL Albumin (3.0-4.8) g/dL Globulin gm/dL Albumin/Globulin Ratio (1.1-1.8) Vitamin B12 > 1000 H (239-931) pg/mL Folate 11.1 ng/mL Procalcitonin (0.19-0.49) NG/ML TSH 3rd Generation 1.56 (0.46-4.68) mIU/mL Laboratory Results - last 24 hr 08/11/18 08/11/1808/11/19 07:00 08:15 09:30 WBC RBC Hgb Hct MCV MCH MCHC RDW Plt Count MPV pCO2 109 H* pO2 97.0 HCO3 38.9 H ABG pH 7.16 L* ABG Total CO2 42.2 H ABG O2 Saturation 98.4 H ABG O2 Content 17.4 ABG Base Excess 6.3 H ABG Hemoglobin 13.2 ABG Carboxyhemoglobin 4.1 H POC ABG HHb (Measured) 1.5 ABG Methemoglobin 1.2 ABG O2 Capacity 17.7 Hgb O2 Saturation 93.2 L FiO2 100.0 Crit Value Called To salina Paul Crit Value Called By Javan alvarez polymer tester-director biomedical engineering Blood Gas Notified Time 825 Sodium Potassium Chloride Carbon Dioxide Anion Gap BUN Creatinine Est GFR ( Amer) Est GFR (Non-Af Amer) Random Glucose Calcium Phosphorus Magnesium Total Bilirubin AST ALT Alkaline Phosphatase Total Protein Albumin Globulin Albumin/Globulin Ratio Vitamin B12 > 1000 H Folate 11.1 Procalcitonin TSH 3rd Generation 1.56 08/11/18 08/12/18 08/12/18 12:00 06:00 06:00 WBC 21.0 H RBC 3.38 L Hgb 10.6 L Hct 33.9 L MCV 100.3 MCH 31.4 MCHC 31.3 RDW 19.6 H Plt Count 169 MPV 10.1 pCO2 pO2 HCO3 ABG pH ABG Total CO2 ABG O2 Saturation ABG O2 Content ABG Base Excess ABG Hemoglobin ABG Carboxyhemoglobin POC ABG HHb (Measured) ABG Methemoglobin ABG O2 Capacity Hgb O2 Saturation FiO2 Crit Value Called To Crit Value Called By Blood Gas Notified Time Sodium 133 Potassium 4.6 Chloride 91 L Carbon Dioxide 40 H Anion Gap 7 L BUN 19 Creatinine 0.3 L Est GFR ( Amer) > 60 Est GFR (Non-Af Amer) > 60 Random Glucose 229 H Calcium 8.3 L Phosphorus 3.4 Magnesium 2.1 Total Bilirubin 1.4 H AST 43 H D ALT 15 Alkaline Phosphatase 300 H Total Protein 5.4 L Albumin 2.9 L Globulin 2.5 Albumin/Globulin Ratio 1.2 Vitamin B12 Folate Procalcitonin 0.15 L TSH 3rd Generation Radiology Impressions: Radiology Impressions Head CT 08/11/18 04:18 IMPRESSION: Limited motion degraded study and study should be considered. No gross intracranial hemorrhage. Suspect minimal chronic periventricular white matter ischemic changes. Mild age-appropriate volume loss No definitive acute skull fracture within limitation of the study Chest X-Ray 08/11/18 05:13 IMPRESSION: Diffuse bilateral infiltrates and bilateral effusions likely representing pulmonary venous congestive changes. Superimposed pneumonia not excluded. Critical Care Progress Note - Nutrition Nutrition: Nutrition Category Date Time Status NPO Diet [DIET] Diets 08/11/18 Breakfast Ordered Assessment/Plan - Assessment and Plan (Free Text) Assessment: 62 yo F with PMH of COPD, pleural effusions with right sided chest catheter, right-sided lung cancer stage IV on chemo, metastatic bone disease s/p 6 rounds of XRT, OA, GERD, and AFib (on eliquis) who presented to [facility] on 08/07/18 with rapid a-fib prior to arrival. Patient was admitted to telemetry floor. Yesterday morning, AGENCY APPOINTMENTS SUPERVISOR was called on Patient due to AMS (see AGENCY APPOINTMENTS SUPERVISOR note). Patient unable to provide history due to clinical condition. Patient was noted to have acute left-sided weakness in UE and LE. CODE STROKE was called. Neurology (Dr. Guzman) was consulted; recommended Brain MRI and transfer to ICU for closer monitoring. Plan: Neuro: Responsive to verbal and painful stimuli but otherwise somnolent Altered mental status likely due to severe hypercapnia from respiratory failure and possible new CVA Patient unable to go for MRI due to dependence on bipap Neurology, Dr. Guzman, following, all recs appreciated Cardio: Remaining normotensive, RRR Maintain MAP > 65 Monitor for s/sx HD compromise Pulm: ABG consistent with acute on chronic hypercapnic respiratory failure After discussion with patient's family, patient is now DNR/DNI May continue Bipap support Morphine 2 mg q2h PRN for pain/distress GI: NPO due to critical condition /Nephro: Replete electrolytes PRN Monitor UOP Endo: Random glucose: 229, hyperglycemia likely 2/2 continued steroid use Continue to monitor, may place on ISS if persistently hyperglycemic A1c, TSH WNL Heme/Onc: History of R-sided lung adenocarcinoma Patient was unable to get PET CT as outpatient so unclear staging at this point Patient recently saw Dr. Welch for second opinion Prognosis remains guarded at this point Palliative care consult placed, all recs appreciated ID: AFebrile without leukocytosis Monitor for s/sx of infection F/u sebastian cx, procal, lactate DVT/GI PPX: SCD/protonix DNR/DNI NPO diet Monitor in MICU Patient seen, examined with, and plan confirmed with my attending Dr.Takhalov Stalin Kramer, D.O. IM Resident PGY-1 Pager: [phone] <Brandon Albrecht - Last Filed: 08/12/18 11:34> CCU Objective - Vital Signs / Intake & Output Vital Signs (Last 4 hours): Vital Signs Pulse Resp BP 08/12/18 10:56 113/72 08/12/18 08:01 96 H 27 H 128/55 L 08/12/18 08:00 98 H 30 H Intake and Output (Last 8hrs): Intake & Output 08/11/18 08/12/18 08/12/18 22:59 06:59 14:59 Intake Total 410 Output Total 400 Balance 10 Intake: IV 410 Right Proximal Port 410 Output: Urine 350 Urine, Voided 350 Stool 50 - Medications Active Medications: Active Medications Generic Name Dose Route Start Last Admin Trade Name Freq PRN Reason Stop Dose Admin Apixaban 5 mg 08/08/18 10:00 08/12/18 09:52 Eliquis PO Not Given BID ANTIONETTE Protocol Budesonide 0.5 mg 08/08/18 08:00 08/12/18 09:47 Pulmicort Respules IH 0.5 mg [id number] ANTIONETTE Administration Digoxin 0.125 mg 08/08/18 14:00 08/11/18 13:44 Digoxin PO Not Given 1400 ANTIONETTE Diltiazem HCl 120 mg 08/09/18 10:00 08/12/18 09:52 Cardizem Cd PO Not Given DAILY ANTIONETTE Sodium Chloride 1,000 mls @ 60 mls/hr 08/10/18 08:45 08/10/18 10:34 Sodium Chloride 0.9% IV 60 mls/hr .[id number] ANTIONETTE Administration Cefepime HCl 1 gm in 100 mls @ 100 mls/hr 08/11/18 14:00 08/12/18 06:35 Maxipime 1gm IVPB 08/18/18 14:01 100 mls/hr Q8 ANTIONETTE Administration Protocol Vancomycin HCl 1 gm in 250 mls @ 167 mls/hr 08/11/18 13:45 08/12/18 04:40 Vancomycin 1gm IVPB 08/18/18 13:46 167 mls/hr Q12H ANTIONETTE Administration Protocol Levalbuterol HCl 1.25 mg 08/08/18 08:00 08/12/18 09:48 Xopenex IH 1.25 mg [id number] ANTIONETTE Administration Levalbuterol HCl 1.25 mg 08/08/18 06:44 08/10/18 11:46 Xopenex IH 1.25 mg Q2H PRN Administration Shortness of Breath Methylprednisolone 40 mg 08/11/18 09:45 08/12/18 10:14 Solu-Medrol IVP 40 mg Q8H ANTIONETTE Administration Morphine Sulfate 2 mg 08/11/18 11:13 08/12/18 06:34 Morphine IVP 2 mg Q2H PRN Administration Pain, moderate (4-7) Ondansetron HCl 4 mg 08/07/18 16:38 08/09/18 01:59 Zofran Inj IVP 4 mg Q4H PRN Administration Nausea/Vomiting Pantoprazole Sodium 40 mg 08/08/18 07:30 08/11/18 08:04 Protonix Ec Tab PO Not Given ACB ANTIONETTE Polyethylene Glycol 17 gm 08/08/18 10:30 08/12/18 09:52 Miralax PO Not Given DAILY ANTIONETTE Potassium Chloride 20 meq 08/08/18 09:00 08/11/18 08:04 K-Dur 20 Meq Er Tab PO Not Given BRK ANTIONETTE Sotalol HCl 80 mg 08/08/18 10:00 08/10/18 17:05 Betapace PO 80 mg BID ANTIONETTE Administration - Patient Studies Lab Studies: Lab Studies 08/12/18 08/12/18 08/11/18 Range/Units 06:00 06:00 12:00 WBC 21.0 H (4.5-11.0) 10^3/uL RBC 3.38 L (3.5-6.1) 10^6/uL Hgb 10.6 L (12.0-16.0) g/dL Hct 33.9 L (36.0-48.0) % MCV 100.3 (80.0-105.0) fl MCH 31.4 (25.0-35.0) pg MCHC 31.3 (31.0-37.0) g/dl RDW 19.6 H (11.5-14.5) % Plt Count 169 (120.0-450.0) 10^3/uL MPV 10.1 (7.0-11.0) fl Sodium 133 (132-148) mmol/L Potassium 4.6 (3.6-5.0) mmol/L Chloride 91 L (98-107) mmol/L Carbon Dioxide 40 H (21-33) mmol/L Anion Gap 7 L (10-20) BUN 19 (7-21) mg/dL Creatinine 0.3 L (0.7-1.2) mg/dl Est GFR ( Amer) > 60 Est GFR (Non-Af Amer) > 60 Random Glucose 229 H (70-110) mg/dL Hemoglobin A1c (4.2-6.5) % Calcium 8.3 L (8.4-10.5) mg/dL Phosphorus 3.4 (2.5-4.5) mg/dL Magnesium 2.1 (1.7-2.2) mg/dL Total Bilirubin 1.4 H (0.2-1.3) mg/dL AST 43 H D (14-36) U/L ALT 15 (7-56) U/L Alkaline Phosphatase 300 H (38-126) U/L Total Protein 5.4 L (5.8-8.3) g/dL Albumin 2.9 L (3.0-4.8) g/dL Globulin 2.5 gm/dL Albumin/Globulin Ratio 1.2 (1.1-1.8) Vitamin B12 (239-931) pg/mL Folate ng/mL Procalcitonin 0.15 L (0.19-0.49) NG/ML 08/11/18 08/11/18 Range/Units 07:00 07:00 WBC (4.5-11.0) 10^3/uL RBC (3.5-6.1) 10^6/uL Hgb (12.0-16.0) g/dL Hct (36.0-48.0) % MCV (80.0-105.0) fl MCH (25.0-35.0) pg MCHC (31.0-37.0) g/dl RDW (11.5-14.5) % Plt Count (120.0-450.0) 10^3/uL MPV (7.0-11.0) fl Sodium (132-148) mmol/L Potassium (3.6-5.0) mmol/L Chloride (98-107) mmol/L Carbon Dioxide (21-33) mmol/L Anion Gap (10-20) BUN (7-21) mg/dL Creatinine (0.7-1.2) mg/dl Est GFR ( Amer) Est GFR (Non-Af Amer) Random Glucose (70-110) mg/dL Hemoglobin A1c 4.3 (4.2-6.5) % Calcium (8.4-10.5) mg/dL Phosphorus (2.5-4.5) mg/dL Magnesium (1.7-2.2) mg/dL Total Bilirubin (0.2-1.3) mg/dL AST (14-36) U/L ALT (7-56) U/L Alkaline Phosphatase (38-126) U/L Total Protein (5.8-8.3) g/dL Albumin (3.0-4.8) g/dL Globulin gm/dL Albumin/Globulin Ratio (1.1-1.8) Vitamin B12 > 1000 H (239-931) pg/mL Folate 11.1 ng/mL Procalcitonin (0.19-0.49) NG/ML Laboratory Results - last 24 hr 08/11/18 08/11/18 08/11/18 07:00 07:00 12:00 WBC RBC Hgb Hct MCV MCH MCHC RDW Plt Count MPV Sodium Potassium Chloride Carbon Dioxide Anion Gap BUN Creatinine Est GFR ( Amer) Est GFR (Non-Af Amer) Random Glucose Hemoglobin A1c 4.3 Calcium Phosphorus Magnesium Total Bilirubin AST ALT Alkaline Phosphatase Total Protein Albumin Globulin Albumin/Globulin Ratio Vitamin B12 > 1000 H Folate 11.1 Procalcitonin 0.15 L 08/12/18 08/12/18 06:00 06:00 WBC 21.0 H RBC 3.38 L Hgb 10.6 L Hct 33.9 L MCV 100.3 MCH 31.4 MCHC 31.3 RDW 19.6 H Plt Count 169 MPV 10.1 Sodium 133 Potassium 4.6 Chloride 91 L Carbon Dioxide 40 H Anion Gap 7 L BUN 19 Creatinine 0.3 L Est GFR ( Amer) > 60 Est GFR (Non-Af Amer) > 60 Random Glucose 229 H Hemoglobin A1c Calcium 8.3 L Phosphorus 3.4 Magnesium 2.1 Total Bilirubin 1.4 H AST 43 H D ALT 15 Alkaline Phosphatase 300 H Total Protein 5.4 L Albumin 2.9 L Globulin 2.5 Albumin/Globulin Ratio 1.2 Vitamin B12 Folate Procalcitonin Radiology Impressions: Radiology Impressions Chest X-Ray 08/11/18 05:13 IMPRESSION: Diffuse bilateral infiltrates and bilateral effusions likely representing pulmonary venous congestive changes. Superimposed pneumonia not excluded. Critical Care Progress Note - Nutrition Nutrition: Nutrition Category Date Time Status NPO Diet [DIET] Diets 08/12/18 Breakfast Ordered Assessment/Plan - Assessment and Plan (Free Text) Plan: I saw and examined the patient on rounds with resident, agree with resident's note with following additions/exceptions: Patient is 62yo female with PMhx of Lung Ca with mets on radiation, Acitve smoker, COPD, malignant pleural effusion, arthritis, GERD, and atrial fibrillation, admitted for Afib. Yesterday AGENCY APPOINTMENTS SUPERVISOR was called on Patient due to AMS, patient found to be in hypercapnic resp failure. As per the family, and patients known wishes, patient wished to be DNR/DNI. Patient placed on BIPAP, given Solumedrol, and Lasix IV. CT head without contrast prelim report is negative for hemorrhagic stroke. I had long lengthy discussion with the family yesterday, /HCP Don Lynn, and son Brian Lynn, who informed me that their primary goal for the patient is comfort, and no pain. Pt is to be DNR/DNI, no aggressive interventions to be undertaken; IVF, ABx, steroids, BIPAP is OK. Pt is currently afebrile, HD stable, on bipap, minimally responsive. BIPAP 18/6/40% Labs, imaging, chart reviewed Pulmonary following Neurology following Lung Ca with mets COPD Active smoker Malignant pleural effusion Afib GERD Arthritis AMS Hypercapnic resp failure Recommend: - cont with BIPAP as tolerated, duonebs, Solumedrol IV - NPO - Pt is DNR/DNI - Morphine 2mg Q2hr PRN - Lasix 40mg IV BID - Broad spectrum abx - follow up pulm, Neuro - GI ppx - DVT ppx - Overall prognosis extremely poor - palliative care consult - DNR/DNI - Monitor in MICU
[2018-08-12] MEDS: Budesonide 0.5 mg/2 ml Inhal Susp UD IH SCH ×2 (09:47→20:15)
[2018-08-12] MEDS: POLYETHYLENE GLYCOL 3350 17 GM/Dose PACKET PO SCH (09:52)
[2018-08-12] MEDS: diltiaZEM 120 mg/24 Hours CD Cap PO SCH (09:52)
--- NOTE | 2018-08-12 12:11 | PN ---
DATE: 08/12/2018 SUBJECTIVE: The patient is in bed, in agonal breathing poorly. PHYSICAL EXAMINATION: VITAL SIGNS: Temperature is 97, blood pressure is 117/70, respiratory rate of 28. The patient has a BiPap on. Heart rate of 81. HEENT: Unremarkable. NECK: Supple. LUNGS: Have decreased breath sounds. HEART: Normal S1, S2. ABDOMEN: Soft, nontender. LABORATORY DATA: White count of 21,000, hemoglobin is 10, creatinine 0.3. Procalcitonin is 0.15. Microbiology reveals cultures are pending. Review of orders reveals the patient is on cefepime and vanco. Dr. Stalin Kramer's progress note from today is reviewed. ASSESSMENT AND PLAN: This is a 62-year-old who has a known cancer stage IV bone metastases with sepsis, possible healthcare-associated pneumonia, on vancomycin and Maxipime, agonal breathing. The patient is terminal. Do not resuscitate/do not intubate. Should consider hospice setting. The patient is unresponsive. Jude Robertson MD
--- NOTE | 2018-08-12 14:36 | PN ---
DATE: 08/12/2018 SUBJECTIVE: She is in the intensive care unit. I do believe she is actively dying. She is on BiPAP, they do not want intubation and do not want resuscitation at this time. She has severe right-sided stage IV cancer. She had taken out the PleurX catheter and her wish now is just to be as pain-free as possible. She is on Betapace, Cardizem, digoxin, Eliquis, potassium, Maxipime, MiraLax, morphine, Protonix, Pulmicort, Solu-Medrol, vancomycin, Xopenex and Zofran, still given IV antibiotics, so still trying to treat her, but they do not want any heroics. She is on morphine every 2 hours for pain. She does not want to be in any pain. PHYSICAL EXAMINATION: VITAL SIGNS: Last temp was 97.8, 96 pulse 128/55 blood pressure, 27 respiratory rate, 94% O2 sat on BiPAP. HEENT: Her head is atraumatic, normocephalic. HEART: Regular rate. LUNGS: Decreased breath sounds. No air movement on the right side. Some air movement on the left side. ABDOMEN: Soft. EXTREMITIES: No edema. LABORATORY DATA: She has a 21,000 white count, getting worse, but she is on steroids, 10.6 hemoglobin, 33.9 hematocrit with 169 platelets. Lactate was 0.9. She has 132 sodium, potassium 4.6, BUN 19, creatinine 0.3, GFR is greater than 60, sugar is 229, calcium is 8.3, phosphorus 3.4, magnesium 2.1, total bili is 1.4, AST is 43, ALT is 15, alk phos 300, total protein 5.4. Procalcitonin 0.15, low. TSH is 1.56. She is definitely failing from her lung cancer. I do not know how long she is going to be able to keep this going. She is being seen by the room manager, Infectious Disease, oncologist. I am not sure why Neurology was called in yesterday by the oncologist for code stroke now that she is being kept pain-free. We will continue treatment and care, keep her as comfortable and pain-free as possible. Garfield Lopez DO [facility] # [id number]
[2018-08-12] MEDS: Sodium Chloride 0.9% 1,000 ML IV SCH (15:38)
[2018-08-12 16:28] LABS: INR 1.74; PROTHROMBIN TIME 19.3 SECONDS (9.4-12.5)
[2018-08-12] MEDS: Enoxaparin 40 mg Syringe SC SCH (17:13)
[2018-08-12] MEDS: Metoprolol 1 mg/ml Inj IVP PRN ×2 (17:14→19:20)
[2018-08-12 17:21] LABS: URINE BILIRUBIN NEGATIVE (NEGATIVE); URINE BLOOD NEGATIVE (NEGATIVE); URINE GLUCOSE (UA) NEGATIVE (NEGATIVE); URINE LEUKOCYTE ESTERASE NEGATIVE Leu/uL (NEGATIVE); URINE PROTEIN NEGATIVE mg/dL (<30 mg/dL); URINE UROBILINOGEN 0.2 E.U./dL (<1 E.U./dL)
[2018-08-12 17:22] LABS: URINE APPEARANCE CLEAR (CLEAR); URINE COLOR YELLOW (YELLOW)
--- NOTE | 2018-08-12 18:52 | PN ---
DATE: 08/12/2018 SUBJECTIVE: I was asked by Dr. Martinez to evaluate Ms. Oconnor for her anticoagulation treatment. The patient is unresponsive on BiPAP, and she has not been able to have any oral intake of either medications or diet. She is currently in rapid atrial fibrillation. PHYSICAL EXAMINATION: VITAL SIGNS: Blood pressure 124/74, heart rate in rapid atrial fibrillation in the 140 to 150 range. Temperature today is 97.8. HEENT: No pallor. NECK: No JVD. CHEST: Diffuse bilateral rhonchi. HEART: S1 and S2, regular. EXTREMITIES: 1+ pitting edema. LABORATORY DATA: Today's hemoglobin and hematocrit 10.6 and 33.9. White count 21,000. Platelet count 169,000. SMA-7: Sodium 133, potassium 4.6, chloride 91, CO2 of 40, glucose 229, BUN 19, creatinine 0.3. The lipid profile is within normal limits except for triglycerides of 201. TSH level is 1.56. Yesterday's INR is 1.58. Yesterday's chest x-ray revealed cardiomegaly with bilateral diffuse valvular infiltrate, more prominent on the lower lobes, right more than left. PICC line is noted. EKG on the , however, revealed atrial fibrillation with rapid ventricular response with PVCs versus aberrancy; septal infarct, age indeterminate; marked ST abnormality; possible inferior subendocardiac injury. Head CT scan without contrast, limited motion degraded study, no gross intracranial hemorrhage, suspect minimal chronic periventricular white matter ischemic changes. ASSESSMENT: 1. Atrial fibrillation with rapid ventricular response. 2. History of lung cancer. 3. Pleural effusion. 4. Rule out cerebrovascular accident. RECOMMENDATIONS: Continue current IV Maxipime at 1 g every 8 hours and IV vancomycin at 1 g every 12 hours, continue Solu-Medrol 40 mg intravenously every 8 hours. Discontinue Eliquis and change Lovenox to a therapeutic regimen at 40 mg twice a day. The case was discussed with the family at the bedside, and with the medical office receptionist assistant. Ryan Johnson MD
--- NOTE | 2018-08-12 20:23 | PN ---
DATE: 08/12/2018 This is [facility] visit in the Intensive Care Unit. For Dr. Welch. 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 Very modest improvement was reported by nursing staff earlier. However, the patient is now sedated with the patient on BiPAP. MRI of the brain was not done due to consideration of safety of the patient while having testing done in her present state. PHYSICAL EXAMINATION: VITAL SIGNS: Temperature 98, pulse 93, respirations 25, blood pressure 124/74 with a pulse ox of 100%. HEENT: The patient is on BiPAP, not responding to verbal stimuli, eyes are closed. NECK: Supple. HEART: Tachy rate. Regular rhythm. LUNGS: Decreased breath sounds. Rare rhonchi. ABDOMEN: Soft, nontender. EXTREMITIES: Faint 1+ edema lower extremities. NEUROLOGIC: Lethargic and somnolent but earlier responding to stimuli as per nursing staff and resident. SKIN: Warm and dry. LABORATORY DATA: The patient's labs were drawn. White blood cell count 21, hemoglobin 10.6, hematocrit 33.9, platelet count of 169,000 with a metabolic panel showing a carbon dioxide of 40 with chloride of 91. Nonfasting glucose 229, calcium 8.3, T-bili of 1.4. AST of 43, alk phos of 300 with procalcitonin of 0.15. The patient had chest x-ray done yesterday that was read as diffuse bilateral infiltrates and bilateral effusions likely representing pulmonary venous congestion changes, superimposed pneumonia not excluded. ASSESSMENT: The assessment for this patient is that of right middle cerebral artery stroke as per neurologist while on Eliquis, probable infarct versus hemorrhagic. MRI not done. Adenocarcinoma of the lungs with metastases to the bone, pleural effusion, early congestive heart failure?, status post PleurX catheter removal, chronic obstructive pulmonary disease, gastroesophageal reflux disease, diverticulosis, atrial fibrillation, anemia of chronic disease, status post transfusion. PLAN: The plan for this patient is to continue present medical regimen. We will await for her MRI. She continues [id number] as per attending's and family's wishes with prognosis guarded. As the patient is now not taking orally, anticoagulation with Eliquis is not possible. 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 The patient remains on Solu-Medrol 40 mg intravenous every 8 hours with no gastrointestinal prophylaxis since Protonix is oral. It will be changed to intravenous with continuation of supportive care. This is a complex patient with a comprehensive medically necessary and appropriate visit carried out in excess of 50 minutes with the patient's family's questions answered to their satisfaction. Bertin Martinez MD
[2018-08-13] MEDS: Levalbuterol 1.25 MG/3 ML Inhal Soln UD IH SCH (01:10)
[2018-08-13] MEDS: Vancomycin 1gm in NS 250ml 1 GM/250 ML BAG IVPB SCH (01:35)
[2018-08-13] MEDS: MethylPREDNISolone 40 mg Vial IVP SCH ×2 (01:38→10:35)
[2018-08-13] MEDS: NOREPINEPHRINE BIT/0.9 % NACL 4 MG/250 ML BAG IV ONE ×2 (02:30→05:26)
[2018-08-13] MEDS: NOREPINEPHRINE BIT/0.9 % NACL 4 MG/250 ML BAG IV PRN ×2 (02:30→07:21)
[2018-08-13] MEDS: Cefepime 1gm in NS 100ml 1 GM/100 ML BAG IVPB SCH (06:15)
[2018-08-13 06:56] LABS: BASO # 0.03 K/mm3 (0.0-2.0); BASO % 0.2 % (0.0-3.0); HEMOGLOBIN 10.6 g/dL (12.0-16.0); MEAN CORPUSCULAR HEMOGLOBIN 31.5 pg (25.0-35.0); MEAN CORPUSCULAR HGB CONC 30.5 g/dl (31.0-37.0); MEAN PLATELET VOLUME 9.9 fl (7.0-11.0); MONO # 1.8 (0.1-0.6); MONO % 9.3 % (1.0-6.0); PLATELET COUNT 192 10^3/uL (120.0-450.0); RBC 3.36 10^6/uL (3.5-6.1); WHITE BLOOD COUNT 19.1 10^3/uL (4.5-11.0)
[2018-08-13 07:07] LABS: ALB/GLOB RATIO 1.1 (1.1-1.8); ALBUMIN 2.9 g/dL (3.0-4.8); ALT/SGPT 15 U/L (7-56); AST/SGOT 37 U/L (14-36); BLOOD UREA NITROGEN 25 mg/dL (7-21); CALCIUM 7.8 mg/dL (8.4-10.5); GFR NON-AFRICAN AMERICAN > 60
[2018-08-13 07:28] LABS: MEAN CELL VOLUME 103.6 fl (80.0-105.0)
--- NOTE | 2018-08-13 08:09 | CON ---
DATE: 08/10/2018 ONCOLOGY CONSULTATION HISTORY OF PRESENT ILLNESS: 1. This is a 62-year-old woman who has widely metastatic lung cancer to her bones and to her pleura cancer. She has widely metastatic cancer and she received radiation therapy to help several months ago for the severe pain in that area. We attempted to give her chemotherapy and she did get one cycle of chemotherapy; however, she has basically been in and out of the hospital and bedridden for the last month. 2. Severe COPD and oxygen dependence. 3. Atrial fibrillation, which she is being admitted in and out for that she was admitted for today, discharged, came back two days later, discharged, and again came back again now. 4. She has multiple left pleural effusions with rapid progressive effusions. They just took to the chest tube out yesterday. The patient called me to tell me that she is in the hospital and I came to visit her today. PHYSICAL EXAMINATION: SKIN: No lesions. HEENT: Temporal wasting noted. She has clearly lost weight. HEART: S1 and S2. Irregularly irregular. No vertebral tenderness. LUNGS: Shows decreased breath sounds on both sides with some scattered wheezing, but basically she is lying in bed, relatively comfortable with the nasal oxygen on. ABDOMEN: Shows no liver, no spleen. No tenderness. No rebound. EXTREMITIES: No edema. CENTRAL NERVOUS SYSTEMS: Plantars are downgoing bilaterally. ASSESSMENT AND PLAN: I spoke to her for a while. She said that she was very get any treatment and I said that she has had multiple medical complications including atrial fibrillation in and out of the hospital and the overall weakness. She really has been pretty much in the hospital for the last month. She said that she does not know what is going on. I reminded her that we had spoken quite a lot in the past and I had spoken to and also to the son who is going back into the army, going to be deployed. I think at this point going through the details and I has said that she is stage 4 and that is incurable cancer. We did not get into that at this visit, although I have discussed that with her, and the son in the past, but medically she just has not been able. She has been bedridden and with multiple medical problems for this last couple of weeks, but she did tell me that she has only 2 months for this and that she like to get other opinions in [place] and here in [place] and I of course hoping that take it personally and whatever is going to help her out will be fine and in her best interest, but I did reemphasized her that she is very weak and that the at this point, she still is medically bedridden with atrial fibrillation and other cardiac treatment and when she is more stable at this point, she would like to pursue other opinions. Humberto Bloom MD
--- NOTE | 2018-08-13 08:25 | PN ---
DATE: 08/11/2018 PULMONARY PROGRESS NOTE SUBJECTIVE: The patient was seen and examined in Intensive Care Unit on BiPAP. Her condition has deteriorated overnight and she was transferred to Intensive Care Unit. She is currently on BiPAP with a settings of 12.5 oxygen saturation is in the low 90's and she appears to be struggling. She is also on intravenous Solu-Medrol as well as nebulizer treatments. I have reviewed her today's chest x-ray which reviews confluent infiltrates in both lungs, suspicious metastatic disease, additional congestion changes could be present as well. There is a small bilateral pleural effusions did not changed. PHYSICAL EXAMINATION: GENERAL: She is a 62-year-old with signs of moderate distress. HEAD, EYES, EARS, NOSE AND THROAT: Within normal limits. NECK: Supple with no jugular vein distentions. CHEST: Symmetrical. LUNGS: Bilateral coarse rhonchi present, few expiratory wheezes. GASTROINTESTINAL: Soft and nontender. No organomegaly. EXTREMITIES: No pedal edema. No cyanosis. SKIN: No acute skin rash. NEUROLOGIC: Limited at present time. PLAN: I have reviewed the patient's laboratory data as well as latest chest x-ray, the patient neurologic status and note by Dr. Guzman, have reviewed. The patient is already on Eliquis. She has known stage IV lung cancer with metastatic disease. Recurrent pleural effusion with recurrent drainage. Her prognosis is extremely poor, hospice consideration has been order. In the interim we will continue with all possible conservative measures this was discussed with ICU team. Alejandro Randolph MD
--- NOTE | 2018-08-13 09:21 | CP.CCUPN ---
<Noel Paul - Last Filed: 08/13/18 10:15> CCU Subjective - Physician Review Subjective (Free Text): Noel Paul, PGY1 ICU Progress Note for Dr. Albrecht Patient was seen at bedside this morning. Overnight, patient had fever, Tmax 100.7. Patient was also hypotensive overnight with BP ranging from 42/19 to 75/47. Night team placed patient on levophed for BP control via her port-a-cath -- it is running at a rate of 20 mcg. BP during time of interview was 110/73. Patient is not alert or oriented. Her GCS is 3. She is DNR/DNI. Patient's family was present at bedside and are aware that her overall prognosis in poor. BiPAP in place. ROS unable to be obtained given mental status. CCU Objective - Vital Signs / Intake & Output Vital Signs (Last 4 hours): Vital Signs Pulse 08/13/18 07:55 87 Intake and Output (Last 8hrs): Intake & Output 08/12/18 08/13/18 08/13/18 22:59 06:59 14:59 Intake Total 530 250 Output Total 1230 Balance -700 250 Intake: IV 530 250 Right Proximal Port 530 Output: Urine 1200 Urine, Voided 1200 Stool 30 - Physical Exam Head: Positive for: Atraumatic, Normocephalic Pupils: Negative for: PERRL Extroacular Muscles: Negative for: EOMI Conjunctiva: Positive for: Normal Mouth: Positive for: Moist Mucous Membranes Neck: Positive for: Normal Range of Motion Respiratory/Chest: Positive for: Decreased Breath Sounds (bilaterally at the lung bases. ), Rhonchi (coarse breath sounds b/l), Other (BiPAP in place. ). Negative for: Wheezes, Rales Cardiovascular: Positive for: Regular Rate and Rhythm, Normal S1, S2. Negative for: Murmurs, Rub, Gallop Abdomen: Negative for: Tenderness, Distention, Peritoneal Signs, Rebound, Guarding Back: Positive for: Normal Inspection Upper Extremity: Positive for: Normal Inspection. Negative for: Cyanosis, Edema Lower Extremity: Positive for: Normal Inspection. Negative for: Edema Neurological: Positive for: Other (GCS 3. ). Negative for: GCS=15, CN II-XII Intact, Speech Normal Skin: Positive for: Warm, Dry, Normal Color. Negative for: Rashes Psychiatric: Negative for: Alert, Oriented x 3 - Medications Active Medications: Active Medications Generic Name Dose Route Start Last Admin Trade Name Freq PRN Reason Stop Dose Admin Budesonide 0.5 mg 08/08/18 08:00 08/12/18 20:15 Pulmicort Respules IH 0.5 mg [id number] ANTIONETTE Administration Digoxin 0.125 mg 08/08/18 14:00 08/11/18 13:44 Digoxin PO Not Given 1400 ANTIONETTE Diltiazem HCl 120 mg 08/09/18 10:00 08/12/18 09:52 Cardizem Cd PO Not Given DAILY ANTIONETTE Enoxaparin Sodium 40 mg 08/12/18 18:00 08/12/18 17:13 Lovenox SC 40 mg BID ANTIONETTE Administration Protocol Furosemide 40 mg 08/13/18 10:00 Lasix IVP DAILY ANTIONETTE Cefepime HCl 1 gm in 100 mls @ 100 mls/hr 08/11/18 14:00 08/13/18 06:15 Maxipime 1gm IVPB 08/18/18 14:01 100 mls/hr Q8 ANTIONETTE Administration Protocol Vancomycin HCl 1 gm in 250 mls @ 167 mls/hr 08/11/18 13:45 08/13/18 01:35 Vancomycin 1gm IVPB 08/18/18 13:46 167 mls/hr Q12H ANTIONETTE Administration Protocol NOREPINEPHRINE BIT/0.9 % NACL 4 mg in 250 mls @ 15 mls/hr 08/13/18 02:31 08/13/18 07:21 Levophed 4 Mg/ 250 Ml Ns Premixed IV 20 mcg/min .[id number] PRN 75 mls/hr TITRATE PER MD ORDER Administration Protocol 4 MCG/MIN Levalbuterol HCl 1.25 mg 08/08/18 08:00 08/13/18 01:10 Xopenex IH 1.25 mg [id number] ANTIONETTE Administration Levalbuterol HCl 1.25 mg 08/08/18 06:44 08/10/18 11:46 Xopenex IH 1.25 mg Q2H PRN Administration Shortness of Breath Methylprednisolone 40 mg 08/11/18 09:45 08/13/18 01:38 Solu-Medrol IVP 40 mg Q8H ANTIONETTE Administration Metoprolol Tartrate 5 mg 08/12/18 16:26 08/12/18 19:20 Lopressor IVP 5 mg Q2H PRN Administration Other Morphine Sulfate 2 mg 08/11/18 11:13 08/12/18 21:03 Morphine IVP 2 mg Q2H PRN Administration Pain, moderate (4-7) Ondansetron HCl 4 mg 08/07/18 16:38 08/09/18 01:59 Zofran Inj IVP 4 mg Q4H PRN Administration Nausea/Vomiting Pantoprazole Sodium 40 mg 08/12/18 15:15 08/12/18 15:48 Protonix Inj IVP 40 mg DAILY ANTIONETTE Administration Polyethylene Glycol 17 gm 08/08/18 10:30 08/12/18 09:52 Miralax PO Not Given DAILY ANTIONETTE Potassium Chloride 20 meq 08/08/18 09:00 08/11/18 08:04 K-Dur 20 Meq Er Tab PO Not Given BRK ANTIONETTE Sotalol HCl 80 mg 08/08/18 10:00 08/10/18 17:05 Betapace PO 80 mg BID ANTIONETTE Administration - Patient Studies Lab Studies: Microbiology Studies 08/11/18 07:00 MRSA Culture (Admit) - Final Naris MRSA NOT DETECTED 08/11/18 15:30 Blood Culture - Preliminary Blood NO GROWTH AFTER 24 HOURS 08/11/18 15:15 Blood Culture - Preliminary Blood NO GROWTH AFTER 24 HOURS Lab Studies 08/13/18 08/13/18 08/12/18 Range/Units 06:00 06:00 17:00 WBC 19.1 H (4.5-11.0) 10^3/uL RBC 3.36 L (3.5-6.1) 10^6/uL Hgb 10.6 L (12.0-16.0) g/dL Hct 34.8 L (36.0-48.0) % MCV 103.6 D (80.0-105.0) fl MCH 31.5 (25.0-35.0) pg MCHC 30.5 L (31.0-37.0) g/dl RDW 19.0 H (11.5-14.5) % Plt Count 192 (120.0-450.0) 10^3/uL MPV 9.9 (7.0-11.0) fl Neut % (Auto) 85.5 H (50.0-68.0) % Lymph % (Auto) 5.0 L (22.0-35.0) % Pratt % (Auto) 9.3 H (1.0-6.0) % Eos % (Auto) 0.0 L (1.5-5.0) % Baso % (Auto) 0.2 (0.0-3.0) % Lymph # (Auto) 1.0 L (1.2-3.4) Pratt # (Auto) 1.8 H (0.1-0.6) Eos # (Auto) 0.0 (0.0-0.7) Baso # (Auto) 0.03 (0.0-2.0) K/mm3 Absolute Neuts (auto) 16.38 H (1.4-6.5) PT (9.4-12.5) SECONDS INR Sodium 139 (132-148) mmol/L Potassium 3.8 (3.6-5.0) mmol/L Chloride 95 L (98-107) mmol/L Carbon Dioxide 40 H (21-33) mmol/L Anion Gap 8 L (10-20) BUN 25 H (7-21) mg/dL Creatinine 0.5 L (0.7-1.2) mg/dl Est GFR ( Amer) > 60 Est GFR (Non-Af Amer) > 60 Random Glucose 218 H (70-110) mg/dL Hemoglobin A1c (4.2-6.5) % Calcium 7.8 L (8.4-10.5) mg/dL Total Bilirubin 1.0 (0.2-1.3) mg/dL AST 37 H (14-36) U/L ALT 15 (7-56) U/L Alkaline Phosphatase 260 H (38-126) U/L Total Protein 5.7 L (5.8-8.3) g/dL Albumin 2.9 L (3.0-4.8) g/dL Globulin 2.7 gm/dL Albumin/Globulin Ratio 1.1 (1.1-1.8) Urine Color Yellow (YELLOW) Urine Appearance Clear (CLEAR) Urine pH 7.0 (4.7-8.0) Ur Specific [place] 1.015 (1.005-1.035) Urine Protein Negative (<30 mg/dL) mg/dL Urine Glucose (UA) Negative (NEGATIVE) mg/dL Urine Ketones Negative (NEGATIVE) mg/dL Urine Blood Negative (NEGATIVE) Urine Nitrate Negative (NEGATIVE) Urine Bilirubin Negative (NEGATIVE) Urine Urobilinogen 0.2 (<1 E.U./dL) E.U./dL Ur Leukocyte Esterase Negative (NEGATIVE) Samantha/uL 08/12/18 08/11/18 Range/Units 16:00 07:00 WBC (4.5-11.0) 10^3/uL RBC (3.5-6.1) 10^6/uL Hgb (12.0-16.0) g/dL Hct (36.0-48.0) % MCV (80.0-105.0) fl MCH (25.0-35.0) pg MCHC (31.0-37.0) g/dl RDW (11.5-14.5) % Plt Count (120.0-450.0) 10^3/uL MPV (7.0-11.0) fl Neut % (Auto) (50.0-68.0) % Lymph % (Auto) (22.0-35.0) % Pratt % (Auto) (1.0-6.0) % Eos % (Auto) (1.5-5.0) % Baso % (Auto) (0.0-3.0) % Lymph # (Auto) (1.2-3.4) Pratt # (Auto) (0.1-0.6) Eos # (Auto) (0.0-0.7) Baso # (Auto) (0.0-2.0) K/mm3 Absolute Neuts (auto) (1.4-6.5) PT 19.3 H (9.4-12.5) SECONDS INR 1.74 Sodium (132-148) mmol/L Potassium (3.6-5.0) mmol/L Chloride (98-107) mmol/L Carbon Dioxide (21-33) mmol/L Anion Gap (10-20) BUN (7-21) mg/dL Creatinine (0.7-1.2) mg/dl Est GFR ( Amer) Est GFR (Non-Af Amer) Random Glucose (70-110) mg/dL Hemoglobin A1c 4.3 (4.2-6.5) % Calcium (8.4-10.5) mg/dL Total Bilirubin (0.2-1.3) mg/dL AST (14-36) U/L ALT (7-56) U/L Alkaline Phosphatase (38-126) U/L Total Protein (5.8-8.3) g/dL Albumin (3.0-4.8) g/dL Globulin gm/dL Albumin/Globulin Ratio (1.1-1.8) Urine Color (YELLOW) Urine Appearance (CLEAR) Urine pH (4.7-8.0) Ur Specific [place] (1.005-1.035) Urine Protein (<30 mg/dL) mg/dL Urine Glucose (UA) (NEGATIVE) mg/dL Urine Ketones (NEGATIVE) mg/dL Urine Blood (NEGATIVE) Urine Nitrate (NEGATIVE) Urine Bilirubin (NEGATIVE) Urine Urobilinogen (<1 E.U./dL) E.U./dL Ur Leukocyte Esterase (NEGATIVE) Samantha/uL Laboratory Results - last 24 hr 08/11/18 08/12/18 08/12/18 07:00 16:00 17:00 WBC RBC Hgb Hct MCV MCH MCHC RDW Plt Count MPV Neut % (Auto) Lymph % (Auto) Pratt % (Auto) Eos % (Auto) Baso % (Auto) Lymph # (Auto) Pratt # (Auto) Eos # (Auto) Baso # (Auto) Absolute Neuts (auto) PT 19.3 H INR 1.74 Sodium Potassium Chloride Carbon Dioxide Anion Gap BUN Creatinine Est GFR ( Amer) Est GFR (Non-Af Amer) Random Glucose Hemoglobin A1c 4.3 Calcium Total Bilirubin AST ALT Alkaline Phosphatase Total Protein Albumin Globulin Albumin/Globulin Ratio Urine Color Yellow Urine Appearance Clear Urine pH 7.0 Ur Specific [place] 1.015 Urine Protein Negative Urine Glucose (UA) Negative Urine Ketones Negative Urine Blood Negative Urine Nitrate Negative Urine Bilirubin Negative Urine Urobilinogen 0.2 Ur Leukocyte Esterase Negative 08/13/18 08/13/18 06:00 06:00 WBC 19.1 H RBC 3.36 L Hgb 10.6 L Hct 34.8 L MCV 103.6 D MCH 31.5 MCHC 30.5 L RDW 19.0 H Plt Count 192 MPV 9.9 Neut % (Auto) 85.5 H Lymph % (Auto) 5.0 L Pratt % (Auto) 9.3 H Eos % (Auto) 0.0 L Baso % (Auto) 0.2 Lymph # (Auto) 1.0 L Pratt # (Auto) 1.8 H Eos # (Auto) 0.0 Baso # (Auto) 0.03 Absolute Neuts (auto) 16.38 H PT INR Sodium 139 Potassium 3.8 Chloride 95 L Carbon Dioxide 40 H Anion Gap 8 L BUN 25 H Creatinine 0.5 L Est GFR ( Amer) > 60 Est GFR (Non-Af Amer) > 60 Random Glucose 218 H Hemoglobin A1c Calcium 7.8 L Total Bilirubin 1.0 AST 37 H ALT 15 Alkaline Phosphatase 260 H Total Protein 5.7 L Albumin 2.9 L Globulin 2.7 Albumin/Globulin Ratio 1.1 Urine Color Urine Appearance Urine pH Ur Specific [place] Urine Protein Urine Glucose (UA) Urine Ketones Urine Blood Urine Nitrate Urine Bilirubin Urine Urobilinogen Ur Leukocyte Esterase Review of Systems - Review of Systems Systems not reviewed;Unavailable: Acuity of Condition Critical Care Progress Note - Extremities/Vascular Does the Patient have a Central Venous Catheter?: No Does the Patient need a Central Venous Catheter?: No - Prophylaxis GI Prophylaxis GI: PPI - Prophylaxis DVT Prophylaxis DVT: Lovenox - Nutrition Nutrition: Nutrition Category Date Time Status NPO Diet [DIET] Diets 08/12/18 Breakfast Ordered Assessment/Plan - Assessment and Plan (Free Text) Assessment: 62 yo F with PMH of COPD, pleural effusions with right sided chest catheter, right-sided lung cancer stage IV on chemo, metastatic bone disease s/p 6 rounds of XRT, OA, GERD, and AFib (on eliquis) who presented to [facility] on 08/07/18 with rapid a-fib prior to arrival. Patient was admitted to telemetry floor. During hospital course, [employer] was called on due to AMS (see [employer]ENTICE note). Patient was unable to provide history due to clinical condition. Patient was noted to have acute left-sided weakness in UE and LE. CODE STROKE was called. Neurology (Dr. Guzman) was consulted. Patient also noted to have hypercapnic respiratory failure on ABG. She was started on BiPAP, solumedrol, Lasix IV. Given her poor prognosis, patient was made DNR/DNI by family. Patient admitted to ICU for management. Plan: Neuro: - GCS 3 - DNR/DNI code status - AMS 2/2 Hypercapnic Respiratory Failure vs Acute CVA - Patient unable to go for MRI Brain given mental status and dependence on non- invasive positive pressure ventilation with BiPAP. Given history of metastatic lung disease, brain mets is in consideration. - Neurology is following. Recs appreciated. Cardio: - Consider Septic Shock vs Neurogenic Shock - c/w Levophed drip at this time given hypotensive episodes - Maintain MAP > 65 - c/w Lopressor 5mg IVP q2 prn - Afib with RVR - currently rate controlled. Continue with anticoagulation with lovenox 40 SC BID. - Cardio on consult (Dr. Jay) Pulm: - Hypercapnic Respiratory Failure 2/2 COPD Exacerbation - Bilateral Pleural Effusions with Infiltrates 2/2 Stage 4 Right Sided Lung Cancer with metastatic disease to the bone vs HCAP - CXR (08/13): Right lower lobe infiltrate and effusion. Improvement from previous CXR. - c/w BiPAP (continuous) - c/w morphine 2 mg q2h PRN for pain/distress - c/w xopenex, pulmicort - c/w lasix 40mg IVP daily - c/w solumedrol 40mg IVP q8 - Pulmonology on consult (Dr. Wells) - Heme/onc on consult (Dr. Quispe) - Patient had recent removal of pleurX catheter GI: - NPO - GI ppx /Nephro: - Replete electrolytes PRN - Monitor UOP Endo: - Hyperglycemia 2/2 steroid use - monitor sugars at this time Heme/Onc: - Stage 4 R-sided Lung Cancer with bone mets - As per Heme/onc, patient will benefit from PET CT once stable, low probability given acuity of her condition - Heme/onc on consult (Dr. Welch) - Overall prognosis remains poor - Palliative care on consult ID: - Tmax 100.7 overnight - Leukocytosis 2/2 Steroids vs HCAP; downtrending - c/w vanco and cefepime as per ID recs - f/u pancx results - procal level negative - Blood cx neg x2 (prelim) after 1 day - ID on consult, recs appreciated DVT/GI PPX: Lovenox/SCD/protonix DNR/DNI NPO diet Dispo: Will continue to monitor in the ICU. Overall prognosis is extremely poor. Will follow up with Palliative care and discussion with family for goals of care. Case was discussed and reviewed with Attending Physician, Dr. Albrecht. <Brandon Albrecht - Last Filed: 08/13/18 13:43> CCU Objective - Vital Signs / Intake & Output Vital Signs (Last 4 hours): Vital Signs Pulse BP 08/13/18 11:36 162 H 101/70 08/13/18 10:29 108/70 Intake and Output (Last 8hrs): Intake & Output 08/12/18 08/13/18 08/13/18 22:59 06:59 14:59 Intake Total 530 250 175 Output Total 1230 Balance -700 250 175 Intake: IV 530 250 175 Right Proximal Port 530 Output: Urine 1200 Urine, Voided 1200 Stool 30 - Medications Active Medications: Active Medications Generic Name Dose Route Start Last Admin Trade Name Freq PRN Reason Stop Dose Admin Budesonide 0.5 mg 08/08/18 08:00 08/12/18 20:15 Pulmicort Respules IH 0.5 mg [id number] ANTIONETTE Administration Digoxin 0.125 mg 08/08/18 14:00 08/11/18 13:44 Digoxin PO Not Given 1400 ANTIONETTE Diltiazem HCl 120 mg 08/09/18 10:00 08/12/18 09:52 Cardizem Cd PO Not Given DAILY ANTIONETTE Enoxaparin Sodium 40 mg 08/12/18 18:00 08/13/18 10:31 Lovenox SC 40 mg BID ANTIONETTE Administration Protocol Furosemide 40 mg 08/13/18 10:00 08/13/18 10:29 Lasix IVP 40 mg DAILY ANTIONETTE Administration Cefepime HCl 1 gm in 100 mls @ 100 mls/hr 08/11/18 14:00 08/13/18 06:15 Maxipime 1gm IVPB 08/18/18 14:01 100 mls/hr Q8 ANTIONETTE Administration Protocol Vancomycin HCl 1 gm in 250 mls @ 167 mls/hr 08/11/18 13:45 08/13/18 01:35 Vancomycin 1gm IVPB 08/18/18 13:46 167 mls/hr Q12H ANTIONETTE Administration Protocol NOREPINEPHRINE BIT/0.9 % NACL 4 mg in 250 mls @ 15 mls/hr 08/13/18 02:31 08/13/18 10:17 Levophed 4 Mg/ 250 Ml Ns Premixed IV 24 mcg/min .[id number] PRN 90 mls/hr TITRATE PER MD ORDER Titration Protocol 4 MCG/MIN Levalbuterol HCl 1.25 mg 08/08/18 08:00 08/13/18 01:10 Xopenex IH 1.25 mg [id number] ANTIONETTE Administration Levalbuterol HCl 1.25 mg 08/08/18 06:44 08/10/18 11:46 Xopenex IH 1.25 mg Q2H PRN Administration Shortness of Breath Methylprednisolone 40 mg 08/11/18 09:45 08/13/18 10:35 Solu-Medrol IVP 40 mg Q8H ANTIONETTE Administration Metoprolol Tartrate 5 mg 08/12/18 16:26 08/13/18 11:36 Lopressor IVP 5 mg Q2H PRN Administration Other Morphine Sulfate 2 mg 08/11/18 11:13 08/12/18 21:03 Morphine IVP 2 mg Q2H PRN Administration Pain, moderate (4-7) Ondansetron HCl 4 mg 08/07/18 16:38 08/09/18 01:59 Zofran Inj IVP 4 mg Q4H PRN Administration Nausea/Vomiting Pantoprazole Sodium 40 mg 08/12/18 15:15 08/13/18 10:32 Protonix Inj IVP 40 mg DAILY ANTIONETTE Administration Polyethylene Glycol 17 gm 08/08/18 10:30 08/13/18 10:18 Miralax PO Not Given DAILY ANTIONETTE Potassium Chloride 20 meq 08/08/18 09:00 08/11/18 08:04 K-Dur 20 Meq Er Tab PO Not Given BRK ANTIONETTE Sotalol HCl 80 mg 08/08/18 10:00 08/10/18 17:05 Betapace PO 80 mg BID ANTIONETTE Administration - Patient Studies Lab Studies: Microbiology Studies 08/11/18 07:00 MRSA Culture (Admit) - Final Naris MRSA NOT DETECTED 08/11/18 15:30 Blood Culture - Preliminary Blood NO GROWTH AFTER 24 HOURS 08/11/18 15:15 Blood Culture - Preliminary Blood NO GROWTH AFTER 24 HOURS Lab Studies 08/13/18 08/13/18 08/12/18 Range/Units 06:00 06:00 17:00 WBC 19.1 H (4.5-11.0) 10^3/uL RBC 3.36 L (3.5-6.1) 10^6/uL Hgb 10.6 L (12.0-16.0) g/dL Hct 34.8 L (36.0-48.0) % MCV 103.6 D (80.0-105.0) fl MCH 31.5 (25.0-35.0) pg MCHC 30.5 L (31.0-37.0) g/dl RDW 19.0 H (11.5-14.5) % Plt Count 192 (120.0-450.0) 10^3/uL MPV 9.9 (7.0-11.0) fl Neut % (Auto) 85.5 H (50.0-68.0) % Lymph % (Auto) 5.0 L (22.0-35.0) % Pratt % (Auto) 9.3 H (1.0-6.0) % Eos % (Auto) 0.0 L (1.5-5.0) % Baso % (Auto) 0.2 (0.0-3.0) % Lymph # (Auto) 1.0 L (1.2-3.4) Pratt # (Auto) 1.8 H (0.1-0.6) Eos # (Auto) 0.0 (0.0-0.7) Baso # (Auto) 0.03 (0.0-2.0) K/mm3 Absolute Neuts (auto) 16.38 H (1.4-6.5) Neutrophils % (Manual) 89 H (50.0-70.0) % Band Neutrophils % 1 (0-2) % Lymphocytes % (Manual) 5 L (22.0-35.0) % Monocytes % (Manual) 5 (1.0-6.0) % Nucleated RBC % 2 % Platelet Evaluation Normal (NORMAL) Polychromasia 1+ Anisocytosis (manual) 1+ Macrocytosis (manual) 1+ PT (9.4-12.5) SECONDS INR Sodium 139 (132-148) mmol/L Potassium 3.8 (3.6-5.0) mmol/L Chloride 95 L (98-107) mmol/L Carbon Dioxide 40 H (21-33) mmol/L Anion Gap 8 L (10-20) BUN 25 H (7-21) mg/dL Creatinine 0.5 L (0.7-1.2) mg/dl Est GFR ( Amer) > 60 Est GFR (Non-Af Amer) > 60 Random Glucose 218 H (70-110) mg/dL Calcium 7.8 L (8.4-10.5) mg/dL Total Bilirubin 1.0 (0.2-1.3) mg/dL AST 37 H (14-36) U/L ALT 15 (7-56) U/L Alkaline Phosphatase 260 H (38-126) U/L Total Protein 5.7 L (5.8-8.3) g/dL Albumin 2.9 L (3.0-4.8) g/dL Globulin 2.7 gm/dL Albumin/Globulin Ratio 1.1 (1.1-1.8) Urine Color Yellow (YELLOW) Urine Appearance Clear (CLEAR) Urine pH 7.0 (4.7-8.0) Ur Specific [place] 1.015 (1.005-1.035) Urine Protein Negative (<30 mg/dL) mg/dL Urine Glucose (UA) Negative (NEGATIVE) mg/dL Urine Ketones Negative (NEGATIVE) mg/dL Urine Blood Negative (NEGATIVE) Urine Nitrate Negative (NEGATIVE) Urine Bilirubin Negative (NEGATIVE) Urine Urobilinogen 0.2 (<1 E.U./dL) E.U./dL Ur Leukocyte Esterase Negative (NEGATIVE) Samantha/uL 08/12/18 Range/Units 16:00 WBC (4.5-11.0) 10^3/uL RBC (3.5-6.1) 10^6/uL Hgb (12.0-16.0) g/dL Hct (36.0-48.0) % MCV (80.0-105.0) fl MCH (25.0-35.0) pg MCHC (31.0-37.0) g/dl RDW (11.5-14.5) % Plt Count (120.0-450.0) 10^3/uL MPV (7.0-11.0) fl Neut % (Auto) (50.0-68.0) % Lymph % (Auto) (22.0-35.0) % Pratt % (Auto) (1.0-6.0) % Eos % (Auto) (1.5-5.0) % Baso % (Auto) (0.0-3.0) % Lymph # (Auto) (1.2-3.4) Pratt # (Auto) (0.1-0.6) Eos # (Auto) (0.0-0.7) Baso # (Auto) (0.0-2.0) K/mm3 Absolute Neuts (auto) (1.4-6.5) Neutrophils % (Manual) (50.0-70.0) % Band Neutrophils % (0-2) % Lymphocytes % (Manual) (22.0-35.0) % Monocytes % (Manual) (1.0-6.0) % Nucleated RBC % % Platelet Evaluation (NORMAL) Polychromasia Anisocytosis (manual) Macrocytosis (manual) PT 19.3 H (9.4-12.5) SECONDS INR 1.74 Sodium (132-148) mmol/L Potassium (3.6-5.0) mmol/L Chloride (98-107) mmol/L Carbon Dioxide (21-33) mmol/L Anion Gap (10-20) BUN (7-21) mg/dL Creatinine (0.7-1.2) mg/dl Est GFR ( Amer) Est GFR (Non-Af Amer) Random Glucose (70-110) mg/dL Calcium (8.4-10.5) mg/dL Total Bilirubin (0.2-1.3) mg/dL AST (14-36) U/L ALT (7-56) U/L Alkaline Phosphatase (38-126) U/L Total Protein (5.8-8.3) g/dL Albumin (3.0-4.8) g/dL Globulin gm/dL Albumin/Globulin Ratio (1.1-1.8) Urine Color (YELLOW) Urine Appearance (CLEAR) Urine pH (4.7-8.0) Ur Specific [place] (1.005-1.035) Urine Protein (<30 mg/dL) mg/dL Urine Glucose (UA) (NEGATIVE) mg/dL Urine Ketones (NEGATIVE) mg/dL Urine Blood (NEGATIVE) Urine Nitrate (NEGATIVE) Urine Bilirubin (NEGATIVE) Urine Urobilinogen (<1 E.U./dL) E.U./dL Ur Leukocyte Esterase (NEGATIVE) Samantha/uL Laboratory Results - last 24 hr 08/12/18 08/12/18 08/13/18 16:00 17:00 06:00 WBC 19.1 H RBC 3.36 L Hgb 10.6 L Hct 34.8 L MCV 103.6 D MCH 31.5 MCHC 30.5 L RDW 19.0 H Plt Count 192 MPV 9.9 Neut % (Auto) 85.5 H Lymph % (Auto) 5.0 L Pratt % (Auto) 9.3 H Eos % (Auto) 0.0 L Baso % (Auto) 0.2 Lymph # (Auto) 1.0 L Pratt # (Auto) 1.8 H Eos # (Auto) 0.0 Baso # (Auto) 0.03 Absolute Neuts (auto) 16.38 H Neutrophils % (Manual) 89 H Band Neutrophils % 1 Lymphocytes % (Manual) 5 L Monocytes % (Manual) 5 Nucleated RBC % 2 Platelet Evaluation Normal Polychromasia 1+ Anisocytosis (manual) 1+ Macrocytosis (manual) 1+ PT 19.3 H INR 1.74 Sodium Potassium Chloride Carbon Dioxide Anion Gap BUN Creatinine Est GFR ( Amer) Est GFR (Non-Af Amer) Random Glucose Calcium Total Bilirubin AST ALT Alkaline Phosphatase Total Protein Albumin Globulin Albumin/Globulin Ratio Urine Color Yellow Urine Appearance Clear Urine pH 7.0 Ur Specific [place] 1.015 Urine Protein Negative Urine Glucose (UA) Negative Urine Ketones Negative Urine Blood Negative Urine Nitrate Negative Urine Bilirubin Negative Urine Urobilinogen 0.2 Ur Leukocyte Esterase Negative 08/13/18 06:00 WBC RBC Hgb Hct MCV MCH MCHC RDW Plt Count MPV Neut % (Auto) Lymph % (Auto) [place]att % (Auto) Eos % (Auto) Baso % (Auto) Lymph # (Auto) Pratt # (Auto) Eos # (Auto) Baso # (Auto) Absolute Neuts (auto) Neutrophils % (Manual) Band Neutrophils % Lymphocytes % (Manual) Monocytes % (Manual) Nucleated RBC % Platelet Evaluation Polychromasia Anisocytosis (manual) Macrocytosis (manual) PT INR Sodium 139 Potassium 3.8 Chloride 95 L Carbon Dioxide 40 H Anion Gap 8 L BUN 25 H Creatinine 0.5 L Est GFR ( Amer) > 60 Est GFR (Non-Af Amer) > 60 Random Glucose 218 H Calcium 7.8 L Total Bilirubin 1.0 AST 37 H ALT 15 Alkaline Phosphatase 260 H Total Protein 5.7 L Albumin 2.9 L Globulin 2.7 Albumin/Globulin Ratio 1.1 Urine Color Urine Appearance Urine pH Ur Specific [place] Urine Protein Urine Glucose (UA) Urine Ketones Urine Blood Urine Nitrate Urine Bilirubin Urine Urobilinogen Ur Leukocyte Esterase Radiology Impressions: Radiology Impressions Chest X-Ray 08/13/18 07:00 IMPRESSION: Right lower lobe infiltrate and small effusion. Improvement in infiltrates from prior exam Critical Care Progress Note - Nutrition Nutrition: Nutrition Category Date Time Status NPO Diet [DIET] Diets 08/12/18 Breakfast Ordered Assessment/Plan - Assessment and Plan (Free Text) Plan: I saw and examined the patient on rounds with resident, agree with resident's note with following additions/exceptions: Patient is 62yo female with PMhx of Lung Ca with mets on radiation, Acitve smoker, COPD, malignant pleural effusion, arthritis, GERD, and atrial fibrillation, admitted for Afib. Yesterday [employer] was called on Patient due to AMS, patient found to be in hypercapnic resp failure. As per the family, and patients known wishes, patient wished to be DNR/DNI. Patient placed on BIPAP, given Solumedrol, and Lasix IV. CT head without contrast prelim report is negative for hemorrhagic stroke. I had long lengthy discussion with the family over the weekend, /HCP Don Lynn, and son Brian Lynn, who informed me that their primary goal for the patient is comfort, and no pain. Pt was DNR/DNI, no aggressive interventions to be undertaken. Pain control, comfort measures provided. Patient subsequently today at 1300. Family at bedside Primary MD notified
[2018-08-13 09:38] LABS: ANISOCYTOSIS 1+; BAND 1 % (0-2); LYMPHOCYTE 5 % (22.0-35.0); MONOCYTE 5 % (1.0-6.0); NEUTROPHIL 89 % (50.0-70.0); NUCLEATED RED BLOOD CELL 2 %; PLATELET ESTIMATE NORMAL (NORMAL); POLYCHROMASIA 1+
--- NOTE | 2018-08-13 09:40 | PN ---
DATE: 08/13/2018(710AM-800AM) PULMONARY NOTE SUBJECTIVE: The patient is now in the ICU. She is currently on BiPAP. She is poorly responsive. She is mildly short of breath, but in no acute distress. OBJECTIVE: VITALS: Temperature is 98.6, pulse 91, respirations 22, blood pressure 110/73. Oxygen saturation on BiPAP - 99%. HEENT: Normocephalic, atraumatic. No JVD. CARDIOVASCULAR: Positive S1, S2. No S3 gallop. LUNGS: Decreased breath sounds at the bases. Minimal rhonchi. No wheezing. EXTREMITIES: Mild edema, no cyanosis, no clubbing. GASTROINTESTINAL: Abdomen is soft, nondistended. Bowel sounds are positive. SKIN: No acute rash. NEUROLOGIC: Limited at the present time. PERTINENT LABORATORY DATA: Chest x-ray was done this morning and reviewed. On today's film, there does appear to be some reaccumulation of the right pleural effusion. Official results are pending. IMPRESSION: 1. Encephalopathy. 2. Rapid atrial fibrillation. 3. Recurrent bronchitis. 4. Advanced chronic obstructive pulmonary disease, on home oxygen. 5. Advanced/extensive adenocarcinoma of the right lung. 6. Recurrent right pleural effusion, status post Aspira catheter placement. 7. Anemia. 8. Respiratory failure. PLAN The patient is now in the ICU. She is poorly responsive. She is mildly short of breath, but in no acute distress. I did discuss the case with the night nurse and (at bedside) at length. The night nurse stated the patient has been poorly responsive throughout her shift. I did review the chest x-ray as above. There does appear to be some reaccumulation of her right pleural effusion on today's film. I can speak with the ICU team. We can probably drain the Aspira catheter at this point. On physical exam, there is mild bronchospasm noted. I will continue the current nebulizer treatments and intravenous steroids for now. Inputs by Cardiology, Oncology, Infectious Disease are also noted. The patient did have low grade fevers last night. She is afebrile this morning. Input by Dr. Robertson is noted. The patient is critically ill at this point in time with very, very poor prognosis. The is well aware. I did discuss the case at length with my partner yesterday. Apparently, the patient was transferred to the medical ICU over the weekend because of altered mental status. I will discuss the above with the entire ICU team in the next few moments. I will discuss the above with Dr. Lopez later this morning. Kevin Wells MD MTD[place]
--- NOTE | 2018-08-13 09:41 | RAD ---
Date of service: 08/13/2018 HISTORY: pulmonary edema COMPARISON: 08/11/2018 TECHNIQUE: 1 view obtained. FINDINGS: LUNGS: Right lower lobe infiltrate and small effusion. Improvement in infiltrates from prior exam PLEURA: Small effusion right-side CARDIOVASCULAR: Aortic calcification Normal cardiac size. No pulmonary vascular congestion. OSSEOUS STRUCTURES: No significant abnormalities. VISUALIZED UPPER ABDOMEN: Normal. OTHER FINDINGS: None. IMPRESSION: Right lower lobe infiltrate and small effusion. Improvement in infiltrates from prior exam
[2018-08-13] MEDS ORDERED: Enoxaparin 40 mg Syringe SC SCH (10:00)
[2018-08-13] MEDS ORDERED: Sodium Chloride 0.9% 250 ML IV STA (10:14)
[2018-08-13] MEDS: POLYETHYLENE GLYCOL 3350 17 GM/Dose PACKET PO SCH (10:18)
[2018-08-13] MEDS: Enoxaparin 40 mg Syringe SC SCH (10:31)
--- NOTE | 2018-08-13 11:14 | CP.PCM.CON ---
History of Present Illness - History of Present Illness History of Present Illness: Palliative consult requested Dr Eloise Lopez Reason: Goals of care This is 62 year old female with history of metastatic NSCL cancer,right pleural effusions, COPD, A Fib on Elequis who initially presented to 08/07 with nausea of two week duration. She denied chest pain, vomiting, fever, chills, dizziness, weakness or any other complaints. On the evening of 08/11/18 she became unresponsive and exhibited left sided hemiplegia> Code Stroke.She was not a TPA candidate. The patient is seen in MICU, she is DNR/DNI. She is unresponsive> GCS- 3. Hypotensive on Levophed. 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 Lives with spouse. Review of Systems: As per HPI, intubated, unresponsive Past Patient History - Infectious Disease Hx of Infectious Diseases: None - Tetanus Immunizations Tetanus Immunization: Unknown - Past Medical History & Family History Past Medical History?: Yes - Past Social History Smoking Status: Former Smoker - CARDIAC Hx Cardiac Disorders: Yes (h/o cardiac arrythmias.) - PULMONARY Hx Chronic Obstructive Pulmonary Disease (COPD): Yes - NEUROLOGICAL Hx Neurological Disorder: No - HEENT Hx HEENT Problems: No - RENAL Hx Chronic Kidney Disease: No - ENDOCRINE/METABOLIC Hx Endocrine Disorders: No - HEMATOLOGICAL/ONCOLOGICAL Hx Blood Disorders: Yes 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) Hx Chemotherapy: Yes (COMPLETED 6 ROUNDS OF RADIATION.) Hx Metastesis: Yes (BONE) - INTEGUMENTARY Hx Dermatological Problems: No - MUSCULOSKELETAL/RHEUMATOLOGICAL Hx Arthritis: Yes - GASTROINTESTINAL Hx Gastroesophageal Reflux: Yes - GENITOURINARY/GYNECOLOGICAL Hx Genitourinary Disorders: No - PSYCHIATRIC Hx Substance Use: No - SURGICAL HISTORY Hx Cardiac Catheterization: Yes Hx Orthopedic Surgery: Yes Other/Comment: Right hip replacement, right femur - ANESTHESIA Hx Anesthesia: Yes Hx Malignant Hyperthermia: No Meds Allergies/Adverse Reactions: Allergies Allergy/AdvReac Type Severity Reaction Status Date / Time No Known Allergies Allergy Verified 08/07/18 13:38 - Medications Medications: Current Medications Budesonide (Pulmicort Respules) 0.5 mg IH [id number] [facility] Last Admin: 08/12/18 20:15 Dose: 0.5 mg Digoxin (Digoxin) 0.125 mg PO 1400 ANTIONETTE Last Admin: 08/11/18 13:44 Dose: Not Given Diltiazem HCl (Cardizem Cd) 120 mg PO DAILY [facility] Last Admin: 08/12/18 09:52 Dose: Not Given Enoxaparin Sodium (Lovenox) 40 mg SC BID [facility]; Protocol Last Admin: 08/12/18 17:13 Dose: 40 mg Furosemide (Lasix) 40 mg IVP DAILY [facility] Cefepime HCl (Maxipime 1gm) 1 gm in 100 mls @ 100 mls/hr IVPB Q8 ANTIONETTE; Protocol Stop: 08/18/18 14:01 Last Admin: 08/13/18 06:15 Dose: 100 mls/hr Vancomycin HCl (Vancomycin 1gm) 1 gm in 250 mls @ 167 mls/hr IVPB Q12H ANTIONETTE; Protocol Stop: 08/18/18 13:46 Last Admin: 08/13/18 01:35 Dose: 167 mls/hr NOREPINEPHRINE BIT/0.9 % NACL (Levophed 4 Mg/ 250 Ml Ns Premixed) 4 mg in 250 mls @ 15 mls/hr IV .[id number] PRN; Protocol PRN Reason: TITRATE PER MD ORDER Last Admin: 08/13/18 07:21 Dose: 20 mcg/min, 75 mls/hr Levalbuterol HCl (Xopenex) 1.25 mg IH [id number] [facility] Last Admin: 08/13/18 01:10 Dose: 1.25 mg Levalbuterol HCl (Xopenex) 1.25 mg IH Q2H PRN PRN Reason: Shortness of Breath Last Admin: 08/10/18 11:46 Dose: 1.25 mg Methylprednisolone (Solu-Medrol) 40 mg IVP Q8H [facility] Last Admin: 08/13/18 01:38 Dose: 40 mg Metoprolol Tartrate (Lopressor) 5 mg IVP Q2H PRN PRN Reason: Other Last Admin: 08/12/18 19:20 Dose: 5 mg Morphine Sulfate (Morphine) 2 mg IVP Q2H PRN PRN Reason: Pain, moderate (4-7) Last Admin: 08/12/18 21:03 Dose: 2 mg Ondansetron HCl (Zofran Inj) 4 mg IVP Q4H PRN PRN Reason: Nausea/Vomiting Last Admin: 08/09/18 01:59 Dose: 4 mg Pantoprazole Sodium (Protonix Inj) 40 mg IVP DAILY [facility] Last Admin: 08/12/18 15:48 Dose: 40 mg Polyethylene Glycol (Miralax) 17 gm PO DAILY [facility] Last Admin: 08/12/18 09:52 Dose: Not Given Potassium Chloride (K-Dur 20 Meq Er Tab) 20 meq PO BRK [facility] Last Admin: 08/11/18 08:04 Dose: Not Given Sotalol HCl (Betapace) 80 mg PO BID [facility] Last Admin: 08/10/18 17:05 Dose: 80 mg Physical Exam - Constitutional Appears: Cachectic, Chronically Ill - Eye Exam Pupil Exam: Fixed - ENT Exam ENT Exam: Mucous Membranes Moist - Respiratory Exam Respiratory Exam: Decreased Breath Sounds, Rhonchi - Cardiovascular Exam Cardiovascular Exam: Irregular Rhythm, +S1, +S2 - GI/Abdominal Exam GI & Abdominal Exam: Hypoactive Bowel Sounds, Soft - Skin Skin Exam: Dry, Pallor - Additional Findings Additional findings: palliative performance scale rating 10% Results - Vital Signs Recent Vital Signs: Last Vital Signs Temp 98.6 F 08/13/18 04:00 Pulse 87 08/13/18 07:55 Resp 22 08/13/18 04:34 BP 110/73 08/13/18 04:34 Pulse Ox 99 08/13/18 04:34 - Labs Result Diagrams: 08/13/18 06:00 08/13/18 06:00 Labs: Laboratory Results - last 24 hr 08/12/18 08/12/18 08/13/18 16:00 17:00 06:00 WBC 19.1 H RBC 3.36 L Hgb 10.6 L Hct 34.8 L MCV 103.6 D MCH 31.5 MCHC 30.5 L RDW 19.0 H Plt Count 192 MPV 9.9 Neut % (Auto) 85.5 H Lymph % (Auto) 5.0 L [place] % (Auto) 9.3 H Eos % (Auto) 0.0 L Baso % (Auto) 0.2 Lymph # (Auto) 1.0 L [place] # (Auto) 1.8 H Eos # (Auto) 0.0 Baso # (Auto) 0.03 Absolute Neuts (auto) 16.38 H Neutrophils % (Manual) 89 H Band Neutrophils % 1 Lymphocytes % (Manual) 5 L Monocytes % (Manual) 5 Nucleated RBC % 2 Platelet Evaluation Normal Polychromasia 1+ Anisocytosis (manual) 1+ Macrocytosis (manual) 1+ PT 19.3 H INR 1.74 Sodium Potassium Chloride Carbon Dioxide Anion Gap BUN Creatinine Est GFR ( Amer) Est GFR (Non-Af Amer) Random Glucose Calcium Total Bilirubin AST ALT Alkaline Phosphatase Total Protein Albumin Globulin Albumin/Globulin Ratio Urine Color Yellow Urine Appearance Clear Urine pH 7.0 Ur Specific Bailey 1.015 Urine Protein Negative Urine Glucose (UA) Negative Urine Ketones Negative Urine Blood Negative Urine Nitrate Negative Urine Bilirubin Negative Urine Urobilinogen 0.2 Ur Leukocyte Esterase Negative 08/13/18 06:00 WBC RBC Hgb Hct MCV MCH MCHC RDW Plt Count MPV Neut % (Auto) Lymph % (Auto) [place] % (Auto) Eos % (Auto) Baso % (Auto) Lymph # (Auto) [place] # (Auto) Eos # (Auto) Baso # (Auto) Absolute Neuts (auto) Neutrophils % (Manual) Band Neutrophils % Lymphocytes % (Manual) Monocytes % (Manual) Nucleated RBC % Platelet Evaluation Polychromasia Anisocytosis (manual) Macrocytosis (manual) PT INR Sodium 139 Potassium 3.8 Chloride 95 L Carbon Dioxide 40 H Anion Gap 8 L BUN 25 H Creatinine 0.5 L Est GFR ( Amer) > 60 Est GFR (Non-Af Amer) > 60 Random Glucose 218 H Calcium 7.8 L Total Bilirubin 1.0 AST 37 H ALT 15 Alkaline Phosphatase 260 H Total Protein 5.7 L Albumin 2.9 L Globulin 2.7 Albumin/Globulin Ratio 1.1 Urine Color Urine Appearance Urine pH Ur Specific Bailey Urine Protein Urine Glucose (UA) Urine Ketones Urine Blood Urine Nitrate Urine Bilirubin Urine Urobilinogen Ur Leukocyte Esterase Assessment & Plan - Assessment and Plan (Free Text) Assessment: 62 year old female with hnsity of A Fib,COPD,s NSCL cancer metastasis to bone, s/p XRT who was inailly admitted with nausea/consternation which was resolving. On 4/13 she became altered, L hemipligea > code stroke. She is DNR/DNI. On levophed, GCS-3. The patient and daughter at bedside. Family aware of patient' s medical history and understands she has suffered stroke. Daughter verbalized that she doesn't understand whats happening. awaiting MRI feels that there may be some "hope". It was explained that MRI could not be done because the patient was on BiPAP. I affirmed that the patient had serous underlying medical comorbidities and the likelihood of her surviving such significant brain injury was very poor. Husbands states he understands and is waiting for son to come before making any decision. Spiritual counseling offered, supervisor production called as requested by family Time spent with patent family in goals of care discussion, 30 minutes Plan: Goals of care and advance care planning Continue BipAp, nebulizers, Xopenex, Pulmicort, Soumedrol Continue Levophed, Cardizem, Lasix Continue Vancomycin, Cefepime
[2018-08-13] MEDS: Metoprolol 1 mg/ml Inj IVP PRN (11:36)
--- NOTE | 2018-08-13 13:14 | CP.PCM.PRO ---
Pronouncement of Note - Clinical Findings Physical Exam: No Response Verbal/Painful Stimuli, Absent Peripheral Puls es{Carotid & Femoral}, Absent Heart & Breath Sounds, No Pupillary Light Reflex, No Corneal Reflex, Pupils Fixed & Dilated, Absence of Vital Signs - Pronouncement Time Time of Pronouncement of : 13:00 - Notifications Pronouncement Notifications: Family Notified, At[place] Notified - [place] [id number]
--- NOTE | 2018-08-13 13:24 | PN ---
DATE: 08/13/2018 SUBJECTIVE: She is in the intensive care unit. She is on BiPAP. She is not alert. She has a plan for a MRI of the brain, has a chest x-ray and lab test pending. I believe the family wants to make the decision to terminally extubate her from the BiPAP. PHYSICAL EXAMINATION: VITAL SIGNS: She has a 98.6 temperature; 81 pulse; 82/50 blood pressure, 87/57 blood pressure; 13 respiratory rate; 99% O2 sat on BiPAP. HEENT: Head is atraumatic and normocephalic. HEART: Regular rate. LUNGS: Decreased breath sounds. Right almost no airway. Left okay. ABDOMEN: Soft. EXTREMITIES: No edema. MEDICATIONS: She is on lot of medications. Betapace, Cardizem, Digoxin, potassium, Lasix, norepinephrine, Lopressor, Lovenox, Maxipime IV, MiraLax, morphine, Protonix, Pulmicort, Solu-Medrol, vancomycin, Xopenex, Zofran. LABORATORY DATA: She has a 19.1 10.6 hemoglobin, 34.8 hematocrit with 192 platelets. She has a 139 sodium, potassium 3.8, BUN 25, creatinine 0.5, GFR is greater than 60, sugars 218, calcium 7.8, AST is 37, ALT 59, alk phos 260, total protein is 5.7. ASSESSMENT AND PLAN: She is in very critical condition. I think they need to stop the bilevel positive airway pressure and terminally let her go. She has end-stage 4 of lung cancer. We will see if they make their decision today. Garfield Lopez DO MTDD
--- NOTE | 2018-08-13 15:36 | PN ---
DATE: 08/13/2018 SUBJECTIVE: The patient is on a BIPAP. OBJECTIVE: VITAL SIGNS: Pulse oximetry of 70 on 100%, heart rate is in the 130-140 atrial fibrillation, blood pressure 100. NECK: Negative JVD. LUNGS: Decreased breath sounds. HEART: S1, S2. EXTREMITIES: Without edema. LABORATORY DATA: Hemoglobin is 10.9. White count is 19,000, BUN and creatinine unremarkable. IMPRESSION: 1. Respiratory failure. 2. Lung cancer. 3. Atrial fibrillation. 4. Severe chronic obstructive pulmonary disease. Given these findings, the patient is currently a DNR, as per the patient's wish as well as the family's wish the patient will not be placed on a ventilator. We will continue her on morphine to keep her comfortable. Her prognosis is grave. Brayan Jay MD
[2018-08-13 16:41] VITALS: BP 80/34; PULSE 30; RESP 7; O2SAT 60
[2018-08-13 17:29] VITALS: TEMP 98
--- NOTE | 2018-08-13 20:43 | CP.PCM.PN ---
Subjective - Date & Time of Evaluation Date of Evaluation: 08/13/18 Time of Evaluation: 06:00 - Subjective Subjective: Markus Wiley PGY2 Heme/Onc Progress Note for Dr. Welch Patient was seen and examined in bedside in AM in the ICU. Patient was not awake, or alert and was on pressors for BP control. Patient was DNR/DNI, family was bedside and baltazar of her guarded prognosis. Patient was unable to have MRI of the brain because of her status. It was relayed to them that from heme/onc point of view we would be following up as outpatient if patient was able to recover. Unable to obtain full ROS at the time due to patients status. Objective - Vital Signs/Intake and Output Vital Signs (last 24 hours): Temp Pulse Resp BP Pulse Ox 98 F 30 L 7 L 80/34 L 60 L 08/13/18 12:00 08/13/18 12:48 08/13/18 13:00 08/13/18 12:30 08/13/18 12:30 Intake and Output: 08/13/18 08/14/18 18:59 06:59 Intake Total 175 Balance 175 - Labs Labs: 08/13/18 06:00 08/13/18 06:00 PT 19.3 SECONDS (9.4-12.5) H 08/12/18 16:00 INR 1.74 08/12/18 16:00 APTT 24.1 Seconds (26.9-38.3) L 08/11/18 06:00 - Constitutional Appears: Toxic - Head Exam Head Exam: ATRAUMATIC, NORMAL INSPECTION, NORMOCEPHALIC - Eye Exam Eye Exam: PERRL - GI/Abdominal Exam GI & Abdominal Exam: Soft - Neurological Exam Neurological Exam: absent: Alert, Awake, Oriented x3 Assessment and Plan - Assessment and Plan (Free Text) Plan: R-sided lung adenocarcinoma -PET scan as outpatient if warranted -patient not awake, alert, unable to get MRI -further recs as per neuro -possible chemotherapy plan depending on PET scan -discussed with patients family at bedside about her guarded prognosis -patient DNR/DNI Later on the day, we were informed of the patients passing. Time of was 13:00.
== END 2018-08-13 13:00 | DRG 180 ==
LOC: ED 11:32 → ERH 13:20 → 2RSO 15:42 → ICU 08-11 06:46
PROVIDERS: ADMIT Family Medicine; ATTEND Family Medicine
PROC: 30233N1 Transfusion of Nonautologous Red Blood Cells into Peripheral Vein, Percutaneous Approach (ICD-10-PCS; 2018-08-08)
PROC: 0WP933Z Removal of Infusion Device from Right Pleural Cavity, Percutaneous Approach (ICD-10-PCS; 2018-08-09)
PROC: 5A09457 Assistance with Respiratory Ventilation, 24-96 Consecutive Hours, Continuous Positive Airway Pressure (ICD-10-PCS; principal; 2018-08-11)
DX: C34.91 Malignant neoplasm of unspecified part of right bronchus or lung (principal); J96.92 Respiratory failure, unspecified with hypercapnia; A41.9 Sepsis, unspecified organism; J18.9 Pneumonia, unspecified organism; I63.511 Cerebral infarction due to unspecified occlusion or stenosis of right middle cerebral artery; G93.40 Encephalopathy, unspecified; G81.94 Hemiplegia, unspecified affecting left nondominant side; C79.51 Secondary malignant neoplasm of bone; J91.0 Malignant pleural effusion; R64 Cachexia; Z68.1 Body mass index [BMI] 19.9 or less, adult; I48.0 Paroxysmal atrial fibrillation; J44.9 Chronic obstructive pulmonary disease, unspecified; K59.00 Constipation, unspecified; D63.8 Anemia in other chronic diseases classified elsewhere; M19.90 Unspecified osteoarthritis, unspecified site; K21.9 Gastro-esophageal reflux disease without esophagitis; R29.718 NIHSS score 18; R40.2430 Glasgow coma scale score 3-8, unspecified time; Z66 Do not resuscitate; Z87.891 Personal history of nicotine dependence; Z99.81 Dependence on supplemental oxygen; Z79.01 Long term (current) use of anticoagulants; Z74.01 Bed confinement status